=== PATIENT | female | born 1935 | race Caucasian/White ===

== ENCOUNTER → 2017-08-18 | Outpatient (REF) | payer MEDICARE ==
[2017-08-18 15:46] LABS: BASO # 0.1 10^3/uL (0.0-0.2); BASO % 0.6 % (0.0-1.0); EOS # 0.4 10^3/uL (0.0-0.50); EOS % 2.8 % (0.0-3.0); IMMATURE GRANULOCYTE % 0.8 % (0-0); LYMPH # 1.6 10^3/uL (1.5-4.5); LYMPH % 11.7 % (24.0-44.0); MEAN CORPUSCULAR HEMOGLOBIN 27.9 pg (27.0-33.0); MONO # 0.8 10^3/uL (0.0-0.8); MONO % 5.9 % (0.0-5.0); NEUTROPHILS # 10.7 10^3/uL (1.8-7.7); NEUTROPHILS % 78.2 % (36.0-66.0); PLATELET COUNT, AUTOMATED 756 10^3/uL (150-450); RED CELL DISTRIBUTION WIDTH 17.8 % (11.5-14.5); WHITE BLOOD COUNT 13.6 10^3/uL (4.0-10.0)
[2017-08-18 15:58] LABS: ALBUMIN/GLOBULIN RATIO 0.32 (1.00-1.93); BILIRUBIN,TOTAL 0.2 MG/DL (0.2-1.0); CALCIUM LEVEL 8.8 MG/DL (8.8-10.2); CREATININE FOR GFR 2.84 MG/DL (0.55-1.02); GLOMERULAR FILTRATION RATE 16.9 (>32); POTASSIUM SERUM 4.8 MEQ/L (3.5-5.1); TOTAL PROTEIN 8.2 GM/DL (6.4-8.2)
== END ==
LOC: M LAB REF 15:18
PROVIDERS: ATTEND Internal Medicine Infectious Disease
DX: T81.4XXD Infection following a procedure, subsequent encounter (principal)

== ENCOUNTER → 2017-08-25 | Outpatient (REF) | payer MEDICARE ==
[2017-08-25 18:28] LABS: BASO # 0.1 10^3/uL (0.0-0.2); BASO % 0.4 % (0.0-1.0); EOS # 0.3 10^3/uL (0.0-0.50); IMMATURE GRANULOCYTE # 0.1 10^3/uL (0-0); IMMATURE GRANULOCYTE % 0.5 % (0-0); LYMPH # 0.8 10^3/uL (1.5-4.5); LYMPH % 4.5 % (24.0-44.0); MEAN CORPUSCULAR HEMOGLOBIN 28.5 pg (27.0-33.0); MEAN CORPUSCULAR HGB CONC 30.3 g/dl (32.0-36.5); MEAN CORPUSCULAR VOLUME 93.9 fl (80.0-96.0); MONO # 1.3 10^3/uL (0.0-0.8); MONO % 7.9 % (0.0-5.0); NEUTROPHILS # 14.5 10^3/uL (1.8-7.7); NEUTROPHILS % 84.7 % (36.0-66.0); PLATELET COUNT, AUTOMATED 600 10^3/uL (150-450); RED CELL DISTRIBUTION WIDTH 17.3 % (11.5-14.5); WHITE BLOOD COUNT 17.1 10^3/uL (4.0-10.0)
[2017-08-25 18:45] LABS: ALBUMIN 2.2 GM/DL (3.2-5.2); ALBUMIN/GLOBULIN RATIO 0.34 (1.00-1.93); ALKALINE PHOSPHATASE 118 U/L (45-117); ALT/SGPT 29 U/L (12-78); ANION GAP 11 MEQ/L (8-16); AST/SGOT 27 U/L (7-37); BILIRUBIN,TOTAL 0.2 MG/DL (0.2-1.0); BLOOD UREA NITROGEN 74 MG/DL (7-18); CALCIUM LEVEL 9.1 MG/DL (8.8-10.2); CARBON DIOXIDE LEVEL 16 MEQ/L (21-32); CHLORIDE LEVEL 109 MEQ/L (98-107); CREATININE FOR GFR 2.78 MG/DL (0.55-1.02); GLOMERULAR FILTRATION RATE 17.4 (>32); GLUCOSE, FASTING 218 MG/DL (83-110); POTASSIUM SERUM 4.6 MEQ/L (3.5-5.1); SODIUM LEVEL 136 MEQ/L (136-145); TOTAL PROTEIN 8.6 GM/DL (6.4-8.2)
== END ==
LOC: M LAB REF 17:29
DX: T81.4XXD Infection following a procedure, subsequent encounter (principal)
CPT/HCPCS: 80053

== ENCOUNTER → 2017-08-27 | Outpatient (REF) | payer MEDICARE ==
[2017-08-28 15:25] LABS: CALCIUM OXALATE CRYSTALS SMALL
== END ==
LOC: M LAB REF 18:00
DX: D72.829 Elevated white blood cell count, unspecified (principal); N31.9 Neuromuscular dysfunction of bladder, unspecified
CPT/HCPCS: 81001

== ENCOUNTER → 2017-09-01 | Outpatient (REF) | payer MEDICARE ==
[2017-09-01 15:11] LABS: BASO # 0.1 10^3/uL (0.0-0.2); BASO % 0.4 % (0.0-1.0); EOS # 0.2 10^3/uL (0.0-0.50); EOS % 1.2 % (0.0-3.0); IMMATURE GRANULOCYTE # 0.2 10^3/uL (0-0); IMMATURE GRANULOCYTE % 1.4 % (0-0); LYMPH # 1.1 10^3/uL (1.5-4.5); LYMPH % 6.6 % (24.0-44.0); MEAN CORPUSCULAR HEMOGLOBIN 28.4 pg (27.0-33.0); MEAN CORPUSCULAR VOLUME 91.5 fl (80.0-96.0); MONO % 5.8 % (0.0-5.0); NEUTROPHILS # 14.3 10^3/uL (1.8-7.7); NEUTROPHILS % 84.6 % (36.0-66.0); PLATELET COUNT, AUTOMATED 544 10^3/uL (150-450); RED BLOOD COUNT 3.17 10^6/uL (4.00-5.40); RED CELL DISTRIBUTION WIDTH 17.2 % (11.5-14.5); WHITE BLOOD COUNT 16.9 10^3/uL (4.0-10.0)
[2017-09-01 15:33] LABS: ALBUMIN 1.9 GM/DL (3.2-5.2); ALBUMIN/GLOBULIN RATIO 0.31 (1.00-1.93); ALKALINE PHOSPHATASE 113 U/L (45-117); ALT/SGPT 27 U/L (12-78); ANION GAP 12 MEQ/L (8-16); AST/SGOT 16 U/L (7-37); BILIRUBIN,TOTAL 0.3 MG/DL (0.2-1.0); BLOOD UREA NITROGEN 78 MG/DL (7-18); CALCIUM LEVEL 9.1 MG/DL (8.8-10.2); CARBON DIOXIDE LEVEL 15 MEQ/L (21-32); CHLORIDE LEVEL 108 MEQ/L (98-107); GLOMERULAR FILTRATION RATE 15.3 (>32); GLUCOSE, FASTING 313 MG/DL (83-110); POTASSIUM SERUM 4.4 MEQ/L (3.5-5.1); SODIUM LEVEL 135 MEQ/L (136-145); TOTAL PROTEIN 8.1 GM/DL (6.4-8.2)
== END ==
LOC: M LAB REF 14:58
DX: Z51.81 Encounter for therapeutic drug level monitoring (principal); Z79.899 Other long term (current) drug therapy; T81.4XXD Infection following a procedure, subsequent encounter; Y83.8 Other surgical procedures as the cause of abnormal reaction of the patient, or of later complication, without mention of misadventure at the time of the procedure
CPT/HCPCS: 80053

== ENCOUNTER 2017-09-03 17:36 | Emergency (ER) | payer MEDICARE ==
[2017-09-03] MEDS ORDERED: SODIUM CHLORIDE 0.9% INJ 10 ML SYR IV (18:15)
[2017-09-03 18:46] LABS: APPEARANCE, URINE MANUAL TURBID (CLEAR); COLOR, URINE MANUAL YELLOW (YELLOW)
[2017-09-03 18:47] LABS: BILIRUBIN, URINE MANUAL NEGATIVE (NEGATIVE); BLOOD URINE MANUAL POSITIVE (NEGATIVE); GLUCOSE, URINE (UA) MANUAL NEGATIVE (NEGATIVE); KETONE, URINE MANUAL NEGATIVE (NEGATIVE); LEUKOCYTE ESTERASE, URINE MAN POSITIVE (NEGATIVE); MICROSCOPIC INDICATED? MAN YES (NO); NITRITE, URINE MANUAL POSITIVE (NEGATIVE); PROTEIN, URINE MANUAL 3+ mg/dL (NEGATIVE); UROBILINOGEN, URINE MANUAL NORMAL (NORMAL)
[2017-09-03 18:49] LABS: BASO # 0.1 10^3/uL (0.0-0.2); BASO % 0.3 % (0.0-1.0); EOS # 0.1 10^3/uL (0.0-0.50); EOS % 0.3 % (0.0-3.0); HEMATOCRIT 30.3 % (36.0-47.0); HEMOGLOBIN 9.3 g/dl (12.0-16.0); IMMATURE GRANULOCYTE # 0.2 10^3/uL (0-0); IMMATURE GRANULOCYTE % 1.3 % (0-0); LYMPH % 5.6 % (24.0-44.0); MEAN CORPUSCULAR HEMOGLOBIN 27.9 pg (27.0-33.0); MEAN CORPUSCULAR HGB CONC 30.7 g/dl (32.0-36.5); MONO # 1.3 10^3/uL (0.0-0.8); MONO % 6.9 % (0.0-5.0); NEUTROPHILS # 15.6 10^3/uL (1.8-7.7); NEUTROPHILS % 85.6 % (36.0-66.0); PLATELET COUNT, AUTOMATED 598 10^3/uL (150-450); RED BLOOD COUNT 3.33 10^6/uL (4.00-5.40); RED CELL DISTRIBUTION WIDTH 17.1 % (11.5-14.5); WHITE BLOOD COUNT 18.3 10^3/uL (4.0-10.0)
[2017-09-03 19:02] LABS: INR 1.17; PROTHROMBIN TIME 15.1 SECONDS (12.4-14.5)
[2017-09-03 19:03] LABS: PARTIAL THROMBOPLASTIN TIME 39.3 SECONDS (26.8-37.9)
[2017-09-03 19:04] LABS: BACTERIA, URINE LARGE AMOUNT; HYALINE CAST, URINE NONE SEEN /lpf (0-1); MICROSCOPIC EXAM PERFORMED; MUCUS, URINE SMALL AMOUNT (NEGATIVE); RBC, URINE TNTC /hpf (0-3); SQUAMOUS EPITHELIAL CELL URINE NONE SEEN /hpf (SMALL AMT)
[2017-09-03 19:14] LABS: ALKALINE PHOSPHATASE 103 U/L (45-117); ALT/SGPT 26 U/L (12-78); AMYLASE 88 U/L (25-115); AST/SGOT 18 U/L (7-37); BILIRUBIN,DIRECT < 0.1 MG/DL (0.0-0.2); BILIRUBIN,TOTAL 0.2 MG/DL (0.2-1.0); BLOOD UREA NITROGEN 85 MG/DL (7-18); CALCIUM LEVEL 9.1 MG/DL (8.8-10.2); CARBON DIOXIDE LEVEL 13 MEQ/L (21-32); CHLORIDE LEVEL 113 MEQ/L (98-107); CPK CREATINE PHOSPHOKINASE 15 U/L (26-192); CREATININE FOR GFR 3.13 MG/DL (0.55-1.02); GLUCOSE, FASTING 137 MG/DL (83-110); POTASSIUM SERUM 3.8 MEQ/L (3.5-5.1); SODIUM LEVEL 138 MEQ/L (136-145); TOTAL PROTEIN 9.1 GM/DL (6.4-8.2); TROPONIN I < 0.02 NG/ML (< 0.10)
[2017-09-03 19:17] LABS: MB/CK RELATIVE INDEX 6.66 (< OR =4)
[2017-09-03 19:21] LABS: VENOUS BASE EXCESS -15.4 (-2.0-2.0); VENOUS HCO3 10.8 MEQ/L (23.0-27.0); VENOUS O2 SATURATION 80.3 % (60.0-80.0); VENOUS PARTIAL PRESSURE CO2 27.1 mmHg (38.0-50.0); VENOUS PARTIAL PRESSURE O2 52.1 mmHg (30.0-50.0); VENOUS STANDARD HCO3 12.3 MEQ/L; VENOUS TOTAL CO2 11.7 MEQ/L (24.0-28.0)
[2017-09-03 19:39] LABS: ALBUMIN/GLOBULIN RATIO 0.28 (1.00-1.93); ANION GAP 12 MEQ/L (8-16)
[2017-09-03] MEDS: DILUENT IV (20:32)
[2017-09-03] MEDS: NS IV (20:32)
[2017-09-03] MEDS: diphenhydrAMINE INJ 50MG/ML VIAL (J1200) IV (21:21)
[2017-09-03] MEDS: IMIPENEM/CILASTATIN 500 MG in D5W MINI-BAG PLUS 100 ML IV (21:40)
[2017-09-03] MEDS: fentaNYL 100 MCG/2 ML INJECTION (J3010) IV (22:30)
== END 2017-09-04 00:05 | disposition short-term general hospital (02) ==
LOC: M ED 09-04 00:05
DX: A41.9 Sepsis, unspecified organism (principal); N39.0 Urinary tract infection, site not specified; R53.1 Weakness; E11.9 Type 2 diabetes mellitus without complications; I10 Essential (primary) hypertension; E07.9 Disorder of thyroid, unspecified; Z79.899 Other long term (current) drug therapy; Z79.4 Long term (current) use of insulin
CPT/HCPCS: J1200

== ENCOUNTER 2017-12-21 18:16 | Inpatient (IN) | payer MEDICARE ==
[2017-12-21] MEDS: ACETAMINOPHEN TAB 650MG DOSE (2X325MG) PO (20:06)
[2017-12-21] MEDS ORDERED: ONDANSETRON 4 MG TAB (S0181) PO (22:00)
[2017-12-21] MEDS ORDERED: GLUCAGON FOR INJ 1 MG VIAL (J1610) SC (22:00)
[2017-12-21] MEDS ORDERED: GLUCOSE 4 GM CHEW TABLET PO (22:00)
[2017-12-21] MEDS ORDERED: DEXTROSE 50% 50 ML SYRINGE IV (22:00)
[2017-12-21 22:50] LABS: BASO # 0.1 10^3/uL (0.0-0.2); BASO % 0.4 % (0.0-1.0); EOS # 0.3 10^3/uL (0.0-0.50); EOS % 1.6 % (0.0-3.0); HEMATOCRIT 33.1 % (36.0-47.0); HEMOGLOBIN 10.8 g/dl (12.0-15.5); IMMATURE GRANULOCYTE % 0.6 % (0-3.0); LYMPH # 1.3 10^3/uL (1.5-4.5); LYMPH % 6.9 % (24.0-44.0); MEAN CORPUSCULAR HEMOGLOBIN 30.3 pg (27.0-33.0); MEAN CORPUSCULAR HGB CONC 32.6 g/dl (32.0-36.5); MEAN CORPUSCULAR VOLUME 92.7 fl (80.0-96.0); MONO # 0.9 10^3/uL (0.0-0.8); NEUTROPHILS # 16.2 10^3/uL (1.8-7.7); NEUTROPHILS % 85.5 % (36.0-66.0); PLATELET COUNT, AUTOMATED 507 10^3/uL (150-450); RED BLOOD COUNT 3.57 10^6/uL (4.00-5.40); RED CELL DISTRIBUTION WIDTH 15.4 % (11.5-14.5)
[2017-12-21 23:12] LABS: APPEARANCE, URINE CLOUDY (CLEAR); BACTERIA, URINE AUTO NEGATIVE (NEGATIVE); BILIRUBIN, URINE AUTO NEGATIVE (NEGATIVE); BLOOD, URINE BLOOD 2+ (NEGATIVE); COLOR, URINE YELLOW (YELLOW); GLUCOSE, URINE (UA) AUTO NEGATIVE (NEGATIVE); KETONE, URINE AUTO NEGATIVE (NEGATIVE); LEUKOCYTE ESTERASE, URINE AUTO 3+ (NEGATIVE); NITRITE, URINE AUTO NEGATIVE (NEGATIVE); PROTEIN, URINE AUTO 1+ mg/dL (NEGATIVE); RBC, URINE AUTO 50 /HPF (0-3); SQUAMOUS EPITHELIAL CELL UR AU 0 /HPF (0-6); UROBILINOGEN, URINE AUTO 0.2 mg/dL (0.0-2.0); WBC, URINE AUTO TNTC /HPF (0-3)
[2017-12-21 23:14] LABS: ANION GAP 11 MEQ/L (8-16); BLOOD UREA NITROGEN 55 MG/DL (7-18); CALCIUM LEVEL 9.1 MG/DL (8.8-10.2); CARBON DIOXIDE LEVEL 16 MEQ/L (21-32); CHLORIDE LEVEL 116 MEQ/L (98-107); CREATININE FOR GFR 2.14 MG/DL (0.55-1.30); GLOMERULAR FILTRATION RATE 23.5 (>32); GLUCOSE, FASTING 164 MG/DL (70-100); POTASSIUM SERUM 4.8 MEQ/L (3.5-5.1); SODIUM LEVEL 143 MEQ/L (136-145)
[2017-12-21 23:21] LABS: INR 1.08; PROTHROMBIN TIME 14.2 SECONDS (12.4-14.5)
[2017-12-21 23:22] LABS: PARTIAL THROMBOPLASTIN TIME 29.6 SECONDS (26.8-37.9)
[2017-12-21] MEDS: PERCOCET 5MG/325MG TAB PO (23:30)
[2017-12-21] MEDS: BACTRIM 80MG/400MG TAB PO (23:30)
[2017-12-21] MEDS: HumaLOG INSULIN (NovoLOG) PER UNIT SC (23:50)
[2017-12-22] MEDS: LACTOBACILLUS ACIDOPHILUS CAP (BACID) PO ×3 (00:28→21:00)
[2017-12-22] MEDS: NS 1,000 ML IV ×2 (00:28→13:20)
[2017-12-22] MEDS: ACETAMINOPHEN TAB 650MG DOSE (2X325MG) PO (00:28)
[2017-12-22] MEDS: ATENOLOL 25 MG TAB PO ×2 (00:29→21:01)
[2017-12-22] MEDS: LEVEMIR (INSULIN DETEMIR) 1 UNITS/0.01ML SC ×2 (00:34→20:59)
[2017-12-22] MEDS: NYSTATIN 100,000 UNITS/GM TOPICAL PWD 15 GM TOP ×3 (01:01→21:00)
[2017-12-22] MEDS: LEVOTHYROXINE 50MCG TABLET (0.05MG) PO (05:09)
[2017-12-22 07:57] LABS: HEMATOCRIT 31.9 % (36.0-47.0); HEMOGLOBIN 10.2 g/dl (12.0-15.5); MEAN CORPUSCULAR HEMOGLOBIN 29.4 pg (27.0-33.0); MEAN CORPUSCULAR VOLUME 91.9 fl (80.0-96.0); PLATELET COUNT, AUTOMATED 476 10^3/uL (150-450); RED BLOOD COUNT 3.47 10^6/uL (4.00-5.40); RED CELL DISTRIBUTION WIDTH 15.4 % (11.5-14.5); WHITE BLOOD COUNT 12.9 10^3/uL (4.0-10.0)
[2017-12-22 08:07] LABS: INR 1.13; PROTHROMBIN TIME 14.7 SECONDS (12.4-14.5)
[2017-12-22] MEDS: FERROUS SULFATE 325MG TAB PO (08:15)
[2017-12-22] MEDS: MULTIVITAMINS/MINERALS THERAP 1 TAB PO (08:15)
[2017-12-22] MEDS: ATORVASTATIN 20 MG TAB PO (08:16)
[2017-12-22] MEDS: BACTRIM 80MG/400MG TAB PO (08:16)
[2017-12-22] MEDS: FUROSEMIDE 20 MG TAB PO (08:16)
[2017-12-22] MEDS: POTASSIUM CHLORIDE 10 MEQ SR TABLET PO (08:16)
[2017-12-22] MEDS: PANTOPRAZOLE 20 MG TAB PO (08:16)
[2017-12-22] MEDS: PERCOCET 5MG/325MG TAB PO ×3 (08:22→21:00)
[2017-12-22 08:28] LABS: ALBUMIN 2.7 GM/DL (3.2-5.2); ALBUMIN/GLOBULIN RATIO 0.52 (1.00-1.93); ALKALINE PHOSPHATASE 102 U/L (45-117); ALT/SGPT 25 U/L (12-78); ANION GAP 7 MEQ/L (8-16); AST/SGOT 15 U/L (7-37); BILIRUBIN,TOTAL 0.2 MG/DL (0.2-1.0); BLOOD UREA NITROGEN 53 MG/DL (7-18); CALCIUM LEVEL 8.6 MG/DL (8.8-10.2); CARBON DIOXIDE LEVEL 19 MEQ/L (21-32); CHLORIDE LEVEL 117 MEQ/L (98-107); GLOMERULAR FILTRATION RATE 22.7 (>32); GLUCOSE, FASTING 104 MG/DL (70-100); MAGNESIUM LEVEL 2.2 MG/DL (1.8-2.4); POTASSIUM SERUM 4.2 MEQ/L (3.5-5.1); SODIUM LEVEL 143 MEQ/L (136-145); TOTAL PROTEIN 7.9 GM/DL (6.4-8.2)
[2017-12-22] MEDS: HumaLOG INSULIN (NovoLOG) PER UNIT SC ×4 (08:37→20:59)
[2017-12-22 12:05] LABS: BEDSIDE GLUCOSE 116 MG/DL (83-110)
[2017-12-22] MEDS: ASPIRIN 81 MG ENTERIC TAB PO (14:39)
[2017-12-22 17:21] LABS: BEDSIDE GLUCOSE 142 MG/DL (83-110)
[2017-12-22 20:51] LABS: BEDSIDE GLUCOSE 169 MG/DL (83-110)
[2017-12-22] MEDS: HEPARIN SOD (PORCINE) 5000 UNITS/ML VIAL SQ (21:01)
[2017-12-23] MEDS: PERCOCET 5MG/325MG TAB PO ×3 (04:07→21:05)
[2017-12-23] MEDS: LEVOTHYROXINE 50MCG TABLET (0.05MG) PO (05:59)
[2017-12-23 06:38] LABS: HEMATOCRIT 29.6 % (36.0-47.0); HEMOGLOBIN 9.5 g/dl (12.0-15.5); MEAN CORPUSCULAR HEMOGLOBIN 29.5 pg (27.0-33.0); MEAN CORPUSCULAR HGB CONC 32.1 g/dl (32.0-36.5); MEAN CORPUSCULAR VOLUME 91.9 fl (80.0-96.0); PLATELET COUNT, AUTOMATED 466 10^3/uL (150-450); RED BLOOD COUNT 3.22 10^6/uL (4.00-5.40); RED CELL DISTRIBUTION WIDTH 15.8 % (11.5-14.5); WHITE BLOOD COUNT 12.8 10^3/uL (4.0-10.0)
[2017-12-23 06:48] LABS: INR 1.08; PROTHROMBIN TIME 14.2 SECONDS (12.4-14.5)
[2017-12-23 07:00] LABS: ALBUMIN 2.4 GM/DL (3.2-5.2); ALBUMIN/GLOBULIN RATIO 0.49 (1.00-1.93); ALKALINE PHOSPHATASE 83 U/L (45-117); ALT/SGPT 23 U/L (12-78); ANION GAP 10 MEQ/L (8-16); AST/SGOT 13 U/L (7-37); BILIRUBIN,TOTAL 0.1 MG/DL (0.2-1.0); BLOOD UREA NITROGEN 53 MG/DL (7-18); CALCIUM LEVEL 8.3 MG/DL (8.8-10.2); CARBON DIOXIDE LEVEL 15 MEQ/L (21-32); CHLORIDE LEVEL 119 MEQ/L (98-107); CREATININE FOR GFR 2.26 MG/DL (0.55-1.30); GLOMERULAR FILTRATION RATE 22.1 (>32); GLUCOSE, FASTING 110 MG/DL (70-100); MAGNESIUM LEVEL 2.3 MG/DL (1.8-2.4); POTASSIUM SERUM 4.1 MEQ/L (3.5-5.1); SODIUM LEVEL 144 MEQ/L (136-145); TOTAL PROTEIN 7.3 GM/DL (6.4-8.2)
[2017-12-23] MEDS: HumaLOG INSULIN (NovoLOG) PER UNIT SC ×4 (09:56→21:00)
[2017-12-23] MEDS: ASPIRIN 81 MG ENTERIC TAB PO (09:56)
[2017-12-23] MEDS: LACTOBACILLUS ACIDOPHILUS CAP (BACID) PO ×2 (09:56→21:05)
[2017-12-23] MEDS: MULTIVITAMINS/MINERALS THERAP 1 TAB PO (09:57)
[2017-12-23] MEDS: PANTOPRAZOLE 20 MG TAB PO (09:57)
[2017-12-23] MEDS: FERROUS SULFATE 325MG TAB PO (09:57)
[2017-12-23] MEDS: ATORVASTATIN 20 MG TAB PO (09:57)
[2017-12-23] MEDS: POTASSIUM CHLORIDE 10 MEQ SR TABLET PO (09:57)
[2017-12-23] MEDS: HEPARIN SOD (PORCINE) 5000 UNITS/ML VIAL SQ ×2 (09:58→21:05)
[2017-12-23] MEDS: NYSTATIN 100,000 UNITS/GM TOPICAL PWD 15 GM TOP ×2 (09:59→21:00)
[2017-12-23 11:41] LABS: BEDSIDE GLUCOSE 180 MG/DL (83-110)
[2017-12-23] MEDS: VANCOMYCIN HCL 1,000 MG, VIAL MATE ADAPTER 1 EACH in D5W 250 ML IV (14:36)
[2017-12-23] MEDS: MEROPENEM INJ 500 MG in APPROPRIATE DILUENT 1 EA IV (16:08)
[2017-12-23 17:20] LABS: BEDSIDE GLUCOSE 84 MG/DL (83-110)
[2017-12-23 20:53] LABS: BEDSIDE GLUCOSE 207 MG/DL (83-110)
[2017-12-23] MEDS: LEVEMIR (INSULIN DETEMIR) 1 UNITS/0.01ML SC (21:05)
[2017-12-23] MEDS: ATENOLOL 25 MG TAB PO (21:06)
[2017-12-24] MEDS: MEROPENEM INJ 500 MG in APPROPRIATE DILUENT 1 EA IV ×2 (04:49→16:25)
[2017-12-24] MEDS: LEVOTHYROXINE 50MCG TABLET (0.05MG) PO (05:22)
[2017-12-24 06:04] LABS: HEMATOCRIT 29.6 % (36.0-47.0); HEMOGLOBIN 9.3 g/dl (12.0-15.5); MEAN CORPUSCULAR HEMOGLOBIN 29.8 pg (27.0-33.0); MEAN CORPUSCULAR HGB CONC 31.4 g/dl (32.0-36.5); MEAN CORPUSCULAR VOLUME 94.9 fl (80.0-96.0); PLATELET COUNT, AUTOMATED 443 10^3/uL (150-450); RED BLOOD COUNT 3.12 10^6/uL (4.00-5.40); RED CELL DISTRIBUTION WIDTH 15.9 % (11.5-14.5); WHITE BLOOD COUNT 12.1 10^3/uL (4.0-10.0)
[2017-12-24 06:19] LABS: INR 2.25; PROTHROMBIN TIME 25.7 SECONDS (12.4-14.5)
[2017-12-24 06:42] LABS: ALBUMIN 2.3 GM/DL (3.2-5.2); ALBUMIN/GLOBULIN RATIO 0.48 (1.00-1.93); ALKALINE PHOSPHATASE 89 U/L (45-117); ALT/SGPT 21 U/L (12-78); ANION GAP 10 MEQ/L (8-16); AST/SGOT 17 U/L (7-37); BILIRUBIN,TOTAL 0.2 MG/DL (0.2-1.0); BLOOD UREA NITROGEN 54 MG/DL (7-18); CALCIUM LEVEL 8.7 MG/DL (8.8-10.2); CARBON DIOXIDE LEVEL 13 MEQ/L (21-32); CHLORIDE LEVEL 117 MEQ/L (98-107); CREATININE FOR GFR 2.21 MG/DL (0.55-1.30); GLOMERULAR FILTRATION RATE 22.6 (>32); GLUCOSE, FASTING 94 MG/DL (70-100); MAGNESIUM LEVEL 2.3 MG/DL (1.8-2.4); POTASSIUM SERUM 4.2 MEQ/L (3.5-5.1); SODIUM LEVEL 140 MEQ/L (136-145); TOTAL PROTEIN 7.1 GM/DL (6.4-8.2)
[2017-12-24] MEDS: HEPARIN SOD (PORCINE) 5000 UNITS/ML VIAL SQ ×2 (08:18→21:45)
[2017-12-24] MEDS: VANCOMYCIN HCL 500 MG in D5W MINI-BAG PLUS 100 ML IV (08:18)
[2017-12-24] MEDS: PANTOPRAZOLE 20 MG TAB PO (08:18)
[2017-12-24] MEDS: MULTIVITAMINS/MINERALS THERAP 1 TAB PO (08:18)
[2017-12-24] MEDS: LACTOBACILLUS ACIDOPHILUS CAP (BACID) PO ×2 (08:19→21:44)
[2017-12-24] MEDS: POTASSIUM CHLORIDE 10 MEQ SR TABLET PO (08:19)
[2017-12-24] MEDS: ASPIRIN 81 MG ENTERIC TAB PO (08:19)
[2017-12-24] MEDS: ATORVASTATIN 20 MG TAB PO (08:19)
[2017-12-24] MEDS: FERROUS SULFATE 325MG TAB PO (08:19)
[2017-12-24] MEDS: NYSTATIN 100,000 UNITS/GM TOPICAL PWD 15 GM TOP ×2 (08:20→21:46)
[2017-12-24] MEDS: HumaLOG INSULIN (NovoLOG) PER UNIT SC ×4 (08:20→21:00)
[2017-12-24] MEDS: ACETAMINOPHEN TAB 650MG DOSE (2X325MG) PO (08:24)
[2017-12-24 12:30] LABS: BEDSIDE GLUCOSE 201 MG/DL (83-110)
[2017-12-24 12:55] LABS: INR 1.11; PROTHROMBIN TIME 14.5 SECONDS (12.4-14.5)
[2017-12-24] MEDS: PERCOCET 5MG/325MG TAB PO ×2 (13:58→21:45)
[2017-12-24 17:39] LABS: BEDSIDE GLUCOSE 182 MG/DL (83-110)
[2017-12-24] MEDS: LEVEMIR (INSULIN DETEMIR) 1 UNITS/0.01ML SC (21:00)
[2017-12-24 21:12] LABS: BEDSIDE GLUCOSE 228 MG/DL (83-110)
[2017-12-24] MEDS: ATENOLOL 25 MG TAB PO (21:44)
[2017-12-25] MEDS: VANCOMYCIN HCL 500 MG in D5W MINI-BAG PLUS 100 ML IV ×2 (01:45→21:24)
[2017-12-25] MEDS: PERCOCET 5MG/325MG TAB PO ×2 (01:46→08:56)
[2017-12-25] MEDS: MEROPENEM INJ 500 MG in APPROPRIATE DILUENT 1 EA IV ×2 (03:46→16:19)
[2017-12-25] MEDS: LEVOTHYROXINE 50MCG TABLET (0.05MG) PO (06:04)
[2017-12-25 06:25] LABS: HEMOGLOBIN 9.2 g/dl (12.0-15.5); MEAN CORPUSCULAR HEMOGLOBIN 29.7 pg (27.0-33.0); MEAN CORPUSCULAR HGB CONC 31.7 g/dl (32.0-36.5); MEAN CORPUSCULAR VOLUME 93.5 fl (80.0-96.0); PLATELET COUNT, AUTOMATED 422 10^3/uL (150-450); RED CELL DISTRIBUTION WIDTH 15.8 % (11.5-14.5); WHITE BLOOD COUNT 15.2 10^3/uL (4.0-10.0)
[2017-12-25 06:34] LABS: INR 1.14; PROTHROMBIN TIME 14.8 SECONDS (12.4-14.5)
[2017-12-25 06:52] LABS: ALBUMIN 2.3 GM/DL (3.2-5.2); ALBUMIN/GLOBULIN RATIO 0.47 (1.00-1.93); ALKALINE PHOSPHATASE 85 U/L (45-117); ALT/SGPT 19 U/L (12-78); ANION GAP 9 MEQ/L (8-16); AST/SGOT 13 U/L (7-37); BILIRUBIN,TOTAL 0.3 MG/DL (0.2-1.0); BLOOD UREA NITROGEN 55 MG/DL (7-18); CALCIUM LEVEL 8.7 MG/DL (8.8-10.2); CARBON DIOXIDE LEVEL 16 MEQ/L (21-32); CHLORIDE LEVEL 119 MEQ/L (98-107); CREATININE FOR GFR 1.94 MG/DL (0.55-1.30); GLOMERULAR FILTRATION RATE 26.3 (>32); GLUCOSE, FASTING 126 MG/DL (70-100); MAGNESIUM LEVEL 2.2 MG/DL (1.8-2.4); POTASSIUM SERUM 3.9 MEQ/L (3.5-5.1); SODIUM LEVEL 144 MEQ/L (136-145); TOTAL PROTEIN 7.2 GM/DL (6.4-8.2)
[2017-12-25] MEDS: HumaLOG INSULIN (NovoLOG) PER UNIT SC ×4 (07:30→21:00)
[2017-12-25] MEDS: ATORVASTATIN 20 MG TAB PO (08:50)
[2017-12-25] MEDS: POTASSIUM CHLORIDE 10 MEQ SR TABLET PO (08:50)
[2017-12-25] MEDS: LACTOBACILLUS ACIDOPHILUS CAP (BACID) PO ×2 (08:50→21:24)
[2017-12-25] MEDS: FERROUS SULFATE 325MG TAB PO (08:50)
[2017-12-25] MEDS: MULTIVITAMINS/MINERALS THERAP 1 TAB PO (08:50)
[2017-12-25] MEDS: PANTOPRAZOLE 20 MG TAB PO (08:50)
[2017-12-25] MEDS: ASPIRIN 81 MG ENTERIC TAB PO (08:50)
[2017-12-25] MEDS: HEPARIN SOD (PORCINE) 5000 UNITS/ML VIAL SQ ×2 (08:51→21:26)
[2017-12-25] MEDS: NYSTATIN 100,000 UNITS/GM TOPICAL PWD 15 GM TOP ×2 (08:51→21:26)
[2017-12-25 12:13] LABS: BEDSIDE GLUCOSE 132 MG/DL (83-110)
[2017-12-25] MEDS ORDERED: fentaNYL 100 MCG/2 ML INJECTION (J3010) As Ordered ×2 (14:52→16:32)
[2017-12-25] MEDS ORDERED: ETOMIDATE INJ 20MG/10ML VIAL As Ordered (14:52)
[2017-12-25] MEDS ORDERED: PROPOFOL 200 MG/20 ML VIAL As Ordered (14:52)
[2017-12-25] MEDS ORDERED: LIDOCAINE 2% INJ 100 MG/5 ML SDV (FOR ANES.) As Ordered (14:52)
[2017-12-25] MEDS ORDERED: ROCURONIUM BROMIDE 50 MG/5 ML VIAL As Ordered (14:56)
[2017-12-25] MEDS: CLINDAMYCIN INJ 900MG/6ML VIAL As Ordered (16:00)
[2017-12-25] MEDS: TRANEXAMIC ACID 100 MG/ML 10ML VIAL As Ordered (16:00)
[2017-12-25] MEDS: EPINEPHrine INJ 1 MG/ML 1ML AMP As Ordered (16:00)
[2017-12-25] MEDS ORDERED: HYDROmorphone HCL 2 MG/ML 1ML VIAL (J1170) As Ordered (16:02)
[2017-12-25] MEDS ORDERED: GLYCOPYRROLATE INJ 0.2 MG/ML 2 ML VIAL As Ordered (16:21)
[2017-12-25] MEDS ORDERED: ePHEDrine SULFATE 25 MG/5 ML(5MG/ML) SYRINGE As Ordered (16:21)
[2017-12-25] MEDS ORDERED: ONDANSETRON 4MG/2ML VIAL (J2405) As Ordered (16:21)
[2017-12-25] MEDS ORDERED: NEOSTIGMINE 10 MG/10 ML VIAL (J2710) As Ordered (16:21)
[2017-12-25] MEDS ORDERED: dexameTHASONE 4 MG/ML 1ML VIAL (J1100) As Ordered (16:21)
[2017-12-25] MEDS ORDERED: PHENYLephrine HCL 500 MCG/5 ML (100MCG/ML) SYRINGE (J2370) As Ordered ×2 (16:21→16:53)
[2017-12-25] MEDS ORDERED: ONDANSETRON 4MG/2ML VIAL (J2405) IV (18:15)
[2017-12-25] MEDS ORDERED: HYDROmorphone HCL 1 MG/ML SYRINGE (J1170) IV (18:15)
[2017-12-25] MEDS ORDERED: fentaNYL 100 MCG/2 ML INJECTION (J3010) IV (18:15)
[2017-12-25 20:03] LABS: VANCOMYCIN LEVEL TROUGH 15.1 UG/ML (10.0-20.0)
[2017-12-25 21:10] LABS: BEDSIDE GLUCOSE 171 MG/DL (83-110)
[2017-12-25] MEDS: LR 1,000 ML IV (21:23)
[2017-12-25] MEDS: ATENOLOL 25 MG TAB PO (21:25)
[2017-12-25] MEDS: LEVEMIR (INSULIN DETEMIR) 1 UNITS/0.01ML SC (21:25)
[2017-12-25] MEDS: ACETAMINOPHEN TAB 650MG DOSE (2X325MG) PO (22:28)
[2017-12-26] MEDS: PERCOCET 5MG/325MG TAB PO ×5 (00:47→20:39)
[2017-12-26] MEDS: MEROPENEM INJ 500 MG in APPROPRIATE DILUENT 1 EA IV ×2 (04:00→16:48)
[2017-12-26 05:07] LABS: HEMATOCRIT 31.9 % (36.0-47.0); HEMOGLOBIN 9.9 g/dl (12.0-15.5); MEAN CORPUSCULAR HEMOGLOBIN 29.6 pg (27.0-33.0); MEAN CORPUSCULAR VOLUME 95.2 fl (80.0-96.0); PLATELET COUNT, AUTOMATED 449 10^3/uL (150-450); RED BLOOD COUNT 3.35 10^6/uL (4.00-5.40); RED CELL DISTRIBUTION WIDTH 15.8 % (11.5-14.5); WHITE BLOOD COUNT 16.7 10^3/uL (4.0-10.0)
[2017-12-26 05:17] LABS: INR 1.25
[2017-12-26 05:24] LABS: ALBUMIN 2.3 GM/DL (3.2-5.2); ALBUMIN/GLOBULIN RATIO 0.43 (1.00-1.93); ALKALINE PHOSPHATASE 72 U/L (45-117); ALT/SGPT 17 U/L (12-78); ANION GAP 9 MEQ/L (8-16); AST/SGOT 18 U/L (7-37); BILIRUBIN,TOTAL 0.2 MG/DL (0.2-1.0); BLOOD UREA NITROGEN 54 MG/DL (7-18); CALCIUM LEVEL 8.8 MG/DL (8.8-10.2); CARBON DIOXIDE LEVEL 15 MEQ/L (21-32); CHLORIDE LEVEL 119 MEQ/L (98-107); CREATININE FOR GFR 2.01 MG/DL (0.55-1.30); GLOMERULAR FILTRATION RATE 25.2 (>32); GLUCOSE, FASTING 153 MG/DL (70-100); MAGNESIUM LEVEL 2.4 MG/DL (1.8-2.4); SODIUM LEVEL 143 MEQ/L (136-145); TOTAL PROTEIN 7.7 GM/DL (6.4-8.2)
[2017-12-26] MEDS: LEVOTHYROXINE 50MCG TABLET (0.05MG) PO (05:55)
[2017-12-26] MEDS: HumaLOG INSULIN (NovoLOG) PER UNIT SC ×4 (07:37→20:12)
[2017-12-26] MEDS: FERROUS SULFATE 325MG TAB PO (09:30)
[2017-12-26] MEDS: HEPARIN SOD (PORCINE) 5000 UNITS/ML VIAL SQ ×2 (09:30→20:40)
[2017-12-26] MEDS: LACTOBACILLUS ACIDOPHILUS CAP (BACID) PO ×2 (09:30→20:39)
[2017-12-26] MEDS: ATORVASTATIN 20 MG TAB PO (09:30)
[2017-12-26] MEDS: SENOKOT S TAB PO ×2 (09:30→20:39)
[2017-12-26] MEDS: MULTIVITAMINS/MINERALS THERAP 1 TAB PO (09:30)
[2017-12-26] MEDS: ASPIRIN 81 MG ENTERIC TAB PO (09:31)
[2017-12-26] MEDS: MIRALAX *UNIT DOSE* 17GM PACKET PO (09:31)
[2017-12-26] MEDS: PANTOPRAZOLE 20 MG TAB PO (09:31)
[2017-12-26] MEDS: NYSTATIN 100,000 UNITS/GM TOPICAL PWD 15 GM TOP ×2 (09:31→20:41)
[2017-12-26 11:26] LABS: BEDSIDE GLUCOSE 190 MG/DL (83-110)
[2017-12-26 13:09] LABS: ANION GAP 9 MEQ/L (8-16); BLOOD UREA NITROGEN 60 MG/DL (7-18); CALCIUM LEVEL 9.1 MG/DL (8.8-10.2); CARBON DIOXIDE LEVEL 18 MEQ/L (21-32); CHLORIDE LEVEL 116 MEQ/L (98-107); GLUCOSE, FASTING 182 MG/DL (70-100); SODIUM LEVEL 143 MEQ/L (136-145)
[2017-12-26 13:11] LABS: POTASSIUM SERUM 5.5 MEQ/L (3.5-5.1)
[2017-12-26] MEDS: VANCOMYCIN HCL 500 MG in D5W MINI-BAG PLUS 100 ML IV (13:55)
[2017-12-26] MEDS: SODIUM BICARBONATE 75 MEQ in NS 0.45% 1,000 ML IV (16:22)
[2017-12-26] MEDS: WARFARIN SOD 5 MG TAB PO (16:48)
[2017-12-26 20:07] LABS: BEDSIDE GLUCOSE 175 MG/DL (83-110)
[2017-12-26] MEDS: ATENOLOL 25 MG TAB PO (20:40)
[2017-12-26] MEDS: LEVEMIR (INSULIN DETEMIR) 1 UNITS/0.01ML SC (20:40)
[2017-12-27] MEDS: PERCOCET 5MG/325MG TAB PO (03:26)
[2017-12-27] MEDS: MEROPENEM INJ 500 MG in APPROPRIATE DILUENT 1 EA IV (03:27)
[2017-12-27 05:24] LABS: HEMATOCRIT 24.3 % (36.0-47.0); MEAN CORPUSCULAR HEMOGLOBIN 30.1 pg (27.0-33.0); MEAN CORPUSCULAR HGB CONC 32.9 g/dl (32.0-36.5); MEAN CORPUSCULAR VOLUME 91.4 fl (80.0-96.0); PLATELET COUNT, AUTOMATED 369 10^3/uL (150-450); RED BLOOD COUNT 2.66 10^6/uL (4.00-5.40); RED CELL DISTRIBUTION WIDTH 15.8 % (11.5-14.5); WHITE BLOOD COUNT 15.8 10^3/uL (4.0-10.0)
[2017-12-27 05:34] LABS: PROTHROMBIN TIME 17.5 SECONDS (12.4-14.5)
[2017-12-27 05:49] LABS: ALBUMIN 1.7 GM/DL (3.2-5.2); ALKALINE PHOSPHATASE 58 U/L (45-117); ALT/SGPT 10 U/L (12-78); ANION GAP 8 MEQ/L (8-16); AST/SGOT 10 U/L (7-37); BILIRUBIN,TOTAL 0.2 MG/DL (0.2-1.0); BLOOD UREA NITROGEN 48 MG/DL (7-18); CALCIUM LEVEL 7.3 MG/DL (8.8-10.2); CARBON DIOXIDE LEVEL 23 MEQ/L (21-32); CHLORIDE LEVEL 112 MEQ/L (98-107); CREATININE FOR GFR 1.47 MG/DL (0.55-1.30); GLOMERULAR FILTRATION RATE 36.2 (>32); GLUCOSE, FASTING 116 MG/DL (70-100); MAGNESIUM LEVEL 2.1 MG/DL (1.8-2.4); POTASSIUM SERUM 3.8 MEQ/L (3.5-5.1); SODIUM LEVEL 143 MEQ/L (136-145)
[2017-12-27] MEDS: LEVOTHYROXINE 50MCG TABLET (0.05MG) PO (06:11)
[2017-12-27] MEDS: SODIUM BICARBONATE 75 MEQ in NS 0.45% 1,000 ML IV (06:44)
[2017-12-27] MEDS: HumaLOG INSULIN (NovoLOG) PER UNIT SC ×4 (08:54→21:00)
[2017-12-27] MEDS: LACTOBACILLUS ACIDOPHILUS CAP (BACID) PO ×2 (08:54→21:08)
[2017-12-27] MEDS: VANCOMYCIN HCL 500 MG in D5W MINI-BAG PLUS 100 ML IV (08:54)
[2017-12-27] MEDS: ASPIRIN 81 MG ENTERIC TAB PO (08:54)
[2017-12-27] MEDS: SENOKOT S TAB PO ×2 (08:55→21:08)
[2017-12-27] MEDS: PANTOPRAZOLE 20 MG TAB PO (08:55)
[2017-12-27] MEDS: MIRALAX *UNIT DOSE* 17GM PACKET PO (08:55)
[2017-12-27] MEDS: HEPARIN SOD (PORCINE) 5000 UNITS/ML VIAL SQ ×2 (08:55→21:09)
[2017-12-27] MEDS: FERROUS SULFATE 325MG TAB PO (08:55)
[2017-12-27] MEDS: MULTIVITAMINS/MINERALS THERAP 1 TAB PO (08:55)
[2017-12-27] MEDS: ATORVASTATIN 20 MG TAB PO (08:55)
[2017-12-27] MEDS: ACETAMINOPHEN TAB 650MG DOSE (2X325MG) PO ×2 (08:56→20:11)
[2017-12-27] MEDS: NYSTATIN 100,000 UNITS/GM TOPICAL PWD 15 GM TOP ×2 (08:57→21:09)
[2017-12-27 11:29] LABS: BEDSIDE GLUCOSE 155 MG/DL (83-110)
[2017-12-27] MEDS ORDERED: MOM 30ML SUSPENSION UDC PO (16:45)
[2017-12-27] MEDS: WARFARIN SOD 5 MG TAB PO (17:32)
[2017-12-27 20:29] LABS: BEDSIDE GLUCOSE 237 MG/DL (83-110)
[2017-12-27] MEDS: ATENOLOL 25 MG TAB PO (21:07)
[2017-12-27] MEDS: LEVEMIR (INSULIN DETEMIR) 1 UNITS/0.01ML SC (21:09)
[2017-12-28] MEDS: LINEZOLID 600MG TABLET (ZYVOX) PO ×3 (00:18→19:35)
[2017-12-28 00:56] LABS: KETONE, URINE AUTO RFX NEGATIVE (NEGATIVE); MUCUS, URINE RFX SMALL (NEGATIVE); NITRITE, URINE AUTO RFX NEGATIVE (NEGATIVE); RBC, URINE AUTO RFX 8 /HPF (0-3); SPECIFIC GRAVITY UR AUTO RFX 1.012 (1.002-1.035); SQUAM EPITHELIAL CELL UR AURFX 0 /HPF (0-6); YEAST LIKE CELL URINE AUTO RFX SMALL
[2017-12-28 00:57] LABS: LEUKOCYTE ESTERASE UR AUTO RFX 3+ (NEGATIVE); WBC, URINE AUTO RFX 53 /HPF (0-3)
[2017-12-28 05:22] LABS: HEMATOCRIT 27.9 % (36.0-47.0); HEMOGLOBIN 8.9 g/dl (12.0-15.5); MEAN CORPUSCULAR HEMOGLOBIN 29.1 pg (27.0-33.0); MEAN CORPUSCULAR HGB CONC 31.9 g/dl (32.0-36.5); MEAN CORPUSCULAR VOLUME 91.2 fl (80.0-96.0); PLATELET COUNT, AUTOMATED 409 10^3/uL (150-450); RED BLOOD COUNT 3.06 10^6/uL (4.00-5.40); RED CELL DISTRIBUTION WIDTH 15.7 % (11.5-14.5); WHITE BLOOD COUNT 14.9 10^3/uL (4.0-10.0)
[2017-12-28 05:30] LABS: INR 1.31; PROTHROMBIN TIME 16.6 SECONDS (12.4-14.5)
[2017-12-28 05:39] LABS: ALBUMIN/GLOBULIN RATIO 0.37 (1.00-1.93); ALKALINE PHOSPHATASE 83 U/L (45-117); ALT/SGPT 16 U/L (12-78); ANION GAP 11 MEQ/L (8-16); AST/SGOT 17 U/L (7-37); BILIRUBIN,TOTAL 0.3 MG/DL (0.2-1.0); BLOOD UREA NITROGEN 50 MG/DL (7-18); CALCIUM LEVEL 8.6 MG/DL (8.8-10.2); CARBON DIOXIDE LEVEL 19 MEQ/L (21-32); CHLORIDE LEVEL 116 MEQ/L (98-107); CREATININE FOR GFR 1.76 MG/DL (0.55-1.30); GLOMERULAR FILTRATION RATE 29.4 (>32); GLUCOSE, FASTING 98 MG/DL (70-100); MAGNESIUM LEVEL 2.5 MG/DL (1.8-2.4); POTASSIUM SERUM 3.8 MEQ/L (3.5-5.1); SODIUM LEVEL 146 MEQ/L (136-145); TOTAL PROTEIN 7.4 GM/DL (6.4-8.2)
[2017-12-28] MEDS: LEVOTHYROXINE 50MCG TABLET (0.05MG) PO (06:04)
[2017-12-28] MEDS: HumaLOG INSULIN (NovoLOG) PER UNIT SC ×4 (07:30→21:00)
[2017-12-28] MEDS: ACETAMINOPHEN TAB 650MG DOSE (2X325MG) PO (10:00)
[2017-12-28] MEDS: SODIUM BICARBONATE 50 MEQ in KCL 20MEQ IN D5W 1000ML 1,000 ML IV (10:00)
[2017-12-28] MEDS: ATORVASTATIN 20 MG TAB PO (10:01)
[2017-12-28] MEDS: MULTIVITAMINS/MINERALS THERAP 1 TAB PO (10:01)
[2017-12-28] MEDS: LACTOBACILLUS ACIDOPHILUS CAP (BACID) PO ×2 (10:01→19:34)
[2017-12-28] MEDS: SENOKOT S TAB PO ×2 (10:01→19:34)
[2017-12-28] MEDS: FERROUS SULFATE 325MG TAB PO (10:01)
[2017-12-28] MEDS: PANTOPRAZOLE 20 MG TAB PO (10:01)
[2017-12-28] MEDS: MIRALAX *UNIT DOSE* 17GM PACKET PO (10:02)
[2017-12-28] MEDS: ASPIRIN 81 MG ENTERIC TAB PO (10:02)
[2017-12-28] MEDS: NYSTATIN 100,000 UNITS/GM TOPICAL PWD 15 GM TOP ×2 (10:02→21:00)
[2017-12-28] MEDS: HEPARIN SOD (PORCINE) 5000 UNITS/ML VIAL SQ ×2 (10:02→19:33)
[2017-12-28 10:50] LABS: BEDSIDE GLUCOSE 108 MG/DL (83-110)
[2017-12-28 12:03] LABS: BEDSIDE GLUCOSE 174 MG/DL (83-110)
[2017-12-28] MEDS: PERCOCET 5MG/325MG TAB PO ×3 (13:17→23:38)
[2017-12-28 16:46] LABS: BEDSIDE GLUCOSE 76 MG/DL (83-110)
[2017-12-28] MEDS: WARFARIN SOD 7.5 MG TAB PO (16:49)
[2017-12-28] MEDS: LEVEMIR (INSULIN DETEMIR) 1 UNITS/0.01ML SC (19:33)
[2017-12-28] MEDS: ATENOLOL 25 MG TAB PO (19:34)
[2017-12-28 19:39] LABS: ANION GAP 9 MEQ/L (8-16); BLOOD UREA NITROGEN 55 MG/DL (7-18); CALCIUM LEVEL 8.6 MG/DL (8.8-10.2); CARBON DIOXIDE LEVEL 18 MEQ/L (21-32); CHLORIDE LEVEL 112 MEQ/L (98-107); CREATININE FOR GFR 1.79 MG/DL (0.55-1.30); GLOMERULAR FILTRATION RATE 28.9 (>32); GLUCOSE, FASTING 129 MG/DL (70-100); POTASSIUM SERUM 3.6 MEQ/L (3.5-5.1); SODIUM LEVEL 139 MEQ/L (136-145)
[2017-12-28 21:16] LABS: BEDSIDE GLUCOSE 145 MG/DL (83-110)
[2017-12-29] MEDS: LEVOTHYROXINE 50MCG TABLET (0.05MG) PO (04:06)
[2017-12-29] MEDS: PERCOCET 5MG/325MG TAB PO (04:07)
[2017-12-29 06:44] LABS: ANION GAP 9 MEQ/L (8-16); BLOOD UREA NITROGEN 51 MG/DL (7-18); CALCIUM LEVEL 8.5 MG/DL (8.8-10.2); CARBON DIOXIDE LEVEL 18 MEQ/L (21-32); CHLORIDE LEVEL 113 MEQ/L (98-107); CREATININE FOR GFR 1.73 MG/DL (0.55-1.30); GLUCOSE, FASTING 76 MG/DL (70-100); POTASSIUM SERUM 3.6 MEQ/L (3.5-5.1); SODIUM LEVEL 140 MEQ/L (136-145)
[2017-12-29 07:08] LABS: INR 1.55
[2017-12-29] MEDS: HumaLOG INSULIN (NovoLOG) PER UNIT SC ×2 (07:16→12:00)
[2017-12-29] MEDS: SENOKOT S TAB PO (09:00)
[2017-12-29] MEDS: MIRALAX *UNIT DOSE* 17GM PACKET PO (09:00)
[2017-12-29] MEDS: MULTIVITAMINS/MINERALS THERAP 1 TAB PO (10:00)
[2017-12-29] MEDS: FERROUS SULFATE 325MG TAB PO (10:00)
[2017-12-29] MEDS: ASPIRIN 81 MG ENTERIC TAB PO (10:00)
[2017-12-29] MEDS: LACTOBACILLUS ACIDOPHILUS CAP (BACID) PO (10:00)
[2017-12-29] MEDS: NYSTATIN 100,000 UNITS/GM TOPICAL PWD 15 GM TOP (10:01)
[2017-12-29] MEDS: HEPARIN SOD (PORCINE) 5000 UNITS/ML VIAL SQ (10:01)
[2017-12-29] MEDS: LINEZOLID 600MG TABLET (ZYVOX) PO (10:01)
[2017-12-29] MEDS: ATORVASTATIN 20 MG TAB PO (10:01)
[2017-12-29] MEDS: PANTOPRAZOLE 20 MG TAB PO (10:01)
[2017-12-29] MEDS: SODIUM BICARBONATE 325 MG TAB PO (10:01)
[2017-12-29 12:38] LABS: BEDSIDE GLUCOSE 116 MG/DL (83-110)
[2017-12-29 16:44] LABS: BEDSIDE GLUCOSE 125 MG/DL (83-110)
[2017-12-31 08:27] LABS: BEDSIDE GLUCOSE 123 MG/DL (83-110)
== END 2017-12-29 16:05 | DRG 470 ==
LOC: M MS5PR 12-22 00:10 → M PCU 12-25 18:06 → M ED 18:16 → M MS5PR 12-28 17:55 → M ED INP 21:48
PROC: 0SRS019 Replacement of Left Hip Joint, Femoral Surface with Metal Synthetic Substitute, Cemented, Open Approach (ICD-10-PCS; principal; 2017-12-25 15:16)
DX: S72.002A Fracture of unspecified part of neck of left femur, initial encounter for closed fracture (principal); N17.9 Acute kidney failure, unspecified; E87.2 Acidosis; N39.0 Urinary tract infection, site not specified; N18.4 Chronic kidney disease, stage 4 (severe); D62 Acute posthemorrhagic anemia; E87.0 Hyperosmolality and hypernatremia; L89.151 Pressure ulcer of sacral region, stage 1; L89.152 Pressure ulcer of sacral region, stage 2; L89.621 Pressure ulcer of left heel, stage 1; W18.09XA Striking against other object with subsequent fall, initial encounter; Y92.009 Unspecified place in unspecified non-institutional (private) residence as the place of occurrence of the external cause; M16.0 Bilateral primary osteoarthritis of hip; I12.9 Hypertensive chronic kidney disease with stage 1 through stage 4 chronic kidney disease, or unspecified chronic kidney disease; K59.00 Constipation, unspecified; E03.9 Hypothyroidism, unspecified; M43.16 Spondylolisthesis, lumbar region; N32.81 Overactive bladder; E87.5 Hyperkalemia; R33.9 Retention of urine, unspecified; D63.1 Anemia in chronic kidney disease; R13.10 Dysphagia, unspecified; E11.22 Type 2 diabetes mellitus with diabetic chronic kidney disease; Z96.651 Presence of right artificial knee joint; Z90.12 Acquired absence of left breast and nipple; Z85.3 Personal history of malignant neoplasm of breast; Z98.49 Cataract extraction status, unspecified eye; Z86.73 Personal history of transient ischemic attack (TIA), and cerebral infarction without residual deficits; Z79.82 Long term (current) use of aspirin; Z79.4 Long term (current) use of insulin; Z79.899 Other long term (current) drug therapy; Z79.02 Long term (current) use of antithrombotics/antiplatelets; Z93.6 Other artificial openings of urinary tract status; Z88.0 Allergy status to penicillin; Z88.1 Allergy status to other antibiotic agents; Z88.5 Allergy status to narcotic agent; Z88.8 Allergy status to other drugs, medicaments and biological substances

== ENCOUNTER 2017-12-29 16:05 | Inpatient (IN) | payer MEDICARE ==
[~2017-12-29 16:05] MED LIST: BISACODYL 10 MG SUPP PR; BISACODYL 5 MG TAB PO; DEXTROSE 50% 50 ML SYRINGE IV; FLEET ENEMA PR; GLUCAGON FOR INJ 1 MG VIAL (J1610) SC; GLUCOSE 4 GM CHEW TABLET PO; MOM 30ML SUSPENSION UDC PO
[2017-12-29] MEDS: HumaLOG INSULIN (NovoLOG) PER UNIT SC ×2 (17:30→21:00)
[2017-12-29] MEDS: PERCOCET 5MG/325MG TAB PO (18:02)
[2017-12-29] MEDS: NYSTATIN 100,000 UNITS/GM TOPICAL PWD 15 GM TOP (21:00)
[2017-12-29] MEDS: SENOKOT S TAB PO (21:00)
[2017-12-29] MEDS: LINEZOLID 600MG TABLET (ZYVOX) PO (21:03)
[2017-12-29] MEDS: HEPARIN SOD (PORCINE) 5000 UNITS/ML VIAL SC (21:03)
[2017-12-29] MEDS: LEVEMIR (INSULIN DETEMIR) 1 UNITS/0.01ML SC (21:03)
[2017-12-29] MEDS: LACTOBACILLUS ACIDOPHILUS CAP (BACID) PO (21:03)
[2017-12-29 21:07] LABS: BEDSIDE GLUCOSE 172 MG/DL (83-110)
[2017-12-29] MEDS: ATENOLOL 25 MG TAB PO (22:37)
[2017-12-30] MEDS: ACETAMINOPHEN TAB 650MG DOSE (2X325MG) PO ×3 (02:09→21:29)
[2017-12-30] MEDS: PERCOCET 5MG/325MG TAB PO (06:10)
[2017-12-30] MEDS: LEVOTHYROXINE 50MCG TABLET (0.05MG) PO (06:10)
[2017-12-30 06:21] LABS: BASO # 0.1 10^3/uL (0.0-0.2); BASO % 0.4 % (0.0-1.0); EOS # 0.6 10^3/uL (0.0-0.50); EOS % 4.8 % (0.0-3.0); HEMATOCRIT 26.6 % (36.0-47.0); HEMOGLOBIN 8.4 g/dl (12.0-15.5); IMMATURE GRANULOCYTE % 0.7 % (0-3.0); LYMPH # 1.1 10^3/uL (1.5-4.5); LYMPH % 9.6 % (24.0-44.0); MEAN CORPUSCULAR HEMOGLOBIN 29.4 pg (27.0-33.0); MEAN CORPUSCULAR HGB CONC 31.6 g/dl (32.0-36.5); MONO # 0.9 10^3/uL (0.0-0.8); MONO % 7.5 % (0.0-5.0); NEUTROPHILS # 9.1 10^3/uL (1.8-7.7); PLATELET COUNT, AUTOMATED 450 10^3/uL (150-450); RED BLOOD COUNT 2.86 10^6/uL (4.00-5.40); RED CELL DISTRIBUTION WIDTH 15.4 % (11.5-14.5); WHITE BLOOD COUNT 11.8 10^3/uL (4.0-10.0)
[2017-12-30 06:47] LABS: ALBUMIN 1.8 GM/DL (3.2-5.2); ALBUMIN/GLOBULIN RATIO 0.42 (1.00-1.93); ALKALINE PHOSPHATASE 94 U/L (45-117); ALT/SGPT 19 U/L (12-78); ANION GAP 9 MEQ/L (8-16); AST/SGOT 21 U/L (7-37); BILIRUBIN,TOTAL 0.3 MG/DL (0.2-1.0); BLOOD UREA NITROGEN 47 MG/DL (7-18); CARBON DIOXIDE LEVEL 18 MEQ/L (21-32); CHLORIDE LEVEL 114 MEQ/L (98-107); GLOMERULAR FILTRATION RATE 28.7 (>32); GLUCOSE, FASTING 74 MG/DL (70-100); POTASSIUM SERUM 3.8 MEQ/L (3.5-5.1); SODIUM LEVEL 141 MEQ/L (136-145); TOTAL PROTEIN 6.1 GM/DL (6.4-8.2)
[2017-12-30] MEDS: HumaLOG INSULIN (NovoLOG) PER UNIT SC ×2 (07:30→12:00)
[2017-12-30 08:00] LABS: INR 2.49; PROTHROMBIN TIME 27.9 SECONDS (12.4-14.5)
[2017-12-30] MEDS: NYSTATIN 100,000 UNITS/GM TOPICAL PWD 15 GM TOP ×2 (09:00→21:28)
[2017-12-30] MEDS ORDERED: FERROUS SULFATE 325MG TAB PO (09:00)
[2017-12-30] MEDS: SENOKOT S TAB PO ×2 (09:00→21:00)
[2017-12-30] MEDS: MIRALAX *UNIT DOSE* 17GM PACKET PO (09:00)
[2017-12-30] MEDS: FERROUS GLUCONATE 324 MG TAB PO (09:41)
[2017-12-30] MEDS: SODIUM BICARBONATE 325 MG TAB PO (09:41)
[2017-12-30] MEDS: LACTOBACILLUS ACIDOPHILUS CAP (BACID) PO ×2 (09:41→21:26)
[2017-12-30] MEDS: MULTIVITAMINS/MINERALS THERAP 1 TAB PO (09:41)
[2017-12-30] MEDS: LINEZOLID 600MG TABLET (ZYVOX) PO ×2 (09:41→21:27)
[2017-12-30] MEDS: PANTOPRAZOLE 20 MG TAB PO (09:41)
[2017-12-30] MEDS: ASPIRIN 81 MG ENTERIC TAB PO (09:41)
[2017-12-30] MEDS: HEPARIN SOD (PORCINE) 5000 UNITS/ML VIAL SC (09:42)
[2017-12-30 12:17] LABS: BEDSIDE GLUCOSE 166 MG/DL (83-110)
[2017-12-30 16:48] LABS: BEDSIDE GLUCOSE 176 MG/DL (83-110)
[2017-12-30] MEDS: ATORVASTATIN 20 MG TAB PO (21:26)
[2017-12-30] MEDS: LEVEMIR (INSULIN DETEMIR) 1 UNITS/0.01ML SC (21:27)
[2017-12-30] MEDS: ATENOLOL 25 MG TAB PO (21:27)
[2017-12-30 21:41] LABS: BEDSIDE GLUCOSE 206 MG/DL (83-110)
[2017-12-31] MEDS: ACETAMINOPHEN TAB 650MG DOSE (2X325MG) PO ×3 (06:03→21:54)
[2017-12-31] MEDS: LEVOTHYROXINE 50MCG TABLET (0.05MG) PO (06:03)
[2017-12-31 06:25] LABS: HEMATOCRIT 25.7 % (36.0-47.0); HEMOGLOBIN 8.2 g/dl (12.0-15.5); MEAN CORPUSCULAR HEMOGLOBIN 29.4 pg (27.0-33.0); MEAN CORPUSCULAR HGB CONC 31.9 g/dl (32.0-36.5); MEAN CORPUSCULAR VOLUME 92.1 fl (80.0-96.0); PLATELET COUNT, AUTOMATED 478 10^3/uL (150-450); RED BLOOD COUNT 2.79 10^6/uL (4.00-5.40); RED CELL DISTRIBUTION WIDTH 15.4 % (11.5-14.5); WHITE BLOOD COUNT 12.5 10^3/uL (4.0-10.0)
[2017-12-31 06:38] LABS: INR 2.48; PROTHROMBIN TIME 27.9 SECONDS (12.4-14.5)
[2017-12-31 06:48] LABS: ALBUMIN 1.9 GM/DL (3.2-5.2); ALBUMIN/GLOBULIN RATIO 0.39 (1.00-1.93); ALKALINE PHOSPHATASE 98 U/L (45-117); ALT/SGPT 16 U/L (12-78); ANION GAP 10 MEQ/L (8-16); AST/SGOT 13 U/L (7-37); BILIRUBIN,TOTAL 0.3 MG/DL (0.2-1.0); BLOOD UREA NITROGEN 49 MG/DL (7-18); CALCIUM LEVEL 8.4 MG/DL (8.8-10.2); CARBON DIOXIDE LEVEL 17 MEQ/L (21-32); CHLORIDE LEVEL 116 MEQ/L (98-107); CREATININE FOR GFR 1.75 MG/DL (0.55-1.30); GLOMERULAR FILTRATION RATE 29.6 (>32); GLUCOSE, FASTING 70 MG/DL (70-100); POTASSIUM SERUM 3.8 MEQ/L (3.5-5.1); SODIUM LEVEL 143 MEQ/L (136-145); TOTAL PROTEIN 6.8 GM/DL (6.4-8.2)
[2017-12-31] MEDS: FERROUS GLUCONATE 324 MG TAB PO (08:42)
[2017-12-31] MEDS: LINEZOLID 600MG TABLET (ZYVOX) PO ×2 (08:42→21:05)
[2017-12-31] MEDS: SODIUM BICARBONATE 325 MG TAB PO (08:42)
[2017-12-31] MEDS: ASPIRIN 81 MG ENTERIC TAB PO (08:42)
[2017-12-31] MEDS: NYSTATIN 100,000 UNITS/GM TOPICAL PWD 15 GM TOP ×2 (08:42→21:06)
[2017-12-31] MEDS: PANTOPRAZOLE 20 MG TAB PO (08:42)
[2017-12-31] MEDS: MULTIVITAMINS/MINERALS THERAP 1 TAB PO (08:42)
[2017-12-31] MEDS: LACTOBACILLUS ACIDOPHILUS CAP (BACID) PO ×2 (08:42→21:04)
[2017-12-31] MEDS: SENOKOT S TAB PO ×2 (08:42→21:00)
[2017-12-31 12:10] LABS: BEDSIDE GLUCOSE 120 MG/DL (83-110)
[2017-12-31 17:00] LABS: BEDSIDE GLUCOSE 184 MG/DL (83-110)
[2017-12-31] MEDS: ATORVASTATIN 20 MG TAB PO (21:05)
[2017-12-31] MEDS: ATENOLOL 25 MG TAB PO (21:05)
[2017-12-31] MEDS: LEVEMIR (INSULIN DETEMIR) 1 UNITS/0.01ML SC (21:06)
[2017-12-31 21:23] LABS: BEDSIDE GLUCOSE 155 MG/DL (83-110)
[2018-01-01] MEDS: PERCOCET 5MG/325MG TAB PO ×2 (00:21→16:01)
[2018-01-01] MEDS: LEVOTHYROXINE 50MCG TABLET (0.05MG) PO (06:07)
[2018-01-01] MEDS: ACETAMINOPHEN TAB 650MG DOSE (2X325MG) PO ×2 (06:07→20:34)
[2018-01-01 06:31] LABS: INR 2.64; PROTHROMBIN TIME 29.2 SECONDS (12.4-14.5)
[2018-01-01] MEDS: MULTIVITAMINS/MINERALS THERAP 1 TAB PO (08:26)
[2018-01-01] MEDS: SENOKOT S TAB PO ×3 (08:26→20:33)
[2018-01-01] MEDS: LACTOBACILLUS ACIDOPHILUS CAP (BACID) PO ×2 (08:27→20:33)
[2018-01-01] MEDS: LINEZOLID 600MG TABLET (ZYVOX) PO ×2 (08:27→20:33)
[2018-01-01] MEDS: FERROUS GLUCONATE 324 MG TAB PO (08:27)
[2018-01-01] MEDS: SODIUM BICARBONATE 325 MG TAB PO (08:27)
[2018-01-01] MEDS: ASPIRIN 81 MG ENTERIC TAB PO (08:27)
[2018-01-01] MEDS: NYSTATIN 100,000 UNITS/GM TOPICAL PWD 15 GM TOP ×2 (08:27→20:36)
[2018-01-01] MEDS: PANTOPRAZOLE 20 MG TAB PO (08:27)
[2018-01-01 11:41] LABS: BEDSIDE GLUCOSE 138 MG/DL (83-110)
[2018-01-01 16:45] LABS: BEDSIDE GLUCOSE 130 MG/DL (83-110)
[2018-01-01 19:50] LABS: BEDSIDE GLUCOSE 135 MG/DL (83-110)
[2018-01-01] MEDS: ATENOLOL 25 MG TAB PO (20:33)
[2018-01-01] MEDS: ATORVASTATIN 20 MG TAB PO (20:33)
[2018-01-01] MEDS: LEVEMIR (INSULIN DETEMIR) 1 UNITS/0.01ML SC (20:36)
[2018-01-02] MEDS: LEVOTHYROXINE 50MCG TABLET (0.05MG) PO (05:20)
[2018-01-02] MEDS: ACETAMINOPHEN TAB 650MG DOSE (2X325MG) PO ×2 (05:21→20:49)
[2018-01-02 06:33] LABS: BEDSIDE GLUCOSE 82 MG/DL (83-110)
[2018-01-02 07:04] LABS: INR 2.76; PROTHROMBIN TIME 30.3 SECONDS (12.4-14.5)
[2018-01-02] MEDS: ASPIRIN 81 MG ENTERIC TAB PO (08:50)
[2018-01-02] MEDS: PANTOPRAZOLE 20 MG TAB PO (08:50)
[2018-01-02] MEDS: LACTOBACILLUS ACIDOPHILUS CAP (BACID) PO ×2 (08:50→20:47)
[2018-01-02] MEDS: LINEZOLID 600MG TABLET (ZYVOX) PO ×2 (08:50→20:47)
[2018-01-02] MEDS: FERROUS GLUCONATE 324 MG TAB PO (08:50)
[2018-01-02] MEDS: MULTIVITAMINS/MINERALS THERAP 1 TAB PO (08:50)
[2018-01-02] MEDS: SODIUM BICARBONATE 325 MG TAB PO (08:50)
[2018-01-02] MEDS: SENOKOT S TAB PO ×2 (08:51→20:47)
[2018-01-02] MEDS: NYSTATIN 100,000 UNITS/GM TOPICAL PWD 15 GM TOP ×2 (09:18→20:48)
[2018-01-02 10:35] LABS: BEDSIDE GLUCOSE 77 MG/DL (83-110)
[2018-01-02 11:44] LABS: BEDSIDE GLUCOSE 120 MG/DL (83-110)
[2018-01-02 16:56] LABS: BEDSIDE GLUCOSE 115 MG/DL (83-110)
[2018-01-02 20:34] LABS: BEDSIDE GLUCOSE 225 MG/DL (83-110)
[2018-01-02] MEDS: ATORVASTATIN 20 MG TAB PO (20:47)
[2018-01-02] MEDS: LEVEMIR (INSULIN DETEMIR) 1 UNITS/0.01ML SC (20:48)
[2018-01-02] MEDS: ATENOLOL 25 MG TAB PO (20:48)
[2018-01-03] MEDS: LEVOTHYROXINE 50MCG TABLET (0.05MG) PO (05:57)
[2018-01-03] MEDS: ACETAMINOPHEN TAB 650MG DOSE (2X325MG) PO ×2 (05:57→15:37)
[2018-01-03 06:16] LABS: BASO # 0.1 10^3/uL (0.0-0.2); BASO % 0.3 % (0.0-1.0); EOS # 0.7 10^3/uL (0.0-0.50); EOS % 4.3 % (0.0-3.0); HEMATOCRIT 26.5 % (36.0-47.0); HEMOGLOBIN 8.3 g/dl (12.0-15.5); IMMATURE GRANULOCYTE % 0.6 % (0-3.0); LYMPH # 1.2 10^3/uL (1.5-4.5); LYMPH % 7.7 % (24.0-44.0); MEAN CORPUSCULAR HEMOGLOBIN 29.1 pg (27.0-33.0); MEAN CORPUSCULAR HGB CONC 31.3 g/dl (32.0-36.5); MONO # 0.6 10^3/uL (0.0-0.8); MONO % 4.1 % (0.0-5.0); NEUTROPHILS # 12.8 10^3/uL (1.8-7.7); PLATELET COUNT, AUTOMATED 526 10^3/uL (150-450); RED BLOOD COUNT 2.85 10^6/uL (4.00-5.40); RED CELL DISTRIBUTION WIDTH 15.4 % (11.5-14.5); WHITE BLOOD COUNT 15.5 10^3/uL (4.0-10.0)
[2018-01-03 06:34] LABS: INR 2.29; PROTHROMBIN TIME 26.1 SECONDS (12.4-14.5)
[2018-01-03 06:39] LABS: ANION GAP 10 MEQ/L (8-16); BLOOD UREA NITROGEN 45 MG/DL (7-18); CALCIUM LEVEL 8.6 MG/DL (8.8-10.2); CARBON DIOXIDE LEVEL 15 MEQ/L (21-32); CHLORIDE LEVEL 112 MEQ/L (98-107); CREATININE FOR GFR 1.72 MG/DL (0.55-1.30); GLOMERULAR FILTRATION RATE 30.2 (>32); GLUCOSE, FASTING 101 MG/DL (70-100); POTASSIUM SERUM 4.3 MEQ/L (3.5-5.1); SODIUM LEVEL 137 MEQ/L (136-145)
[2018-01-03] MEDS: LINEZOLID 600MG TABLET (ZYVOX) PO ×2 (08:58→20:16)
[2018-01-03] MEDS: SODIUM BICARBONATE 325 MG TAB PO (08:58)
[2018-01-03] MEDS: MULTIVITAMINS/MINERALS THERAP 1 TAB PO (08:58)
[2018-01-03] MEDS: PANTOPRAZOLE 20 MG TAB PO (08:58)
[2018-01-03] MEDS: SENOKOT S TAB PO ×2 (08:59→20:15)
[2018-01-03] MEDS: NYSTATIN 100,000 UNITS/GM TOPICAL PWD 15 GM TOP ×2 (08:59→20:21)
[2018-01-03] MEDS: LACTOBACILLUS ACIDOPHILUS CAP (BACID) PO ×2 (08:59→20:15)
[2018-01-03] MEDS: FERROUS GLUCONATE 324 MG TAB PO (08:59)
[2018-01-03] MEDS: ASPIRIN 81 MG ENTERIC TAB PO (08:59)
[2018-01-03 11:48] LABS: BEDSIDE GLUCOSE 134 MG/DL (83-110)
[2018-01-03 16:09] LABS: C REACTIVE PROTEIN QUANTITATIV 7.86 MG/DL (0.00-0.30)
[2018-01-03 16:47] LABS: BEDSIDE GLUCOSE 119 MG/DL (83-110)
[2018-01-03] MEDS: ATORVASTATIN 20 MG TAB PO (20:15)
[2018-01-03] MEDS: PERCOCET 5MG/325MG TAB PO (20:15)
[2018-01-03] MEDS: LEVEMIR (INSULIN DETEMIR) 1 UNITS/0.01ML SC (20:17)
[2018-01-03] MEDS: ATENOLOL 25 MG TAB PO (20:21)
[2018-01-03 20:30] LABS: BEDSIDE GLUCOSE 165 MG/DL (83-110)
[2018-01-04] MEDS: PERCOCET 5MG/325MG TAB PO ×4 (04:57→21:02)
[2018-01-04] MEDS: LEVOTHYROXINE 50MCG TABLET (0.05MG) PO (04:57)
[2018-01-04 07:04] LABS: BEDSIDE GLUCOSE 86 MG/DL (83-110)
[2018-01-04 07:24] LABS: INR 2.01; PROTHROMBIN TIME 23.5 SECONDS (12.4-14.5)
[2018-01-04] MEDS: NYSTATIN 100,000 UNITS/GM TOPICAL PWD 15 GM TOP ×2 (08:19→21:06)
[2018-01-04] MEDS: MULTIVITAMINS/MINERALS THERAP 1 TAB PO (08:19)
[2018-01-04] MEDS: PANTOPRAZOLE 20 MG TAB PO (08:19)
[2018-01-04] MEDS: ASPIRIN 81 MG ENTERIC TAB PO (08:19)
[2018-01-04] MEDS: SENOKOT S TAB PO ×2 (08:19→21:01)
[2018-01-04] MEDS: LINEZOLID 600MG TABLET (ZYVOX) PO ×2 (08:19→21:01)
[2018-01-04] MEDS: FERROUS GLUCONATE 324 MG TAB PO (08:20)
[2018-01-04] MEDS: LACTOBACILLUS ACIDOPHILUS CAP (BACID) PO ×2 (08:20→21:00)
[2018-01-04] MEDS: ONDANSETRON 4 MG TAB (S0181) PO (12:49)
[2018-01-04] MEDS: WARFARIN SOD 3 MG TAB PO (17:06)
[2018-01-04] MEDS ORDERED: PILL CRUSHER/CUTTER 1 EACH XX (17:15)
[2018-01-04 17:31] LABS: BEDSIDE GLUCOSE 125 MG/DL (83-110)
[2018-01-04] MEDS: ATORVASTATIN 20 MG TAB PO (21:01)
[2018-01-04] MEDS: ATENOLOL 25 MG TAB PO (21:04)
[2018-01-04] MEDS: LEVEMIR (INSULIN DETEMIR) 1 UNITS/0.01ML SC (21:05)
[2018-01-05] MEDS: LEVOTHYROXINE 50MCG TABLET (0.05MG) PO (06:04)
[2018-01-05] MEDS: PERCOCET 5MG/325MG TAB PO (06:04)
[2018-01-05 07:03] LABS: HEMATOCRIT 27.9 % (36.0-47.0); HEMOGLOBIN 8.7 g/dl (12.0-15.5); MEAN CORPUSCULAR HEMOGLOBIN 29.2 pg (27.0-33.0); MEAN CORPUSCULAR HGB CONC 31.2 g/dl (32.0-36.5); MEAN CORPUSCULAR VOLUME 93.6 fl (80.0-96.0); PLATELET COUNT, AUTOMATED 471 10^3/uL (150-450); RED BLOOD COUNT 2.98 10^6/uL (4.00-5.40); RED CELL DISTRIBUTION WIDTH 15.3 % (11.5-14.5); WHITE BLOOD COUNT 10.9 10^3/uL (4.0-10.0)
[2018-01-05 07:14] LABS: INR 1.99; PROTHROMBIN TIME 23.3 SECONDS (12.4-14.5)
[2018-01-05 07:42] LABS: ALBUMIN 2.3 GM/DL (3.2-5.2); ALBUMIN/GLOBULIN RATIO 0.51 (1.00-1.93); ALKALINE PHOSPHATASE 85 U/L (45-117); ALT/SGPT 22 U/L (12-78); ANION GAP 9 MEQ/L (8-16); AST/SGOT 21 U/L (7-37); BILIRUBIN,TOTAL 0.2 MG/DL (0.2-1.0); BLOOD UREA NITROGEN 48 MG/DL (7-18); CALCIUM LEVEL 8.3 MG/DL (8.8-10.2); CARBON DIOXIDE LEVEL 16 MEQ/L (21-32); CHLORIDE LEVEL 114 MEQ/L (98-107); GLOMERULAR FILTRATION RATE 26.9 (>32); GLUCOSE, FASTING 82 MG/DL (70-100); POTASSIUM SERUM 4.9 MEQ/L (3.5-5.1); SODIUM LEVEL 139 MEQ/L (136-145); TOTAL PROTEIN 6.8 GM/DL (6.4-8.2)
[2018-01-05] MEDS: FERROUS GLUCONATE 324 MG TAB PO (08:17)
[2018-01-05] MEDS: PANTOPRAZOLE 20 MG TAB PO (08:17)
[2018-01-05] MEDS: ASPIRIN 81 MG ENTERIC TAB PO (08:17)
[2018-01-05] MEDS: ACETAMINOPHEN TAB 650MG DOSE (2X325MG) PO ×2 (08:17→21:25)
[2018-01-05] MEDS: LINEZOLID 600MG TABLET (ZYVOX) PO ×2 (08:17→21:24)
[2018-01-05] MEDS: LACTOBACILLUS ACIDOPHILUS CAP (BACID) PO ×2 (08:17→21:25)
[2018-01-05] MEDS: MULTIVITAMINS/MINERALS THERAP 1 TAB PO (08:17)
[2018-01-05] MEDS: SENOKOT S TAB PO ×2 (08:17→21:26)
[2018-01-05] MEDS: ONDANSETRON 4 MG TAB (S0181) PO ×2 (08:17→16:07)
[2018-01-05] MEDS: NYSTATIN 100,000 UNITS/GM TOPICAL PWD 15 GM TOP ×2 (08:18→21:26)
[2018-01-05] MEDS: WARFARIN SOD 2.5 MG TAB PO (16:07)
[2018-01-05 17:04] LABS: BEDSIDE GLUCOSE 113 MG/DL (83-110)
[2018-01-05 21:24] LABS: BEDSIDE GLUCOSE 125 MG/DL (83-110)
[2018-01-05] MEDS: ATENOLOL 25 MG TAB PO (21:25)
[2018-01-05] MEDS: ATORVASTATIN 20 MG TAB PO (21:25)
[2018-01-05] MEDS: LEVEMIR (INSULIN DETEMIR) 1 UNITS/0.01ML SC ×2 (21:30→21:33)
[2018-01-06] MEDS: ACETAMINOPHEN TAB 650MG DOSE (2X325MG) PO ×2 (03:08→20:53)
[2018-01-06] MEDS: LEVOTHYROXINE 50MCG TABLET (0.05MG) PO (05:22)
[2018-01-06 06:59] LABS: INR 2.23; PROTHROMBIN TIME 25.6 SECONDS (12.4-14.5)
[2018-01-06 07:10] LABS: BEDSIDE GLUCOSE 80 MG/DL (83-110)
[2018-01-06] MEDS: FERROUS GLUCONATE 324 MG TAB PO (08:40)
[2018-01-06] MEDS: MULTIVITAMINS/MINERALS THERAP 1 TAB PO (08:40)
[2018-01-06] MEDS: LACTOBACILLUS ACIDOPHILUS CAP (BACID) PO (08:40)
[2018-01-06] MEDS: PANTOPRAZOLE 20 MG TAB PO (08:40)
[2018-01-06] MEDS: NYSTATIN 100,000 UNITS/GM TOPICAL PWD 15 GM TOP ×2 (08:40→20:54)
[2018-01-06] MEDS: ASPIRIN 81 MG ENTERIC TAB PO (08:40)
[2018-01-06] MEDS: SENOKOT S TAB PO (08:41)
[2018-01-06] MEDS: SANTYL OINT 30GM TOP (09:00)
[2018-01-06 17:03] LABS: BEDSIDE GLUCOSE 153 MG/DL (83-110)
[2018-01-06] MEDS: ATORVASTATIN 20 MG TAB PO (20:53)
[2018-01-06] MEDS: ATENOLOL 25 MG TAB PO (20:54)
[2018-01-06] MEDS: LEVEMIR (INSULIN DETEMIR) 1 UNITS/0.01ML SC (20:54)
[2018-01-07] MEDS: ACETAMINOPHEN TAB 650MG DOSE (2X325MG) PO ×2 (05:07→21:18)
[2018-01-07] MEDS: LEVOTHYROXINE 50MCG TABLET (0.05MG) PO (05:07)
[2018-01-07 07:02] LABS: BEDSIDE GLUCOSE 63 MG/DL (83-110)
[2018-01-07 08:16] LABS: INR 2.76; PROTHROMBIN TIME 30.4 SECONDS (12.4-14.5)
[2018-01-07] MEDS: NYSTATIN 100,000 UNITS/GM TOPICAL PWD 15 GM TOP ×2 (08:52→21:17)
[2018-01-07] MEDS: FERROUS GLUCONATE 324 MG TAB PO (08:52)
[2018-01-07] MEDS: SANTYL OINT 30GM TOP (08:52)
[2018-01-07] MEDS: ASPIRIN 81 MG ENTERIC TAB PO (08:52)
[2018-01-07] MEDS: PANTOPRAZOLE 20 MG TAB PO (08:52)
[2018-01-07] MEDS: MULTIVITAMINS/MINERALS THERAP 1 TAB PO (08:52)
[2018-01-07] MEDS: LACTOBACILLUS ACIDOPHILUS CAP (BACID) PO ×2 (09:00→21:18)
[2018-01-07 09:50] LABS: HEMATOCRIT 26.6 % (36.0-47.0); HEMOGLOBIN 8.3 g/dl (12.0-15.5); MEAN CORPUSCULAR HEMOGLOBIN 29.3 pg (27.0-33.0); MEAN CORPUSCULAR HGB CONC 31.2 g/dl (32.0-36.5); PLATELET COUNT, AUTOMATED 395 10^3/uL (150-450); RED BLOOD COUNT 2.83 10^6/uL (4.00-5.40); RED CELL DISTRIBUTION WIDTH 15.7 % (11.5-14.5); WHITE BLOOD COUNT 13.7 10^3/uL (4.0-10.0)
[2018-01-07 09:58] LABS: ALBUMIN 2.4 GM/DL (3.2-5.2); ALBUMIN/GLOBULIN RATIO 0.49 (1.00-1.93); ALKALINE PHOSPHATASE 100 U/L (45-117); ALT/SGPT 25 U/L (12-78); ANION GAP 8 MEQ/L (8-16); AST/SGOT 25 U/L (7-37); BILIRUBIN,TOTAL 0.2 MG/DL (0.2-1.0); BLOOD UREA NITROGEN 57 MG/DL (7-18); C REACTIVE PROTEIN QUANTITATIV 7.23 MG/DL (0.00-0.30); CARBON DIOXIDE LEVEL 15 MEQ/L (21-32); CHLORIDE LEVEL 115 MEQ/L (98-107); CREATININE FOR GFR 2.04 MG/DL (0.55-1.30); GLOMERULAR FILTRATION RATE 24.8 (>32); GLUCOSE, FASTING 77 MG/DL (70-100); POTASSIUM SERUM 3.9 MEQ/L (3.5-5.1); SODIUM LEVEL 138 MEQ/L (136-145); TOTAL PROTEIN 7.3 GM/DL (6.4-8.2)
[2018-01-07 11:05] LABS: AMYLASE 44 U/L (25-115); BILIRUBIN,DIRECT < 0.1 MG/DL (0.0-0.2); LIPASE 128 U/L (73-393)
[2018-01-07] MEDS: LEVEMIR (INSULIN DETEMIR) 1 UNITS/0.01ML SC (21:17)
[2018-01-07] MEDS: ATORVASTATIN 20 MG TAB PO (21:18)
[2018-01-07] MEDS: ATENOLOL 25 MG TAB PO (21:18)
[2018-01-08] MEDS: LEVOTHYROXINE 50MCG TABLET (0.05MG) PO (06:26)
[2018-01-08 07:15] LABS: BASO % 0.2 % (0.0-1.0); EOS # 0.3 10^3/uL (0.0-0.50); EOS % 2.8 % (0.0-3.0); HEMATOCRIT 24.9 % (36.0-47.0); IMMATURE GRANULOCYTE % 0.5 % (0-3.0); LYMPH % 8.1 % (24.0-44.0); MEAN CORPUSCULAR HEMOGLOBIN 29.4 pg (27.0-33.0); MEAN CORPUSCULAR HGB CONC 32.1 g/dl (32.0-36.5); MEAN CORPUSCULAR VOLUME 91.5 fl (80.0-96.0); MONO # 0.5 10^3/uL (0.0-0.8); MONO % 4.4 % (0.0-5.0); NEUTROPHILS # 10.2 10^3/uL (1.8-7.7); PLATELET COUNT, AUTOMATED 297 10^3/uL (150-450); RED BLOOD COUNT 2.72 10^6/uL (4.00-5.40); RED CELL DISTRIBUTION WIDTH 15.5 % (11.5-14.5); WHITE BLOOD COUNT 12.2 10^3/uL (4.0-10.0)
[2018-01-08 07:18] LABS: INR 2.69; PROTHROMBIN TIME 29.7 SECONDS (12.4-14.5)
[2018-01-08 07:20] LABS: ANION GAP 12 MEQ/L (8-16); BLOOD UREA NITROGEN 49 MG/DL (7-18); CALCIUM LEVEL 8.1 MG/DL (8.8-10.2); CARBON DIOXIDE LEVEL 14 MEQ/L (21-32); CHLORIDE LEVEL 115 MEQ/L (98-107); CREATININE FOR GFR 1.73 MG/DL (0.55-1.30); GLUCOSE, FASTING 50 MG/DL (70-100); POTASSIUM SERUM 3.8 MEQ/L (3.5-5.1); SODIUM LEVEL 141 MEQ/L (136-145)
[2018-01-08] MEDS: NYSTATIN 100,000 UNITS/GM TOPICAL PWD 15 GM TOP ×2 (07:48→20:32)
[2018-01-08] MEDS: LACTOBACILLUS ACIDOPHILUS CAP (BACID) PO ×2 (07:48→20:32)
[2018-01-08] MEDS: FERROUS GLUCONATE 324 MG TAB PO (07:48)
[2018-01-08] MEDS: ACETAMINOPHEN TAB 650MG DOSE (2X325MG) PO ×2 (07:48→20:32)
[2018-01-08] MEDS: PANTOPRAZOLE 20 MG TAB PO (07:48)
[2018-01-08] MEDS: ASPIRIN 81 MG ENTERIC TAB PO (07:48)
[2018-01-08] MEDS: MULTIVITAMINS/MINERALS THERAP 1 TAB PO (07:48)
[2018-01-08] MEDS: SANTYL OINT 30GM TOP (07:49)
[2018-01-08 16:53] LABS: BEDSIDE GLUCOSE 134 MG/DL (83-110)
[2018-01-08] MEDS: LEVEMIR (INSULIN DETEMIR) 1 UNITS/0.01ML SC (20:31)
[2018-01-08] MEDS: ATORVASTATIN 20 MG TAB PO (20:32)
[2018-01-08] MEDS: ATENOLOL 25 MG TAB PO (20:32)
[2018-01-09] MEDS: LEVOTHYROXINE 50MCG TABLET (0.05MG) PO (06:13)
[2018-01-09 06:28] LABS: BEDSIDE GLUCOSE 87 MG/DL (83-110)
[2018-01-09 07:13] LABS: INR 2.18; PROTHROMBIN TIME 25.1 SECONDS (12.4-14.5)
[2018-01-09] MEDS: NYSTATIN 100,000 UNITS/GM TOPICAL PWD 15 GM TOP ×2 (08:49→19:58)
[2018-01-09] MEDS: FERROUS GLUCONATE 324 MG TAB PO (08:49)
[2018-01-09] MEDS: MULTIVITAMINS/MINERALS THERAP 1 TAB PO (08:49)
[2018-01-09] MEDS: LACTOBACILLUS ACIDOPHILUS CAP (BACID) PO ×2 (08:49→19:58)
[2018-01-09] MEDS: ASPIRIN 81 MG ENTERIC TAB PO (08:49)
[2018-01-09] MEDS: ACETAMINOPHEN TAB 650MG DOSE (2X325MG) PO ×2 (08:49→19:55)
[2018-01-09] MEDS: PANTOPRAZOLE 20 MG TAB PO (08:49)
[2018-01-09] MEDS: SANTYL OINT 30GM TOP (08:50)
[2018-01-09] MEDS: WARFARIN SOD 1 MG TAB PO (16:28)
[2018-01-09 16:39] LABS: BEDSIDE GLUCOSE 134 MG/DL (83-110)
[2018-01-09] MEDS: ATORVASTATIN 20 MG TAB PO (19:56)
[2018-01-09] MEDS: LEVEMIR (INSULIN DETEMIR) 1 UNITS/0.01ML SC (19:57)
[2018-01-09] MEDS: ATENOLOL 25 MG TAB PO (19:57)
[2018-01-10] MEDS: LEVOTHYROXINE 50MCG TABLET (0.05MG) PO (05:51)
[2018-01-10 06:47] LABS: BASO % 0.4 % (0.0-1.0); EOS # 0.5 10^3/uL (0.0-0.50); EOS % 4.1 % (0.0-3.0); HEMATOCRIT 26.2 % (36.0-47.0); HEMOGLOBIN 8.4 g/dl (12.0-15.5); IMMATURE GRANULOCYTE % 0.5 % (0-3.0); LYMPH # 1.6 10^3/uL (1.5-4.5); LYMPH % 14.4 % (24.0-44.0); MEAN CORPUSCULAR HEMOGLOBIN 29.3 pg (27.0-33.0); MEAN CORPUSCULAR HGB CONC 32.1 g/dl (32.0-36.5); MEAN CORPUSCULAR VOLUME 91.3 fl (80.0-96.0); MONO # 1.1 10^3/uL (0.0-0.8); MONO % 10.2 % (0.0-5.0); NEUTROPHILS # 7.7 10^3/uL (1.8-7.7); NEUTROPHILS % 70.4 % (36.0-66.0); PLATELET COUNT, AUTOMATED 244 10^3/uL (150-450); RED BLOOD COUNT 2.87 10^6/uL (4.00-5.40); RED CELL DISTRIBUTION WIDTH 15.5 % (11.5-14.5); WHITE BLOOD COUNT 10.9 10^3/uL (4.0-10.0)
[2018-01-10 07:06] LABS: INR 1.55
[2018-01-10 07:15] LABS: ANION GAP 8 MEQ/L (8-16); BLOOD UREA NITROGEN 43 MG/DL (7-18); CALCIUM LEVEL 8.3 MG/DL (8.8-10.2); CARBON DIOXIDE LEVEL 17 MEQ/L (21-32); CHLORIDE LEVEL 118 MEQ/L (98-107); CREATININE FOR GFR 1.58 MG/DL (0.55-1.30); GLOMERULAR FILTRATION RATE 33.3 (>32); GLUCOSE, FASTING 92 MG/DL (70-100); SODIUM LEVEL 143 MEQ/L (136-145)
[2018-01-10] MEDS: FERROUS GLUCONATE 324 MG TAB PO (09:08)
[2018-01-10] MEDS: MULTIVITAMINS/MINERALS THERAP 1 TAB PO (09:08)
[2018-01-10] MEDS: LACTOBACILLUS ACIDOPHILUS CAP (BACID) PO ×2 (09:08→20:15)
[2018-01-10] MEDS: ASPIRIN 81 MG ENTERIC TAB PO (09:08)
[2018-01-10] MEDS: PANTOPRAZOLE 20 MG TAB PO (09:08)
[2018-01-10] MEDS: NYSTATIN 100,000 UNITS/GM TOPICAL PWD 15 GM TOP ×2 (09:08→20:17)
[2018-01-10] MEDS: SANTYL OINT 30GM TOP (09:09)
[2018-01-10] MEDS: ATENOLOL 25 MG TAB PO (20:15)
[2018-01-10] MEDS: ATORVASTATIN 20 MG TAB PO (20:16)
[2018-01-10] MEDS: LEVEMIR (INSULIN DETEMIR) 1 UNITS/0.01ML SC (20:16)
[2018-01-10] MEDS: ACETAMINOPHEN TAB 650MG DOSE (2X325MG) PO (20:32)
[2018-01-11 04:21] LABS: BEDSIDE GLUCOSE 131 MG/DL (83-110)
[2018-01-11 04:21] LABS: BEDSIDE GLUCOSE 78 MG/DL (83-110)
[2018-01-11] MEDS: LEVOTHYROXINE 50MCG TABLET (0.05MG) PO (06:01)
[2018-01-11 06:52] LABS: BEDSIDE GLUCOSE 101 MG/DL (83-110)
[2018-01-11 08:22] LABS: BASO # 0.1 10^3/uL (0.0-0.2); BASO % 0.6 % (0.0-1.0); EOS # 0.5 10^3/uL (0.0-0.50); EOS % 4.1 % (0.0-3.0); HEMATOCRIT 26.4 % (36.0-47.0); HEMOGLOBIN 8.4 g/dl (12.0-15.5); IMMATURE GRANULOCYTE % 0.5 % (0-3.0); LYMPH # 1.5 10^3/uL (1.5-4.5); LYMPH % 12.1 % (24.0-44.0); MEAN CORPUSCULAR HEMOGLOBIN 28.8 pg (27.0-33.0); MEAN CORPUSCULAR HGB CONC 31.8 g/dl (32.0-36.5); MEAN CORPUSCULAR VOLUME 90.4 fl (80.0-96.0); MONO # 1.6 10^3/uL (0.0-0.8); MONO % 12.5 % (0.0-5.0); NEUTROPHILS # 8.7 10^3/uL (1.8-7.7); NEUTROPHILS % 70.2 % (36.0-66.0); PLATELET COUNT, AUTOMATED 214 10^3/uL (150-450); RED BLOOD COUNT 2.92 10^6/uL (4.00-5.40); RED CELL DISTRIBUTION WIDTH 15.7 % (11.5-14.5); WHITE BLOOD COUNT 12.5 10^3/uL (4.0-10.0)
[2018-01-11 08:38] LABS: INR 1.29; PROTHROMBIN TIME 16.4 SECONDS (12.4-14.5)
[2018-01-11 08:45] LABS: C REACTIVE PROTEIN QUANTITATIV 2.74 MG/DL (0.00-0.30)
[2018-01-11] MEDS: NYSTATIN 100,000 UNITS/GM TOPICAL PWD 15 GM TOP ×2 (09:58→20:58)
[2018-01-11] MEDS: PANTOPRAZOLE 20 MG TAB PO (09:58)
[2018-01-11] MEDS: MULTIVITAMINS/MINERALS THERAP 1 TAB PO (09:58)
[2018-01-11] MEDS: FERROUS GLUCONATE 324 MG TAB PO (09:58)
[2018-01-11] MEDS: ASPIRIN 81 MG ENTERIC TAB PO (09:58)
[2018-01-11] MEDS: LACTOBACILLUS ACIDOPHILUS CAP (BACID) PO ×2 (09:58→21:00)
[2018-01-11] MEDS: SANTYL OINT 30GM TOP (09:59)
[2018-01-11] MEDS ORDERED: WARFARIN SOD 3 MG TAB PO (17:00)
[2018-01-11] MEDS: WARFARIN SOD 2 MG TAB PO (17:23)
[2018-01-11] MEDS: WARFARIN SOD 2.5 MG TAB PO (17:23)
[2018-01-11] MEDS: ATENOLOL 25 MG TAB PO (20:58)
[2018-01-11] MEDS: LEVEMIR (INSULIN DETEMIR) 1 UNITS/0.01ML SC (20:59)
[2018-01-11] MEDS: ACETAMINOPHEN TAB 650MG DOSE (2X325MG) PO (20:59)
[2018-01-11] MEDS: ATORVASTATIN 20 MG TAB PO (21:00)
[2018-01-12] MEDS: LEVOTHYROXINE 50MCG TABLET (0.05MG) PO (05:22)
[2018-01-12 06:18] LABS: BEDSIDE GLUCOSE 174 MG/DL (83-110)
[2018-01-12 07:10] LABS: BEDSIDE GLUCOSE 117 MG/DL (83-110)
[2018-01-12] MEDS: PANTOPRAZOLE 20 MG TAB PO (08:34)
[2018-01-12] MEDS: ASPIRIN 81 MG ENTERIC TAB PO (08:34)
[2018-01-12] MEDS: FERROUS GLUCONATE 324 MG TAB PO (08:34)
[2018-01-12] MEDS: MULTIVITAMINS/MINERALS THERAP 1 TAB PO (08:34)
[2018-01-12] MEDS: LACTOBACILLUS ACIDOPHILUS CAP (BACID) PO (08:35)
[2018-01-12] MEDS: SANTYL OINT 30GM TOP (08:35)
[2018-01-12] MEDS: NYSTATIN 100,000 UNITS/GM TOPICAL PWD 15 GM TOP (08:35)
[2018-01-12 16:41] LABS: BEDSIDE GLUCOSE 178 MG/DL (83-110)
[2018-01-12] MEDS ORDERED: WARFARIN SOD 5 MG TAB PO (17:00)
== END 2018-01-12 13:55 | disposition home health service (06) | DRG 560 ==
LOC: M PM&R 16:05
PROVIDERS: Physical Medicine & Rehabilitation
DX: S72.002D Fracture of unspecified part of neck of left femur, subsequent encounter for closed fracture with routine healing (principal); N39.0 Urinary tract infection, site not specified; E87.2 Acidosis; E87.0 Hyperosmolality and hypernatremia; I12.9 Hypertensive chronic kidney disease with stage 1 through stage 4 chronic kidney disease, or unspecified chronic kidney disease; E11.22 Type 2 diabetes mellitus with diabetic chronic kidney disease; E78.5 Hyperlipidemia, unspecified; K21.9 Gastro-esophageal reflux disease without esophagitis; B95.2 Enterococcus as the cause of diseases classified elsewhere; E03.9 Hypothyroidism, unspecified; L89.150 Pressure ulcer of sacral region, unstageable; R33.9 Retention of urine, unspecified; B37.2 Candidiasis of skin and nail; N32.81 Overactive bladder; N18.3 Chronic kidney disease, stage 3 (moderate); Z96.651 Presence of right artificial knee joint; Z90.12 Acquired absence of left breast and nipple; Z85.3 Personal history of malignant neoplasm of breast; W18.09XA Striking against other object with subsequent fall, initial encounter; Y92.009 Unspecified place in unspecified non-institutional (private) residence as the place of occurrence of the external cause; Z86.73 Personal history of transient ischemic attack (TIA), and cerebral infarction without residual deficits; Z87.440 Personal history of urinary (tract) infections; Z98.41 Cataract extraction status, right eye; Z98.42 Cataract extraction status, left eye; Z16.21 Resistance to vancomycin; Z79.82 Long term (current) use of aspirin; Z79.4 Long term (current) use of insulin; Z79.899 Other long term (current) drug therapy; Z88.0 Allergy status to penicillin; Z88.5 Allergy status to narcotic agent; Z88.1 Allergy status to other antibiotic agents; Z88.8 Allergy status to other drugs, medicaments and biological substances

== ENCOUNTER → 2018-01-17 | Outpatient (REF) | payer MEDICARE ==
[2018-01-17 13:44] LABS: PROTHROMBIN TIME 65.7 SECONDS (12.4-14.5)
[2018-01-17 14:12] LABS: INR 7.13
== END ==
LOC: M SHH 12:08
DX: Z51.81 Encounter for therapeutic drug level monitoring (principal); Z79.01 Long term (current) use of anticoagulants
CPT/HCPCS: 85610

== ENCOUNTER 2018-01-18 12:50 | Emergency (ER) | payer MEDICARE ==
[2018-01-18 15:10] LABS: PROTHROMBIN TIME 53.6 SECONDS (12.4-14.5)
[2018-01-18 15:17] LABS: INR 5.55
[2018-01-18 16:06] LABS: BASO % 0.4 % (0.0-1.0); EOS # 0.3 10^3/uL (0.0-0.50); EOS % 3.2 % (0.0-3.0); HEMOGLOBIN 8.5 g/dl (12.0-15.5); IMMATURE GRANULOCYTE % 0.7 % (0-3.0); LYMPH # 1.3 10^3/uL (1.5-4.5); LYMPH % 16.4 % (24.0-44.0); MEAN CORPUSCULAR HEMOGLOBIN 28.7 pg (27.0-33.0); MEAN CORPUSCULAR HGB CONC 31.5 g/dl (32.0-36.5); MEAN CORPUSCULAR VOLUME 91.2 fl (80.0-96.0); MONO # 0.8 10^3/uL (0.0-0.8); MONO % 10.3 % (0.0-5.0); NEUTROPHILS # 5.6 10^3/uL (1.8-7.7); PLATELET COUNT, AUTOMATED 635 10^3/uL (150-450); RED BLOOD COUNT 2.96 10^6/uL (4.00-5.40); RED CELL DISTRIBUTION WIDTH 16.5 % (11.5-14.5); WHITE BLOOD COUNT 8.1 10^3/uL (4.0-10.0)
== END 2018-01-18 16:45 | disposition home or self-care (01) ==
LOC: M ED 12:50
DX: R79.1 Abnormal coagulation profile (principal); Z79.01 Long term (current) use of anticoagulants; E11.9 Type 2 diabetes mellitus without complications; I12.9 Hypertensive chronic kidney disease with stage 1 through stage 4 chronic kidney disease, or unspecified chronic kidney disease; N18.9 Chronic kidney disease, unspecified; E03.9 Hypothyroidism, unspecified; Z87.19 Personal history of other diseases of the digestive system; Z87.442 Personal history of urinary calculi; Z86.73 Personal history of transient ischemic attack (TIA), and cerebral infarction without residual deficits; Z79.899 Other long term (current) drug therapy; Z79.82 Long term (current) use of aspirin; Z98.890 Other specified postprocedural states; Z88.8 Allergy status to other drugs, medicaments and biological substances; Z88.1 Allergy status to other antibiotic agents; Z88.5 Allergy status to narcotic agent; Z88.0 Allergy status to penicillin; Z88.2 Allergy status to sulfonamides
CPT/HCPCS: 85610

== ENCOUNTER 2018-02-21 04:08 | Inpatient (IN) | payer MEDICARE ==
[2018-02-21 05:58] LABS: BASO # 0.1 10^3/uL (0.0-0.2); BASO % 0.3 % (0.0-1.0); EOS # 0.2 10^3/uL (0.0-0.50); EOS % 0.6 % (0.0-3.0); HEMATOCRIT 26.4 % (36.0-47.0); HEMOGLOBIN 8.4 g/dl (12.0-15.5); IMMATURE GRANULOCYTE % 1.6 % (0-3.0); LYMPH # 1.1 10^3/uL (1.5-4.5); LYMPH % 3.7 % (24.0-44.0); MEAN CORPUSCULAR HEMOGLOBIN 27.5 pg (27.0-33.0); MEAN CORPUSCULAR HGB CONC 31.8 g/dl (32.0-36.5); MEAN CORPUSCULAR VOLUME 86.3 fl (80.0-96.0); NEUTROPHILS % 86.8 % (36.0-66.0); PLATELET COUNT, AUTOMATED 705 10^3/uL (150-450); RED BLOOD COUNT 3.06 10^6/uL (4.00-5.40); RED CELL DISTRIBUTION WIDTH 17.4 % (11.5-14.5); WHITE BLOOD COUNT 29.9 10^3/uL (4.0-10.0)
[2018-02-21 06:06] LABS: LACTIC ACID SEPSIS PROTOCOL 1.8 MMOL/L (0.4-2.0)
[2018-02-21 06:08] LABS: ALBUMIN 2.2 GM/DL (3.2-5.2); ALBUMIN/GLOBULIN RATIO 0.33 (1.00-1.93); ALKALINE PHOSPHATASE 115 U/L (45-117); ALT/SGPT 19 U/L (12-78); ANION GAP 9 MEQ/L (8-16); AST/SGOT 16 U/L (7-37); BILIRUBIN,DIRECT < 0.1 MG/DL (0.0-0.2); BILIRUBIN,TOTAL 0.3 MG/DL (0.2-1.0); BLOOD UREA NITROGEN 56 MG/DL (7-18); CALCIUM LEVEL 9.6 MG/DL (8.8-10.2); CARBON DIOXIDE LEVEL 20 MEQ/L (21-32); CHLORIDE LEVEL 106 MEQ/L (98-107); CPK CREATINE PHOSPHOKINASE 55 U/L (26-192); CREATININE FOR GFR 2.67 MG/DL (0.55-1.30); GLOMERULAR FILTRATION RATE 18.2 (>32); GLUCOSE, FASTING 162 MG/DL (70-100); LIPASE 56 U/L (73-393); SODIUM LEVEL 135 MEQ/L (136-145); TOTAL PROTEIN 8.8 GM/DL (6.4-8.2); TROPONIN I < 0.02 NG/ML (< 0.10)
[2018-02-21 06:09] LABS: CK-MB VALUE MASS < 1.0 NG/ML (<3.6); MB/CK RELATIVE INDEX 1.81 (< OR =4)
[2018-02-21 06:11] LABS: MONO # 2.1 10^3/uL (0.0-0.8); NEUTROPHILS # 25.9 10^3/uL (1.8-7.7); POSITIVE DIFF POS FLAG
[2018-02-21] MEDS: ONDANSETRON 4MG/2ML VIAL (J2405) IV (06:30)
[2018-02-21 06:39] LABS: KETONE, URINE AUTO RFX NEGATIVE (NEGATIVE); LEUKOCYTE ESTERASE UR AUTO RFX 3+ (NEGATIVE); NITRITE, URINE AUTO RFX NEGATIVE (NEGATIVE); RBC, URINE AUTO RFX 101 /HPF (0-3); SPECIFIC GRAVITY UR AUTO RFX 1.011 (1.002-1.035); SQUAM EPITHELIAL CELL UR AURFX 0 /HPF (0-6); WBC, URINE AUTO RFX TNTC /HPF (0-3); YEAST LIKE CELL URINE AUTO RFX SMALL
[2018-02-21 06:44] LABS: INR 1.23; PARTIAL THROMBOPLASTIN TIME 34.1 SECONDS (26.8-37.9); PROTHROMBIN TIME 15.7 SECONDS (12.4-14.5)
[2018-02-21 07:01] LABS: CPK CREATINE PHOSPHOKINASE 108 U/L (26-192); TROPONIN I < 0.02 NG/ML (< 0.10)
[2018-02-21 07:02] LABS: CK-MB VALUE MASS < 1.0 NG/ML (<3.6); MB/CK RELATIVE INDEX 0.92 (< OR =4)
[2018-02-21] MEDS: NS 500 ML IV (07:35)
[2018-02-21] MEDS: MEROPENEM INJ 1 GM in APPROPRIATE DILUENT 1 EA IV (10:20)
[2018-02-21] MEDS ORDERED: MEROPENEM INJ 1 GM in APPROPRIATE DILUENT 1 EA IV (10:30)
[2018-02-21] MEDS: LINEZOLID 600 MG in APPROPRIATE DILUENT 1 EA IV ×2 (10:53→22:50)
[2018-02-21] MEDS: NS 1,000 ML IV (10:55)
[2018-02-21] MEDS ORDERED: MEROPENEM INJ 500 MG in APPROPRIATE DILUENT 1 EA IV (11:00)
[2018-02-21] MEDS ORDERED: DEXTROSE 50% 50 ML SYRINGE IV (12:00)
[2018-02-21] MEDS ORDERED: GLUCOSE 4 GM CHEW TABLET PO (12:00)
[2018-02-21] MEDS ORDERED: GLUCAGON FOR INJ 1 MG VIAL (J1610) SC (12:00)
[2018-02-21] MEDS ORDERED: NYSTATIN 100,000 UNITS/GM TOPICAL PWD 15 GM TOP (12:00)
[2018-02-21 12:44] LABS: BEDSIDE GLUCOSE 181 MG/DL (83-110)
[2018-02-21] MEDS: ACETAMINOPHEN TAB 650MG DOSE (2X325MG) PO (12:49)
[2018-02-21] MEDS: HumaLOG INSULIN (NovoLOG) PER UNIT SC ×3 (12:49→21:53)
[2018-02-21 14:48] LABS: HEMATOCRIT 23.8 % (36.0-47.0); HEMOGLOBIN 7.6 g/dl (12.0-15.5)
[2018-02-21] MEDS: FERROUS SULFATE 325MG TAB PO (15:47)
[2018-02-21] MEDS: ATORVASTATIN 20 MG TAB PO (15:47)
[2018-02-21] MEDS: MULTIVITAMINS/MINERALS THERAP 1 TAB PO (15:47)
[2018-02-21] MEDS: ASPIRIN 81 MG ENTERIC TAB PO (15:48)
[2018-02-21] MEDS: HEPARIN SOD (PORCINE) 5000 UNITS/ML VIAL SC ×2 (15:48→22:01)
[2018-02-21] MEDS: CLOPIDOGREL 75 MG TAB PO (15:48)
[2018-02-21] MEDS: PANTOPRAZOLE 20 MG TAB PO (15:49)
[2018-02-21] MEDS: SANTYL OINT 30GM TOP (15:49)
[2018-02-21 17:41] LABS: BEDSIDE GLUCOSE 115 MG/DL (83-110)
[2018-02-21] MEDS: SODIUM BICARBONATE 325 MG TAB PO ×2 (18:00→22:01)
[2018-02-21 19:25] LABS: IMMEDIATE SPIN CROSSMATCH 1 1
[2018-02-21 21:52] LABS: BEDSIDE GLUCOSE 128 MG/DL (83-110)
[2018-02-21] MEDS: MEROPENEM INJ 500 MG in APPROPRIATE DILUENT 1 EA IV (22:01)
[2018-02-21] MEDS: LEVEMIR (INSULIN DETEMIR) 1 UNITS/0.01ML SC (22:01)
[2018-02-22] MEDS: NS 1,000 ML IV (01:53)
[2018-02-22 03:41] LABS: BEDSIDE GLUCOSE 151 MG/DL (83-110)
[2018-02-22 05:45] LABS: BASO # 0.1 10^3/uL (0.0-0.2); BASO % 0.3 % (0.0-1.0); EOS # 0.2 10^3/uL (0.0-0.50); EOS % 0.9 % (0.0-3.0); HEMATOCRIT 28.2 % (36.0-47.0); HEMOGLOBIN 9.2 g/dl (12.0-15.5); IMMATURE GRANULOCYTE % 1.2 % (0-3.0); LYMPH # 1.6 10^3/uL (1.5-4.5); MEAN CORPUSCULAR HEMOGLOBIN 28.2 pg (27.0-33.0); MEAN CORPUSCULAR HGB CONC 32.6 g/dl (32.0-36.5); MEAN CORPUSCULAR VOLUME 86.5 fl (80.0-96.0); MONO # 1.8 10^3/uL (0.0-0.8); MONO % 6.7 % (0.0-5.0); NEUTROPHILS % 84.9 % (36.0-66.0); PLATELET COUNT, AUTOMATED 660 10^3/uL (150-450); RED BLOOD COUNT 3.26 10^6/uL (4.00-5.40); RED CELL DISTRIBUTION WIDTH 16.8 % (11.5-14.5); WHITE BLOOD COUNT 27.1 10^3/uL (4.0-10.0)
[2018-02-22] MEDS: LEVOTHYROXINE 50MCG TABLET (0.05MG) PO (05:48)
[2018-02-22] MEDS: HEPARIN SOD (PORCINE) 5000 UNITS/ML VIAL SC ×3 (05:48→22:42)
[2018-02-22 06:05] LABS: ALBUMIN 1.8 GM/DL (3.2-5.2); ALBUMIN/GLOBULIN RATIO 0.29 (1.00-1.93); ALKALINE PHOSPHATASE 105 U/L (45-117); ALT/SGPT 21 U/L (12-78); ANION GAP 11 MEQ/L (8-16); AST/SGOT 34 U/L (7-37); BILIRUBIN,TOTAL 0.6 MG/DL (0.2-1.0); BLOOD UREA NITROGEN 50 MG/DL (7-18); CALCIUM LEVEL 8.5 MG/DL (8.8-10.2); CARBON DIOXIDE LEVEL 18 MEQ/L (21-32); CHLORIDE LEVEL 110 MEQ/L (98-107); CREATININE FOR GFR 2.07 MG/DL (0.55-1.30); GLOMERULAR FILTRATION RATE 24.4 (>32); GLUCOSE, FASTING 83 MG/DL (70-100); MAGNESIUM LEVEL 1.6 MG/DL (1.8-2.4); POTASSIUM SERUM 5.1 MEQ/L (3.5-5.1); SODIUM LEVEL 139 MEQ/L (136-145)
[2018-02-22] MEDS: HumaLOG INSULIN (NovoLOG) PER UNIT SC ×4 (07:30→20:33)
[2018-02-22] MEDS: LACTULOSE 20 GM/30 ML SYRUP UD PO (09:06)
[2018-02-22] MEDS: CLOPIDOGREL 75 MG TAB PO (09:07)
[2018-02-22] MEDS: SANTYL OINT 30GM TOP (09:07)
[2018-02-22] MEDS: ASPIRIN 81 MG ENTERIC TAB PO (09:07)
[2018-02-22] MEDS: PANTOPRAZOLE 20 MG TAB PO (09:08)
[2018-02-22] MEDS: FERROUS SULFATE 325MG TAB PO (09:08)
[2018-02-22] MEDS: ATORVASTATIN 20 MG TAB PO (09:08)
[2018-02-22] MEDS: SODIUM BICARBONATE 325 MG TAB PO ×3 (09:08→20:32)
[2018-02-22] MEDS: MULTIVITAMINS/MINERALS THERAP 1 TAB PO (09:08)
[2018-02-22] MEDS: ACETAMINOPHEN TAB 650MG DOSE (2X325MG) PO ×2 (09:09→20:32)
[2018-02-22] MEDS ORDERED: SENOKOT S TAB PO (09:30)
[2018-02-22] MEDS: MEROPENEM INJ 500 MG in APPROPRIATE DILUENT 1 EA IV ×2 (10:24→20:33)
[2018-02-22] MEDS: LINEZOLID 600 MG in APPROPRIATE DILUENT 1 EA IV ×2 (11:47→22:42)
[2018-02-22] MEDS: MAG SULF 1GM/100ML (MAG RUN) 1 GM in APPROPRIATE DILUENT 1 EA IV ×2 (17:12→18:16)
[2018-02-22 20:09] LABS: BEDSIDE GLUCOSE 228 MG/DL (83-110)
[2018-02-22] MEDS: LEVEMIR (INSULIN DETEMIR) 1 UNITS/0.01ML SC (20:34)
[2018-02-22 21:00] LABS: BEDSIDE GLUCOSE 176 MG/DL (83-110)
[2018-02-22 21:00] LABS: BEDSIDE GLUCOSE 232 MG/DL (83-110)
[2018-02-23] MEDS: LEVOTHYROXINE 50MCG TABLET (0.05MG) PO (05:36)
[2018-02-23] MEDS: HEPARIN SOD (PORCINE) 5000 UNITS/ML VIAL SC ×3 (05:36→21:00)
[2018-02-23] MEDS: ACETAMINOPHEN TAB 650MG DOSE (2X325MG) PO ×3 (05:37→20:59)
[2018-02-23 06:42] LABS: BASO # 0.1 10^3/uL (0.0-0.2); BASO % 0.3 % (0.0-1.0); EOS # 0.5 10^3/uL (0.0-0.50); EOS % 2.5 % (0.0-3.0); HEMATOCRIT 24.2 % (36.0-47.0); IMMATURE GRANULOCYTE % 2.1 % (0-3.0); LYMPH # 1.6 10^3/uL (1.5-4.5); LYMPH % 7.9 % (24.0-44.0); MEAN CORPUSCULAR HEMOGLOBIN 28.3 pg (27.0-33.0); MEAN CORPUSCULAR HGB CONC 33.1 g/dl (32.0-36.5); MEAN CORPUSCULAR VOLUME 85.5 fl (80.0-96.0); MONO # 1.5 10^3/uL (0.0-0.8); MONO % 7.4 % (0.0-5.0); NEUTROPHILS # 16.4 10^3/uL (1.8-7.7); NEUTROPHILS % 79.8 % (36.0-66.0); PLATELET COUNT, AUTOMATED 581 10^3/uL (150-450); RED BLOOD COUNT 2.83 10^6/uL (4.00-5.40); WHITE BLOOD COUNT 20.6 10^3/uL (4.0-10.0)
[2018-02-23 07:04] LABS: ALBUMIN 1.5 GM/DL (3.2-5.2); ALBUMIN/GLOBULIN RATIO 0.29 (1.00-1.93); ALKALINE PHOSPHATASE 109 U/L (45-117); ALT/SGPT 24 U/L (12-78); ANION GAP 10 MEQ/L (8-16); AST/SGOT 19 U/L (7-37); BILIRUBIN,TOTAL 0.2 MG/DL (0.2-1.0); BLOOD UREA NITROGEN 44 MG/DL (7-18); CALCIUM LEVEL 8.2 MG/DL (8.8-10.2); CARBON DIOXIDE LEVEL 21 MEQ/L (21-32); CHLORIDE LEVEL 109 MEQ/L (98-107); CREATININE FOR GFR 1.92 MG/DL (0.55-1.30); GLOMERULAR FILTRATION RATE 26.6 (>32); GLUCOSE, FASTING 114 MG/DL (70-100); MAGNESIUM LEVEL 2.3 MG/DL (1.8-2.4); POTASSIUM SERUM 4.6 MEQ/L (3.5-5.1); SODIUM LEVEL 140 MEQ/L (136-145); TOTAL PROTEIN 6.7 GM/DL (6.4-8.2)
[2018-02-23] MEDS: MEROPENEM INJ 500 MG in APPROPRIATE DILUENT 1 EA IV ×2 (08:09→20:59)
[2018-02-23] MEDS: SODIUM BICARBONATE 325 MG TAB PO ×3 (08:10→20:59)
[2018-02-23] MEDS: CLOPIDOGREL 75 MG TAB PO (08:10)
[2018-02-23] MEDS: PANTOPRAZOLE 20 MG TAB PO (08:10)
[2018-02-23] MEDS: ASPIRIN 81 MG ENTERIC TAB PO (08:10)
[2018-02-23] MEDS: MULTIVITAMINS/MINERALS THERAP 1 TAB PO (08:10)
[2018-02-23] MEDS: HumaLOG INSULIN (NovoLOG) PER UNIT SC ×4 (08:10→21:00)
[2018-02-23] MEDS: ATORVASTATIN 20 MG TAB PO (08:10)
[2018-02-23] MEDS: FERROUS SULFATE 325MG TAB PO (08:10)
[2018-02-23] MEDS: SANTYL OINT 30GM TOP (08:11)
[2018-02-23] MEDS: LINEZOLID 600 MG in APPROPRIATE DILUENT 1 EA IV ×2 (11:01→23:38)
[2018-02-23 11:30] LABS: BEDSIDE GLUCOSE 241 MG/DL (83-110)
[2018-02-23 16:47] LABS: BEDSIDE GLUCOSE 202 MG/DL (83-110)
[2018-02-23 20:44] LABS: BEDSIDE GLUCOSE 192 MG/DL (83-110)
[2018-02-23] MEDS: LEVEMIR (INSULIN DETEMIR) 1 UNITS/0.01ML SC (21:00)
[2018-02-24] MEDS: ACETAMINOPHEN TAB 650MG DOSE (2X325MG) PO ×4 (02:39→18:01)
[2018-02-24] MEDS: HEPARIN SOD (PORCINE) 5000 UNITS/ML VIAL SC ×3 (05:49→20:36)
[2018-02-24] MEDS: LEVOTHYROXINE 50MCG TABLET (0.05MG) PO (05:49)
[2018-02-24 06:50] LABS: BASO # 0.1 10^3/uL (0.0-0.2); BASO % 0.5 % (0.0-1.0); EOS # 0.6 10^3/uL (0.0-0.50); HEMOGLOBIN 8.4 g/dl (12.0-15.5); IMMATURE GRANULOCYTE % 2.7 % (0-3.0); LYMPH # 1.4 10^3/uL (1.5-4.5); LYMPH % 7.3 % (24.0-44.0); MEAN CORPUSCULAR HGB CONC 32.3 g/dl (32.0-36.5); MEAN CORPUSCULAR VOLUME 86.7 fl (80.0-96.0); MONO # 1.4 10^3/uL (0.0-0.8); MONO % 7.1 % (0.0-5.0); NEUTROPHILS # 15.6 10^3/uL (1.8-7.7); NEUTROPHILS % 79.4 % (36.0-66.0); PLATELET COUNT, AUTOMATED 613 10^3/uL (150-450); RED CELL DISTRIBUTION WIDTH 17.2 % (11.5-14.5); WHITE BLOOD COUNT 19.6 10^3/uL (4.0-10.0)
[2018-02-24 07:05] LABS: ALBUMIN 1.6 GM/DL (3.2-5.2); ALKALINE PHOSPHATASE 111 U/L (45-117); ALT/SGPT 23 U/L (12-78); ANION GAP 8 MEQ/L (8-16); AST/SGOT 17 U/L (7-37); BILIRUBIN,TOTAL 0.2 MG/DL (0.2-1.0); BLOOD UREA NITROGEN 43 MG/DL (7-18); CALCIUM LEVEL 8.3 MG/DL (8.8-10.2); CARBON DIOXIDE LEVEL 21 MEQ/L (21-32); CHLORIDE LEVEL 109 MEQ/L (98-107); CREATININE FOR GFR 2.06 MG/DL (0.55-1.30); GLOMERULAR FILTRATION RATE 24.5 (>32); GLUCOSE, FASTING 188 MG/DL (70-100); MAGNESIUM LEVEL 1.9 MG/DL (1.8-2.4); POTASSIUM SERUM 4.6 MEQ/L (3.5-5.1); SODIUM LEVEL 138 MEQ/L (136-145); TOTAL PROTEIN 6.9 GM/DL (6.4-8.2)
[2018-02-24] MEDS: HumaLOG INSULIN (NovoLOG) PER UNIT SC ×4 (07:58→20:35)
[2018-02-24] MEDS: ATORVASTATIN 20 MG TAB PO (07:58)
[2018-02-24] MEDS: SODIUM BICARBONATE 325 MG TAB PO ×3 (07:59→20:35)
[2018-02-24] MEDS: FERROUS SULFATE 325MG TAB PO (07:59)
[2018-02-24] MEDS: MULTIVITAMINS/MINERALS THERAP 1 TAB PO (07:59)
[2018-02-24] MEDS: PANTOPRAZOLE 20 MG TAB PO (07:59)
[2018-02-24] MEDS: CLOPIDOGREL 75 MG TAB PO (07:59)
[2018-02-24] MEDS: ASPIRIN 81 MG ENTERIC TAB PO (07:59)
[2018-02-24] MEDS: SANTYL OINT 30GM TOP ×2 (08:07→15:08)
[2018-02-24] MEDS ORDERED: CEFDINIR 300 MG CAP (OMNICEF) PO (09:00)
[2018-02-24] MEDS: CEFDINIR 300 MG CAP (OMNICEF) PO (10:07)
[2018-02-24 11:44] LABS: BEDSIDE GLUCOSE 140 MG/DL (83-110)
[2018-02-24] MEDS: MEROPENEM INJ 500 MG in APPROPRIATE DILUENT 1 EA IV (13:07)
[2018-02-24 17:26] LABS: BEDSIDE GLUCOSE 230 MG/DL (83-110)
[2018-02-24 20:10] LABS: BEDSIDE GLUCOSE 194 MG/DL (83-110)
[2018-02-24] MEDS: LEVEMIR (INSULIN DETEMIR) 1 UNITS/0.01ML SC (20:36)
[2018-02-25] MEDS: ACETAMINOPHEN TAB 650MG DOSE (2X325MG) PO ×4 (00:38→21:14)
[2018-02-25] MEDS: LEVOTHYROXINE 50MCG TABLET (0.05MG) PO (05:57)
[2018-02-25] MEDS: HEPARIN SOD (PORCINE) 5000 UNITS/ML VIAL SC ×3 (05:57→20:56)
[2018-02-25] MEDS: HumaLOG INSULIN (NovoLOG) PER UNIT SC ×4 (08:14→20:56)
[2018-02-25 08:16] LABS: BEDSIDE GLUCOSE 96 MG/DL (83-110)
[2018-02-25] MEDS: PANTOPRAZOLE 20 MG TAB PO (08:30)
[2018-02-25] MEDS: MULTIVITAMINS/MINERALS THERAP 1 TAB PO (08:30)
[2018-02-25] MEDS: ASPIRIN 81 MG ENTERIC TAB PO (08:30)
[2018-02-25] MEDS: ATORVASTATIN 20 MG TAB PO (08:31)
[2018-02-25] MEDS: CLOPIDOGREL 75 MG TAB PO (08:31)
[2018-02-25] MEDS: CEFDINIR 300 MG CAP (OMNICEF) PO (08:31)
[2018-02-25] MEDS: SODIUM BICARBONATE 325 MG TAB PO ×3 (08:31→20:56)
[2018-02-25] MEDS: FERROUS SULFATE 325MG TAB PO (08:31)
[2018-02-25 09:46] LABS: BASO # 0.1 10^3/uL (0.0-0.2); BASO % 0.5 % (0.0-1.0); EOS # 0.9 10^3/uL (0.0-0.50); EOS % 4.5 % (0.0-3.0); HEMATOCRIT 28.1 % (36.0-47.0); IMMATURE GRANULOCYTE % 2.1 % (0-3.0); LYMPH # 1.5 10^3/uL (1.5-4.5); LYMPH % 7.4 % (24.0-44.0); MEAN CORPUSCULAR HEMOGLOBIN 28.3 pg (27.0-33.0); MEAN CORPUSCULAR VOLUME 88.4 fl (80.0-96.0); MONO # 1.3 10^3/uL (0.0-0.8); MONO % 6.3 % (0.0-5.0); NEUTROPHILS # 16.4 10^3/uL (1.8-7.7); NEUTROPHILS % 79.2 % (36.0-66.0); PLATELET COUNT, AUTOMATED 664 10^3/uL (150-450); RED BLOOD COUNT 3.18 10^6/uL (4.00-5.40); RED CELL DISTRIBUTION WIDTH 17.4 % (11.5-14.5); WHITE BLOOD COUNT 20.7 10^3/uL (4.0-10.0)
[2018-02-25 10:03] LABS: ALBUMIN 1.9 GM/DL (3.2-5.2); ALBUMIN/GLOBULIN RATIO 0.35 (1.00-1.93); ALKALINE PHOSPHATASE 131 U/L (45-117); ALT/SGPT 27 U/L (12-78); ANION GAP 10 MEQ/L (8-16); AST/SGOT 20 U/L (7-37); BILIRUBIN,TOTAL 0.3 MG/DL (0.2-1.0); BLOOD UREA NITROGEN 44 MG/DL (7-18); CALCIUM LEVEL 8.4 MG/DL (8.8-10.2); CARBON DIOXIDE LEVEL 20 MEQ/L (21-32); CHLORIDE LEVEL 110 MEQ/L (98-107); CREATININE FOR GFR 1.98 MG/DL (0.55-1.30); GLOMERULAR FILTRATION RATE 25.7 (>32); GLUCOSE, FASTING 192 MG/DL (70-100); POTASSIUM SERUM 4.8 MEQ/L (3.5-5.1); SODIUM LEVEL 140 MEQ/L (136-145); TOTAL PROTEIN 7.3 GM/DL (6.4-8.2)
[2018-02-25] MEDS: SANTYL OINT 30GM TOP (10:34)
[2018-02-25 11:56] LABS: BEDSIDE GLUCOSE 211 MG/DL (83-110)
[2018-02-25 16:33] LABS: BEDSIDE GLUCOSE 151 MG/DL (83-110)
[2018-02-25 20:02] LABS: BEDSIDE GLUCOSE 262 MG/DL (83-110)
[2018-02-25] MEDS: LEVEMIR (INSULIN DETEMIR) 1 UNITS/0.01ML SC (20:56)
[2018-02-26 05:31] LABS: BASO # 0.1 10^3/uL (0.0-0.2); BASO % 0.5 % (0.0-1.0); EOS # 1.1 10^3/uL (0.0-0.50); EOS % 6.4 % (0.0-3.0); HEMATOCRIT 26.9 % (36.0-47.0); HEMOGLOBIN 8.6 g/dl (12.0-15.5); IMMATURE GRANULOCYTE % 2.1 % (0-3.0); LYMPH % 11.8 % (24.0-44.0); MEAN CORPUSCULAR HEMOGLOBIN 28.3 pg (27.0-33.0); MEAN CORPUSCULAR VOLUME 88.5 fl (80.0-96.0); MONO # 1.1 10^3/uL (0.0-0.8); MONO % 6.5 % (0.0-5.0); NEUTROPHILS # 12.4 10^3/uL (1.8-7.7); NEUTROPHILS % 72.7 % (36.0-66.0); PLATELET COUNT, AUTOMATED 580 10^3/uL (150-450); RED BLOOD COUNT 3.04 10^6/uL (4.00-5.40); RED CELL DISTRIBUTION WIDTH 17.3 % (11.5-14.5)
[2018-02-26 05:48] LABS: ALBUMIN 1.8 GM/DL (3.2-5.2); ALBUMIN/GLOBULIN RATIO 0.32 (1.00-1.93); ALKALINE PHOSPHATASE 119 U/L (45-117); ALT/SGPT 24 U/L (12-78); ANION GAP 10 MEQ/L (8-16); AST/SGOT 16 U/L (7-37); BILIRUBIN,TOTAL 0.2 MG/DL (0.2-1.0); BLOOD UREA NITROGEN 42 MG/DL (7-18); CALCIUM LEVEL 8.5 MG/DL (8.8-10.2); CARBON DIOXIDE LEVEL 21 MEQ/L (21-32); CHLORIDE LEVEL 112 MEQ/L (98-107); CREATININE FOR GFR 1.63 MG/DL (0.55-1.30); GLOMERULAR FILTRATION RATE 32.2 (>32); GLUCOSE, FASTING 143 MG/DL (70-100); MAGNESIUM LEVEL 1.9 MG/DL (1.8-2.4); POTASSIUM SERUM 4.7 MEQ/L (3.5-5.1); SODIUM LEVEL 143 MEQ/L (136-145); TOTAL PROTEIN 7.5 GM/DL (6.4-8.2)
[2018-02-26] MEDS: HEPARIN SOD (PORCINE) 5000 UNITS/ML VIAL SC ×3 (06:01→20:28)
[2018-02-26] MEDS: LEVOTHYROXINE 50MCG TABLET (0.05MG) PO (06:01)
[2018-02-26] MEDS: HumaLOG INSULIN (NovoLOG) PER UNIT SC ×4 (08:04→20:23)
[2018-02-26] MEDS: ASPIRIN 81 MG ENTERIC TAB PO (09:33)
[2018-02-26] MEDS: MULTIVITAMINS/MINERALS THERAP 1 TAB PO (09:34)
[2018-02-26] MEDS: PANTOPRAZOLE 20 MG TAB PO (09:34)
[2018-02-26] MEDS: SODIUM BICARBONATE 325 MG TAB PO ×3 (09:35→20:27)
[2018-02-26] MEDS: FERROUS SULFATE 325MG TAB PO (09:35)
[2018-02-26] MEDS: CLOPIDOGREL 75 MG TAB PO (09:35)
[2018-02-26] MEDS: ATORVASTATIN 20 MG TAB PO (09:36)
[2018-02-26] MEDS: CEFDINIR 300 MG CAP (OMNICEF) PO (09:36)
[2018-02-26] MEDS: ACETAMINOPHEN TAB 650MG DOSE (2X325MG) PO (09:37)
[2018-02-26] MEDS: SANTYL OINT 30GM TOP (09:44)
[2018-02-26 11:47] LABS: BEDSIDE GLUCOSE 176 MG/DL (83-110)
[2018-02-26] MEDS: LACTOBACILLUS ACIDOPHILUS CAP (BACID) PO ×2 (12:22→16:53)
[2018-02-26 16:28] LABS: BEDSIDE GLUCOSE 189 MG/DL (83-110)
[2018-02-26 20:11] LABS: BEDSIDE GLUCOSE 213 MG/DL (83-110)
[2018-02-26] MEDS: LEVEMIR (INSULIN DETEMIR) 1 UNITS/0.01ML SC (20:28)
[2018-02-27] MEDS: HEPARIN SOD (PORCINE) 5000 UNITS/ML VIAL SC ×3 (05:37→21:36)
[2018-02-27] MEDS: LEVOTHYROXINE 50MCG TABLET (0.05MG) PO (05:37)
[2018-02-27 06:01] LABS: BASO # 0.1 10^3/uL (0.0-0.2); BASO % 0.5 % (0.0-1.0); EOS # 0.9 10^3/uL (0.0-0.50); EOS % 4.7 % (0.0-3.0); HEMOGLOBIN 8.7 g/dl (12.0-15.5); IMMATURE GRANULOCYTE % 2.6 % (0-3.0); LYMPH # 1.9 10^3/uL (1.5-4.5); LYMPH % 9.7 % (24.0-44.0); MEAN CORPUSCULAR HEMOGLOBIN 28.4 pg (27.0-33.0); MEAN CORPUSCULAR HGB CONC 32.2 g/dl (32.0-36.5); MEAN CORPUSCULAR VOLUME 88.2 fl (80.0-96.0); MONO # 1.2 10^3/uL (0.0-0.8); MONO % 6.2 % (0.0-5.0); NEUTROPHILS # 14.9 10^3/uL (1.8-7.7); NEUTROPHILS % 76.3 % (36.0-66.0); PLATELET COUNT, AUTOMATED 582 10^3/uL (150-450); RED BLOOD COUNT 3.06 10^6/uL (4.00-5.40); RED CELL DISTRIBUTION WIDTH 17.4 % (11.5-14.5); WHITE BLOOD COUNT 19.4 10^3/uL (4.0-10.0)
[2018-02-27 06:10] LABS: ALBUMIN 1.9 GM/DL (3.2-5.2); ALBUMIN/GLOBULIN RATIO 0.32 (1.00-1.93); ALKALINE PHOSPHATASE 138 U/L (45-117); ALT/SGPT 24 U/L (12-78); ANION GAP 11 MEQ/L (8-16); AST/SGOT 17 U/L (7-37); BILIRUBIN,TOTAL 0.2 MG/DL (0.2-1.0); BLOOD UREA NITROGEN 44 MG/DL (7-18); CALCIUM LEVEL 8.5 MG/DL (8.8-10.2); CARBON DIOXIDE LEVEL 22 MEQ/L (21-32); CHLORIDE LEVEL 107 MEQ/L (98-107); CREATININE FOR GFR 1.63 MG/DL (0.55-1.30); GLOMERULAR FILTRATION RATE 32.2 (>32); GLUCOSE, FASTING 145 MG/DL (70-100); MAGNESIUM LEVEL 1.7 MG/DL (1.8-2.4); SODIUM LEVEL 140 MEQ/L (136-145); TOTAL PROTEIN 7.8 GM/DL (6.4-8.2)
[2018-02-27] MEDS: ASPIRIN 81 MG ENTERIC TAB PO (08:37)
[2018-02-27] MEDS: SODIUM BICARBONATE 325 MG TAB PO ×3 (08:37→21:36)
[2018-02-27] MEDS: LACTOBACILLUS ACIDOPHILUS CAP (BACID) PO ×2 (08:38→17:23)
[2018-02-27] MEDS: MULTIVITAMINS/MINERALS THERAP 1 TAB PO (08:38)
[2018-02-27] MEDS: ATORVASTATIN 20 MG TAB PO (08:38)
[2018-02-27] MEDS: PANTOPRAZOLE 20 MG TAB PO (08:38)
[2018-02-27] MEDS: CLOPIDOGREL 75 MG TAB PO (08:38)
[2018-02-27] MEDS: FERROUS SULFATE 325MG TAB PO (08:38)
[2018-02-27] MEDS: CEFDINIR 300 MG CAP (OMNICEF) PO (08:38)
[2018-02-27] MEDS: ACETAMINOPHEN TAB 650MG DOSE (2X325MG) PO ×3 (08:39→21:36)
[2018-02-27] MEDS: HumaLOG INSULIN (NovoLOG) PER UNIT SC ×4 (08:40→21:00)
[2018-02-27] MEDS: SANTYL OINT 30GM TOP (08:41)
[2018-02-27 11:54] LABS: BEDSIDE GLUCOSE 188 MG/DL (83-110)
[2018-02-27] MEDS: MAG SULF 1GM/100ML (MAG RUN) 1 GM in APPROPRIATE DILUENT 1 EA IV (16:07)
[2018-02-27 16:43] LABS: BEDSIDE GLUCOSE 163 MG/DL (83-110)
[2018-02-27 20:17] LABS: BEDSIDE GLUCOSE 226 MG/DL (83-110)
[2018-02-27] MEDS: LEVEMIR (INSULIN DETEMIR) 1 UNITS/0.01ML SC (21:38)
[2018-02-28] MEDS: ACETAMINOPHEN TAB 650MG DOSE (2X325MG) PO (05:37)
[2018-02-28] MEDS: HEPARIN SOD (PORCINE) 5000 UNITS/ML VIAL SC ×2 (05:37→12:43)
[2018-02-28] MEDS: LEVOTHYROXINE 50MCG TABLET (0.05MG) PO (05:37)
[2018-02-28 06:56] LABS: BASO # 0.1 10^3/uL (0.0-0.2); BASO % 0.4 % (0.0-1.0); EOS # 0.9 10^3/uL (0.0-0.50); EOS % 4.5 % (0.0-3.0); HEMATOCRIT 27.1 % (36.0-47.0); HEMOGLOBIN 8.6 g/dl (12.0-15.5); IMMATURE GRANULOCYTE % 3.3 % (0-3.0); LYMPH # 1.6 10^3/uL (1.5-4.5); MEAN CORPUSCULAR HEMOGLOBIN 28.4 pg (27.0-33.0); MEAN CORPUSCULAR HGB CONC 31.7 g/dl (32.0-36.5); MEAN CORPUSCULAR VOLUME 89.4 fl (80.0-96.0); MONO # 1.2 10^3/uL (0.0-0.8); NEUTROPHILS # 15.2 10^3/uL (1.8-7.7); NEUTROPHILS % 77.8 % (36.0-66.0); PLATELET COUNT, AUTOMATED 573 10^3/uL (150-450); RED BLOOD COUNT 3.03 10^6/uL (4.00-5.40); RED CELL DISTRIBUTION WIDTH 17.4 % (11.5-14.5); WHITE BLOOD COUNT 19.5 10^3/uL (4.0-10.0)
[2018-02-28 07:12] LABS: ALBUMIN/GLOBULIN RATIO 0.35 (1.00-1.93); ALKALINE PHOSPHATASE 125 U/L (45-117); ALT/SGPT 25 U/L (12-78); ANION GAP 9 MEQ/L (8-16); AST/SGOT 15 U/L (7-37); BILIRUBIN,TOTAL 0.2 MG/DL (0.2-1.0); BLOOD UREA NITROGEN 53 MG/DL (7-18); CALCIUM LEVEL 8.7 MG/DL (8.8-10.2); CARBON DIOXIDE LEVEL 22 MEQ/L (21-32); CHLORIDE LEVEL 106 MEQ/L (98-107); CREATININE FOR GFR 1.77 MG/DL (0.55-1.30); GLOMERULAR FILTRATION RATE 29.2 (>32); GLUCOSE, FASTING 166 MG/DL (70-100); MAGNESIUM LEVEL 1.9 MG/DL (1.8-2.4); POTASSIUM SERUM 5.1 MEQ/L (3.5-5.1); SODIUM LEVEL 137 MEQ/L (136-145); TOTAL PROTEIN 7.7 GM/DL (6.4-8.2)
[2018-02-28] MEDS: ATORVASTATIN 20 MG TAB PO (08:03)
[2018-02-28] MEDS: CEFDINIR 300 MG CAP (OMNICEF) PO (08:03)
[2018-02-28] MEDS: LACTOBACILLUS ACIDOPHILUS CAP (BACID) PO (08:03)
[2018-02-28] MEDS: ASPIRIN 81 MG ENTERIC TAB PO (08:04)
[2018-02-28] MEDS: CLOPIDOGREL 75 MG TAB PO (08:04)
[2018-02-28] MEDS: MULTIVITAMINS/MINERALS THERAP 1 TAB PO (08:04)
[2018-02-28] MEDS: SODIUM BICARBONATE 325 MG TAB PO (08:04)
[2018-02-28] MEDS: PANTOPRAZOLE 20 MG TAB PO (08:04)
[2018-02-28] MEDS: FERROUS SULFATE 325MG TAB PO (08:04)
[2018-02-28] MEDS: HumaLOG INSULIN (NovoLOG) PER UNIT SC ×2 (08:05→12:00)
[2018-02-28] MEDS: SANTYL OINT 30GM TOP (08:06)
[2018-02-28 12:00] LABS: BEDSIDE GLUCOSE 236 MG/DL (83-110)
== END 2018-02-28 14:55 | disposition home or self-care (01) | DRG 689 ==
LOC: M PCU 02-22 05:18 → M ED 04:08 → M MS5PR 02-22 18:24 → M ED INP 10:16
PROVIDERS: Internal Medicine
PROC: 30233N1 Transfusion of Nonautologous Red Blood Cells into Peripheral Vein, Percutaneous Approach (ICD-10-PCS; principal; 2018-02-21)
DX: N39.0 Urinary tract infection, site not specified (principal); G93.41 Metabolic encephalopathy; L89.153 Pressure ulcer of sacral region, stage 3; N17.9 Acute kidney failure, unspecified; I12.9 Hypertensive chronic kidney disease with stage 1 through stage 4 chronic kidney disease, or unspecified chronic kidney disease; E78.5 Hyperlipidemia, unspecified; D64.9 Anemia, unspecified; K59.00 Constipation, unspecified; E03.9 Hypothyroidism, unspecified; N13.9 Obstructive and reflux uropathy, unspecified; B96.1 Klebsiella pneumoniae [K. pneumoniae] as the cause of diseases classified elsewhere; B95.1 Streptococcus, group B, as the cause of diseases classified elsewhere; B96.20 Unspecified Escherichia coli [E. coli] as the cause of diseases classified elsewhere; B95.2 Enterococcus as the cause of diseases classified elsewhere; E11.22 Type 2 diabetes mellitus with diabetic chronic kidney disease; D47.3 Essential (hemorrhagic) thrombocythemia; N18.3 Chronic kidney disease, stage 3 (moderate); Z87.440 Personal history of urinary (tract) infections; Z85.3 Personal history of malignant neoplasm of breast; Z90.12 Acquired absence of left breast and nipple; Z93.6 Other artificial openings of urinary tract status; Z79.82 Long term (current) use of aspirin; Z79.4 Long term (current) use of insulin; Z79.899 Other long term (current) drug therapy; Z88.1 Allergy status to other antibiotic agents; Z88.5 Allergy status to narcotic agent; Z88.8 Allergy status to other drugs, medicaments and biological substances; Z91.048 Other nonmedicinal substance allergy status; Z98.1 Arthrodesis status; Z90.710 Acquired absence of both cervix and uterus; Z98.41 Cataract extraction status, right eye; Z98.42 Cataract extraction status, left eye; Z86.73 Personal history of transient ischemic attack (TIA), and cerebral infarction without residual deficits

== ENCOUNTER → 2018-03-08 | Outpatient (REF) | payer MEDICARE ==
[2018-03-08 13:24] LABS: HEMATOCRIT 30.7 % (36.0-47.0); HEMOGLOBIN 9.4 g/dl (12.0-15.5); MEAN CORPUSCULAR HEMOGLOBIN 28.6 pg (27.0-33.0); MEAN CORPUSCULAR HGB CONC 30.6 g/dl (32.0-36.5); MEAN CORPUSCULAR VOLUME 93.3 fl (80.0-96.0); PLATELET COUNT, AUTOMATED 721 10^3/uL (150-450); RED BLOOD COUNT 3.29 10^6/uL (4.00-5.40); RED CELL DISTRIBUTION WIDTH 19.5 % (11.5-14.5); WHITE BLOOD COUNT 12.2 10^3/uL (4.0-10.0)
== END ==
LOC: M LAB REF 13:14
DX: D72.829 Elevated white blood cell count, unspecified (principal)
CPT/HCPCS: 85027

== ENCOUNTER → 2018-03-29 | Outpatient (REF) | payer MEDICARE ==
[2018-03-29 14:20] LABS: FERRITIN 71 NG/ML (8-252); IRON (FE) 46 UG/DL (50-170); PERCENT SATURATION 19.9 % (13.2-45.0); TOTAL IRON BINDING CAPACITY 231 UG/DL (250-450)
== END ==
LOC: M LAB REF 13:30
DX: D50.9 Iron deficiency anemia, unspecified (principal)
CPT/HCPCS: 83550

== ENCOUNTER 2018-11-02 20:37 | Emergency (ER) | payer MEDICARE ==
[~2018-11-02] VITALS: Ht 154.9 cm; Wt 57.7 kg
[~2018-11-02 20:37] MED LIST changes: +ACET500T15 PO; +ASPI81TA52 PO; +ATEN25TA PO; +ATEN50TA2 PO; +ATOR1TAB21 PO; +Acetaminophen Tab PO; +BACT400T PO; -BISACODYL 10 MG SUPP PR; -BISACODYL 5 MG TAB PO; +CEFD300CAP PO; +CETI10CH PO; +CLOP75TA2 PO; +COUM2.5T17 PO; -DEXTROSE 50% 50 ML SYRINGE IV; +ESTR62CR PV; +FERR325T3 PO; +FISH500C PO; -FLEET ENEMA PR; +FURO20TA2 PO; +FURO40TA2 PO; +GLIM4TAB PO; -GLUCAGON FOR INJ 1 MG VIAL (J1610) SC; -GLUCOSE 4 GM CHEW TABLET PO; +INSULANT SC; +K-TA10TA PO; +LAMI1CRE TOP; +LEVE1INJ5 SC; +LEVE1INJ5 SQ; +LEVO30TA PO; +LEVO50TA5 PO; +LINE60TAB PO; -MOM 30ML SUSPENSION UDC PO; +MULT1TAB10 PO; +MYCA100I IV; +NYAM10003 TOP; +NYST1POW9 TOP; +ONDA4TAB5 PO; +OXYC1TAB23 PO; +PANT20TA2 PO; +PRIL20CA9 PO; +RANI150C PO; +REFR0.5D8 OU; +RISATAB3 PO; +SANT250O8 TOP; +SODI325T9 PO; +SPIR-10 PO; +VITMTA PO
[2018-11-02] MEDS ORDERED: INSUDET SC (20:55)
[2018-11-02] MEDS ORDERED: NS 500 ML IV ONE (22:00)
[2018-11-02 22:35] LABS: BASO # 0.1 10^3/uL (0.0-0.2); BASO % 0.9 % (0.0-1.0); EOS # 0.5 10^3/uL (0.0-0.50); EOS % 5.5 % (0.0-3.0); HEMATOCRIT 32.4 % (36.0-47.0); LYMPH # 1.7 10^3/uL (1.5-4.5); LYMPH % 17.3 % (24.0-44.0); MEAN CORPUSCULAR HEMOGLOBIN 31.3 pg (27.0-33.0); MEAN CORPUSCULAR HGB CONC 30.9 g/dl (32.0-36.5); MEAN CORPUSCULAR VOLUME 101.3 fl (80.0-96.0); MONO # 0.8 10^3/uL (0.0-0.8); MONO % 8.7 % (0.0-5.0); NEUTROPHILS # 6.4 10^3/uL (1.8-7.7); NEUTROPHILS % 67.2 % (36.0-66.0); PLATELET COUNT, AUTOMATED 356 10^3/uL (150-450); WHITE BLOOD COUNT 9.5 10^3/uL (4.0-10.0)
[2018-11-02 22:52] LABS: CALCIUM LEVEL 8.8 MG/DL (8.8-10.2); CREATININE FOR GFR 2.43 MG/DL (0.55-1.30); GLOMERULAR FILTRATION RATE 20.2 (>32); POTASSIUM SERUM 4.9 MEQ/L (3.5-5.1)
[2018-11-02] MEDS ORDERED: BACITAB PO (23:21)
[2018-11-02] MEDS ORDERED: FERR1TAB8 PO (23:21)
[2018-11-02] MEDS ORDERED: ATEN25TA PO (23:21)
[2018-11-02] MEDS ORDERED: ZYRT10CA5 PO (23:21)
[2018-11-02] MEDS ORDERED: PANT20TA2 PO (23:21)
[2018-11-02] MEDS ORDERED: ATOR40TA75 PO (23:21)
[2018-11-02] MEDS ORDERED: DOCU100C16 PO (23:21)
--- NOTE | 2018-11-02 23:42 | REPVR ---
EXAM: CT Abdomen and Pelvis Without Contrast EXAM DATE/TIME: 11/02/2018 10:55 PM CLINICAL HISTORY: 83 years old, female; Pain; Abdominal pain; Prior surgery; Additional info: Eval of hydronephrosis TECHNIQUE: Axial computed tomography images of the abdomen and pelvis without contrast. All CT scans at this facility use at least one of these dose optimization techniques: automated exposure control; mA and/or kV adjustment per patient size (includes targeted exams where dose is matched to clinical indication); or iterative reconstruction. Coronal and sagittal reformatted images were created and reviewed. COMPARISON: CT ABD PELVIS W/O CONTRAST 02/21/2018 6:30 AM FINDINGS: Mild atelectatic changes at the posterior lung bases. Lung bases are otherwise clear. No pleural or pericardial effusion. Within the limits of unenhanced examination, the liver, spleen and adrenals are grossly normal. Gallbladder is normally distended with no evidence of calcified gallstones. Pancreas is atrophic. Calcifications projected over the pancreas may be vascular or represent changes of chronic pancreatitis. No focal parenchymal abnormalities. There is cortical thinning of the kidneys bilaterally. There is a nonobstructing calculus within a left lower pole renal calyx measuring less than 5 mm. There is mild distention of the renal pelves and ureters, slightly greater than on previous examination. Ureters appear to extend to a neobladder in the right lower quadrant. There appears to be a right lower quadrant ureterostomy. No definite evidence of calcified ureteroliths. Atherosclerotic changes identified within the abdominal aorta and aortic branch vessels with no evidence of aneurysmal dilatation. Small bowel loops are grossly normal. There is moderate fecal stasis within the colon extending from cecum to rectum. Stool ball in the rectum measures up to 8 cm in diameter. No evidence of enteric obstruction. Pelvic views are limited by metallic artifact related to left hip prosthesis. Surgical clips in the pelvis suggests prior hysterectomy or cystectomy. Soft tissue density anterior to the rectum may represent residual uterus. No significant free fluid in the abdomen or pelvis. Advanced degenerative changes in the spine with probable laminectomy defects at L3 and L4. IMPRESSION: Moderate fecal stasis in the colon extending to the level of the rectum. No definite evidence of enteric obstruction. Moderate distention of the collecting systems bilaterally, right greater than left. There appears to have been previous cystectomy with neobladder in the right abdomen with right lower quadrant ureterostomy. Distention of the collecting system may be normal in this situation. Correlation with surgical history recommended. No other acute intra-abdominal or pelvic process. Additional nonemergent findings as described above. Electronically signed by: Armando Foster On 11/02/2018 23:41:54 PM
[2018-11-03] MEDS ORDERED: NS 500 ML IV ONE
[2018-11-03 01:51] VITALS: BP 116/56
--- NOTE | 2018-11-04 15:36 | ED PDOC ---
Post-Departure Follow-Up dr andree calle faxed formal report of ct abd p for fu Litzy Pearson MD Nov 04, 2018 15:36
== END 2018-11-03 01:52 | disposition home or self-care (01) ==
LOC: M ED 20:37
DX: N28.9 Disorder of kidney and ureter, unspecified (principal); E86.9 Volume depletion, unspecified; E11.9 Type 2 diabetes mellitus without complications; I10 Essential (primary) hypertension; E03.9 Hypothyroidism, unspecified; D64.9 Anemia, unspecified; Z85.3 Personal history of malignant neoplasm of breast; Z79.899 Other long term (current) drug therapy; Z79.890 Hormone replacement therapy; Z88.0 Allergy status to penicillin; Z88.1 Allergy status to other antibiotic agents; Z88.5 Allergy status to narcotic agent; Z88.8 Allergy status to other drugs, medicaments and biological substances

== ENCOUNTER 2019-04-16 11:03 | Inpatient (IN) | payer MEDICARE ==
[~2019-04-16] VITALS: Ht 154.9 cm; Wt 55.9 kg
[~2019-04-16 11:03] MED LIST changes: +ATOR40TA75 PO; +BACITAB PO; +DOCU100C16 PO; +FERR1TAB8 PO; +INSUDET SC; +LINE1TAB PO; -LINE60TAB PO; +ZYRT10CA5 PO
[2019-04-16] MEDS ORDERED: D-50CAP PO (11:59)
[2019-04-16 12:19] LABS: BASO # 0.1 10^3/uL (0.0-0.2); BASO % 0.4 % (0.0-1.0); EOS # 0.1 10^3/uL (0.0-0.50); EOS % 0.3 % (0.0-3.0); HEMATOCRIT 30.9 % (36.0-47.0); LYMPH # 1.2 10^3/uL (1.5-4.5); LYMPH % 6.1 % (24.0-44.0); MEAN CORPUSCULAR HEMOGLOBIN 32.1 pg (27.0-33.0); MEAN CORPUSCULAR HGB CONC 32.4 g/dl (32.0-36.5); MONO # 1.8 10^3/uL (0.0-0.8); NEUTROPHILS # 16.3 10^3/uL (1.8-7.7); NEUTROPHILS % 83.6 % (36.0-66.0); PLATELET COUNT, AUTOMATED 301 10^3/uL (150-450); RED BLOOD COUNT 3.12 10^6/uL (4.00-5.40); WHITE BLOOD COUNT 19.5 10^3/uL (4.0-10.0)
[2019-04-16 13:02] LABS: ALBUMIN 2.9 GM/DL (3.2-5.2); ALT/SGPT 15 U/L (12-78); BILIRUBIN,DIRECT < 0.1 MG/DL (0.0-0.2); BILIRUBIN,TOTAL 0.2 MG/DL (0.2-1.0); BLOOD UREA NITROGEN 65 MG/DL (7-18); CALCIUM LEVEL 9.3 MG/DL (8.8-10.2); CARBON DIOXIDE LEVEL 21 MEQ/L (21-32); CHLORIDE LEVEL 111 MEQ/L (98-107); CK-MB VALUE MASS < 1.0 NG/ML (<3.6); CPK CREATINE PHOSPHOKINASE 14 U/L (26-192); CREATININE FOR GFR 2.74 MG/DL (0.55-1.30); GLOMERULAR FILTRATION RATE 17.6 (>32); GLUCOSE, FASTING 215 MG/DL (70-100); LIPASE 93 U/L (73-393); MB/CK RELATIVE INDEX 7.14 (< OR =4); SODIUM LEVEL 141 MEQ/L (136-145); THYROID STIMULATING HORMONE 0.557 uIU/ML (0.358-3.740); TOTAL PROTEIN 7.6 GM/DL (6.4-8.2); TROPONIN I < 0.02 NG/ML (< 0.10)
[2019-04-16] MEDS ORDERED: NS 1,000 ML IV ONE (13:30)
[2019-04-16] MEDS ORDERED: cefTRIAXone SOD 1 GM in D5W MINI-BAG PLUS 50 ML IV ONE (13:45)
[2019-04-16] MEDS ORDERED: ACETAMINOPHEN TAB 650MG DOSE (2X325MG) PO PRN (14:15)
[2019-04-16] MEDS ORDERED: MOM 30ML SUSPENSION UDC PO PRN (14:15)
[2019-04-16] MEDS ORDERED: MAALOX 30 ML SUSP *UDC PO PRN (14:15)
[2019-04-16] MEDS ORDERED: GLUCAGON FOR INJ 1 MG VIAL (J1610) SC PRN (14:15)
[2019-04-16] MEDS ORDERED: GLUCOSE 4 GM CHEW TABLET PO PRN (14:15)
[2019-04-16] MEDS ORDERED: DEXTROSE 50% 50 ML SYRINGE IV PRN (14:15)
[2019-04-16] MEDS ORDERED: ALL10TAB28 PO (14:24)
[2019-04-16] MEDS ORDERED: DRIS50003 PO (14:26)
[2019-04-16] MEDS ORDERED: CINN500C15 PO (14:27)
[2019-04-16] MEDS ORDERED: MEROPENEM INJ 2 GM in NS 100 ML IV SCH (17:00)
[2019-04-16] MEDS ORDERED: BISACODYL 5 MG TAB PO PRN (17:00)
[2019-04-16] MEDS ORDERED: BISACODYL 10 MG SUPP PR PRN (17:00)
[2019-04-16] MEDS ORDERED: POLYVINYL ALCOHOL OPHTH SOLN 15 ML(LIQUITEARS) OU PRN (17:15)
[2019-04-16] MEDS ORDERED: NYSTATIN 100,000 UNITS/GM TOPICAL PWD 15 GM TOP PRN (17:15)
[2019-04-16] MEDS: HumaLOG INSULIN (NovoLOG) PER UNIT SC SCH ×2 (17:30→21:00)
[2019-04-16] MEDS: NS 1,000 ML IV SCH (18:02)
--- NOTE | 2019-04-16 18:22 | HPEPDOC ---
General Date of Admission Apr 16, 2019 at 14:03 Date of Service: Apr 16, 2019 Other Providers PCP: alva; Nephrology: Dr Shay Chief Complaint The patient is a 84-year-old female admitted with a reason for visit of Acute Metabolic Encephalopathy Uti. Source: Patient, Family Exam Limitations: Clinical conditions, Mild cognitive slowing Timing/Duration: 24 hours Severity: Severe History of Present Illness 82-year-old diabetic female with a PMHx of HTN, diabetes, CKD, recurrent UTI and chronic indwelling urostomy, presents with fever starting on 04/12/18 (100.7) while on tylenol . fever would wax and wane with no discomfort. This morning patient was unable to sit up in bed, had global weakness, unable to stand or use her walker. Son states patient normal is able to sit in her wheelchair and uses platform walker at times. Over last 2 nights has had decreased appetite and yesterday her blood sugars increased to 220. Son states her blood sugars over the past 1-2 weeks have been 150-180; Patient was recently admitted in January with Strep Agalactaie ,E Coli and Enterococcus UTI, similar symtpoms today. She had Klebsiella UTI in February and was treated with cefnidir...She follows with Dr Shay and family is requesting consult. Patient states no CP, no SOB, no N, no V, no abdomen pain, no diarrhea. Does have constipation and decreased appetite. last stool 3 days ago. Has global weakness/debility Home Medications Scheduled Atenolol (Atenolol) 25 Mg Tab, 25 MG PO QHS, (Reported) HOLD IF SBP<100 Atorvastatin Calcium (Atorvastatin Calcium) 40 Mg Tab, 40 MG PO QHS, (Reported) Carboxymethylcellulose Sodium (Refresh Tears) 0.5 % Pietro, 1 DROP OU QHS, (Reported) Cetirizine HCl (Cetirizine HCl) 10 Mg Tablet, 10 MG PO DAILY, (Reported) Cinnamon Bark (Cinnamon) 500 Mg Capsule, 1,000 MG PO DAILY, (Reported) Clopidogrel Bisulfate (Clopidogrel) 75 Mg Tab, 75 MG PO DAILY, (Reported) Ergocalciferol (Vitamin D2) (Drisdol) 50,000 Unit Capsule, 50,000 UNIT PO 1XWK, (Reported) TUESDAYS Ferrous Sulfate (Ferrous Sulfate) 325 Mg Tab, 325 MG PO DAILY, (Reported) Insulin Detemir (Levemir) 1 Units/0.01 Ml Susp, 28 UNITS SC QHS, (Reported) Levothyroxine Sodium (Levothyroxine Sodium) 50 Mcg Tab, 50 MCG PO DAILY, (Reported) Multivitamins (Thera M Plus Tablet) 1 Tab Tab, 1 TAB PO DAILY, (Reported) [place]-3/Dha/Epa/Fish Oil (Fish Oil 500 mg Softgel) 500 Mg Cap, 500 MG PO DAILY, (Reported) Pantoprazole Sodium (Pantoprazole Sodium) 20 Mg Tab, 20 MG PO DAILY, (Reported) Sodium Bicarbonate (Sodium Bicarbonate) 325 Mg Tab, 650 MG PO TID, (Reported) Scheduled PRN Acetaminophen (Acetaminophen) 500 Mg Tab, 1,000 MG PO Q8H PRN for PAIN, (Reported) Docusate Sodium (Docusate Sodium) 100 Mg Cap, 100 MG PO BID PRN for CONSTIPATION, (Reported) Nystatin (Nystatin Powder) 100,000 Unit/Gm Pow, 1 DOSE TOP BID PRN for RASH, (Reported) GROIN AREA AND SKIN FOLDS Allergies Coded Allergies: Penicillins (Verified Allergy, Intermediate, HIVES, 04/16/19) has received PCN PO as outpt in 2019 ceftriaxone (Verified Allergy, Intermediate, HIVES, 04/16/19) received dose 12/03/17 ciprofloxacin (Verified Allergy, Intermediate, HIVES, 04/16/19) fluconazole (Verified Allergy, Intermediate, HIVES, 04/16/19) iodine (Verified Allergy, Intermediate, HIVES, 04/16/19) erythromycin base (Verified Allergy, Unknown, 04/16/19) nitrofurantoin (Verified Allergy, Unknown, 04/16/19) rofecoxib (Verified Allergy, Unknown, 04/16/19) morphine (Verified Adverse Reaction, Mild, HYPOTENSION, 04/16/19) sulfamethoxazole (Verified Adverse Reaction, Mild, 04/16/19) listed as allergy due to renal function trimethoprim (Verified Adverse Reaction, Mild, 04/16/19) listed as allergy due to renal function Past Medical History Medical History HTN, IDDM2, CKD3, Hx of UTIs with chronic indwelling urostomy (placed because of CKD and bilateral hydroureteronephrosis), Breast CA s/p L mastectomy, TIA/CVA , GERD, Hyperlipidemia, enviromental allergies, anemia, hypothryoid Surgical History insertion urostomy 3 back surgeries; Lumbar fusion of L2-3, 4 and 5 Cataracts bilateral Hysterectomy Right knee arthroplasty Left hip arthroplasty Family History Father COPD complications; Mother kidney problems Social History - Denies the use of alcohol, tobacco or illicit drugs; - Lives with son (Jovan); Health care proxy is Abi (nurse/daughter) A-FIB/CHADSVASC A-FIB History Current/History of A-Fib/PAF?: No Review of Systems Other systems 10 systems reviewed and negative except as per HPI Physical Examination General Exam: Positive: Alert, Cooperative, No Acute Distress Eye Exam: Positive: PERRLA, EOMI ENT Exam: Positive: Atraumatic, Other ENT (oral mucosa dry, poor dentition) Neck Exam: Positive: Supple, +2 carotid pulse wo bruit Chest Exam: Positive: Clear to auscultation, Normal air movement; Negative: Rales, Rhonchi, Wheezing Heart Exam: Positive: Rate Normal, Regular Rhythm, Normal S1, Normal S2, Other (no murmur; left mastectomy) Abdomen Exam: Positive: Normal bowel sounds, Soft (NT ND; skin along the urostomy bag with erythema from leakage) Extremity Exam: Positive: Edema (trace to ankles bilaterally), Normal pulses; Negative: Clubbing, Cyanosis, Tenderness Skin Exam: Positive: Other skin issue (no sacral/coccyx decub; irritation along abdomen skin from urostomy leakage) Neuro Exam: Positive: Normal Speech, Sensation Intact, Other (patient with proximal muscle weakness and core muscle weakness, needed assistance to sit in bed; lower extremity strenth with resistance against gravity but unable to hold leg up independently greater than 10 seconds; lower extremity strength - 3/5, unable to push back against isometric forces; branding machine tender strength bilateral 2/5; ); Negative: Normal Gait, Strength at 5/5 X4 ext, Normal Tone (decreased core, upper and lower extremity muscle tone), Cranial Nerves 3-12 NL, Reflexes 2+ Psych Exam: Positive: Mood NL, Memory Intact (intermittently confused and falling asleep during exam. able to identify son in room), Oriented x 3 Vital Signs Vital Signs Date Time Temp Pulse Resp B/P (MAP) Pulse Ox O2 Delivery O2 Flow Rate FiO2 04/16/19 16:15 79 125/60 (81) 96 Room Air 8/18/19 14:54 100.4 04/16/19 11:19 17 Laboratory Data Labs 24H Laboratory Tests 2 04/16/19 12:02: Immature Granulocyte % (Auto) 0.6, White Blood Count 19.5H, Red Blood Count 3.12L, Hemoglobin 10.0L, Hematocrit 30.9L, Mean Corpuscular Volume 99.0H, Mean Corpuscular Hemoglobin 32.1, Mean Corpuscular Hemoglobin Concent 32.4, Red Cell Distribution Width 13.5, Platelet Count 301, Neutrophils (%) (Auto) 83.6H, Lymphocytes (%) (Auto) 6.1L, Monocytes (%) (Auto) 9.0H, Eosinophils (%) (Auto) 0.3, Basophils (%) (Auto) 0.4, Neutrophils # (Auto) 16.3H, Lymphocytes # (Auto) 1.2L, Monocytes # (Auto) 1.8H, Eosinophils # (Auto) 0.1, Basophils # (Auto) 0.1, Nucleated Red Blood Cells % (auto) 0.0, Urine Color YELLOW, Urine Appearance TURBIDH, Urine pH 6.0, Urine Specific [place] 1.010, Urine Protein 2+H, Urine Glucose (UA) NEGATIVE, Urine Ketones NEGATIVE, Urine Blood 2+H, Urine Nitrite NEGATIVE, Urine Bilirubin NEGATIVE, Urine Urobilinogen 0.2, Urine Leukocyte Esterase 3+H, Urine WBC (Auto) TNTCH, Urine RBC (Auto) 112H, Urine Hyaline Casts (Auto) 0, Urine Bacteria (Auto) 1+H, Urine Squamous Epithelial Cells 0, Urine Mucus (Auto) SMALL, Urine Sperm (Auto) , Anion Gap 9, Glomerular Filtration Rate 17.6L, Calcium Level 9.3, Aspartate Amino Transf (AST/SGOT) 8, Alanine Aminotransferase (ALT/SGPT) 15, Alkaline Phosphatase 82, Total Bilirubin 0.2, Direct Bilirubin < 0.1, Total Creatine Kinase 14L, Creatine Kinase MB < 1.0, Creatine Kinase MB Relative Index 7.14H, Troponin I < 0.02, Total Protein 7.6, Albumin 2.9L, Albumin/Globulin Ratio 0.62L, Lipase 93, Thyroid Stimulating Hormone (TSH) 0.557 CBC/BMP Laboratory Tests 04/16/19 12:02 Red Blood Count 3.12 L, Mean Corpuscular Volume 99.0 H, Mean Corpuscular Hemoglobin 32.1, Mean Corpuscular Hemoglobin Concent 32.4, Red Cell Distribution Width 13.5, Neutrophils (%) (Auto) 83.6 H, Lymphocytes (%) (Auto) 6.1 L, Monocyt es (%) (Auto) 9.0 H, Eosinophils (%) (Auto) 0.3, Basophils (%) (Auto) 0.4, Neutrophils # (Auto) 16.3 H, Lymphocytes # (Auto) 1.2 L, Monocytes # (Auto) 1.8 H, Eosinophils # (Auto) 0.1, Basophils # (Auto) 0.1 Microbiology Microbiology 04/16/19 Blood Culture, Received Pending 04/16/19 Blood Culture, Received Pending 04/16/19 Urine Culture, Received Pending Assessment/Plan 1) metabolic encephalopathy - probable infectious etiology from UTI 2) UTI with chronic indwelling urostomy 3) Constipation 4) HTN 5) Diabetes on penitentiary insulin with hyperglycemia 6) CKD stage III with MATILDE due to mild dehydration 7) Anemia of chronic disease 8) Debility Plan: Admit, IVF, Given IV rocephin in ED without rash/hive. WIll use meropenem until UA culture returns and then narrow spectrum of antibiotics. Nephrology consulted, PT/OT consulted. no signs of sepsis. continue home regimen, Clear liquids and advance to consistent carb diet. Levemir decreased from 28 to 24 units until oral intake improves. Avoid hypoglycemia. Code status: FULL DVT Prophylaxis: renal dose enoxaprin Plan / VTE VTE Prophylaxis Ordered?: Yes ITZEL LINCOLN DO Apr 16, 2019 17:09
[2019-04-16 18:50] VITALS: BP 158/70
--- NOTE | 2019-04-16 19:28 | ECGEPIP ---
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
[2019-04-16] MEDS: ATENOLOL 25 MG TAB PO SCH (21:00)
[2019-04-16] MEDS: DOCUSATE SODIUM 100 MG CAP PO SCH (21:00)
[2019-04-16] MEDS: ATORVASTATIN 20 MG TAB PO SCH (21:00)
[2019-04-16] MEDS: LEVEMIR (INSULIN DETEMIR) 1 UNITS/0.01ML SC SCH (21:00)
[2019-04-16] MEDS: SODIUM BICARBONATE 325 MG TAB PO SCH (21:20)
[2019-04-16] MEDS: ACETAMINOPHEN 500 MG TAB PO PRN (21:21)
[2019-04-16] MEDS: ENOXAPARIN 30 MG/0.3 ML SYR (J1650) SC SCH (21:22)
[2019-04-16] MEDS: CLOPIDOGREL 75 MG TAB PO SCH (21:23)
[2019-04-16] MEDS: MEROPENEM INJ 500 MG in APPROPRIATE DILUENT 1 EA IV SCH (21:23)
[2019-04-16 22:00] VITALS: BP 119/60
[2019-04-17] MEDS: NS 1,000 ML IV SCH ×2 (02:13→05:05)
[2019-04-17] MEDS: LEVOTHYROXINE 50MCG TABLET (0.05MG) PO SCH (05:05)
[2019-04-17 06:10] LABS: HEMATOCRIT 32.2 % (36.0-47.0); HEMOGLOBIN 10.4 g/dl (12.0-15.5); MEAN CORPUSCULAR HEMOGLOBIN 32.2 pg (27.0-33.0); MEAN CORPUSCULAR HGB CONC 32.3 g/dl (32.0-36.5); MEAN CORPUSCULAR VOLUME 99.7 fl (80.0-96.0); PLATELET COUNT, AUTOMATED 294 10^3/uL (150-450); RED BLOOD COUNT 3.23 10^6/uL (4.00-5.40); WHITE BLOOD COUNT 14.7 10^3/uL (4.0-10.0)
[2019-04-17 06:23] LABS: CALCIUM LEVEL 8.9 MG/DL (8.8-10.2); CREATININE FOR GFR 2.57 MG/DL (0.55-1.30); GLOMERULAR FILTRATION RATE 18.9 (>32); POTASSIUM SERUM 4.2 MEQ/L (3.5-5.1)
[2019-04-17 06:24] VITALS: BP 137/63
--- NOTE | 2019-04-17 08:14 | REP ---
AP PORTABLE CHEST: 04/16/2019. Clinical history: Chest pain. Comparison: 12/28/2017. Findings: Lungs are hyperinflated with some underlying fibrosis and COPD, unchanged. There is no acute infiltrate or effusion. I suspect the smooth curvilinear projection over the right upper lung zone is a skin fold as there are some markings beyond it which would usually not be visible in a pneumothorax. Heart size unchanged. No vascular redistribution or edema. Calcified aortic arch, mildly tortuous but without aneurysm. Degenerative changes in the spine and shoulders. No free air. Impression: 1. COPD and fibrotic changes without effusion or acute infiltrate. Apparent skin fold projecting over the right apex. No gross pneumothorax. No gross fracture. 2. Borderline heart size but no vascular redistribution or edema. Electronically Signed by Deng Khan MD 04/17/2019 08:25 A
[2019-04-17] MEDS: ENOXAPARIN 30 MG/0.3 ML SYR (J1650) SC SCH (09:03)
[2019-04-17] MEDS: MEROPENEM INJ 500 MG in APPROPRIATE DILUENT 1 EA IV SCH ×2 (09:08→21:43)
[2019-04-17] MEDS: MULTIVITAMINS/MINERALS THERAP 1 TAB PO SCH (09:09)
[2019-04-17] MEDS: PANTOPRAZOLE 20 MG TAB PO SCH (09:09)
[2019-04-17] MEDS: CETIRIZINE (ZyrTEC) 10 MG TAB PO SCH (09:09)
[2019-04-17] MEDS: DOCUSATE SODIUM 100 MG CAP PO SCH ×2 (09:09→20:48)
[2019-04-17] MEDS: SODIUM BICARBONATE 325 MG TAB PO SCH ×3 (09:09→20:48)
[2019-04-17] MEDS: FERROUS SULFATE 325MG TAB PO SCH (09:09)
[2019-04-17] MEDS: CLOPIDOGREL 75 MG TAB PO SCH (09:09)
[2019-04-17] MEDS: HumaLOG INSULIN (NovoLOG) PER UNIT SC SCH ×4 (09:10→20:47)
[2019-04-17 14:00] VITALS: BP 156/60
--- NOTE | 2019-04-17 19:52 | IPNPDOC ---
Text Note Date of Service The patient was seen on 04/17/19. NOTE S: patient more alert today. states no pain. hoping to go home soon but states feels weak. no CP, no SOB, no N, noV O: Vitals as below General: pleasant NAD AAOx3 HRRR LCTA Abdomen soft NT ND; urostomy with good drainage/light yellow A/P: 1) metabolic encephalopathy (RESOLVED) - probable infectious etiology from UTI Await UC/BC. continue meropenem . 2) UTI with chronic indwelling urostomy - continue meropenem and await culture then adjust antibiotics. Last discharge was sent home on omnicef without allergic reaction Nephrology consulted - Dr Shay 3) Constipation - resolved per patient 4) HTN - continue home regimen. 5) Diabetes on usp insulin with hyperglycemia - continue levemir (lower dose than usual home dose) and SSI; BLood sugars ranging 180-280; consider increasing levemir 04/18 6) CKD stage III with MATILDE due to mild dehydration 7) Anemia of chronic disease 8) Debility - PT/OT consulted. will need rehab Code status: FULL DVT Prophylaxis: renal dose enoxaprin VS,Fishbone, I+O VS, Fishbone, I+O Laboratory Tests 04/17/19 05:49 Red Blood Count 3.23 L, Mean Corpuscular Volume 99.7 H, Mean Corpuscular Hemoglobin 32.2, Mean Corpuscular Hemoglobin Concent 32.3, Red Cell Distribution Width 13.6, Calcium Level 8.9 Vital Signs Date Time Temp Pulse Resp B/P (MAP) Pulse Ox O2 Delivery O2 Flow Rate FiO2 04/17/19 14:00 98.1 88 18 156/60 (92) 98 04/16/19 18:21 Room Air I&O- Last 24 Hours up to 6 AM 04/17/19 06:00 Intake Total 1620 ml Output Total 1225 ml Balance 395 ml ITZEL LINCOLN DO Apr 17, 2019 19:52
[2019-04-17 20:22] VITALS: BP 154/61
[2019-04-17] MEDS: ATORVASTATIN 20 MG TAB PO SCH (20:48)
[2019-04-17] MEDS: LEVEMIR (INSULIN DETEMIR) 1 UNITS/0.01ML SC SCH (20:48)
[2019-04-17] MEDS: ACETAMINOPHEN 500 MG TAB PO PRN (20:49)
[2019-04-17] MEDS: ATENOLOL 25 MG TAB PO SCH (20:49)
[2019-04-18] MEDS: ONDANSETRON 4MG/2ML VIAL (J2405) IV PRN ×2 (04:03→07:44)
[2019-04-18] MEDS: NS 1,000 ML IV SCH ×2 (04:04→15:59)
[2019-04-18 05:49] VITALS: BP 144/60
[2019-04-18 06:10] LABS: BASO # 0.1 10^3/uL (0.0-0.2); BASO % 0.7 % (0.0-1.0); EOS # 0.3 10^3/uL (0.0-0.50); HEMATOCRIT 29.3 % (36.0-47.0); HEMOGLOBIN 9.3 g/dl (12.0-15.5); LYMPH # 1.1 10^3/uL (1.5-4.5); LYMPH % 10.4 % (24.0-44.0); MEAN CORPUSCULAR HGB CONC 31.7 g/dl (32.0-36.5); MEAN CORPUSCULAR VOLUME 100.7 fl (80.0-96.0); MONO # 1.3 10^3/uL (0.0-0.8); MONO % 12.4 % (0.0-5.0); NEUTROPHILS # 7.8 10^3/uL (1.8-7.7); NEUTROPHILS % 72.9 % (36.0-66.0); PLATELET COUNT, AUTOMATED 273 10^3/uL (150-450); RED BLOOD COUNT 2.91 10^6/uL (4.00-5.40); WHITE BLOOD COUNT 10.8 10^3/uL (4.0-10.0)
[2019-04-18] MEDS: LEVOTHYROXINE 50MCG TABLET (0.05MG) PO SCH (06:14)
[2019-04-18] MEDS: ACETAMINOPHEN 500 MG TAB PO PRN ×2 (06:14→21:04)
[2019-04-18 06:28] LABS: CALCIUM LEVEL 8.9 MG/DL (8.8-10.2); CREATININE FOR GFR 2.17 MG/DL (0.55-1.30); POTASSIUM SERUM 3.8 MEQ/L (3.5-5.1)
--- NOTE | 2019-04-18 06:50 | CR ---
DATE OF CONSULTATION: 04/17/2019 REASON FOR CONSULTATION: Acute and chronic renal failure. HISTORY OF PRESENT ILLNESS: Mrs. Maldonado is [id number] female with known history of hypertension, type 2 diabetes, stage IV of chronic kidney disease, recurrent urinary tract infection, history of cystectomy and urostomy. She was brought to emergency room yesterday with altered mentation and not feeling well. She was found to have a inary tract infection and worsening of kidney function. She is being treated with IV antibiotics and IV fluids. The patient is seen this morning. She was not eating very well for couple of days; however, the patient reports that she did eat her breakfast this morning. PAST MEDICAL HISTORY. Significant for: 1. History of longstanding type 2 diabetes. 2. Hypertension. 3. Stage III-IV of chronic kidney disease (CKD). 4. Recurrent urinary tract infection. 5. History of urostomy. 6. History of prior stroke and transient ischemic attack (TIA). 7. History of gastroesophageal reflux disease. 8. History of hyperlipidemia. 9. Hypothyroidism. PAST SURGICAL HISTORY: Significant for: 1. Multiple back surgeries for lumbar fusion. 2. Cataract surgery. 3. Hysterectomy. 4. Right knee arthroplasty. 5. Left hip arthroplasty. 6. Urostomy due to severe interstitial cystitis. HOME MEDICATIONS: - atenolol 25 mg daily - atorvastatin 40 mg daily - cetirizine 10 mg daily - Plavix 75 mg daily - vitamin D 50,000 units once a week - ferrous sulfate 325 mg daily - Levemir insulin 28 units daily - levothyroxine 50 mcg daily - multivitamin one tablet daily - pantoprazole 20 mg daily - sodium bicarbonate 325 mg two tablets three times a day - omega 3 fish oil 500 mg daily - she also takes Tylenol as needed - docusate as needed ALLERGIES: She has allergy to PENICILLIN, CEFTRIAXONE, CIPRO, FLUCONAZOLE, IODINE, ERYTHROMYCIN, NITROFURANTOIN, MORPHINE and SULFAMETHOXAZOLE. PERSONAL AND SOCIAL HISTORY: The patient does not smoke or drink. She lives with her family. Family history is negative for end-stage renal disease. REVIEW OF SYSTEMS: The patient denies any fever or chills. Yesterday she was confused and altered. Today she seems to be back to her about baseline. Ears, nose and throat are unremarkable. Cardiovascular system negative for dyspnea, chest pain or leg edema. Respiratory system negative for cough or hemoptysis. Gastrointestinal (GI) system significant for decreased appetite. She denies any vomiting today but did vomit couple of days ago. Genitourinary () system is significant for a urostomy due to severe interstitial cystitis in the past. She is currently being treated for a urinary tract infection. Endocrine system is significant for type 2 diabetes, hypothyroidism and secondary hyperparathyroidism. Psychosocial system negative for depression or anxiety. Neurological system is significant for prior stroke and TIA. Hematological system is significant for anemia of chronic kidney disease. PHYSICAL EXAMINATION: VITAL SIGNS: Temperature 98.6 degrees Fahrenheit, heart rate 72 per minute and respiratory rate 18 per minute. Blood pressure 137/63 mmHg and oxygen saturation 98% on room air. HEENT: Head is atraumatic. NECK: Neck is supple and without jugular venous distention (JVD) or thyroid enlargement at present. HEART: Heart sounds are regular. LUNGS: Clear to auscultation. ABDOMEN: Soft and nontender. Urostomy is draining urine. EXTREMITIES: No cyanosis or clubbing. SKIN: Skin has no rash or ulcers. NEUROLOGICALLY: She is awake, alert and at her baseline mentation. LABORATORY DATA: Yesterday her sodium was 141, potassium 4.0, CO2 21, BUN 65 and creatinine 2.74. Troponin less than 0.02 and lipase 93. Today her BUN is 63 and creatinine 2.57. Sodium is 143 and potassium 4.2. WBC count was 19.5 yesterday and is down to 14.7 today. Hemoglobin is about the same as yesterday. Chest x-ray Did not show any acute consolidation or effusion. PROBLEMS: 1. Acute renal failure superimposed on chronic kidney disease. Probably related to decreased oral intake and urinary tract infection. She is receiving IV fluid at 100 mL per hour at present and seems well-hydrated. She is tolerating oral intake well. I would recommend to consider stopping the IV fluids once her oral intake is adequate. Kidney function has slightly improved compared to yesterday. 2. Urinary tract infection (UTI). She had a urostomy and probably developed infection while she has chronic colonization. She did have leukocytosis and altered mentation. She is currently being treated with meropenem pending cultures. She is afebrile now. 3. Metabolic acidosis. She does have history of chronic metabolic acidosis and has been on sodium bicarbonate supplement at home. I would recommend to continue with the same. 4. Anemia related to chronic kidney disease and stable at baseline. No urgent indication for a transfusion. Oral iron supplement and multivitamin. Thank you for involving me in the care of Mrs. Maldonado. I will follow her along with you.
[2019-04-18] MEDS: MULTIVITAMINS/MINERALS THERAP 1 TAB PO SCH (08:15)
[2019-04-18] MEDS: CLOPIDOGREL 75 MG TAB PO SCH (08:15)
[2019-04-18] MEDS: FERROUS SULFATE 325MG TAB PO SCH (08:15)
[2019-04-18] MEDS: SODIUM BICARBONATE 325 MG TAB PO SCH ×3 (08:15→21:02)
[2019-04-18] MEDS: PANTOPRAZOLE 20 MG TAB PO SCH (08:15)
[2019-04-18] MEDS: CETIRIZINE (ZyrTEC) 10 MG TAB PO SCH (08:15)
[2019-04-18] MEDS: DOCUSATE SODIUM 100 MG CAP PO SCH ×2 (08:15→21:01)
[2019-04-18] MEDS: MEROPENEM INJ 500 MG in APPROPRIATE DILUENT 1 EA IV SCH (08:16)
[2019-04-18] MEDS: HumaLOG INSULIN (NovoLOG) PER UNIT SC SCH ×4 (08:16→21:00)
[2019-04-18] MEDS: ENOXAPARIN 30 MG/0.3 ML SYR (J1650) SC SCH (08:17)
--- NOTE | 2019-04-18 13:06 | IPNPDOC ---
Text Note Date of Service The patient was seen on 04/18/19. NOTE Subjective: Patient is in O 3 today. Has no complaints. Review of systems ne gative Objective : Vitals as below General - NAD, sitting up in bed, well groomed Eyes - PERRLA, EOM intact Neck - No noticeable or palpable swelling, redness or rash around throat or on face Lymph Nodes - No lymphadenopathy Cardiovascular - RRR no m/r/g, no JVD, no carotid bruits Lungs - Clear to auscltation, no use of acessory muscles, no crackles or wheezes. Skin - No rashes, skin warm and dry, no erythematous areas Abdomen - Normal bowel sounds, abdomen soft and nontender Extremeties - No edema, cyanosis or clubbing Musculo Skeletal - 5/5 strength, normal range of motion, no swollen or erythematous joints. 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 # Diabetes on terminal supervisor insulin with hyperglycemia - continue levemir increased to 28U, which is her home dose and SSI; -monitor FS Code status: FULL DVT Prophylaxis: renal dose enoxaprin Dispo: pending PT eval VS,Jey, I+O VS, Jey, I+O Laboratory Tests 04/18/19 05:35 Red Blood Count 2.91 L, Mean Corpuscular Volume 100.7 H, Mean Corpuscular Hemoglobin 32.0, Mean Corpuscular Hemoglobin Concent 31.7 L, Red Cell Distribution Width 13.6, Neutrophils (%) (Auto) 72.9 H, Lymphocytes (%) (Auto) 10.4 L, Monocytes (%) (Auto) 12.4 H, Eosinophils (%) (Auto) 3.0, Basophils (%) (Auto) 0.7, Neutrophils # (Auto) 7.8 H, Lymphocytes # (Auto) 1.1 L, Monocytes # (Auto) 1.3 H, Eosinophils # (Auto) 0.3, Basophils # (Auto) 0.1, Calcium Level 8.9 Vital Signs Date Time Temp Pulse Resp B/P (MAP) Pulse Ox O2 Delivery O2 Flow Rate FiO2 04/18/19 05:49 98.2 68 16 144/60 (88) 95 04/16/19 18:21 Room Air I&O- Last 24 Hours up to 6 AM 04/18/19 06:00 Intake Total 1160 ml Output Total 2550 ml Balance -1390 ml JOHNNY REAGAN MD Apr 18, 2019 13:06
[2019-04-18] MEDS: LevoFLOXacin 250 MG TABLET PO SCH (15:00)
--- NOTE | 2019-04-18 20:01 | IPN ---
DATE: 04/18/2019 Mrs. Maldonado is seen this morning on her bedside. She is feeling better today but did have some nausea last night. She reports that she did eat breakfast. She denies any dyspnea or chest pain. PHYSICAL EXAMINATION: Temperature 98.2 degrees Fahrenheit, heart rate 68 per minute and respiratory rate 16 per minute. Blood pressure 144/60 mmHg and oxygen saturation 95% on room air. Head is atraumatic. Neck is supple and JVD is mildly elevated. Heart sounds are regular and lungs clear to auscultation. Abdomen soft and nontender. Urostomy is functioning. Extremities have no cyanosis or clubbing. Neurologically she is awake, alert and oriented times three. Today's labs show WBC count 10.8, hemoglobin 9.3, hematocrit 29.3. Platelets 273. Sodium 142, potassium 3.8, CO2 of 18, BUN 54 and creatinine 2.17. Glucose 167 and calcium 8.9. PROBLEMS: 1. Acute renal failure superimposed on chronic kidney disease. Kidney function has improved since admission and this is now close to her baseline. I feel that her IV fluid can be stopped depending upon her oral intake. If she is tolerating her oral intake and has adequate intake then IV fluids should be stopped now. 2. Metabolic acidosis. Her acidosis persists despite sodium bicarbonate supplement. I am increasing the dose of her sodium bicarbonate to 975 mg three times a day. 3. Urosepsis. The patient remains afebrile now and continues with meropenem.
[2019-04-18 20:52] VITALS: BP 160/69
[2019-04-18] MEDS ORDERED: LEVEMIR (INSULIN DETEMIR) 1 UNITS/0.01ML SC SCH (21:00)
[2019-04-18] MEDS: ATORVASTATIN 20 MG TAB PO SCH (21:01)
[2019-04-18 21:02] VITALS: BP 160/69
[2019-04-18] MEDS: ATENOLOL 25 MG TAB PO SCH (21:02)
[2019-04-19] MEDS: LevoFLOXacin 250 MG TABLET PO SCH (05:33)
[2019-04-19] MEDS: LEVOTHYROXINE 50MCG TABLET (0.05MG) PO SCH (05:33)
[2019-04-19 05:38] LABS: HEMATOCRIT 26.1 % (36.0-47.0); HEMOGLOBIN 8.4 g/dl (12.0-15.5); MEAN CORPUSCULAR HEMOGLOBIN 32.1 pg (27.0-33.0); MEAN CORPUSCULAR HGB CONC 32.2 g/dl (32.0-36.5); MEAN CORPUSCULAR VOLUME 99.6 fl (80.0-96.0); PLATELET COUNT, AUTOMATED 275 10^3/uL (150-450); RED BLOOD COUNT 2.62 10^6/uL (4.00-5.40); WHITE BLOOD COUNT 7.9 10^3/uL (4.0-10.0)
[2019-04-19 05:59] LABS: CALCIUM LEVEL 8.3 MG/DL (8.8-10.2); CREATININE FOR GFR 2.13 MG/DL (0.55-1.30); GLOMERULAR FILTRATION RATE 23.5 (>32); POTASSIUM SERUM 3.7 MEQ/L (3.5-5.1)
[2019-04-19 06:00] VITALS: BP 136/67
[2019-04-19] MEDS: FERROUS SULFATE 325MG TAB PO SCH (08:05)
[2019-04-19] MEDS: HumaLOG INSULIN (NovoLOG) PER UNIT SC SCH ×2 (08:05→13:03)
[2019-04-19] MEDS: CLOPIDOGREL 75 MG TAB PO SCH (08:05)
[2019-04-19] MEDS: DOCUSATE SODIUM 100 MG CAP PO SCH (08:05)
[2019-04-19] MEDS: PANTOPRAZOLE 20 MG TAB PO SCH (08:05)
[2019-04-19] MEDS: MULTIVITAMINS/MINERALS THERAP 1 TAB PO SCH (08:06)
[2019-04-19] MEDS: SODIUM BICARBONATE 325 MG TAB PO SCH (08:06)
[2019-04-19] MEDS: CETIRIZINE (ZyrTEC) 10 MG TAB PO SCH (08:06)
[2019-04-19] MEDS: ENOXAPARIN 30 MG/0.3 ML SYR (J1650) SC SCH (08:06)
[2019-04-19] MEDS: ACETAMINOPHEN 500 MG TAB PO PRN (08:07)
[2019-04-19] MEDS ORDERED: BICITRA 30ML SOLN UDC PO SCH (09:00)
[2019-04-19] MEDS ORDERED: LEVO250T12 PO (12:54)
--- NOTE | 2019-04-19 14:23 | DS.PDOC ---
Discharge Summary General Date of Admission Apr 16, 2019 at 14:03 Date of Discharge 04/19/19 Discharge Summary PROCEDURES PERFORMED DURING STAY: None. ADMITTING DIAGNOSES: 1. UTI DISCHARGE DIAGNOSES: 1. UTI COMPLICATIONS/CHIEF COMPLAINT: Acute Metabolic Encephalopathy Uti. HISTORY OF PRESENT ILLNESS: 82-year-old diabetic female with a PMHx of HTN, diabetes, CKD, recurrent UTI and chronic indwelling urostomy, presents with fever starting on 04/12/18 (100.7) while on tylenol . fever would wax and wane with no discomfort. This morning patient was unable to sit up in bed, had global weakness, unable to stand or use her walker. Son states patient normal is able to sit in her wheelchair and uses platform walker at times. Over last 2 nights has had decreased appetite and yesterday her blood sugars increased to 220. Son states her blood sugars over the past 1-2 weeks have been 150-180; Patient was recently admitted in January with Strep Agalactaie ,E Coli and Enterococcus UTI, similar symtpoms today. She had Klebsiella UTI in February and was treated with cefnidir...She follows with Dr Shay and family is requesting consult. HOSPITAL COURSE: Patient was admitted for sepsis secondary to UTI due to chronic indwelling urostomy. Patient was started on meropenem and urine cultures grew Klebsiella pneumonia which was pansensitive. Antibiotics were switched to Levaquin and patient was observed. Patient clinically improved. She was also found to have metabolic encephalopathy secondary to sepsis which also resolved as sepsis resolved. Patient was also seen by her sap fico architect for contreras on CKD due to sepsis. Her creatinine trended down and patient is medically stable to be discharged and follow-up with PCP as an outpatient. DISCHARGE MEDICATIONS: Please see below. ALLERGIES: Please see below. PHYSICAL EXAMINATION ON DISCHARGE: General - NAD, sitting up in bed, well groomed Eyes - PERRLA, EOM intact Neck - No noticeable or palpable swelling, redness or rash around throat or on face Lymph Nodes - No lymphadenopathy Cardiovascular - RRR no m/r/g, no JVD, no carotid bruits Lungs - Clear to auscltation, no use of acessory muscles, no crackles or wheeze s. Skin - No rashes, skin warm and dry, no erythematous areas Abdomen - Normal bowel sounds, abdomen soft and nontender Extremeties - No edema, cyanosis or clubbing Musculo Skeletal - 5/5 strength, normal range of motion, no swollen or erythematous joints. Neurological Alert and oriented x 3, CN 2-12 grossly intact PSYCHIATRIC EXAMINATION: LABORATORY DATA: Please see below. IMAGING: PROGNOSIS: ACTIVITY: As tolerated. DIET: DISCHARGE PLAN: DISPOSITION: . DISCHARGE INSTRUCTIONS: 1. . ITEMS TO FOLLOWUP ON ON OUTPATIENT: 1. Follow-up with PCP within one week DISCHARGE CONDITION: Stable. TIME SPENT ON DISCHARGE: Greater than 32 minutes. Vital Signs/I&Os Vital Signs Date Time Temp Pulse Resp B/P (MAP) Pulse Ox O2 Delivery O2 Flow Rate FiO2 04/19/19 06:00 98.2 70 16 136/67 (90) 98 04/16/19 18:21 Room Air I&O- Last 24 Hours up to 6 AM 04/19/19 06:00 Intake Total 1810 ml Output Total 2400 ml Balance -590 ml Laboratory Data Labs 24H Laboratory Tests 2 04/18/19 16:54: Bedside Glucose (Misc Panel) 187H 04/18/19 20:38: Bedside Glucose (Misc Panel) 182H 04/19/19 05:01: Nucleated Red Blood Cells % (auto) 0.0, Anion Gap 10, Glomerular Filtration Rate 23.5L, Blood Urea Nitrogen 43H, Creatinine 2.13H, Sodium Level 147H, Potassium Level 3.7, Chloride Level 118H, Carbon Dioxide Level 19L, Calcium Level 8.3L 04/19/19 12:20: Bedside Glucose (Misc Panel) 194H CBC/BMP Laboratory Tests 04/19/19 05:01 Red Blood Count 2.62 L, Mean Corpuscular Volume 99.6 H, Mean Corpuscular Hemoglobin 32.1, Mean Corpuscular Hemoglobin Concent 32.2, Red Cell Distribution Width 13.7, Calcium Level 8.3 L FSBS Laboratory Tests Test 04/18/19 16:54 04/18/19 20:38 04/19/19 12:20 Range/Units Bedside Glucose (Misc Panel) 187 182 194 83-110 MG/DL Microbiology Microbiology 04/16/19 Blood Culture - Preliminary, Resulted No Growth after 72 hours. All specime... 04/16/19 Blood Culture - Preliminary, Resulted No Growth after 72 hours. All specime... 04/16/19 Urine Culture - Final, Complete Klebsiella Pneumoniae Discharge Medications Scheduled Atenolol (Atenolol) 25 Mg Tab, 25 MG PO QHS, (Reported) HOLD IF SBP<100 Atorvastatin Calcium (Atorvastatin Calcium) 40 Mg Tab, 40 MG PO QHS, (Reported) Carboxymethylcellulose Sodium (Refresh Tears) 0.5 % Pietro, 1 DROP OU QHS, (Reported) Cetirizine HCl (Cetirizine HCl) 10 Mg Tablet, 10 MG PO DAILY, (Reported) Cinnamon Bark (Cinnamon) 500 Mg Capsule, 1,000 MG PO DAILY, (Reported) Clopidogrel Bisulfate (Clopidogrel) 75 Mg Tab, 75 MG PO DAILY, (Reported) Ergocalciferol (Vitamin D2) (Drisdol) 50,000 Unit Capsule, 50,000 UNIT PO 1XWK, (Reported) TU Ferrous Sulfate (Ferrous Sulfate) 325 Mg Tab, 325 MG PO DAILY, (Reported) Insulin Detemir (Levemir) 1 Units/0.01 Ml Susp, 28 UNITS SC QHS, (Reported) Levofloxacin (Levofloxacin) 250 Mg Tablet, 250 MG PO DAILY@06 Levothyroxine Sodium (Levothyroxine Sodium) 50 Mcg Tab, 50 MCG PO DAILY, (Reported) Multivitamins (Thera M Plus Tablet) 1 Tab Tab, 1 TAB PO DAILY, (Reported) [place]-3/Dha/Epa/Fish Oil (Fish Oil 500 mg Softgel) 500 Mg Cap, 500 MG PO DAILY, (Reported) Pantoprazole Sodium (Pantoprazole Sodium) 20 Mg Tab, 20 MG PO DAILY, (Reported) Sodium Bicarbonate (Sodium Bicarbonate) 325 Mg Tab, 650 MG PO TID, (Reported) Scheduled PRN Acetaminophen (Acetaminophen) 500 Mg Tab, 1,000 MG PO Q8H PRN for PAIN, (Re ported) Docusate Sodium (Docusate Sodium) 100 Mg Cap, 100 MG PO BID PRN for CON STIPATION, (Reported) Nystatin (Nystatin Powder) 100,000 Unit/Gm Pow, 1 DOSE TOP BID PRN for RASH, (Reported) GROIN AREA AND SKIN FOLDS Allergies Coded Allergies: Penicillins (Verified Allergy, Intermediate, HIVES, 04/16/19) has received PCN PO as outpt in 2019 ceftriaxone (Verified Allergy, Intermediate, HIVES, 04/16/19) received dose 12/03/17 ciprofloxacin (Verified Allergy, Intermediate, HIVES, 04/16/19) fluconazole (Verified Allergy, Intermediate, HIVES, 04/16/19) iodine (Verified Allergy, Intermediate, HIVES, 04/16/19) erythromycin base (Verified Allergy, Unknown, 04/16/19) nitrofurantoin (Verified Allergy, Unknown, 04/16/19) rofecoxib (Verified Allergy, Unknown, 04/16/19) morphine (Verified Adverse Reaction, Mild, HYPOTENSION, 04/16/19) sulfamethoxazole (Verified Adverse Reaction, Mild, 04/16/19) listed as allergy due to renal function trimethoprim (Verified Adverse Reaction, Mild, 04/16/19) listed as allergy due to renal function JOHNNY REAGAN MD Apr 19, 2019 14:23
--- NOTE | 2019-04-20 12:54 | IPN ---
DATE: 04/19/2019 SUBJECTIVE: The patient was seen and examined at the bedside today morning. The patient is awake and alert. She denies any active complaints. She has stable renal function, creatinine is stable at 2.1. Her sodium bicarbonate dose was increased yesterday because of persistent acidosis that has resulted in hypernatremia today. The patient otherwise denies any active complaints. OBJECTIVE: VITAL SIGNS: Temperature is 98.2 degrees Fahrenheit, blood pressure 136/67, pulse is 70, respiratory of 16, saturating 98% on room air. INTAKE AND OUTPUT: Urine output recorded is 2.4 liters yesterday, 400 mL so far today since overnight. Weight in the bed scale is 55.9 kg. PHYSICAL EXAMINATION: GENERAL: The patient is awake, alert, oriented times three, laying in bed in no apparent distress. HEAD AND NECK EXAM: Extraocular muscles intact. Pupils equally round and reactive to light. Mucous membranes are moist. Neck is supple. There is no JVD. CARDIOVASCULAR: S1, S2, regular rate. Trace edema of the bilateral lower extremities. RESPIRATORY: Chest is clear to auscultation bilaterally. Bilateral equal air entry. No rales or rhonchi. ABDOMEN: Soft. Positive bowel sounds. Old midline surgical scar is noted. Right lower quadrant urostomy is also noted. MUSCULOSKELETAL: No clubbing or cyanosis. Pulses are 2+. SOA ENGINEER: No focal deficit, power is 5/5 in bilateral upper extremities. LABORATORY REVIEW: CBC showed WBC 7.9, hemoglobin 8.4, platelets of 275. BMP showed sodium 147, potassium 3.7, chloride 118, bicarbonate is 19, BUN 43, creatinine is 2.1, it was 2.1 yesterday as well. CURRENT INPATIENT MEDICATIONS: The patient's medications were all reviewed by me. There is no significant change in the medications today. ASSESSMENT/PLAN: 1. Acute renal failure superimposed on chronic kidney disease. Patient's renal function is stable. Creatinine has been fluctuating at around 2.1. Patient is tolerating the oral fluid intake. No further need of IV fluid hydration. 2. Metabolic acidosis. The patient's sodium bicarbonate dose was increased yesterday. That has resulted in hypernatremia. She has a normal liver function. I have stopped the sodium bicarbonate and started the patient on Bicitra 30 mL by mouth twice a day starting tonight. 3. Hypernatremia. It is most likely secondary to decreased oral intake and use of high dose sodium bicarbonate. As mentioned above sodium bicarbonate has been stooped. Continue to encourage oral hydration. No need of IV D5W. 4. Urinary tract infection. The patient was on IV antibiotics but antibiotics are being switched to oral. Management is as per primary team.
== END 2019-04-19 14:20 | disposition home or self-care (01) | DRG 698 ==
LOC: M ED 11:03 → M ED INP 14:03 → M MS5PR 18:59
PROVIDERS: ADMIT Family Medicine; ATTEND Hospitalist
DX: T83.518A Infection and inflammatory reaction due to other urinary catheter, initial encounter (principal); G93.41 Metabolic encephalopathy; A41.9 Sepsis, unspecified organism; R65.20 Severe sepsis without septic shock; N17.9 Acute kidney failure, unspecified; E87.2 Acidosis; N39.0 Urinary tract infection, site not specified; I12.9 Hypertensive chronic kidney disease with stage 1 through stage 4 chronic kidney disease, or unspecified chronic kidney disease; E11.22 Type 2 diabetes mellitus with diabetic chronic kidney disease; N18.3 Chronic kidney disease, stage 3 (moderate); K21.9 Gastro-esophageal reflux disease without esophagitis; K59.00 Constipation, unspecified; J30.9 Allergic rhinitis, unspecified; B96.1 Klebsiella pneumoniae [K. pneumoniae] as the cause of diseases classified elsewhere; E03.9 Hypothyroidism, unspecified; R63.0 Anorexia; D63.1 Anemia in chronic kidney disease; E11.65 Type 2 diabetes mellitus with hyperglycemia; Y84.6 Urinary catheterization as the cause of abnormal reaction of the patient, or of later complication, without mention of misadventure at the time of the procedure; E78.5 Hyperlipidemia, unspecified; E86.0 Dehydration; Z79.4 Long term (current) use of insulin; Z86.73 Personal history of transient ischemic attack (TIA), and cerebral infarction without residual deficits; Z79.899 Other long term (current) drug therapy; Z88.0 Allergy status to penicillin; Z88.1 Allergy status to other antibiotic agents; Z88.5 Allergy status to narcotic agent; Z88.2 Allergy status to sulfonamides; Z88.8 Allergy status to other drugs, medicaments and biological substances; Z85.3 Personal history of malignant neoplasm of breast; Z90.12 Acquired absence of left breast and nipple; Z93.6 Other artificial openings of urinary tract status; Z98.1 Arthrodesis status; Z98.41 Cataract extraction status, right eye; Z98.42 Cataract extraction status, left eye; Z96.651 Presence of right artificial knee joint; Z96.642 Presence of left artificial hip joint; Z79.02 Long term (current) use of antithrombotics/antiplatelets

== ENCOUNTER 2019-07-14 14:37 | Outpatient (CLI) | payer MEDICARE ==
[~2019-07-14] VITALS: Ht 154.9 cm; Wt 52.3 kg
[~2019-07-14 14:37] MED LIST changes: +ALL10TAB29 PO; +CINN500C15 PO; +D-50CAP PO; +DRIS50003 PO; -GLIM4TAB PO; +GLIM4TAB3 PO; +LEVO250T12 PO
[2019-07-14 15:04] VITALS: BP 112/55
[2019-07-14 15:07] VITALS: BP 112/55
[2019-07-14] MEDS ORDERED: ERTAPENEM SODIUM 0.5 GM in NS 50 ML IV ONE (15:30)
[2019-07-14 16:15] VITALS: BP 125/60
== END 2019-07-14 16:15 | disposition home or self-care (01) ==
LOC: M INFU 14:37
PROVIDERS: ATTEND Internal Medicine Nephrology
DX: N39.0 Urinary tract infection, site not specified (principal); B96.1 Klebsiella pneumoniae [K. pneumoniae] as the cause of diseases classified elsewhere; Z88.0 Allergy status to penicillin; Z88.1 Allergy status to other antibiotic agents; Z88.5 Allergy status to narcotic agent; Z88.8 Allergy status to other drugs, medicaments and biological substances; Z91.041 Radiographic dye allergy status
CPT/HCPCS: 96365; J1335

== ENCOUNTER 2019-07-15 10:49 | Outpatient (CLI) | payer MEDICARE ==
[2019-07-15 11:08] VITALS: BP 121/80
[2019-07-15] MEDS ORDERED: ERTAPENEM SODIUM 0.5 GM in NS 50 ML IV ONE (11:30)
[2019-07-15 12:45] VITALS: BP 147/65
== END 2019-07-15 12:45 | disposition home or self-care (01) ==
LOC: M OPCLIPED 10:49 → M PED 10:52 → M OPCLIPED 12:45
PROVIDERS: ATTEND Internal Medicine Nephrology
DX: N39.0 Urinary tract infection, site not specified (principal); B96.1 Klebsiella pneumoniae [K. pneumoniae] as the cause of diseases classified elsewhere; Z88.0 Allergy status to penicillin; Z88.1 Allergy status to other antibiotic agents; Z88.5 Allergy status to narcotic agent; Z88.8 Allergy status to other drugs, medicaments and biological substances; Z91.041 Radiographic dye allergy status
CPT/HCPCS: 96365; J1335

== ENCOUNTER 2019-07-16 12:57 | Outpatient (CLI) | payer MEDICARE ==
[2019-07-16 13:30] VITALS: BP 135/58
[2019-07-16] MEDS ORDERED: ERTAPENEM SODIUM 0.5 GM in NS 50 ML IV ONE (13:30)
[2019-07-16 14:45] VITALS: BP 133/60
== END 2019-07-16 15:00 | disposition home or self-care (01) ==
LOC: M OPCLIPED 12:57 → M PED 13:03 → M OPCLIPED 15:00
PROVIDERS: ATTEND Internal Medicine Nephrology
DX: N39.0 Urinary tract infection, site not specified (principal); B96.1 Klebsiella pneumoniae [K. pneumoniae] as the cause of diseases classified elsewhere; Z88.0 Allergy status to penicillin; Z88.1 Allergy status to other antibiotic agents; Z88.5 Allergy status to narcotic agent; Z88.8 Allergy status to other drugs, medicaments and biological substances; Z91.041 Radiographic dye allergy status
CPT/HCPCS: 96374; J1335

== ENCOUNTER 2019-07-17 15:28 | Outpatient (CLI) | payer MEDICARE ==
[~2019-07-17] VITALS: Ht 154.9 cm; Wt 52.3 kg
[2019-07-17 15:30] VITALS: BP 123/60
[2019-07-17] MEDS ORDERED: ERTAPENEM SODIUM 0.5 GM in NS 50 ML IV ONE (16:00)
[2019-07-17 16:45] VITALS: BP 138/64
== END 2019-07-17 16:45 | disposition home or self-care (01) ==
LOC: M INFU 15:28
PROVIDERS: ATTEND Internal Medicine Nephrology
DX: N39.0 Urinary tract infection, site not specified (principal); B96.1 Klebsiella pneumoniae [K. pneumoniae] as the cause of diseases classified elsewhere; Z88.0 Allergy status to penicillin; Z88.1 Allergy status to other antibiotic agents; Z88.5 Allergy status to narcotic agent; Z88.8 Allergy status to other drugs, medicaments and biological substances; Z91.041 Radiographic dye allergy status
CPT/HCPCS: 96365; J1335

== ENCOUNTER 2019-07-18 14:19 | Outpatient (CLI) | payer MEDICARE ==
[~2019-07-18] VITALS: Ht 154.9 cm; Wt 52.3 kg
[2019-07-18 14:33] VITALS: BP 141/61
[2019-07-18] MEDS ORDERED: ERTAPENEM SODIUM 0.5 GM in NS 50 ML IV ONE (15:00)
[2019-07-18 15:45] VITALS: BP 135/63
== END 2019-07-18 15:45 | disposition home or self-care (01) ==
LOC: M INFU 14:19
PROVIDERS: ATTEND Internal Medicine Nephrology
DX: N39.0 Urinary tract infection, site not specified (principal); B96.1 Klebsiella pneumoniae [K. pneumoniae] as the cause of diseases classified elsewhere; Z88.1 Allergy status to other antibiotic agents; Z88.0 Allergy status to penicillin; Z88.8 Allergy status to other drugs, medicaments and biological substances; Z88.5 Allergy status to narcotic agent
CPT/HCPCS: 96365; J1335

== ENCOUNTER 2019-07-19 14:32 | Outpatient (CLI) | payer MEDICARE ==
[~2019-07-19] VITALS: Ht 154.9 cm; Wt 52.3 kg
[2019-07-19 14:54] VITALS: BP 107/53
[2019-07-19] MEDS ORDERED: ERTAPENEM SODIUM 0.5 GM in NS 50 ML IV ONE (15:00)
[2019-07-19 15:45] VITALS: BP 134/60
== END 2019-07-19 15:45 | disposition home or self-care (01) ==
LOC: M INFU 14:32
PROVIDERS: ATTEND Internal Medicine Nephrology
DX: N39.0 Urinary tract infection, site not specified (principal); B96.1 Klebsiella pneumoniae [K. pneumoniae] as the cause of diseases classified elsewhere; Z88.1 Allergy status to other antibiotic agents; Z88.0 Allergy status to penicillin; Z88.5 Allergy status to narcotic agent; Z88.8 Allergy status to other drugs, medicaments and biological substances
CPT/HCPCS: 96365; J1335

== ENCOUNTER 2019-07-20 14:50 | Outpatient (CLI) | payer MEDICARE ==
[~2019-07-20] VITALS: Ht 154.9 cm; Wt 52.3 kg
[2019-07-20 15:00] VITALS: BP_SYST 119; BP_SYST 140; BP_DIAS 56; BP_DIAS 59
[2019-07-20] MEDS ORDERED: ERTAPENEM SODIUM 0.5 GM in NS 50 ML IV ONE (15:00)
[2019-07-20 16:00] VITALS: BP 140/59
== END 2019-07-20 16:00 | disposition home or self-care (01) ==
LOC: M INFU 14:50
PROVIDERS: ATTEND Internal Medicine Nephrology
DX: N39.0 Urinary tract infection, site not specified (principal); B96.1 Klebsiella pneumoniae [K. pneumoniae] as the cause of diseases classified elsewhere
CPT/HCPCS: 96365; J1335

== ENCOUNTER 2019-10-05 22:00 | Inpatient (IN) | payer MEDICARE ==
[~2019-10-05] VITALS: Ht 154.9 cm; Wt 52.7 kg
[~2019-10-05 22:00] MED LIST changes: -GLIM4TAB3 PO; +GLIM4TAB5 PO; +ONDA-83 PO; -ONDA4TAB5 PO
--- NOTE | 2019-10-05 23:47 | REPVR ---
PROCEDURE INFORMATION: Exam: CT Head Without Contrast Exam date and time: 10/05/2019 11:02 PM Age: 84 years old Clinical indication: Dizziness and fever; Additional info: [place] TECHNIQUE: Imaging protocol: Computed tomography of the head without contrast. Radiation optimization: All CT scans at this facility use at least one of these dose optimization techniques: automated exposure control; mA and/or kV adjustment per patient size (includes targeted exams where dose is matched to clinical indication); or iterative reconstruction. COMPARISON: CT Head without contrast 02/21/2018 6:28 AM FINDINGS: Brain: Decreased attenuation of the supratentorial white matter is likely secondary to chronic microvascular ischemia. No acute intracranial hemorrhage. Stable right frontoparietal encephalomalacia. Ventricles: Ventricular and subarachnoid spaces are age appropriate. Bones/joints: Unremarkable. No acute fracture. Sinuses: Visualized sinuses are unremarkable. No fluid levels. Mastoid air cells: Visualized mastoid air cells are well aerated. Soft tissues: Unremarkable. Vasculature: Intracranial vascular calcification. IMPRESSION: No acute intracranial abnormality. Electronically signed by: Doe Lock On 10/05/2019 23:46:55 PM
[2019-10-06 00:38] LABS: BASO # 0.1 10^3/uL (0.0-0.2); BASO % 0.4 % (0.0-1.0); EOS % 0.1 % (0.0-3.0); HEMATOCRIT 31.9 % (36.0-47.0); HEMOGLOBIN 9.8 g/dl (12.0-15.5); LYMPH # 1.4 10^3/uL (1.5-5.0); LYMPH % 9.8 % (24.0-44.0); MEAN CORPUSCULAR HEMOGLOBIN 31.5 pg (27.0-33.0); MEAN CORPUSCULAR HGB CONC 30.7 g/dl (32.0-36.5); MEAN CORPUSCULAR VOLUME 102.6 fl (80.0-96.0); MONO # 1.3 10^3/uL (0.0-0.8); MONO % 9.1 % (0.0-5.0); NEUTROPHILS # 11.8 10^3/uL (1.5-8.5); NEUTROPHILS % 80.1 % (36.0-66.0); PLATELET COUNT, AUTOMATED 401 10^3/uL (150-450); RED BLOOD COUNT 3.11 10^6/uL (4.00-5.40); WHITE BLOOD COUNT 14.7 10^3/uL (4.0-10.0)
[2019-10-06 00:54] LABS: ALBUMIN 2.7 GM/DL (3.2-5.2); BILIRUBIN,DIRECT 0.1 MG/DL (0.0-0.2); BILIRUBIN,TOTAL 0.2 MG/DL (0.2-1.0); CALCIUM LEVEL 9.4 MG/DL (8.8-10.2); CREATININE FOR GFR 2.78 MG/DL (0.55-1.30); GLOMERULAR FILTRATION RATE 17.3 (>32); POTASSIUM SERUM 4.7 MEQ/L (3.5-5.1)
[2019-10-06 01:43] LABS: INFLUENZA A AMPLIFICATION NEGATIVE (NEGATIVE); INFLUENZA B AMPLIFICATION NEGATIVE (NEGATIVE)
[2019-10-06] MEDS ORDERED: IMIPENEM/CILASTATIN 250 MG in D5W MINI-BAG PLUS 100 ML IV ONE (01:45)
--- NOTE | 2019-10-06 01:56 | IPNPDOC ---
Text Note Date of Service The patient was seen on 10/06/19. NOTE Time of service 2 AM Ms. Ray is an 84 year-old F w DM, HTN, CKD, recurrent UTI and chronic indwelling urostomy who is admitted for CAUTI.- c/w imepenum/cilastatin and f/u UCx and blood cx/ consult for assistance with ostomy care in the morning For the rest please see Dr. Pearl H&P VS,Jey, I+O VS, Jey, I+O Laboratory Tests 10/05/19 23:47 Vital Signs Date Time Temp Pulse Resp B/P (MAP) Pulse Ox O2 Delivery O2 Flow Rate FiO2 10/05/19 23:09 10/05/19 23:00 77 99 10/05/19 22:02 99.9 16 Room Air MELLY OROZCO MD Oct 06, 2019 01:56
--- NOTE | 2019-10-06 01:59 | HPEPDOC ---
[facility] Medical History & Physical Date of Admission Oct 06, 2019 Date of Service: Oct 06, 2019 Attending Physician: MELLY OROZCO MD History and Physical CHIEF COMPLAINT: Fever and weakness HISTORY OF PRESENT ILLNESS: is an 84-year-old female with history of recurrent UTI, chronic kidney disease, severe interstitial cystitis s/p urostomy, DM 2 on insulin, CVA/TIA hypertension, GERD, and chronic anemia who presented to the ED with chief complaint of weakness and fatigue for the last couple days with a fever at home earlier today of 103. The patient's son, Jovan, is accompanying her and reports she has been a little bit less alert of late, resembling how she has appeared on previous presentations for UTI. She has had intermittent hematuria recently through the ostomy as well. At her baseline, patient has diminished strength over the past 2 years and is effectively wheelchair bound. Sometimes she will use a platform walker, and is only able to stand up with assistance. Patient has had no recent change in her medications. She also denies any hemoptysis, hematemesis, hematochezia, hematuria, or melena. Patient's primary care provider is Dr. Stubbs in [place], [place]. She also follows with Dr. Shay locally for nephrology care and follows on a yearly basis with oncology in [place], [place] after being treated for left breast cancer 30 years ago. In the ED, patient was found to be anemic with leukocytosis and UTI. Due to patient's extensive anabiotic allergies, she was given a Duragesic 50 mg IV dose of imipenem-cilastin. REVIEW OF SYSTEMS: 10 systems reviewed and negative other than HPI PAST MEDICAL/SURGICAL HISTORY: Recurrent UTIs. Chronic kidney disease. Diabetes mellitus type 2 on insulin. Hypertension. Hyperlipidemia Hypothyroidism. Severe interstitial cystitis, status post urostomy. Anemia of chronic disease. History of left breast cancer 30 years ago, S/P surgery and chemotherapy Partial left hip replacement. Three total back surgeries with lumbar fusion of L2-3, 4, and 5 Insertion urostomy Right knee arthroplasty, hysterectomy Bilateral cataract surgery SOCIAL HISTORY: Lives with her son (Jovan) Her healthcare proxy is her daughter, Abi Denies use of tobacco products, alcohol or illegal drugs. FAMILY HISTORY: COPD (father; from COPD complications) Unspecified kidney ailments (mother) ALLERGIES: Please see below. HOME MEDICATIONS: Please see below. PHYSICAL EXAMINATION: VITAL SIGNS: Temperature 99.9, pulse, 77, respiratory rate 16, blood pressure 108/52, pulse oximetry 99% on room air. GENERAL APPEARANCE: Elderly, frail-appearing female lying in bed. She appears to be in some discomfort. Alert and oriented to person and place. HEENT: Normocephalic, atraumatic. PERRLA. Anicteric sclera. Trachea is midline. No supraclavicular or cervical lymphadenopathy appreciated. Mild conjunctival pallor. Poor dentition with dry mucous membranes. CARDIOVASCULAR: Regular rate and regular rhythm. S1, S2 auscultated. Adequate capillary refill. LUNGS: Due to patient's weakness, she was unable to sit up, so exam was perfo rmed solely anteriorly. Diminished tidal volume with no audible crackles, wheezes or rhonchi, but difficult to get full grasp due lessened respiratory effort. Breathing on room air. ABDOMEN: Soft, tender in the right upper and lower quadrants. Urostomy in place on right side of abdomen with extensive erythematous raw, tender skin surrounding the site. There is some abdominal fullness on the right lateral aspect of the ostomy site. There is a well-healed vertical abdominal scar present. MUSCULOSKELETAL: Significantly diminished as patient was unable to sit up in bed, even with assistance. Patient was able to move her toes and feet on command but unable to lift her lower extremities against gravity. EXTREMITIES: 2+ radial and posterior tibial pulses bilaterally. No lower extremity edema. There is no clubbing, cyanosis, or tenderness. There were OA- appearing nodes on distal interphalangeal joints of bilateral hands. NEUROLOGICAL: Awake, alert and oriented to person and place. Non-dysarthric speech. PSYCHIATRIC: Mood and affect appear appropriate LABORATORY DATA: Please see below. IMAGING: Portable CXR, 10/05/19: Essentially negative portable chest. There is no interval change. Head CT without contrast, 10/05/19: No acute intracranial abnormality. MICROBIOLOGY: Please see below. ASSESSMENT & PLAN: This is an 84-year-old female with history of CKD and chronic renal insufficiency s/p urostomy placement for severe interstitial cystitis, recurrent UTIs, type 2 diabetes, CVA & TIA, HTN, HLD, chronic anemia, and hypothyroidism who presented with weakness and fatigue for the last couple days and was admitted with chief diagnosis of CAUTI. #Cather Associated UTI -UA showed positive nitrites, positive leukocyte esterase, and bacteriuria -Patient reported home oral temperature of 103 degrees, but was 99.9 on ED presentation with WBC 14.7 -Urine culture is pending;*grown Klebsiella on past hospitalizations (03/2019 and 01/2018) -2 blood cultures are pending -Patient has a history of recurrent UTIs and is s/p urostomy due to severe interstitial cystitis -Due to extensive antibiotic allergies, patient has received 250mg IV Primaxin (Imipenem/Cilastin) in the ED and subsequent second dose of 500mg IV Primaxin -On exam, A&O to person, place; she is interactive, responding appropriately to questions or commands. #Skin necrosis around ostomy site -Extensive tender and raw skin around urostomy -Patient's son reports previous difficulty getting proper supplies to fit ostomy site -Wound care consult placed with Dr. Jacob -Pt has followed w/ Dr. Jacob in the past for pressure ulcer #MATILDE on CKD stage IV with chronic renal insufficiency s/p urostomy -sCr 2. 7-08/31 presentation; was 2.13 at March 2019 admission -Patient follows with Dr. Shay who has seen her while inpatient, most recently March 2019 -IVF; Urine electrolytes ordered to evaluate FeNa; Renal U/S #Chronic anemia -Hbg 9.8, MCV 102.6, MCHC 30.7 -Since October 2018, patient has had chronic macrocytic anemia; prior to that, patient had normocytic anemia and documented history of anemia of chronic d isease -Likely related to her chronic kidney disease -F/u CBC #DM II -Initial serum glucose 318; last known A1c value was 6 in 2017, repeat A1c ordered -Patient's home nighttime long-acting insulin continued -Consistent carb diet -FSBS AC HS w/ SSI AC HS #History of CVA and TIA -Home clopidogrel continued -Home atorvastatin continued #Deconditioning -Patient has been wheelchair dependent for the last couple years and sometimes uses platform walker -She is now entirely dependent on either her son or daughter whom she lives with to even get her to stand -PT/OT evaluation placed to optimize physical status while inpatient and for possible placement #DVT Prophylaxis: Due to patient's poor creatinine clearance, sequentials were ordered. Vital Signs Vital Signs Date Time Temp Pulse Resp B/P (MAP) Pulse Ox O2 Delivery O2 Flow Rate FiO2 10/05/19 23:09 10/05/19 23:00 77 99 10/05/19 22:02 99.9 16 Room Air Laboratory Data Labs 24H Laboratory Tests 2 10/05/19 23:47: Immature Granulocyte % (Auto) 0.5, Neutrophils (%) (Auto) 80.1H, Lymphocytes (%) (Auto) 9.8L, Monocytes (%) (Auto) 9.1H, Eosinophils (%) (Auto) 0.1, Basophils (%) (Auto) 0.4, Neutrophils # (Auto) 11.8H, Lymphocytes # (Auto) 1.4L, Monocytes # (Auto) 1.3H, Eosinophils # (Auto) 0.0, Basophils # (Auto) 0.1, Nucleated Red Blood Cells % (auto) 0.0, Anion Gap 9, Glomerular Filtration Rate 17.3L, Calcium Level 9.4, Total Bilirubin 0.2, Direct Bilirubin 0.1, Aspartate Amino Transf (AST/SGOT) 12, Alanine Aminotransferase (ALT/SGPT) 14, Alkaline Phosphatase 101, Total Protein 8.0, Albumin 2.7L, Albumin/Globulin Ratio 0.51L, Lipase 90 10/05/19 23:48: Lactic Acid Level 2.2*H 10/06/19 01:03: Urine Color YELLOW, Urine Appearance CLOUDYH, Urine pH 6.0, Urine Specific [place] 1.012, Urine Protein 2+H, Urine Glucose (UA) 1+H, Urine Ketones NEGATIVE, Urine Blood 3+H, Urine Nitrite POSITIVEH, Urine Bilirubin NEGATIVE, Urine Urobilinogen 0.2, Urine Leukocyte Esterase 3+H, Urine WBC (Auto) TNTCH, Urine RBC (Auto) TNTCH, Urine Hyaline Casts (Auto) 0, Urine Bacteria (Auto) 3+H, Urine Squamous Epithelial Cells 0, Urine Sperm (Auto) , Influenza Type A (RT-PCR) NEGATIVE, Influenza Type B (RT-PCR) NEGATIVE CBC/BMP Laboratory Tests 10/05/19 23:47 Microbiology Microbiology 10/06/19 Urine Culture, Received Pending 10/05/19 Blood Culture, Received Pending 10/05/19 Blood Culture, Received Pending Home Medications Scheduled Atenolol (Atenolol) 25 Mg Tab, 25 MG PO QHS HOLD IF SBP<100 Atorvastatin Calcium (Atorvastatin Calcium) 40 Mg Tab, 40 MG PO QHS Carboxymethylcellulose Sodium (Refresh Tears) 0.5 % Pietro, 1 DROP OU QHS Cetirizine HCl (Cetirizine HCl) 10 Mg Tablet, 10 MG PO DAILY Cinnamon Bark (Cinnamon) 500 Mg Capsule, 500 MG PO BID Clopidogrel Bisulfate (Clopidogrel) 75 Mg Tab, 75 MG PO DAILY Ergocalciferol (Vitamin D2) (Vitamin D2) 50,000 Units Cap, 50,000 UNITS PO 1XWK WEDNESDAY MORNINGS Ferrous Sulfate (Ferrous Sulfate) 325 Mg Tab, 325 MG PO DAILY Insulin Detemir (Levemir) 1 Units/0.01 Ml Susp, 30 UNITS SC QHS Levothyroxine Sodium (Levothyroxine Sodium) 50 Mcg Tab, 50 MCG PO DAILY Multivitamins (Thera M Plus Tablet) 1 Tab Tab, 1 TAB PO DAILY [place]-3/Dha/Epa/Fish Oil (Fish Oil 500 mg Softgel) 500 Mg Cap, 500 MG PO DAILY Pantoprazole Sodium (Pantoprazole Sodium) 20 Mg Tab, 20 MG PO DAILY Sodium Bicarbonate (Sodium Bicarbonate) 325 Mg Tab, 650 MG PO TID Scheduled PRN Acetaminophen (Acetaminophen ER) 650 Mg Tablet.er, 650 MG PO Q4H PRN for PAIN / FEVER Docusate Sodium (Docusate Sodium) 100 Mg Cap, 100 MG PO BID PRN for CONSTIPATION Nystatin (Nystatin Powder) 100,000 Unit/Gm Pow, 1 DOSE TOP BID PRN for RASH GROIN AREA AND SKIN FOLDS Allergies Coded Allergies: Penicillins (Verified Allergy, Intermediate, HIVES, 10/05/19) has received PCN PO as outpt in 2019 ceftriaxone (Verified Allergy, Intermediate, HIVES, 10/05/19) received dose 12/03/17 ciprofloxacin (Verified Allergy, Intermediate, HIVES, 10/05/19) fluconazole (Verified Allergy, Intermediate, HIVES, 10/05/19) iodine (Verified Allergy, Intermediate, HIVES, 10/05/19) erythromycin base (Verified Allergy, Unknown, 10/05/19) nitrofurantoin (Verified Allergy, Unknown, 10/05/19) rofecoxib (Verified Allergy, Unknown, 10/05/19) morphine (Verified Adverse Reaction, Mild, HYPOTENSION, 10/05/19) sulfamethoxazole (Verified Adverse Reaction, Mild, 10/05/19) listed as allergy due to renal function trimethoprim (Verified Adverse Reaction, Mild, 10/05/19) listed as allergy due to renal function A-FIB/CHADSVASC A-FIB History Current/History of A-Fib/PAF?: No Current PO Anticoag Therapy: No GME ATTESTATION GME ATTESTATION My faculty preceptor for this patient encounter was physically present during the encounter and was fully available. All aspects of the patient interview, examination, medical decision making process, and medical care plan development were reviewed and approved by the faculty preceptor. The faculty preceptor is aware and concurs with the plan as stated in the body of this note and will attest to such by his/her cosignature. ATTENDING NOTE I examined the patient, reviewed and edited the note and agree with the findings as documented. RYAN PERRIN D.O. Oct 06, 2019 01:59 MELLY OROZCO MD Oct 06, 2019 02:25
[2019-10-06] MEDS ORDERED: VITA50005 PO (02:08)
[2019-10-06] MEDS ORDERED: ACET650T15 PO (02:08)
[2019-10-06] MEDS ORDERED: DEXTROSE 50% 50 ML SYRINGE IV PRN (03:30)
[2019-10-06] MEDS ORDERED: GLUCOSE 4 GM CHEW TABLET PO PRN (03:30)
[2019-10-06] MEDS ORDERED: GLUCAGON FOR INJ 1 MG VIAL (J1610) SC PRN (03:30)
[2019-10-06 04:02] VITALS: BP 152/71
[2019-10-06] MEDS: NS 1,000 ML IV SCH ×2 (05:45→19:07)
[2019-10-06] MEDS: LEVOTHYROXINE 50MCG TABLET (0.05MG) PO SCH (05:45)
[2019-10-06 05:56] LABS: HEMATOCRIT 32.4 % (36.0-47.0); HEMOGLOBIN 9.3 g/dl (12.0-15.5); MEAN CORPUSCULAR HEMOGLOBIN 31.2 pg (27.0-33.0); MEAN CORPUSCULAR HGB CONC 28.7 g/dl (32.0-36.5); MEAN CORPUSCULAR VOLUME 108.7 fl (80.0-96.0); PLATELET COUNT, AUTOMATED 401 10^3/uL (150-450); RED BLOOD COUNT 2.98 10^6/uL (4.00-5.40); WHITE BLOOD COUNT 13.7 10^3/uL (4.0-10.0)
--- NOTE | 2019-10-06 05:57 | ECGEPIP ---
[facility] - ED Test Date: 2019-10-05 Pat Name: RASHMI ALVARADO Department: Room: - Gender: Female Associate Software Developer: EMILIA : [id number] Requested By: ANAMIKA Fernandes Order Number: [id number] Reading MD: Evens Butterfield Measurements Intervals [place] Rate: 80 P: 51 MT: 155 QRS: 43 QRSD: 146 T: 31 QT: 376 QTc: 434 Interpretive Statements SINUS RHYTHM WITH OCCASIONAL VENTRICULAR PREMATURE COMPLEXES RIGHT BUNDLE BRANCH BLOCK SIMILAR TO 04/16/19 Electronically Signed on 10-06-2019 5:57:35 EST by Evens Butterfield
[2019-10-06 06:00] VITALS: BP 148/64
[2019-10-06 06:24] LABS: CALCIUM LEVEL 9.4 MG/DL (8.8-10.2); CREATININE FOR GFR 2.55 MG/DL (0.55-1.30); GLOMERULAR FILTRATION RATE 19.1 (>32); POTASSIUM SERUM 4.4 MEQ/L (3.5-5.1)
[2019-10-06 06:33] LABS: HEMOGLOBIN A1c 9.9 %
--- NOTE | 2019-10-06 07:27 | REP ---
Portable chest, 12:35 a.m., single AP view with the patient sitting: Comparison is 04/16/2019. There is a skin fold artifact on the right. Lung doty are clear. Cardiac size is normal. The chinedu, mediastinum, skeletal structures are unremarkable. There are surgical clips in the left axilla, unchanged. Impression: Essentially negative portable chest. There is no interval change. Electronically Signed by Leon Dominguez MD 10/06/2019 07:19 A
[2019-10-06] MEDS ORDERED: IMIPENEM/CILASTATIN 500 MG in D5W MINI-BAG PLUS 100 ML IV ONE (09:00)
[2019-10-06] MEDS ORDERED: ENOXAPARIN 40 MG/0.4 ML SYRINGE (J1650) SC SCH (09:00)
[2019-10-06] MEDS: MULTIVITAMINS/MINERALS THERAP 1 TAB PO SCH (09:27)
[2019-10-06] MEDS: PANTOPRAZOLE 20 MG TAB PO SCH (09:27)
[2019-10-06] MEDS: CETIRIZINE (ZyrTEC) 10 MG TAB PO SCH (09:27)
[2019-10-06] MEDS: SODIUM BICARBONATE 325 MG TAB PO SCH ×3 (09:27→21:16)
[2019-10-06] MEDS: CLOPIDOGREL 75 MG TAB PO SCH (09:27)
[2019-10-06] MEDS: HumaLOG INSULIN (NovoLOG) PER UNIT SC SCH ×4 (09:27→21:00)
[2019-10-06] MEDS: IMIPENEM/CILASTATIN 250 MG in D5W MINI-BAG PLUS 100 ML IV SCH ×2 (09:28→21:16)
--- NOTE | 2019-10-06 11:50 | REP ---
Ultrasound: Review of the film file reveals several abdomen/pelvis CT studies that demonstrate an ileal conduit and urostomy. There is a mild hydronephrosis on the some of these CT scans. The right kidney measures 10.1 x 4.4 x 3 point centimeters. Left kidney measures 10.3 x 2.9 x 5.0 cm. The kidneys are normal size. Renal cortical echogenicity appears normal. However, there is renal cortical thinning bilaterally. There is dilatation of the right renal pelvis at the lower pole. No left renal pelvis dilatation is identified. No solid or cystic renal masses are identified. No renal calculi are identified. Impression: The the kidneys are normal size, however, there is bilateral renal cortical thinning. There is dilatation of the right renal pelvis at the lower pole. No renal calculi. No solid or cystic renal masses. The patient reportedly has an ileal conduit and urostomy. The study is technically difficult because of the patient's inability to turn and roll as is required for the examination. Electronically Signed by Leon Domingeuz MD 10/06/2019 11:41 A
[2019-10-06 14:00] VITALS: BP 131/61
--- NOTE | 2019-10-06 16:32 | SMCUROLCON ---
Urology Consultation General Date of Consultation 10/06/19 Reason For Consultation This patient is seen for Catheter Associated Uti. History of Present Illness This is an 84 y/o F w/ a PMH significant for interstitial cystitis managed w/ ileal condiut urinary diversion, CKD, recurrent UTIs, DM2, CVD, and GERD, admitted for fevers, weakness and fatigue. Urology is consulted due to significant skin irritation around the ileal conduit stoma. The patient was not able to tell me when or where her ileal conduit surgery was done. She also was not able to determine if her bladder was removed at that time. She lives at home w/ her son and he changes her ostomy appliance. He was not available at the time of my visit. Past Medical History Medical History Recurrent UTIs HTN DM2 HL CKD Hypothyroidism Left breast cancer 30 years ago, S/P surgery and chemotherapy Surgical Hstory Partial left hip replacement Three total back surgeries with lumbar fusion of L2-3, 4, and 5 Cystectomy with ileal conduit Right knee arthroplasty, hysterectomy Bilateral cataract surgery Medications Current Medications Current Medications Medications (Trade) Dose Ordered Sig/Gauri Route PRN Reason Start Time Stop Time Status Last Admin Dose Admin Acetaminophen (Tylenol Arthritis Er) 650 mg Q4H PRN PO PAIN / FEVER 10/06/19 03:30 Atenolol (Tenormin) 25 mg QHS PO 10/06/19 21:00 Atorvastatin Calcium (Lipitor) 40 mg QHS PO 10/06/19 21:00 Cetirizine HCl (ZyrTEC) 10 mg DAILY PO 10/06/19 09:00 10/06/19 09:27 Clopidogrel Bisulfate (PLAVix) 75 mg DAILY PO 10/06/19 09:00 10/06/19 09:27 Dextrose (Dextrose 50%) 25 ml ASDIRECTED PRN IV SEE LABEL COMMENTS 10/06/19 03:30 Docusate Sodium (Colace) 100 mg BID PRN PO CONSTIPATION 10/06/19 03:30 Enoxaparin Sodium (Lovenox) 40 mg DAILY SC 10/06/19 09:00 10/06/19 05:46 DC Glucagon (Glucagon) 1 mg ASDIRECTED PRN SC SEE LABEL COMMENTS 10/06/19 03:30 Glucose (Glucose) 16 GM ASDIRECTED PRN PO SEE LABEL COMMENTS 10/06/19 03:30 Home Med (Med Rec Complete!) ASDIRECTED XX 10/06/19 02:15 10/06/19 02:10 DC Imipenem/ Cilastatin Sodium 250 mg/Dextrose 100 ml @ 100 mls/hr Q12H IV 10/06/19 09:00 10/06/19 09:28 Insulin Detemir (Levemir Insulin) 30 units QHS SC 10/06/19 21:00 Insulin Human Lispro (HumaLOG INSULIN) SEE PROTOCOL TABLE AC SC 10/06/19 07:30 10/06/19 12:17 Insulin Human Lispro (HumaLOG INSULIN) SEE PROTOCOL TABLE QHS SC 10/06/19 21:00 Levothyroxine Sodium (Synthroid) 50 mcg DAILY@0600 PO 10/06/19 06:00 10/06/19 05:45 Multivitamins (Theragram-M) 1 tab DAILY PO 10/06/19 09:00 10/06/19 09:27 Nystatin (Mycostatin Powder, Nystop) APPLY TO GROIN/SKIN FOLDS BID PRN TOP RASH 10/06/19 03:30 Pantoprazole Sodium (Protonix) 20 mg DAILY PO 10/06/19 09:00 10/06/19 09:27 Sodium Bicarbonate (Sodium Bicarbonate) 650 mg TID PO 10/06/19 09:00 10/06/19 09:27 Sodium Chloride 1,000 ml @ 70 mls/hr [id number] IV 10/06/19 04:45 10/06/19 05:45 Vitamin D (Drisdol) 50,000 units Tu@0900 PO 10/10/19 09:00 Allergies Allergies: Coded Allergies: Penicillins (Verified Allergy, Intermediate, HIVES, 10/05/19) has received PCN PO as outpt in 2019 ceftriaxone (Verified Allergy, Intermediate, HIVES, 10/05/19) received dose 12/03/17 ciprofloxacin (Verified Allergy, Intermediate, HIVES, 10/05/19) fluconazole (Verified Allergy, Intermediate, HIVES, 10/05/19) iodine (Verified Allergy, Intermediate, HIVES, 10/05/19) erythromycin base (Verified Allergy, Unknown, 10/05/19) nitrofurantoin (Verified Allergy, Unknown, 10/05/19) rofecoxib (Verified Allergy, Unknown, 10/05/19) morphine (Verified Adverse Reaction, Mild, HYPOTENSION, 10/05/19) sulfamethoxazole (Verified Adverse Reaction, Mild, 10/05/19) listed as allergy due to renal function trimethoprim (Verified Adverse Reaction, Mild, 10/05/19) listed as allergy due to renal function Review of Systems General: Reports: ROS Unobtainable Physical Examination General Exam: No Acute Distress Chest Exam: Normal air movement Heart Exam: Rate Normal Abdomen Exam: Soft, Tenderness (mild on the skin around ostomy), Other (erythema and irritation on skin around the ostomy site; stoma is pink and healthy - clear urine draining into bag; no leakage coming from current ostomy appliance) Psych Exam: Mental status NL, Mood NL Vital Signs/I&O Vital Signs Date Time Temp Pulse Resp B/P (MAP) Pulse Ox O2 Delivery O2 Flow Rate FiO2 10/06/19 06:00 97.9 84 19 148/64 (92) 98 10/05/19 22:02 Room Air I&O- Last 24 Hours up to 6 AM 10/06/19 06:00 Intake Total 100 ml Output Total 150 ml Balance -50 ml Laboratory Data 24H Labs Laboratory Tests 2 10/05/19 23:47: Immature Granulocyte % (Auto) 0.5, Neutrophils (%) (Auto) 80.1H, Lymphocytes (%) (Auto) 9.8L, Monocytes (%) (Auto) 9.1H, Eosinophils (%) (Auto) 0.1, Basophils (%) (Auto) 0.4, Neutrophils # (Auto) 11.8H, Lymphocytes # (Auto) 1.4L, Monocytes # (Auto) 1.3H, Eosinophils # (Auto) 0.0, Basophils # (Auto) 0.1, Nucleated Red Blood Cells % (auto) 0.0, Anion Gap 9, Glomerular Filtration Rate 17.3L, Calcium Level 9.4, Total Bilirubin 0.2, Direct Bilirubin 0.1, Aspartate Amino Transf (AST/SGOT) 12, Alanine Aminotransferase (ALT/SGPT) 14, Alkaline Phosphatase 101, Total Protein 8.0, Albumin 2.7L, Albumin/Globulin Ratio 0.51L, Lipase 90 10/05/19 23:48: Lactic Acid Level 2.2*H 10/06/19 01:03: Urine Color YELLOW, Urine Appearance CLOUDYH, Urine pH 6.0, Urine Specific [place] 1.012, Urine Protein 2+H, Urine Glucose (UA) 1+H, Urine Ketones NEGATIVE, Urine Blood 3+H, Urine Nitrite POSITIVEH, Urine Bilirubin NEGATIVE, Ur ine Urobilinogen 0.2, Urine Leukocyte Esterase 3+H, Urine WBC (Auto) TNTCH, Urine RBC (Auto) TNTCH, Urine Hyaline Casts (Auto) 0, Urine Bacteria (Auto) 3+H, Urine Squamous Epithelial Cells 0, Urine Sperm (Auto) , Influenza Type A (RT- PCR) NEGATIVE, Influenza Type B (RT-PCR) NEGATIVE 10/06/19 05:46: Nucleated Red Blood Cells % (auto) 0.0, Anion Gap 9, Glomerular Filtration Rate 19.1L, Calcium Level 9.4, Estimated Mean Plasma Glucose 237H, Hemoglobin A1c 9.9, Lactic Acid Followup at 4 Hours 2.3*H 10/06/19 11:38: Bedside Glucose (Misc Panel) 160H CBC/BMP Laboratory Tests 10/05/19 23:47 10/06/19 05:46 Microbiology Microbiology 10/06/19 Urine Culture, Received Pending 10/05/19 Blood Culture, Received Pending 10/05/19 Blood Culture, Received Pending Assessment This is an 84 y/o F w/ an ileal conduit urinary diversion and recurrent UTIs, admitted for weakness and fevers, potentially due to a UTI. The skin irritation around the ostomy site is likely due to urine leakage from an improperly fitted appliance. The current appliance appears to be fitted well. With skin care, the irritation should improve as long as the skin is kept dry. Plan - monitor ostomy appliance and adjust as needed to keep skin dry - treat UTI per primary team - recommend having nursing work w/ the patient's son to ensure the ostomy appliance is being fitted properly to prevent leakage - patient may continue f/u w/ her urologist upon discharge VALENTINE NEVILLE MD Oct 06, 2019 13:55
[2019-10-06] MEDS: ACETAMINOPHEN 650MG ER TAB (TYLENOL ARTHRITIS) PO PRN (16:58)
--- NOTE | 2019-10-06 18:49 | IPNPDOC ---
Text Note Date of Service The patient was seen on 10/06/19. NOTE Subjective: Patient complains of weakness, not any acute events overnight. Pat ient denied fever, chills, nausea, vomiting, chest pain, palpitations Objective:VITAL SIGNS: Please see below. GENERAL APPEARANCE: not in apparent distress HEENT: Normocephalic, atraumatic. Mucous members moist and pink CARDIOVASCULAR: Regular rate and rhythm. No murmurs, rubs or gallops. Radial pulses are intact. There is no lower extremity edema LUNGS: Diminished lung sounds ABDOMEN: Abdomen is soft and nontender. Around cystostomy significant area of maceration MUSCULOSKELETAL: Range of motion is intact in all 4 extremities NEUROLOGICAL: Cranial nerves II-12 are grossly intact. 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 UTI Patient has pyuria, leukocytosis Patient has multiple allergies Coverage with Imipenem/Cilastin started Maceration of the skin around ostomy site Secondary to not well fitted urostomy bag Follow-up with wound care in the outpatient settings Dr Camar[place] recommend having nursing work w/ the patient's son to ensure the ostomy appliance is being fitted properly to prevent leakage Acute on chronic kidney diseases stage IV Slightly improved today Continue to monitor Chronic anemia Macrocytic, most likely combined with anemia of chronic diseases secondary to CKD Will check folate, B12 Type 2 diabetes Glucose levels under control Continue insulin sliding scale Detemir daily at bedtime Diabetes diet Deconditioning PT/OT evaluation VS,Jey, I+O VS, Jey, I+O Laboratory Tests 10/05/19 23:47 10/06/19 05:46 Vital Signs Date Time Temp Pulse Resp B/P (MAP) Pulse Ox O2 Delivery O2 Flow Rate FiO2 10/06/19 14:00 100.6 84 17 131/61 (84) 96 Room Air I&O- Last 24 Hours up to 6 AM 10/06/19 06:00 Intake Total 100 ml Output Total 150 ml Balance -50 ml GEETA PURDY DO Oct 06, 2019 18:49
[2019-10-06] MEDS: ATORVASTATIN 20 MG TAB PO SCH (21:16)
[2019-10-06] MEDS: LEVEMIR (INSULIN DETEMIR) 1 UNITS/0.01ML SC SCH (21:18)
[2019-10-06] MEDS: atenoloL 25 MG TAB PO SCH (21:18)
[2019-10-06] MEDS: HEPARIN SOD (PORCINE) 5000 UNITS/ML VIAL (J1644 PER 1000UNITS) SQ SCH (21:18)
[2019-10-06 22:00] VITALS: BP 123/57
[2019-10-07] MEDS: NYSTATIN 100,000 UNITS/GM TOPICAL PWD 15 GM TOP PRN (00:17)
[2019-10-07] MEDS: LEVOTHYROXINE 50MCG TABLET (0.05MG) PO SCH (05:36)
[2019-10-07 06:00] VITALS: BP 125/57
[2019-10-07 06:50] LABS: HEMATOCRIT 28.6 % (36.0-47.0); HEMOGLOBIN 8.9 g/dl (12.0-15.5); MEAN CORPUSCULAR HEMOGLOBIN 31.3 pg (27.0-33.0); MEAN CORPUSCULAR HGB CONC 31.1 g/dl (32.0-36.5); MEAN CORPUSCULAR VOLUME 100.7 fl (80.0-96.0); PLATELET COUNT, AUTOMATED 391 10^3/uL (150-450); RED BLOOD COUNT 2.84 10^6/uL (4.00-5.40); WHITE BLOOD COUNT 11.2 10^3/uL (4.0-10.0)
[2019-10-07 07:02] LABS: BLOOD UREA NITROGEN 58 MG/DL (7-18); CALCIUM LEVEL 8.3 MG/DL (8.8-10.2); CARBON DIOXIDE LEVEL 22 MEQ/L (21-32); CHLORIDE LEVEL 112 MEQ/L (98-107); CREATININE FOR GFR 2.36 MG/DL (0.55-1.30); GLOMERULAR FILTRATION RATE 20.9 (>32); GLUCOSE, FASTING 80 MG/DL (70-100); MAGNESIUM LEVEL 1.6 MG/DL (1.8-2.4); POTASSIUM SERUM 4.4 MEQ/L (3.5-5.1); SODIUM LEVEL 143 MEQ/L (136-145)
[2019-10-07] MEDS: HumaLOG INSULIN (NovoLOG) PER UNIT SC SCH ×4 (07:28→21:00)
[2019-10-07] MEDS: CLOPIDOGREL 75 MG TAB PO SCH (08:56)
[2019-10-07] MEDS: SODIUM BICARBONATE 325 MG TAB PO SCH ×3 (08:56→21:30)
[2019-10-07] MEDS: MULTIVITAMINS/MINERALS THERAP 1 TAB PO SCH (08:56)
[2019-10-07] MEDS: PANTOPRAZOLE 20 MG TAB PO SCH (08:57)
[2019-10-07] MEDS: HEPARIN SOD (PORCINE) 5000 UNITS/ML VIAL (J1644 PER 1000UNITS) SQ SCH ×2 (08:57→21:29)
[2019-10-07] MEDS: IMIPENEM/CILASTATIN 250 MG in D5W MINI-BAG PLUS 100 ML IV SCH ×2 (08:57→21:29)
[2019-10-07] MEDS: CETIRIZINE (ZyrTEC) 10 MG TAB PO SCH (08:57)
[2019-10-07] MEDS ORDERED: MAG SULF 1GM/100ML (MAG RUN) 1 GM in IV 1 EA IV ONE (10:00)
[2019-10-07] MEDS: NS 1,000 ML IV SCH ×2 (10:23→23:39)
--- NOTE | 2019-10-07 13:14 | IPNPDOC ---
Text Note Date of Service The patient was seen on 10/07/19. NOTE Subjective: Patient states that she feels much better today. No any acute events overnight. Patient denied fever, chills, nausea, vomiting, chest pain, palpitations Objective:VITAL SIGNS: Please see below. GENERAL APPEARANCE: not in apparent distress HEENT: Normocephalic, atraumatic. Mucous members moist and pink CARDIOVASCULAR: Regular rate and rhythm. No murmurs, rubs or gallops. Radial pulses are intact. There is no lower extremity edema LUNGS: Diminished lung sounds ABDOMEN: Abdomen is soft and nontender. Around cystostomy significant area of maceration MUSCULOSKELETAL: Range of motion is intact in all 4 extremities NEUROLOGICAL: Cranial nerves II-12 are grossly intact. 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 UTI Patient has pyuria, leukocytosis Patient has multiple allergies Coverage with Imipenem/Cilastin started Maceration of the skin around ostomy site Secondary to not well fitted urostomy bag Follow-up with wound care in the outpatient settings Dr Camarillo recommend having nursing work w/ the patient's son to ensure the ostomy appliance is being fitted properly to prevent leakage Barrier cream Acute on chronic kidney diseases stage IV improved today Continue to monitor Chronic anemia Macrocytic, most likely combined with anemia of chronic diseases secondary to CKD Will check folate, B12 Type 2 diabetes Glucose levels under control Continue insulin sliding scale Detemir daily at bedtime Diabetes diet Deconditioning PT/OT evaluation VS,Canelobone, I+O VS, Fishbone, I+O Laboratory Tests 10/07/19 06:16 Vital Signs Date Time Temp Pulse Resp B/P (MAP) Pulse Ox O2 Delivery O2 Flow Rate FiO2 10/07/19 06:00 99.7 76 16 125/57 (79) 96 Room Air I&O- Last 24 Hours up to 6 AM 10/07/19 06:00 Intake Total 1410 ml Output Total 475 ml Balance 935 ml GEETA PURDY DO Oct 07, 2019 13:14
[2019-10-07 14:00] VITALS: BP 127/83
[2019-10-07] MEDS: LEVEMIR (INSULIN DETEMIR) 1 UNITS/0.01ML SC SCH (21:30)
[2019-10-07] MEDS: ATORVASTATIN 20 MG TAB PO SCH (21:30)
[2019-10-07] MEDS: atenoloL 25 MG TAB PO SCH (21:31)
[2019-10-07 22:00] VITALS: BP 114/66
[2019-10-07] MEDS: ACETAMINOPHEN 650MG ER TAB (TYLENOL ARTHRITIS) PO PRN (23:16)
[2019-10-08] MEDS: NS 1,000 ML IV SCH ×3 (02:04→17:12)
[2019-10-08] MEDS: ACETAMINOPHEN 650MG ER TAB (TYLENOL ARTHRITIS) PO PRN (04:42)
[2019-10-08] MEDS ORDERED: MOM 30ML SUSPENSION UDC PO PRN (05:30)
[2019-10-08] MEDS ORDERED: ONDANSETRON 4MG/2ML VIAL (J2405) IV ONE (05:30)
[2019-10-08] MEDS: LEVOTHYROXINE 50MCG TABLET (0.05MG) PO SCH (05:40)
[2019-10-08] MEDS: DOCUSATE SODIUM 100 MG CAP PO PRN (05:40)
[2019-10-08 06:00] VITALS: BP 127/94
[2019-10-08 07:13] LABS: HEMATOCRIT 25.4 % (36.0-47.0); HEMOGLOBIN 8.1 g/dl (12.0-15.5); MEAN CORPUSCULAR HEMOGLOBIN 31.6 pg (27.0-33.0); MEAN CORPUSCULAR HGB CONC 31.9 g/dl (32.0-36.5); MEAN CORPUSCULAR VOLUME 99.2 fl (80.0-96.0); PLATELET COUNT, AUTOMATED 331 10^3/uL (150-450); RED BLOOD COUNT 2.56 10^6/uL (4.00-5.40)
[2019-10-08 07:39] LABS: CALCIUM LEVEL 8.8 MG/DL (8.8-10.2); CREATININE FOR GFR 2.64 MG/DL (0.55-1.30); GLOMERULAR FILTRATION RATE 18.3 (>32); MAGNESIUM LEVEL 1.9 MG/DL (1.8-2.4); POTASSIUM SERUM 4.1 MEQ/L (3.5-5.1)
[2019-10-08] MEDS: SODIUM BICARBONATE 325 MG TAB PO SCH ×3 (08:25→21:49)
[2019-10-08] MEDS: PANTOPRAZOLE 20 MG TAB PO SCH (08:25)
[2019-10-08] MEDS: MULTIVITAMINS/MINERALS THERAP 1 TAB PO SCH (08:25)
[2019-10-08] MEDS: HumaLOG INSULIN (NovoLOG) PER UNIT SC SCH ×4 (08:25→21:00)
[2019-10-08] MEDS: CLOPIDOGREL 75 MG TAB PO SCH (08:25)
[2019-10-08] MEDS: CETIRIZINE (ZyrTEC) 10 MG TAB PO SCH (08:26)
[2019-10-08] MEDS: HEPARIN SOD (PORCINE) 5000 UNITS/ML VIAL (J1644 PER 1000UNITS) SQ SCH ×2 (08:26→21:50)
[2019-10-08] MEDS: IMIPENEM/CILASTATIN 250 MG in D5W MINI-BAG PLUS 100 ML IV SCH ×2 (08:26→21:50)
[2019-10-08] MEDS: DOXYCYCLINE HYCLATE 100 MG TAB PO SCH ×2 (12:41→21:50)
[2019-10-08 14:00] VITALS: BP 143/61
--- NOTE | 2019-10-08 15:27 | IPNPDOC ---
Text Note Date of Service The patient was seen on 10/08/19. NOTE Subjective: Patient did have fever 100.3 in the morning subsided after Tylenol. Objective:VITAL SIGNS: Please see below. GENERAL APPEARANCE: not in apparent distress HEENT: Normocephalic, atraumatic. Mucous members moist and pink CARDIOVASCULAR: Regular rate and rhythm. No murmurs, rubs or gallops. Radial pulses are intact. There is no lower extremity edema LUNGS: Diminished lung sounds ABDOMEN: Abdomen is soft and nontender. Around cystostomy significant area of maceration MUSCULOSKELETAL: Range of motion is intact in all 4 extremities NEUROLOGICAL: Cranial nerves II-12 are grossly intact. 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 Patient received treatment with I mipenem. On 10/08/19 patient developed low-grade fever, I added doxycycline to her drug regimen. Await PT/OT clearance. Needs a close follow-up with urologist. Patient might need a suppressive dose of antibiotics for long period of time. UTI Patient has pyuria, leukocytosis Patient has multiple allergies on antibiotics Coverage with Imipenem/Cilastin started Doxycycline added to extend coverage Patient might need a suppressive dose of antibiotics for long period of time. Maceration of the skin around ostomy site Secondary to not well fitted urostomy bag Follow-up with wound care in the outpatient settings Dr Camarillo recommend having nursing work w/ the patient's son to ensure the ostomy appliance is being fitted properly to prevent leakage Barrier cream Acute on chronic kidney diseases stage IV Worsening today, secondary to imipenem or poor oral intake Continue to monitor Continue IV fluid Chronic anemia Macrocytic, most likely combined with anemia of chronic diseases secondary to CKD Will check folate, B12 Type 2 diabetes Glucose levels under control Continue insulin sliding scale Detemir daily at bedtime Diabetes diet Deconditioning PT/OT evaluation VS,Fishbone, I+O VS, Fishbone, I+O Laboratory Tests 10/08/19 06:59 Vital Signs Date Time Temp Pulse Resp B/P (MAP) Pulse Ox O2 Delivery O2 Flow Rate FiO2 10/08/19 06:00 100.0 78 16 127/94 (105) 94 Room Air I&O- Last 24 Hours up to 6 AM 10/08/19 06:00 Intake Total 570 ml Output Total 1250 ml Balance -680 ml GEETA PURDY DO Oct 08, 2019 15:27
[2019-10-08] MEDS: atenoloL 25 MG TAB PO SCH (21:49)
[2019-10-08] MEDS: ATORVASTATIN 20 MG TAB PO SCH (21:49)
[2019-10-08] MEDS: LEVEMIR (INSULIN DETEMIR) 1 UNITS/0.01ML SC SCH (21:50)
[2019-10-08 22:00] VITALS: BP 157/65
[2019-10-09] MEDS: ONDANSETRON 4MG/2ML VIAL (J2405) IV PRN ×2 (01:03→09:01)
[2019-10-09] MEDS: ACETAMINOPHEN 650MG ER TAB (TYLENOL ARTHRITIS) PO PRN ×2 (02:51→22:59)
[2019-10-09] MEDS: NS 1,000 ML IV SCH (03:13)
[2019-10-09] MEDS: LEVOTHYROXINE 50MCG TABLET (0.05MG) PO SCH (05:38)
[2019-10-09 05:59] LABS: HEMATOCRIT 24.4 % (36.0-47.0); HEMOGLOBIN 7.6 g/dl (12.0-15.5); MEAN CORPUSCULAR HEMOGLOBIN 31.1 pg (27.0-33.0); MEAN CORPUSCULAR HGB CONC 31.1 g/dl (32.0-36.5); PLATELET COUNT, AUTOMATED 332 10^3/uL (150-450); RED BLOOD COUNT 2.44 10^6/uL (4.00-5.40); WHITE BLOOD COUNT 11.6 10^3/uL (4.0-10.0)
[2019-10-09 06:00] VITALS: BP 131/77
[2019-10-09 06:21] LABS: CALCIUM LEVEL 8.9 MG/DL (8.8-10.2); CREATININE FOR GFR 2.03 MG/DL (0.55-1.30); GLOMERULAR FILTRATION RATE 24.8 (>32); MAGNESIUM LEVEL 1.7 MG/DL (1.8-2.4)
[2019-10-09] MEDS: HumaLOG INSULIN (NovoLOG) PER UNIT SC SCH ×4 (07:30→22:49)
[2019-10-09] MEDS ORDERED: MAG SULF 1GM/100ML (MAG RUN) 1 GM in IV 1 EA IV ONE (08:00)
[2019-10-09 08:44] LABS: PERCENT SATURATION 23.1 % (13.2-45.0)
[2019-10-09] MEDS: HEPARIN SOD (PORCINE) 5000 UNITS/ML VIAL (J1644 PER 1000UNITS) SQ SCH ×2 (09:01→22:59)
[2019-10-09] MEDS: CLOPIDOGREL 75 MG TAB PO SCH (09:03)
[2019-10-09] MEDS: IMIPENEM/CILASTATIN 250 MG in D5W MINI-BAG PLUS 100 ML IV SCH ×2 (09:03→22:59)
[2019-10-09] MEDS: SODIUM BICARBONATE 325 MG TAB PO SCH ×3 (09:03→22:58)
[2019-10-09] MEDS: DOXYCYCLINE HYCLATE 100 MG TAB PO SCH ×2 (09:03→22:58)
[2019-10-09] MEDS: CETIRIZINE (ZyrTEC) 10 MG TAB PO SCH (09:04)
[2019-10-09] MEDS: PANTOPRAZOLE 20 MG TAB PO SCH (09:04)
[2019-10-09 12:16] LABS: FOLATE > 24.0 NG/ML (>5.4); VITAMIN B12 LEVEL 636 PG/ML (247-911)
[2019-10-09 14:00] VITALS: BP 132/68
--- NOTE | 2019-10-09 16:18 | IPNPDOC ---
Text Note Date of Service The patient was seen on 10/09/19. NOTE Subjective: No further fever in the last 24 hours. before that had low grade fever. Complains of pain in the abdominal wall around the stoma. Objective: VITAL SIGNS: Please see below. GENERAL APPEARANCE: not in apparent distress HEENT: Normocephalic, atraumatic. Mucous members moist and pink CARDIOVASCULAR: Regular rate and rhythm. No murmurs, rubs or gallops. Radial pulses are intact. LUNGS: Diminished lung sounds, no added sounds. ABDOMEN: Abdomen is soft and nontender. Around urostomy opening significant area of maceration and well as exzematous changes. MUSCULOSKELETAL: Range of motion is intact in all 4 extremities NEUROLOGICAL: Cranial nerves II-12 are grossly intact. Speech is not dysarthric Extremities: no edema, cyanosis or clubbing. Labs and radiology: reviewed. Assessment and plan: This is an 84 y/o F w/ a PMH significant for interstitial cystitis managed w/ ileal condiut urinary diversion, CKD, recurrent UTIs, DM2, CVA and GERD, HTN, HLD, Hypothyroid, h/o breast cancer admitted for fevers, weakness and fatigue. Patient received treatment with Imipenem. On 10/08/19 patient developed low-grade fever, was added doxycycline to her drug regimen. Await PT/OT clearance. Needs a close follow-up with urologist. Patient león UTI vs asymptomatic bacteruria due to urostomy bag Urine culture with multiple organisms. On Imipenem and doxycycline consulted ID. 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 Had ileal conduit and urostomy bag done on jul 2017 at [facility]. complicated by non attachment of a second left ureter to the ileal conduit leading to urinary abscess in the abdomen and again surgery in august 2017. Where there was abdominal washout and attachment of the missed third ureter to the conduit has urostomy bag since 2017 Contact dermatitis around the stoma for about 2 months. will consult dermatology Chronic anemia will transfuse if HH < 7.0 does have iron deficiency and anemia of chronic disease. also has vit b 12 def. Chronic kidney disease stage 4 baseline about 2.2 creatinine at baseline continue bicarb po. HTN continue with atenolol Hyperlipidemia continue lipitor DM2 continue with levemir , lispro insulin sliding scale; hypoglycemia protocol GERD continue with protonix H/o Ischemic stroke in November 2017 in the occipital area no clinical symptoms continue plavix and statin. History of breast Cancer s/p left mastectomy in the past. Left femoral neck fracture s/p mechanical fall s/p left hemiarthroplasty on 12/25/17 VS,Fishbone, I+O VS, Fishbone, I+O Laboratory Tests 10/09/19 05:42 Vital Signs Date Time Temp Pulse Resp B/P (MAP) Pulse Ox O2 Delivery O2 Flow Rate FiO2 10/09/19 14:00 97.1 70 16 132/68 (89) 95 Room Air I&O- Last 24 Hours up to 6 AM 10/09/19 06:00 Intake Total 1010 ml Output Total 1250 ml Balance -240 ml JEANNETTE RENDON MD Oct 09, 2019 16:18
[2019-10-09] MEDS: MULTIVITAMINS/MINERALS THERAP 1 TAB PO SCH (17:58)
[2019-10-09 22:00] VITALS: BP 148/66
[2019-10-09] MEDS: ATORVASTATIN 20 MG TAB PO SCH (22:57)
[2019-10-09] MEDS: atenoloL 25 MG TAB PO SCH (22:58)
[2019-10-09] MEDS: DOCUSATE SODIUM 100 MG CAP PO PRN (22:59)
[2019-10-09] MEDS: LEVEMIR (INSULIN DETEMIR) 1 UNITS/0.01ML SC SCH (23:47)
[2019-10-10] MEDS ORDERED: LEVEMIR (INSULIN DETEMIR) 1 UNITS/0.01ML SC ONE
[2019-10-10] MEDS: ACETAMINOPHEN 650MG ER TAB (TYLENOL ARTHRITIS) PO PRN ×2 (05:30→22:05)
[2019-10-10] MEDS: LEVOTHYROXINE 50MCG TABLET (0.05MG) PO SCH (05:30)
[2019-10-10 06:00] VITALS: BP 125/56
[2019-10-10 06:52] LABS: HEMATOCRIT 26.2 % (36.0-47.0); HEMOGLOBIN 7.9 g/dl (12.0-15.5); MEAN CORPUSCULAR HEMOGLOBIN 30.4 pg (27.0-33.0); MEAN CORPUSCULAR HGB CONC 30.2 g/dl (32.0-36.5); MEAN CORPUSCULAR VOLUME 100.8 fl (80.0-96.0); PLATELET COUNT, AUTOMATED 360 10^3/uL (150-450); WHITE BLOOD COUNT 14.2 10^3/uL (4.0-10.0)
[2019-10-10 07:16] LABS: CALCIUM LEVEL 8.5 MG/DL (8.8-10.2); CREATININE FOR GFR 2.01 MG/DL (0.55-1.30); GLOMERULAR FILTRATION RATE 25.1 (>32); MAGNESIUM LEVEL 1.8 MG/DL (1.8-2.4); POTASSIUM SERUM 4.2 MEQ/L (3.5-5.1)
--- NOTE | 2019-10-10 07:38 | CR.PDOC ---
General Date of Consultation: Oct 09, 2019 Referring Provider: JEANNETTE RENDON MD Attending Physician: JEANNETTE RENDON MD Consultation REASON FOR CONSULTATION/CHIEF COMPLAINT: inflammation around urostomy site HISTORY OF PRESENT ILLNESS: HISTORY OF PRESENT ILLNESS: Mrs. Maldonado is an 84-year-old female with history of recurrent UTI, chronic kidney disease, severe interstitial cystitis s/p urostomy, DM 2 on insulin, CVA/TIA hypertension, GERD, and chronic anemia who presented to the ED with chief complaint of weakness, fatigue, and fever to 103 F. The patient's son, Jovan, is accompanying her and reports she has been a little bit less alert of late, resembling how she has appeared on previous presentations for UTI. She has had intermittent hematuria recently through the ostomy as well. At her baseline, patient has diminished strength over the past 2 years and is effectively wheelchair bound. Patient and son report urine leaking from urostomy and causing irritation to the skin around the area. In the ED, patient was found to be anemic with leukocytosis and UTI. Due to patient's extensive antibiotic allergies, she was given a Duragesic 50 mg IV dose of imipenem-cilastin. PAST MEDICAL/SURGICAL HISTORY: Recurrent UTIs. Chronic kidney disease. Diabetes mellitus type 2 on insulin. Hypertension. Hyperlipidemia Hypothyroidism. Severe interstitial cystitis, status post urostomy. Anemia of chronic disease. History of left breast cancer 30 years ago, S/P surgery and chemotherapy Partial left hip replacement. Three total back surgeries with lumbar fusion of L2-3, 4, and 5 Insertion urostomy Right knee arthroplasty, hysterectomy Bilateral cataract surgery SOCIAL HISTORY: Lives with her son (Jovan) Her healthcare proxy is her daughter, Abi Denies use of tobacco products, alcohol or illegal drugs. FAMILY HISTORY: COPD (father; from COPD complications) Unspecified kidney ailments (mother) ALLERGIES: Please see below. HOME MEDICATIONS: Please see below. REVIEW OF SYSTEMS: Decreased alertness, discomfort of skin around urostomy site, increased fatigue PHYSICAL EXAMINATION: VITAL SIGNS: Please see below. GENERAL APPEARANCE: Frail WDWN white female in NAD supine in bed HEENT: EOMI, NC/AT RESPIRATORY: RRR CARDIOVASCULAR: No increased JVP ABDOMEN: Supple, soft SKIN (LIMITED): Right lower abdomen with inflamed pink to red patch with denuding of the skin with sloughing white debris present NEUROLOGICAL: A+Ox3 PSYCHIATRIC: Normal, appropriate interaction LABORATORY DATA: Please see below. ASSESSMENT/PLAN: 84 yo WF with urostomy in place with history of recurrent UTI with concern for current UTI vs. colonization, chronic kidney disease with inflamed rash around urostomy site with urine leakage in the preceding days prior to consultation. 1. Irritant contact dermatitis: The alkaline nature of her urine likely has irritated the skin and contributed to breakdown of the skin. Recommend the following: - Ensure proper urostomy function - Maintain a dry environment in the region of the urostomy - Stop nystatin powder, stop PhytoProtectant - Start sucralfate powder dusted onto erosions BID - Gentle cleansing BID before powder placement as above - Use thick zinc paste such as Triple Paste or Desitin Max (40% zinc oxide) to area BID 2. Intertrigo: Environment in area contributing to overgrowth of yeast. Recommend the following: - Swab for culture for fungus and bacteria, will follow up - Start triamcinolone cream 0.1% mixed with ketoconazole cream 2% BID 15 minutes before powder and paste application as above - Keep area dry Thank you for this interesting consult. Dermatology will continue to follow along with this patient and we will see her as an outpatient 2-4 weeks after discharge. Gilberto Christian MD FAAD [phone] Vital Signs/I&O Vital Signs Date Time Temp Pulse Resp B/P (MAP) Pulse Ox O2 Delivery O2 Flow Rate FiO2 10/09/19 22:58 78 148/66 10/09/19 22:00 98.6 18 96 Room Air I&O- Last 24 Hours up to 6 AM 10/10/19 06:00 Intake Total 1060 ml Output Total 1450 ml Balance -390 ml Laboratory Data Labs 24H Laboratory Tests 2 10/09/19 12:02: Bedside Glucose (Misc Panel) 167H 10/09/19 16:39: Bedside Glucose (Misc Panel) 148H 10/09/19 21:05: Bedside Glucose (Misc Panel) 137H 10/10/19 06:10: Nucleated Red Blood Cells % (auto) 0.0, Anion Gap 9, Glomerular Filtration Rate 25.1L, Calcium Level 8.5L, Magnesium Level 1.8 CBC/BMP Laboratory Tests 10/10/19 06:10 Microbiology Microbiology 10/09/19 Fungal Smear, Received Pending 10/09/19 Fungal Culture, Received Pending 10/09/19 Wound Culture, Received Pending 10/08/19 Urine Culture, Received Pending 10/08/19 Blood Culture - Preliminary, Resulted No growth after 24 hours . All specim... 10/06/19 Urine Culture - Final, Complete Klebsiella Pneumoniae Streptococcus Anginosus Grp Staph.aureus Methicillin Resis Strep Agalactiae Group B 10/05/19 Blood Culture - Preliminary, Resulted No Growth after 72 hours. All specime... 10/05/19 Blood Culture - Preliminary, Resulted No Growth after 72 hours. All specime... Allergies Coded Allergies: Penicillins (Verified Allergy, Intermediate, HIVES, 10/05/19) has received PCN PO as outpt in 2018 ceftriaxone (Verified Allergy, Intermediate, HIVES, 10/05/19) received dose 12/03/17 ciprofloxacin (Verified Allergy, Intermediate, HIVES, 10/05/19) fluconazole (Verified Allergy, Intermediate, HIVES, 10/05/19) iodine (Verified Allergy, Intermediate, HIVES, 10/05/19) erythromycin base (Verified Allergy, Unknown, 10/05/19) nitrofurantoin (Verified Allergy, Unknown, 10/05/19) rofecoxib (Verified Allergy, Unknown, 10/05/19) morphine (Verified Adverse Reaction, Mild, HYPOTENSION, 10/05/19) sulfamethoxazole (Verified Adverse Reaction, Mild, 10/05/19) listed as allergy due to renal function trimethoprim (Verified Adverse Reaction, Mild, 10/05/19) listed as allergy due to renal function Home Medications Scheduled Atenolol (Atenolol) 25 Mg Tab, 25 MG PO QHS, (Reported) HOLD IF SBP<100 Atorvastatin Calcium (Atorvastatin Calcium) 40 Mg Tab, 40 MG PO QHS, (Reported) Carboxymethylcellulose Sodium (Refresh Tears) 0.5 % Pietro, 1 DROP OU QHS, (Reported) Cetirizine HCl (Cetirizine HCl) 10 Mg Tablet, 10 MG PO DAILY, (Reported) Cinnamon Bark (Cinnamon) 500 Mg Capsule, 500 MG PO BID, (Reported) Clopidogrel Bisulfate (Clopidogrel) 75 Mg Tab, 75 MG PO DAILY, (Reported) Ergocalciferol (Vitamin D2) (Vitamin D2) 50,000 Units Cap, 50,000 UNITS PO 1XWK, (Reported) WEDNESDAY MORNINGS Ferrous Sulfate (Ferrous Sulfate) 325 Mg Tab, 325 MG PO DAILY, (Reported) Insulin Detemir (Levemir) 1 Units/0.01 Ml Susp, 30 UNITS SC QHS, (Reported) Levothyroxine Sodium (Levothyroxine Sodium) 50 Mcg Tab, 50 MCG PO DAILY, (Reported) Multivitamins (Thera M Plus Tablet) 1 Tab Tab, 1 TAB PO DAILY, (Reported) [place]-3/Dha/Epa/Fish Oil (Fish Oil 500 mg Softgel) 500 Mg Cap, 500 MG PO DAILY, (Reported) Pantoprazole Sodium (Pantoprazole Sodium) 20 Mg Tab, 20 MG PO DAILY, (Reported) Sodium Bicarbonate (Sodium Bicarbonate) 325 Mg Tab, 650 MG PO TID, (Reported) Scheduled PRN Acetaminophen (Acetaminophen ER) 650 Mg Tablet.er, 650 MG PO Q4H PRN for PAIN / FEVER, (Reported) Docusate Sodium (Docusate Sodium) 100 Mg Cap, 100 MG PO BID PRN for CONSTIPATION, (Reported) Nystatin (Nystatin Powder) 100,000 Unit/Gm Pow, 1 DOSE TOP BID PRN for RASH, (Reported) GROIN AREA AND SKIN FOLDS GILBERTO CHRISTIAN MD Oct 10, 2019 07:38
[2019-10-10] MEDS: KETOCONAZOLE 2% CREAM TOP SCH (09:00)
[2019-10-10] MEDS: DIAPER RELIEF PASTE (DESITIN) 60GM TOP SCH (09:00)
[2019-10-10] MEDS: MINERAL OIL 473 ML BTL TOP SCH (09:00)
[2019-10-10] MEDS: SUCRALFATE 1 GM TAB XX SCH (09:00)
[2019-10-10] MEDS ORDERED: VITAMIN D 50,000 UNITS CAPSULE (ERGOCALCIFEROL 1.25MG) PO SCH (09:00)
[2019-10-10] MEDS: TRIAMCINOLONE ACET 0.1% CREAM 80 GM TOP SCH (09:00)
[2019-10-10] MEDS: IMIPENEM/CILASTATIN 250 MG in D5W MINI-BAG PLUS 100 ML IV SCH (09:54)
[2019-10-10] MEDS: SODIUM BICARBONATE 325 MG TAB PO SCH ×3 (09:55→22:04)
[2019-10-10] MEDS: CLOPIDOGREL 75 MG TAB PO SCH (09:55)
[2019-10-10] MEDS: PANTOPRAZOLE 20 MG TAB PO SCH (09:55)
[2019-10-10] MEDS: HEPARIN SOD (PORCINE) 5000 UNITS/ML VIAL (J1644 PER 1000UNITS) SQ SCH ×2 (09:55→22:05)
[2019-10-10] MEDS: CETIRIZINE (ZyrTEC) 10 MG TAB PO SCH (09:55)
[2019-10-10] MEDS: HumaLOG INSULIN (NovoLOG) PER UNIT SC SCH ×4 (09:56→21:00)
[2019-10-10] MEDS: DOXYCYCLINE HYCLATE 100 MG TAB PO SCH ×2 (09:56→22:04)
[2019-10-10] MEDS: NYSTATIN 100,000 UNITS/GM TOPICAL PWD 15 GM TOP PRN (10:03)
--- NOTE | 2019-10-10 11:37 | IPNPDOC ---
Text Note Date of Service The patient was seen on 10/10/19. NOTE Subjective: Says less burning and irritation around the abdominal wall stoma. no abdominal pain , no diarrhea, good urine output. No fever or chills, no chest pain or sob. Objective: VITAL SIGNS: Please see below. GENERAL APPEARANCE: not in apparent distress HEENT: Normocephalic, atraumatic. Mucous members moist and pink CARDIOVASCULAR: Regular rate and rhythm. No murmurs, rubs or gallops. Radial pulses are intact. LUNGS: Diminished lung sounds, no added sounds. ABDOMEN: Abdomen is soft and nontender. Around urostomy opening significant area of maceration and well as exzematous changes and excoriations. MUSCULOSKELETAL: Range of motion is intact in all 4 extremities NEUROLOGICAL: Cranial nerves II-12 are grossly intact. Speech is not dysarthric Extremities: no edema, cyanosis or clubbing. Labs and radiology: reviewed. Assessment and plan: This is an 84 y/o F w/ a PMH significant for interstitial cystitis managed w/ ileal condiut urinary diversion, CKD, recurrent UTIs, DM2, CVA and GERD, HTN, HLD, Hypothyroid, h/o breast cancer admitted for fevers, weak ness and fatigue. Patient received treatment with Imipenem. On 10/08/19 patient developed low-grade fever, was added doxycycline to her drug regimen. Await PT/OT clearance. Needs a close follow-up with urologist. Patient león UTI vs asymptomatic bacteruria due to urostomy bag Urine culture with multiple organisms. On Imipenem and doxycycline consulted ID. 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 Had ileal conduit and urostomy bag done on jul 2017 at [facility]. compl icated by non attachment of a second left ureter to the ileal conduit leading to urinary abscess in the abdomen and again surgery in August 2017. Where there was abdominal washout and attachment of the missed third ureter to the conduit has urostomy bag since 2017 Contact and irritant dermatitis around the stoma for about 2 months. consulted dermatology will use ketoconazole and triamcinolone creams, sucralfate powder and noah cream as recommended by derm. stop nystatin powder. Chronic anemia will transfuse if HH < 7.0 does have iron deficiency and anemia of chronic disease. No vit B12 or folate deficiency. Chronic kidney disease stage 4 baseline about 2.2 creatinine at baseline continue bicarb po. HTN continue with atenolol Hyperlipidemia continue lipitor DM2 continue with levemir , lispro insulin sliding scale; hypoglycemia protocol GERD continue with protonix H/o Ischemic stroke in November 2017 in the occipital area no clinical symptoms continue plavix and statin. History of breast Cancer s/p left mastectomy in the past. Left femoral neck fracture s/p mechanical fall s/p left hemiarthroplasty on 12/25/17 VS,Fishbone, I+O VS, Fishbone, I+O Laboratory Tests 10/10/19 06:10 Vital Signs Date Time Temp Pulse Resp B/P (MAP) Pulse Ox O2 Delivery O2 Flow Rate FiO2 10/10/19 06:00 98.7 73 18 125/56 (79) 94 Room Air I&O- Last 24 Hours up to 6 AM 10/10/19 06:00 Intake Total 1360 ml Output Total 1775 ml Balance -415 ml JEANNETTE RENDON MD Oct 10, 2019 11:37
[2019-10-10 14:00] VITALS: BP 133/57
[2019-10-10] MEDS ORDERED: FLUCONAZOLE 100 MG TAB PO ONE (17:15)
[2019-10-10] MEDS: MULTIVITAMINS/MINERALS THERAP 1 TAB PO SCH (17:37)
--- NOTE | 2019-10-10 18:11 | CR ---
DATE OF CONSULTATION: 10/10/2019 Asked to consult by Dr. North for evaluation of fever, questionable urinary tract infection, and abdominal wall erythema. HISTORY OF PRESENT ILLNESS: Mrs. Maldonado is an 84-year-old female with a history of recurrent urinary tract infections, severe interstitial cystitis, who had undergone an ileal conduit with a diversion urostomy in [place] a couple years ago. Since then, she has had multiple admissions with a urinary tract infection. She has multiple drug allergies and therefore has been treated with mostly carbapenems. She also has a history of vancomycin-resistant Enterococcus (VRE) in the past, treated with linezolid. The patient was brought into the hospital complaining of fever up to 103, weakness, and chills. She had some intermittent hematuria through the ostomy and has had a lot of leakage around the ostomy bag, causing abdominal wall macerations with redness and pain. She denied any nausea, vomiting, diarrhea. No hemoptysis or hematemesis. Her appetite was fair. When she came in she had a few episodes of vomiting, but that had resolved. She sees Dr. Stubbs in [place] for primary care doctor and Dr. Shay. PAST MEDICAL HISTORY: Significant for" 1. Recurrent urinary tract infection, based on the fact that she has weakness and fevers. 2. Chronic kidney disease. 3. Type 2 diabetes, on insulin. 4. Hypertension. 5. Hyperlipidemia. 6. Hypothyroidism. 7. Interstitial cystitis. 8. Anemia of chronic disease. 9. Left breast cancer. PAST SURGICAL HISTORY: 1. Left hip replacement. 2. Three back surgeries, L2-3-4-5 fusion. 3. Diversion urostomy. 4. Right knee arthroplasty. 5. Hysterectomy. 6. Bilateral cataract surgery. SOCIAL HISTORY: She lives with her son, Jovan. Her daughter is Abi Maldonado, who is her healthcare proxy and a registered nurse at [employer]. She denies any alcohol or drug use or tobacco use. FAMILY HISTORY: Chronic obstructive pulmonary disease (COPD) and kidney disease in her mother. REVIEW OF SYSTEMS: Patient complains of some abdominal pain, irritation at the skin where the ostomy is and the fever, but she feels much better today. ALLERGIES: She has multiple listed drug allergies, but I have reviewed her chart and discussed the case with her daughter. Abi states that the PENICILLIN allergy was from many years ago when she used to get injections. CEFTRIAXONE has been given to her in the past, including last year at [facility], and the patient has tolerated ceftriaxone, and intramuscular (IM) at home. FLUCONAZOLE: Abi does not know what her allergy is. ERYTHROMYCIN, CIPROFLOXACIN NITROFURANTOIN, SULFA is an adverse with reaction with kidney injury. The mother states that most of her allergies are nonspecific rashes, not necessarily hives or anaphylaxis. MEDICATIONS: - Levemir 20 and subcutaneous at bedtime - artificial tears - vitamin D 50,000 units on Wednesday - Desitin around abdominal wall - ketoconazole - triamcinolone - Carafate 2 grams twice a day - mineral oil 1 mL daily - multivitamin one tablet daily - Zofran as needed - doxycycline 100 mg by mouth twice a day - Lipitor 40 mg by mouth at bedtime - cetirizine 10 mg daily - Plavix 75 mg by mouth daily - pantoprazole 20 mg by mouth daily - imipenem 250 mg IV every 12 hours - levothyroxine 50 mcg by mouth daily - Tylenol as needed - Colace as needed LABORATORY DATA: White count on admission was 14.7, today was 14.2, hemoglobin 7.9, hematocrit 26.2, platelets 360. Sodium 143, potassium 4.2, chloride 114, bicarbonate 20, BUN 41, creatinine 2.01, glucose 167. Her BUN is down from 69. Serology: Influenza A and B was negative. Blood cultures on admission, two sets, were negative on October 05. Urine culture had methicillin-resistant Staphylococcus aureus (MRSA), Klebsiella pneumoniae, Streptococcus anginosus, and group B streptococcus. Blood culture on October 08 was negative. Again, another urine culture and October 08, 48 hours later, had only yeastlike organism, 1000 colonies. Fungal smear and wound cultures from around the abdominal wall where the ostomy are pending. IMAGING STUDY: Renal ultrasound showed kidneys being normal in size with bilateral renal cortical thinning. No renal calculi. No solid masses or renal masses. Ileal conduit was noted. Chest x-ray showed no acute disease. PHYSICAL EXAMINATION: A pleasant, elderly female in no acute distress. Temperature is 98.4, pulse 76, respirations 18, blood pressure 133/57, oxygen saturation 100% on room air. Maximal temperature was 100.0 at 48 hours ago. HEART: Normal S1, S2. No murmurs, rubs, or gallops. LUNGS: Clear. No wheezes, rales, or rhonchi. ABDOMEN: Soft, tender in the right lower quadrant where there is an ostomy bag. Severe maceration involving the whole right lower quadrant, all into the thigh and the groin area with redness. Few satellite lesions, maceration. EXTREMITIES: No clubbing, cyanosis, or edema. No rashes. No calf tenderness. BACK: No costovertebral angle (CVA) or lumbosacral tenderness. Midline scar, lumbar spine, well healed. IMPRESSION: This is an 84-year-old female admitted with fever, possibility of urinary tract infection that was polymicrobial with multiple pathogens, klebsiella, Streptococcus aginosus, methicillin-resistant Staphylococcus aureus (MRSA), and group B streptococcus. She was treated with 5 days of meropenem, and doxycycline was there for MRSA coverage. My concern of more than a urinary tract infection is this maceration of the skin with inflammation that could be the cause of the fever and the leukocytosis. A second urine culture had yeastlike organism, and I suspect some of this irritation around the skin is Tash in origin. PLAN: Discontinue meropenem. The patient has received 5-day course. Continue by mouth doxycycline to cover for MRSA and possibility of superimposed infection at the cellulitis around the abdomen. The patient will receive one dose of fluconazole 200 mg times one dose. I am aware of her listed allergy, although her daughter, Abi Maldonado, who is an RN, states that she does not know what that allergy is about, and the patient has taken it in the past. If patient is not discharged in the next 48 hours, I would suggest doing a telemedicine for wound care with Eva Razo, who is the ostomy nurse and Dr. Jacob's office. Otherwise, once she is discharged she could have an emergency consult to be seen as an outpatient, and I did discuss the case with Eva.
[2019-10-10 22:00] VITALS: BP 131/56
[2019-10-10] MEDS: atenoloL 25 MG TAB PO SCH (22:04)
[2019-10-10] MEDS: ATORVASTATIN 20 MG TAB PO SCH (22:04)
[2019-10-10] MEDS: DOCUSATE SODIUM 100 MG CAP PO PRN (22:05)
[2019-10-10] MEDS: POLYVINYL ALCOHOL OPHTH SOLN 15 ML(LIQUITEARS) OU SCH (22:05)
[2019-10-10] MEDS: LEVEMIR (INSULIN DETEMIR) 1 UNITS/0.01ML SC SCH (22:05)
[2019-10-11] MEDS: TRIAMCINOLONE ACET 0.1% CREAM 80 GM TOP SCH ×3 (00:46→22:03)
[2019-10-11] MEDS: KETOCONAZOLE 2% CREAM TOP SCH ×3 (00:46→22:03)
[2019-10-11] MEDS: DIAPER RELIEF PASTE (DESITIN) 60GM TOP SCH ×3 (00:46→22:03)
[2019-10-11] MEDS: SUCRALFATE 1 GM TAB XX SCH ×3 (00:53→22:02)
[2019-10-11] MEDS: LEVOTHYROXINE 50MCG TABLET (0.05MG) PO SCH (05:48)
[2019-10-11 06:00] VITALS: BP 125/58
[2019-10-11 06:29] LABS: HEMATOCRIT 25.5 % (36.0-47.0); HEMOGLOBIN 8.1 g/dl (12.0-15.5); MEAN CORPUSCULAR HEMOGLOBIN 31.6 pg (27.0-33.0); MEAN CORPUSCULAR HGB CONC 31.8 g/dl (32.0-36.5); MEAN CORPUSCULAR VOLUME 99.6 fl (80.0-96.0); PLATELET COUNT, AUTOMATED 410 10^3/uL (150-450); RED BLOOD COUNT 2.56 10^6/uL (4.00-5.40); WHITE BLOOD COUNT 17.5 10^3/uL (4.0-10.0)
[2019-10-11 06:51] LABS: CALCIUM LEVEL 8.9 MG/DL (8.8-10.2); CREATININE FOR GFR 1.92 MG/DL (0.55-1.30); GLOMERULAR FILTRATION RATE 26.5 (>32); MAGNESIUM LEVEL 1.8 MG/DL (1.8-2.4); POTASSIUM SERUM 4.2 MEQ/L (3.5-5.1)
[2019-10-11] MEDS: HumaLOG INSULIN (NovoLOG) PER UNIT SC SCH ×4 (07:30→21:00)
[2019-10-11] MEDS: CLOPIDOGREL 75 MG TAB PO SCH (10:28)
[2019-10-11] MEDS: SODIUM BICARBONATE 325 MG TAB PO SCH ×3 (10:28→22:09)
[2019-10-11] MEDS: PANTOPRAZOLE 20 MG TAB PO SCH (10:28)
[2019-10-11] MEDS: DOXYCYCLINE HYCLATE 100 MG TAB PO SCH ×2 (10:29→22:02)
[2019-10-11] MEDS: CETIRIZINE (ZyrTEC) 10 MG TAB PO SCH (10:29)
[2019-10-11] MEDS: HEPARIN SOD (PORCINE) 5000 UNITS/ML VIAL (J1644 PER 1000UNITS) SQ SCH ×2 (10:30→22:02)
[2019-10-11] MEDS: MINERAL OIL 473 ML BTL TOP SCH (13:15)
[2019-10-11 14:00] VITALS: BP 126/56
--- NOTE | 2019-10-11 14:21 | IPNPDOC ---
Text Note Date of Service The patient was seen on 10/11/19. NOTE Subjective: Says less burning and irritation around the abdominal wall stoma. no abdominal pain , no diarrhea, good urine output. No fever or chills, no chest pain or sob. Objective: VITAL SIGNS: Please see below. GENERAL APPEARANCE: not in apparent distress HEENT: Normocephalic, atraumatic. Mucous members moist and pink CARDIOVASCULAR: Regular rate and rhythm. No murmurs, rubs or gallops. Radial pulses are intact. LUNGS: Diminished lung sounds, no added sounds. ABDOMEN: Abdomen is soft and nontender. Around urostomy opening significant area of maceration and well as exzematous changes and excoriations. MUSCULOSKELETAL: Range of motion is intact in all 4 extremities NEUROLOGICAL: Cranial nerves II-12 are grossly intact. Speech is not dysarthric Extremities: no edema, cyanosis or clubbing. Labs and radiology: reviewed. Assessment and plan: This is an 84 y/o F w/ a PMH significant for interstitial cystitis managed w/ ileal condiut urinary diversion, CKD, recurrent UTIs, DM2, CVA and GERD, HTN, HLD, Hypothyroid, h/o breast cancer admitted for fevers, weak ness and fatigue. Patient received treatment with Imipenem. On 10/08/19 patient developed low-grade fever, was added doxycycline to her drug regimen. Await PT/OT clearance. Needs a close follow-up with urologist. Patient león Contact and irritant dermatitis from urine leakage from the stoma. around the stoma for about 2 months. will use ketoconazole and triamcinolone creams, sucralfate powder and noah cream as recommended by derm. stop nystatin powder. Telemedicine consult with ostomy nurse. Cellulitis of the abdominal wall superadded MRSA infection on the dermatitis. the dermatitis may be fungal also continue doxycycline received 1 dose of fluconazole. UTI vs asymptomatic bacteruria due to urostomy bag Urine culture with multiple organisms. finished 5 day course of imipenem continue doxycycline. Chronic interstitial cystitis,Overactive bladder, urinary retention with obs uropathy. Had ileal conduit and urostomy bag done on jul 2017 at [facility]. complicated by non attachment of a second left ureter to the ileal conduit leading to urinary abscess in the abdomen and again surgery in August 2017. Where there was abdominal washout and attachment of the missed third ureter to the conduit has urostomy bag since 2017 Chronic anemia will transfuse if HH < 7.0 does have iron deficiency and anemia of chronic disease. No vit B12 or folate deficiency. Chronic kidney disease stage 4 baseline about 2.2 creatinine at baseline continue bicarb po. HTN continue with atenolol Hyperlipidemia continue lipitor DM2 continue with levemir , lispro insulin sliding scale; hypoglycemia protocol GERD continue with protonix H/o Ischemic stroke in November 2017 in the occipital area no clinical symptoms continue plavix and statin. History of breast Cancer s/p left mastectomy in the past. Left femoral neck fracture s/p mechanical fall s/p left hemiarthroplasty on 12/25/17 VS,Fishbone, I+O VS, Fishbone, I+O Laboratory Tests 10/11/19 05:42 Vital Signs Date Time Temp Pulse Resp B/P (MAP) Pulse Ox O2 Delivery O2 Flow Rate FiO2 10/11/19 06:00 98.3 67 18 125/58 (80) 95 Room Air I&O- Last 24 Hours up to 6 AM 10/11/19 05:59 Intake Total 1070 ml Output Total 1925 ml Balance -855 ml JEANNETTE RENDON MD Oct 11, 2019 14:20
[2019-10-11] MEDS: MULTIVITAMINS/MINERALS THERAP 1 TAB PO SCH (17:58)
[2019-10-11 22:00] VITALS: BP 151/61
[2019-10-11] MEDS: ATORVASTATIN 20 MG TAB PO SCH (22:00)
[2019-10-11] MEDS: POLYVINYL ALCOHOL OPHTH SOLN 15 ML(LIQUITEARS) OU SCH (22:01)
[2019-10-11] MEDS: LEVEMIR (INSULIN DETEMIR) 1 UNITS/0.01ML SC SCH (22:01)
[2019-10-11] MEDS: DOCUSATE SODIUM 100 MG CAP PO PRN (22:02)
[2019-10-11] MEDS: ACETAMINOPHEN 650MG ER TAB (TYLENOL ARTHRITIS) PO PRN (22:02)
[2019-10-11 22:09] VITALS: BP 151/61
[2019-10-11] MEDS: atenoloL 25 MG TAB PO SCH (22:09)
[2019-10-12 06:00] VITALS: BP 139/63
[2019-10-12 06:21] LABS: HEMATOCRIT 27.9 % (36.0-47.0); HEMOGLOBIN 8.4 g/dl (12.0-15.5); MEAN CORPUSCULAR HEMOGLOBIN 30.5 pg (27.0-33.0); MEAN CORPUSCULAR HGB CONC 30.1 g/dl (32.0-36.5); MEAN CORPUSCULAR VOLUME 101.5 fl (80.0-96.0); PLATELET COUNT, AUTOMATED 403 10^3/uL (150-450); RED BLOOD COUNT 2.75 10^6/uL (4.00-5.40)
[2019-10-12 06:43] LABS: CALCIUM LEVEL 9.2 MG/DL (8.8-10.2); CREATININE FOR GFR 2.01 MG/DL (0.55-1.30); GLOMERULAR FILTRATION RATE 25.1 (>32); MAGNESIUM LEVEL 1.7 MG/DL (1.8-2.4); POTASSIUM SERUM 4.2 MEQ/L (3.5-5.1)
[2019-10-12] MEDS: LEVOTHYROXINE 50MCG TABLET (0.05MG) PO SCH (06:46)
[2019-10-12] MEDS: ACETAMINOPHEN 650MG ER TAB (TYLENOL ARTHRITIS) PO PRN (06:46)
[2019-10-12 08:00] VITALS: BP 140/70
[2019-10-12] MEDS: HumaLOG INSULIN (NovoLOG) PER UNIT SC SCH ×3 (09:19→16:47)
[2019-10-12] MEDS: SODIUM BICARBONATE 325 MG TAB PO SCH ×2 (09:20→16:34)
[2019-10-12] MEDS: HEPARIN SOD (PORCINE) 5000 UNITS/ML VIAL (J1644 PER 1000UNITS) SQ SCH (09:20)
[2019-10-12] MEDS: PANTOPRAZOLE 20 MG TAB PO SCH (09:21)
[2019-10-12] MEDS: CLOPIDOGREL 75 MG TAB PO SCH (09:21)
[2019-10-12] MEDS: DOXYCYCLINE HYCLATE 100 MG TAB PO SCH (09:21)
[2019-10-12] MEDS: CETIRIZINE (ZyrTEC) 10 MG TAB PO SCH (09:21)
[2019-10-12] MEDS: SUCRALFATE 1 GM TAB XX SCH (09:21)
[2019-10-12] MEDS: KETOCONAZOLE 2% CREAM TOP SCH (09:22)
[2019-10-12] MEDS: DIAPER RELIEF PASTE (DESITIN) 60GM TOP SCH (09:22)
[2019-10-12] MEDS: TRIAMCINOLONE ACET 0.1% CREAM 80 GM TOP SCH (09:23)
[2019-10-12] MEDS: MINERAL OIL 473 ML BTL TOP SCH (09:23)
[2019-10-12] MEDS ORDERED: [UNRECOGNIZED DRUG - OTHER] TOP (13:20)
[2019-10-12] MEDS ORDERED: KETO2CR TOP (13:20)
[2019-10-12] MEDS ORDERED: Petrolatum,White TOP ×2 (13:20→13:24)
[2019-10-12] MEDS ORDERED: SUCR1TA TOP (13:20)
[2019-10-12] MEDS ORDERED: TRIA1CR80 TOP (13:20)
[2019-10-12] MEDS ORDERED: MAGN400T2 PO (13:20)
[2019-10-12] MEDS ORDERED: DOXY100T PO (13:20)
--- NOTE | 2019-10-12 13:24 | IPNPDOC ---
Date Seen The patient was seen on 10/12/19. Progress Note SUBJECTIVE: Patient is a 84-year-old white female with irritant contact dermatitis and intertrigo around urostomy, improved since prior visit. Cleansing area, applying TMC and keto cream then sucralfate powder to any erosions in area with zinc oxide 40% as barrier to the rest of the skin. E. faecalis few on swab. REVIEW OF SYSTEMS: Improved fatigue, improved discomfort of skin around urostomy site, improved fatigue PHYSICAL EXAMINATION: VITAL SIGNS: Please see below. GENERAL APPEARANCE: Frail WDWN white female in NAD sitting in chair at bedside HEENT: EOMI, NC/AT RESPIRATORY: RRR CARDIOVASCULAR: No increased JVP ABDOMEN: Supple, soft SKIN (LIMITED): Right lower abdomen with inflamed pink to red patch with denuding of the skin with sloughing white debris present - 33% improved NEUROLOGICAL: A+Ox3 PSYCHIATRIC: Normal, appropriate interaction LABORATORY DATA: Please see below. ASSESSMENT/PLAN: 84 yo WF with urostomy in place with history of recurrent UTI with concern for current UTI vs. colonization, chronic kidney disease with inflamed rash around urostomy site with urine leakage in the preceding days prior to consultation with improvement in the area around urostomy in the last 48-72 hours. 1. Irritant contact dermatitis: The alkaline nature of her urine likely has irritated the skin and contributed to breakdown of the skin. Improved. Recommend the following: - Ensure proper urostomy function - Maintain a dry environment in the region of the urostomy - Use sucralfate powder dusted onto erosions BID - Gentle cleansing BID before powder placement as above - Use thick zinc paste such as Triple Paste or Desitin Max (40% zinc oxide) to area BID 2. Intertrigo: Environment in area contributing to overgrowth of yeast. Improved. Recommend the following: - Swabbed at original visit for culture for fungus and bacteria - E. faecalis on lexii swab, fungal swab pending - Use triamcinolone cream 0.1% mixed with ketoconazole cream 2% BID 15 minutes before powder and paste application as above DISPOSITION: Follow up with dermatology as outpatient in 2-4 W, number to call for appointment is [phone]. VS, I&O, 24H, Fishbone Vital Signs/I&O Vital Signs Date Time Temp Pulse Resp B/P (MAP) Pulse Ox O2 Delivery O2 Flow Rate FiO2 10/12/19 08:00 97.1 72 18 140/70 (93) 97 Room Air I&O- Last 24 Hours up to 6 AM 10/12/19 06:00 Intake Total 630 ml Output Total 2125 ml Balance -1495 ml Laboratory Data 24H LABS Laboratory Tests 2 10/11/19 16:26: Bedside Glucose (Misc Panel) 172H 10/11/19 21:36: Bedside Glucose (Misc Panel) 198H 10/12/19 05:55: Nucleated Red Blood Cells % (auto) 0.0, Anion Gap 7L, Glomerular Filtration Rate 25.1L, Calcium Level 9.2, Magnesium Level 1.7L 10/12/19 11:49: Bedside Glucose (Misc Panel) 187H CBC/BMP Laboratory Tests 10/12/19 05:55 Microbiology Microbiology 10/09/19 Fungal Smear, Received Pending 10/09/19 Fungal Culture, Received Pending 10/09/19 Wound Culture - Final, Complete Enterococcus Faecalis 10/08/19 Urine Culture - Final, Complete Yeast Like Organism 10/08/19 Blood Culture - Preliminary, Resulted No Growth after 72 hours. All specime... 10/06/19 Urine Culture - Final, Complete Klebsiella Pneumoniae Streptococcus Anginosus Grp Staph.aureus Methicillin Resis Strep Agalactiae Group B 10/05/19 Blood Culture - Final, Complete NO GROWTH AFTER 5 DAYS 10/05/19 Blood Culture - Final, Complete NO GROWTH AFTER 5 DAYS GILBERTO CHRISTIAN MD Oct 12, 2019 13:24
--- NOTE | 2019-10-12 13:38 | DS.PDOC ---
Discharge Summary General Date of Admission Oct 06, 2019 at 01:51 Date of Discharge 10/12/19 Discharge Summary PROCEDURES PERFORMED DURING STAY: [None]. DISCHARGE DIAGNOSES: Abdominal wall cellulitis around the urostomy stoma Contact and irritant dermatitis from urine leakage. 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 COMPLICATIONS/CHIEF COMPLAINT: Catheter Associated Uti. HISTORY OF PRESENT ILLNESS: See History and physical HOSPITAL COURSE: This is an 84 y/o F w/ a PMH significant for interstitial cystitis managed w/ ileal condiut urinary diversion, CKD, recurrent UTIs, DM2, CVA and GERD, HTN, HLD, Hypothyroid, h/o breast cancer admitted for fevers, weakness and fatigue. Pateint was found to have a dirty urine with polymicrobial jones, severe abdominal wall large area of irritant and contact dermatitis with secondary fungal infection and bacterial cellulitis. Patient received treatment with Imipenem for 5 days for possible urinary tract infection with urostomy bag and treated for abdominal wall cellulitis with doxycycline. Pateitn was admitted for abdominal wall cellutitis, possible uti and dermatitis. Patient was seen by Dermatology, ID and urology in the hospital. Contact and irritant dermatitis from urine leakage from the stoma. around the stoma for about 2 months. will use ketoconazole and triamcinolone creams, sucralfate powder and noah cream as recommended by derm. stop nystatin powder. Referral to wound clinic as soon as possible. Cellulitis of the abdominal wall superadded MRSA infection on the dermatitis. the dermatitis may be fungal also continue doxycycline received 1 dose of fluconazole. UTI vs asymptomatic bacteruria due to urostomy bag Urine culture with multiple organisms. finished 5 day course of imipenem continue doxycycline. Chronic interstitial cystitis,Overactive bladder, urinary retention with obs uropathy. Had ileal conduit and urostomy bag done on jul 2017 at [facility]. complicated by non attachment of a second left ureter to the ileal conduit leading to urinary abscess in the abdomen and again surgery in August 2017. Where there was abdominal washout and attachment of the missed third ureter to the conduit has urostomy bag since 2017 Chronic anemia will transfuse if HH < 7.0 does have iron deficiency and anemia of chronic disease. No vit B12 or folate deficiency. Chronic kidney disease stage 4 baseline about 2.2 creatinine at baseline continue bicarb po. HTN continue with atenolol Hyperlipidemia continue lipitor DM2 continue with levemir , lispro insulin sliding scale; hypoglycemia protocol GERD continue with protonix H/o Ischemic stroke in November 2017 in the occipital area no clinical symptoms continue plavix and statin. History of breast Cancer s/p left mastectomy in the past. Left femoral neck fracture s/p mechanical fall s/p left hemiarthroplasty on 12/25/17 DISCHARGE MEDICATIONS: Please see below. ALLERGIES: Please see below. PHYSICAL EXAMINATION ON DISCHARGE: VITAL SIGNS: Please see below. GENERAL APPEARANCE: not in apparent distress HEENT: Normocephalic, atraumatic. Mucous members moist and pink CARDIOVASCULAR: Regular rate and rhythm. No murmurs, rubs or gallops. Radial pulses are intact. LUNGS: Diminished lung sounds, no added sounds. ABDOMEN: Abdomen is soft and nontender. Around urostomy opening significant area of maceration and well as exzematous changes and excoriations. MUSCULOSKELETAL: Range of motion is intact in all 4 extremities NEUROLOGICAL: Cranial nerves II-12 are grossly intact. Speech is not dysarthric Extremities: no edema, cyanosis or clubbing. LABORATORY DATA: Please see below. ACTIVITY: [As tolerated]. DIET: Carb consistent DISCHARGE PLAN: Home DISPOSITION: . DISCHARGE INSTRUCTIONS: Wound clinic with ostomy nurse in 1 to [address] Chanel in 2 weeks PMD in 1 week Wound care and dressing twice a day. DISCHARGE CONDITION: [Stable]. TIME SPENT ON DISCHARGE: 35 minutes. Vital Signs/I&Os Vital Signs Date Time Temp Pulse Resp B/P (MAP) Pulse Ox O2 Delivery O2 Flow Rate FiO2 10/12/19 08:00 97.1 72 18 140/70 (93) 97 Room Air I&O- Last 24 Hours up to 6 AM 10/12/19 06:00 Intake Total 630 ml Output Total 2125 ml Balance -1495 ml Laboratory Data Labs 24H Laboratory Tests 2 10/11/19 16:26: Bedside Glucose (Misc Panel) 172H 10/11/19 21:36: Bedside Glucose (Misc Panel) 198H 10/12/19 05:55: Nucleated Red Blood Cells % (auto) 0.0, Anion Gap 7L, Glomerular Filtration Rate 25.1L, Calcium Level 9.2, Magnesium Level 1.7L 10/12/19 11:49: Bedside Glucose (Misc Panel) 187H CBC/BMP Laboratory Tests 10/12/19 05:55 FSBS Laboratory Tests Test 10/11/19 16:26 10/11/19 21:36 10/12/19 11:49 Range/Units Bedside Glucose (Misc Panel) 172 198 187 83-110 MG/DL Microbiology Microbiology 10/09/19 Fungal Smear, Received Pending 10/09/19 Fungal Culture, Received Pending 10/09/19 Wound Culture - Final, Complete Enterococcus Faecalis 10/08/19 Urine Culture - Final, Complete Yeast Like Organism 10/08/19 Blood Culture - Preliminary, Resulted No Growth after 72 hours. All specime... 10/06/19 Urine Culture - Final, Complete Klebsiella Pneumoniae Streptococcus Anginosus Grp Staph.aureus Methicillin Resis Strep Agalactiae Group B 10/05/19 Blood Culture - Final, Complete NO GROWTH AFTER 5 DAYS 10/05/19 Blood Culture - Final, Complete NO GROWTH AFTER 5 DAYS Discharge Medications Scheduled Atenolol (Atenolol) 25 Mg Tab, 25 MG PO QHS, (Reported) HOLD IF SBP<100 Atorvastatin Calcium (Atorvastatin Calcium) 40 Mg Tab, 40 MG PO QHS, (Reported) Carboxymethylcellulose Sodium (Refresh Tears) 0.5 % Pietro, 1 DROP OU QHS, (Reported) Cetirizine HCl (Cetirizine HCl) 10 Mg Tablet, 10 MG PO DAILY, (Reported) Cinnamon Bark (Cinnamon) 500 Mg Capsule, 500 MG PO BID, (Reported) Clopidogrel Bisulfate (Clopidogrel) 75 Mg Tab, 75 MG PO DAILY, (Reported) Doxycycline Hyclate (Doxycycline Hyclate) 100 Mg Tablet, 100 MG PO BID Ergocalciferol (Vitamin D2) (Vitamin D2) 50,000 Units Cap, 50,000 UNITS PO 1XWK, (Reported) WEDNESDAY MORNINGS Ferrous Sulfate (Ferrous Sulfate) 325 Mg Tab, 325 MG PO DAILY, (Reported) Insulin Detemir (Levemir) 1 Units/0.01 Ml Susp, 30 UNITS SC QHS, (Reported) Ketoconazole (Ketoconazole) 15 Gm Cream..g., 0 DOSE TOP BID Levothyroxine Sodium (Levothyroxine Sodium) 50 Mcg Tab, 50 MCG PO DAILY, (Reported) Magnesium Oxide (Magnesium Oxide) 400 Mg Tablet, 1 TAB PO DAILY for constipation Mineral Oil (Mineral Oil) 473 Ml Oil, 1 ML TOP DAILY Multivitamins (Thera M Plus Tablet) 1 Tab Tab, 1 TAB PO DAILY, (Reported) Buckeye-3/Dha/Epa/Fish Oil (Fish Oil 500 mg Softgel) 500 Mg Cap, 500 MG PO DAILY, (Reported) Pantoprazole Sodium (Pantoprazole Sodium) 20 Mg Tab, 20 MG PO DAILY, (Reported) Sodium Bicarbonate (Sodium Bicarbonate) 325 Mg Tab, 650 MG PO TID, (Reported) Sucralfate (Sucralfate) 1 Gm Tablet, 2 GM TOP BID crush and apply powder to raw areas on the abdominal wall Triamcinolone Acet (Triamcinolone Acetonide 0.1% Crm) 80 Gm Cream..g., 0 DOSE TOP BID [Petrolatum,White] 60 OINT...G., 0 DOSE TOP BID Scheduled PRN Acetaminophen (Acetaminophen ER) 650 Mg Tablet.er, 650 MG PO Q4H PRN for PAIN / FEVER, (Reported) Docusate Sodium (Docusate Sodium) 100 Mg Cap, 100 MG PO BID PRN for CONSTIPATION, (Reported) Nystatin (Nystatin Powder) 100,000 Unit/Gm Pow, 1 DOSE TOP BID PRN for RASH, (Reported) GROIN AREA AND SKIN FOLDS Allergies Coded Allergies: Penicillins (Verified Allergy, Intermediate, HIVES, 10/05/19) has received PCN PO as outpt in 2019 ciprofloxacin (Verified Allergy, Intermediate, HIVES, 10/05/19) fluconazole (Verified Allergy, Intermediate, HIVES, 10/05/19) iodine (Verified Allergy, Intermediate, HIVES, 10/05/19) erythromycin base (Verified Allergy, Unknown, 10/05/19) nitrofurantoin (Verified Allergy, Unknown, 10/05/19) rofecoxib (Verified Allergy, Unknown, 10/05/19) morphine (Verified Adverse Reaction, Mild, HYPOTENSION, 10/05/19) sulfamethoxazole (Verified Adverse Reaction, Mild, 10/05/19) listed as allergy due to renal function trimethoprim (Verified Adverse Reaction, Mild, 10/05/19) listed as allergy due to renal function JEANNETTE RENDON MD Oct 12, 2019 13:38
[2019-10-12 14:00] VITALS: BP 150/65
[2019-10-12] MEDS: MULTIVITAMINS/MINERALS THERAP 1 TAB PO SCH (16:34)
[2019-10-12] MEDS ORDERED: LINE1TAB PO (17:57)
[2019-10-12] MEDS ORDERED: LINEZOLID 600MG TABLET (ZYVOX) PO SCH (21:00)
--- NOTE | 2019-10-12 21:28 | CR ---
DATE OF CONSULTATION: 10/12/2019 Advanced wound care consult via telemedicine. CONSULTATION REQUESTED BY: Josette North MD This is regarding peristomal dermatitis surrounding an ileoconduit stoma. HISTORY OF PRESENT ILLNESS: This is an 84-year-old female who underwent an ileoconduit diversion for recurrent urinary tract infections without resection of the bladder. This was performed in June 2017. According to the patient, over the last 2 weeks she has developed issues with leakage from her appliance with urine irritating the peristomal skin. She is being evaluated for this. The patient is a diabetic, poorly controlled with a hemoglobin A1c of 9.9. She is afebrile and denies chills or fever. Urine culture is positive, however this is nonspecific in an ileoconduit patient and does not require antibiotic treatment unless the patient has systemic signs and symptoms. The patient was seen by dermatology and was placed on ketoconazole cream to treat the peristomal dermatitis. As this is a contact dermatitis secondary to urine leakage and not a fungal infection this treatment will be discontinued and is not indicated. It will also make it impossible to secure an appliance which is the problem to begin with. The treatment for this condition is to protect the skin and insure that her appliance is fitting appropriately. This begins with a crusting technique utilizing stoma powder applied first to the effected skin first followed by applying skin prep over the powder and repeating the entire process multiple times ending with skin prep. Next DuoDerm, which is a hydrocolloid, is placed around the stoma overlying the crusted layer. This is then followed by applying an Lino ring and then adfixing the appliance. Utilizing an appliance belt is also helpful. Previously ordered ketoconazole should be discontinued. The patient does not report any significant weight change and it is unclear why the ostomy is now not fitting properly. The patient is scheduled to be discharged soon and should followup with our wound care clinic ostomy nurse in 2 weeks to ensure that her symptoms are resolving. Thank you for this consultation. CRISTOFER
--- NOTE | 2019-10-12 21:42 | IPN ---
DATE: 10/12/2019 The patient is being discharged today. She is feeling better. She is afebrile. Temperature is 97.4, pulse 70, respirations 14, blood pressure 150/65, oxygen saturation 97% on room air. Heart: Normal S1, S2. No murmurs. Lungs are clear. Abdomen is obese, soft, nontender. Right cystostomy with a diverting urostomy. She has significant erythema around her urostomy extending all the way to her thigh and vulvar area. There is crusting underneath the urostomy as well. She has a rash on her right antecubital fossa measuring about 8 x 5 cm which is maculopapular, pruritic. She has a smaller erythematous papular area on her left wrist as well. Extremities: No clubbing, cyanosis or edema. No rashes. She has a sacral decubitus ulcer covered by an Optifoam. LABORATORY DATA: White count of 16, hemoglobin 8.4, hematocrit 27.9, platelets 403. Sodium 140, potassium 4.2, chloride 109, bicarbonate 24, BUN 47, creatinine 2.01, glucose 106, calcium 9.2, magnesium 1.7. MEDICATIONS: - doxycycline 100 mg by mouth twice a day, day #5 - ketoconazole to abdominal wall - the patient received also one dose of fluconazole 200 mg times one dose on 10/10/2019, there was some concern of allergy, but the patient tolerated well IMPRESSION: 1. Abdominal cellulitis with culture positive for E. faecalis that is resistant to tetracycline, sensitive to ampicillin and vancomycin and linezolid. Urine culture was positive for MRSA Group B Strep and Streptococcus anginosus and Klebsiella that was treated with 5 days of meropenem. 2. Candidiasis. Treated with topical ketoconazole and received one dose of fluconazole. PLAN: Discontinue doxycycline. Treat her with linezolid 600 mg by mouth twice a day for abdominal wall cellulitis with culture positive for E. faecalis and also MRSA in her urine may be concerning and contributing to present picture. She has persistent leukocytosis which makes me worry that her cellulitis of her abdominal wall is the reason for the high white count. If vulvar area continues to be erythematous, I would consider treating her with fluconazole again, I am not sure if she has a real allergy to fluconazole or not but she has tolerated one-time dose. Monitor her rash on her extremities and then may consider retreating her with fluconazole if no improvement. The patient is being discharged home to be followed up by the wound clinic.
== END 2019-10-12 18:18 | disposition home or self-care (01) | DRG 699 ==
LOC: M ED 22:00 → M ED INP 10-06 01:51 → ENRESERVTM 10-06 03:29 → ENRESERVDT 10-06 03:29 → M MSPAV 10-06 04:02
PROVIDERS: ADMIT Internal Medicine; ATTEND Internal Medicine Nephrology
DX: T83.598A Infection and inflammatory reaction due to other prosthetic device, implant and graft in urinary system, initial encounter (principal); N18.4 Chronic kidney disease, stage 4 (severe); N17.9 Acute kidney failure, unspecified; L03.311 Cellulitis of abdominal wall; Y84.6 Urinary catheterization as the cause of abnormal reaction of the patient, or of later complication, without mention of misadventure at the time of the procedure; E11.22 Type 2 diabetes mellitus with diabetic chronic kidney disease; I12.9 Hypertensive chronic kidney disease with stage 1 through stage 4 chronic kidney disease, or unspecified chronic kidney disease; K21.9 Gastro-esophageal reflux disease without esophagitis; D63.1 Anemia in chronic kidney disease; E78.5 Hyperlipidemia, unspecified; N30.11 Interstitial cystitis (chronic) with hematuria; R33.9 Retention of urine, unspecified; L30.4 Erythema intertrigo; E03.9 Hypothyroidism, unspecified; L24.89 Irritant contact dermatitis due to other agents; Z85.3 Personal history of malignant neoplasm of breast; N32.81 Overactive bladder; Z92.21 Personal history of antineoplastic chemotherapy; Z98.1 Arthrodesis status; Z96.651 Presence of right artificial knee joint; Z96.642 Presence of left artificial hip joint; Z98.41 Cataract extraction status, right eye; Z98.42 Cataract extraction status, left eye; Z79.4 Long term (current) use of insulin; Z86.73 Personal history of transient ischemic attack (TIA), and cerebral infarction without residual deficits; Z99.3 Dependence on wheelchair; Z79.899 Other long term (current) drug therapy; Z88.0 Allergy status to penicillin; Z88.1 Allergy status to other antibiotic agents; Z88.2 Allergy status to sulfonamides; Z88.5 Allergy status to narcotic agent; Z88.8 Allergy status to other drugs, medicaments and biological substances; B96.1 Klebsiella pneumoniae [K. pneumoniae] as the cause of diseases classified elsewhere; B95.62 Methicillin resistant Staphylococcus aureus infection as the cause of diseases classified elsewhere; B95.1 Streptococcus, group B, as the cause of diseases classified elsewhere

== ENCOUNTER → 2019-11-02 | Outpatient (REF) | payer MEDICARE ==
[~2019-11-02] MED LIST changes: +ACET650T15 PO; +DOXY100T PO; +KETO2CR TOP; +MAGN400T2 PO; +Petrolatum,White TOP; +SUCR1TA TOP; +TRIA1CR80 TOP; +VITA50005 PO; +[UNRECOGNIZED DRUG - OTHER] TOP
[2019-11-02 17:46] LABS: PERCENT SATURATION 13.4 % (13.2-45.0)
== END ==
LOC: M LAB REF 16:53
PROVIDERS: ATTEND Nurse Practitioner Family
DX: D50.9 Iron deficiency anemia, unspecified (principal)

== ENCOUNTER → 2020-02-02 | Outpatient (REF) | payer MEDICARE ==
[2020-02-02 18:07] LABS: PERCENT SATURATION 21.2 % (13.2-45.0)
== END ==
LOC: M LAB REF 16:55
PROVIDERS: ATTEND Nurse Practitioner Family
DX: D50.9 Iron deficiency anemia, unspecified (principal)

== ENCOUNTER → 2020-05-08 | Outpatient (REF) | payer MEDICARE ==
[~2020-05-08] MED LIST changes: +ACET-683 PO; -ALL10TAB29 PO; +CETI-24 PO; +CETI10CA2 PO; +CRAN1CAP8 PO; +LINE1TAB6 PO; -PANT20TA2 PO; +PANT20TA6 PO; +PATIENT COMMENT; +PROBCAP14 PO
[2020-05-08 19:19] LABS: PERCENT SATURATION 17.6 % (13.2-45.0)
== END ==
LOC: M LAB REF 17:33
PROVIDERS: ATTEND Nurse Practitioner Family
DX: D50.9 Iron deficiency anemia, unspecified (principal)

== ENCOUNTER 2020-06-09 17:58 | Inpatient (IN) | payer MEDICARE ==
[~2020-06-09] VITALS: Ht 154.9 cm; Wt 60.2 kg
[~2020-06-09 17:58] MED LIST changes: -ACET-683 PO; -CETI10CA2 PO; -CRAN1CAP8 PO; -LINE1TAB6 PO; -PATIENT COMMENT; -PROBCAP14 PO
--- NOTE | 2020-06-09 18:31 | REPVR ---
PROCEDURE INFORMATION: Exam: CT Head Without Contrast Exam date and time: 06/09/2020 6:22 PM Age: 85 years old Clinical indication: Weakness, extremity TECHNIQUE: Imaging protocol: Computed tomography of the head without contrast. Radiation optimization: All CT scans at this facility use at least one of these dose optimization techniques: automated exposure control; mA and/or kV adjustment per patient size (includes targeted exams where dose is matched to clinical indication); or iterative reconstruction. Other technique: STROKE PROTOCOL was implemented. COMPARISON: CT Head without contrast 10/05/2019 11:12 PM FINDINGS: Brain: There is volume loss. There is white matter lucency consistent with chronic microvascular disease. There are old right frontal and parietal cortical infarcts. No acute infarct is identified. There is no hemorrhage or extra-axial collection. There is no mass. Cerebral ventricles: Ventricular size is proportionate to the prominence of the sulci and is stable compared with prior scan. Bones/joints: Unremarkable. No acute fracture. Paranasal sinuses: Visualized sinuses are unremarkable. No fluid levels. Mastoid air cells: Visualized mastoid air cells are well aerated. Soft tissues: Unremarkable. IMPRESSION: 1. 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 2. No acute intracranial lesion or injury and no change from prior scan. ASSESSMENT: ASPECTS ([place] Stroke Program Early CT Score) is 10. Electronically signed by: Jason Emerson On 06/09/2020 18:31:24 PM
[2020-06-09 19:33] LABS: BASO # 0.1 10^3/uL (0.0-0.2); BASO % 0.5 % (0.0-1.0); EOS # 0.2 10^3/uL (0.0-0.5); EOS % 1.5 % (0.0-3.0); HEMATOCRIT 32.9 % (36.0-47.0); HEMOGLOBIN 10.2 g/dl (12.0-15.5); LYMPH # 1.1 10^3/uL (1.5-5.0); LYMPH % 10.1 % (24.0-44.0); MEAN CORPUSCULAR HEMOGLOBIN 29.8 pg (27.0-33.0); MEAN CORPUSCULAR VOLUME 96.2 fl (80.0-96.0); MONO % 9.4 % (0.0-5.0); NEUTROPHILS # 8.2 10^3/uL (1.5-8.5); NEUTROPHILS % 77.7 % (36.0-66.0); PLATELET COUNT, AUTOMATED 402 10^3/uL (150-450); RED BLOOD COUNT 3.42 10^6/uL (4.00-5.40); WHITE BLOOD COUNT 10.6 10^3/uL (4.0-10.0)
[2020-06-09 19:52] LABS: ALBUMIN 2.4 GM/DL (3.2-5.2); BILIRUBIN,DIRECT 0.1 MG/DL (0.0-0.2); BILIRUBIN,TOTAL 0.3 MG/DL (0.2-1.0); C REACTIVE PROTEIN QUANTITATIV 8.6 MG/DL (0.00-0.30); CALCIUM LEVEL 8.1 MG/DL (8.8-10.2); CREATININE FOR GFR 2.32 MG/DL (0.55-1.30); GLOMERULAR FILTRATION RATE 21.2 (>32)
[2020-06-09 19:53] LABS: ERYTHROCYTE SEDIMENTATION RATE 66 mm/hr (0-30)
[2020-06-09] MEDS ORDERED: MAG SULF 1GM/100ML (MAG RUN) 1 GM in IV 1 EA IV ONE (20:00)
[2020-06-09] MEDS ORDERED: VANCOMYCIN HCL 1,250 MG in D5W 250 ML IV ONE (20:45)
[2020-06-09] MEDS ORDERED: VANCOMYCIN HCL 500 MG in D5W MINI-BAG PLUS 100 ML IV ONE (20:45)
[2020-06-09] MEDS ORDERED: VANCOMYCIN HCL 750 MG, VIAL MATE ADAPTER 1 EACH in D5W 250 ML IV ONE (20:45)
[2020-06-09] MEDS ORDERED: cefTRIAXone SOD 1 GM in D5W MINI-BAG PLUS 50 ML IV ONE ×2 (20:45→21:15)
[2020-06-09] MEDS: HumaLOG INSULIN (NovoLOG) PER UNIT SC SCH (21:00)
[2020-06-09] MEDS ORDERED: VANCOMYCIN HCL 1,000 MG, VIAL MATE ADAPTER 1 EACH in D5W 250 ML IV SCH (21:15)
[2020-06-09] MEDS: NS 1,000 ML IV SCH (21:23)
--- NOTE | 2020-06-09 21:42 | HPEPDOC ---
General Date of Admission Jun 09, 2020 at 21:13 Date of Service: Jun 09, 2020 Chief Complaint The patient is a 85-year-old female admitted with a reason for visit of Cellulitis. Source: Patient Exam Limitations: No limitations Timing/Duration: Day(s) Severity: Moderate Associated Symptoms: Malaise History of Present Illness Patient is 84-year-old female with a history of recurrent urinary tract infections, diabetes, severe interstitial cystitis, MRSA, who had undergone an ileal conduit with a diversion urostomy in [place] a couple years ago. Since then, she has had multiple admissions with a urinary tract infection. She has multiple drug allergies and therefore has been treated with mostly carbapenems. Patient was brought to the hospital when she was found to have altered mental status, AMS found hypoxia with oxygen saturation around 70s. Upon arrival patient received oxygen therapy and altered mental status resolved. CT head was done and it was negative. Also patient was found to have severe abdominal wall ulceration with redness and pain around ostomy. Patient has mild leukocytosis of 10.6, creatinine 2.3 magnesium 1 Also patient stated that few days ago she did have fever on 100.2 with chills. Patient follows by Dr. Jacob, in his last note he recommended lidocaine 4% cream and skin dressing around ostomy. Home Medications Scheduled Atenolol (Atenolol) 25 Mg Tab, 25 MG PO QHS, (Reported) HOLD IF SBP<100 Atorvastatin Calcium (Atorvastatin Calcium) 40 Mg Tab, 40 MG PO QHS, (Reported) Carboxymethylcellulose Sodium (Refresh Tears) 0.5 % Pietro, 1 DROP OU QHS, (Reported) Cinnamon Bark (Cinnamon) 500 Mg Capsule, 500 MG PO BID, (Reported) Clopidogrel Bisulfate (Clopidogrel) 75 Mg Tab, 75 MG PO DAILY, (Reported) Ergocalciferol (Vitamin D2) (Vitamin D2) 50,000 Units Cap, 50,000 UNITS PO 1XWK, (Reported) WEDNESDAY MORNINGS Ferrous Sulfate (Ferrous Sulfate) 325 Mg Tab, 325 MG PO DAILY, (Reported) Insulin Detemir (Levemir) 1 Units/0.01 Ml Susp, 30 UNITS SC QHS, (Reported) Levothyroxine Sodium (Levothyroxine Sodium) 50 Mcg Tab, 50 MCG PO DAILY, (Reported) Multivitamins (Thera M Plus Tablet) 1 Tab Tab, 1 TAB PO DAILY, (Reported) [place]-3/Dha/Epa/Fish Oil (Fish Oil 500 mg Softgel) 500 Mg Cap, 500 MG PO DAILY, (Reported) Pantoprazole Sodium (Pantoprazole Sodium) 20 Mg Tab, 20 MG PO DAILY, (Reported) Sodium Bicarbonate (Sodium Bicarbonate) 325 Mg Tab, 650 MG PO TID, (Reported) Scheduled PRN Acetaminophen (Acetaminophen ER) 650 Mg Tablet.er, 650 MG PO Q4H PRN for PAIN / FEVER, (Reported) Docusate Sodium (Docusate Sodium) 100 Mg Cap, 100 MG PO BID PRN for CONSTIPATION, (Reported) Nystatin (Nystatin Powder) 100,000 Unit/Gm Pow, 1 DOSE TOP BID PRN for RASH, (Reported) GROIN AREA AND SKIN FOLDS Allergies Coded Allergies: Penicillins (Verified Allergy, Intermediate, HIVES, 10/05/19) has received PCN PO as outpt in 2018 ciprofloxacin (Verified Allergy, Intermediate, HIVES, 10/05/19) fluconazole (Verified Allergy, Intermediate, HIVES, 10/05/19) iodine (Verified Allergy, Intermediate, HIVES, 10/05/19) erythromycin base (Verified Allergy, Unknown, 10/05/19) nitrofurantoin (Verified Allergy, Unknown, 10/05/19) rofecoxib (Verified Allergy, Unknown, 10/05/19) morphine (Verified Adverse Reaction, Mild, HYPOTENSION, 10/05/19) sulfamethoxazole (Verified Adverse Reaction, Mild, 10/05/19) listed as allergy due to renal function trimethoprim (Verified Adverse Reaction, Mild, 10/05/19) listed as allergy due to renal function Past Medical History Medical History Recurrent UTIs HTN DM2 HL CKD Hypothyroidism Left breast cancer 30 years ago, S/P surgery and chemotherapy Surgical History Partial left hip replacement Three total back surgeries with lumbar fusion of L2-3, 4, and 5 Cystectomy with ileal conduit Right knee arthroplasty, hysterectomy Bilateral cataract surgery Family History I personally reviewed family history and found not pertinent Social History * Smoker: Denies Alcohol: Denies Drugs: denies A-FIB/CHADSVASC A-FIB History Current/History of A-Fib/PAF?: No Current PO Anticoag Therapy: No Review of Systems Constitutional: Reports: Chills, Fatigue Eyes: Denies: Pain, Vision change ENT: Denies: Head Aches Skin: Reports: Rash, Dry, Breakdown Pulmonary: Denies: Dyspnea, Cough Cardiovascular: Denies: Chest Pain Gastrointestinal: Denies: Nausea, Vomiting Hematologic: Denies: Bruising Endocrine: Denies: Polyphagia Musculoskeletal: Denies: Neck Pain, Back Pain Neurological: Denies: Weakness, Numbness Psych: Reports: Mood Normal Physical Examination General Exam: Positive: Alert, Cooperative Eye Exam: Positive: PERRLA ENT Exam: Positive: Atraumatic Neck Exam: Positive: Supple; Negative: JVD Chest Exam: Positive: Clear to auscultation Heart Exam: Positive: Rate Normal Telemetry: Positive: No significant arrhythmia Abdomen Exam: Positive: Normal bowel sounds Extremity Exam: Negative: Clubbing, Cyanosis Skin Exam: Positive: Rash (around ileostomy), Breakdown Neuro Exam: Positive: Normal Tone, Sensation Intact, Cranial Nerves 3-12 NL Psych Exam: Positive: Mental status NL Vital Signs Vital Signs Date Time Temp Pulse Resp B/P (MAP) Pulse Ox O2 Delivery O2 Flow Rate FiO2 06/09/20 19:28 82 94 Room Air 06/09/20 18:30 139/58 (85) 06/09/20 18:02 97.4 18 Laboratory Data Labs 24H Laboratory Tests 2 06/09/20 18:19: Immature Granulocyte % (Auto) 0.8, Neutrophils (%) (Auto) 77.7H, Lymphocytes (%) (Auto) 10.1L, Monocytes (%) (Auto) 9.4H, Eosinophils (%) (Auto) 1.5, Basophils (%) (Auto) 0.5, Neutrophils # (Auto) 8.2, Lymphocytes # (Auto) 1.1L, Monocytes # (Auto) 1.0H, Eosinophils # (Auto) 0.2, Basophils # (Auto) 0.1, Nucleated Red Blood Cells % (auto) 0.0, Erythrocyte Sedimentation Rate 66H 06/09/20 18:31: Anion Gap 10, Glomerular Filtration Rate 21.2L, Lactic Acid Level 2.0, Calcium Level 8.1L, Magnesium Level 1.0L, Total Bilirubin 0.3, Direct Bilirubin 0.1, Aspartate Amino Transf (AST/SGOT) 20, Alanine Aminotransferase (ALT/SGPT) 22, Alkaline Phosphatase 90, C-Reactive Protein, Quantitative 8.60H, Total Protein 7.0, Albumin 2.4L, Albumin/Globulin Ratio 0.5L 06/09/20 20:38: Urine Color YELLOW, Urine Appearance CLOUDYH, Urine pH 7.0, Urine Specific [place] 1.011, Urine Protein 2+H, Urine Glucose (UA) NEGATIVE, Urine Ketones NEGATIVE, Urine Blood 3+H, Urine Nitrite NEGATIVE, Urine Bilirubin NEGATIVE, Urine Urobilinogen 0.2, Urine Leukocyte Esterase 3+H, Urine WBC (Auto) TNTCH, Urine RBC (Auto) TNTCH, Urine Hyaline Casts (Auto) 0, Urine Bacteria (Auto) 1+H, Urine Squamous Epithelial Cells 0, Urine Yeast-Like Cells (Auto) SMALLH, Urine Sperm (Auto) CBC/BMP Laboratory Tests 06/09/20 18:19 06/09/20 18:31 Microbiology Microbiology 06/09/20 Urine Culture, Received Pending 06/09/20 Blood Culture, Received Pending Assessment/Plan Patient is 84-year-old female with a history of recurrent urinary tract infections, diabetes, severe interstitial cystitis, MRSA, who had undergone an ileal conduit with a diversion urostomy in [place] a couple years ago. Since then, she has had multiple admissions with a urinary tract infection. She has multiple drug allergies and therefore has been treated with mostly carbapenems. Patient was brought to the hospital when she was found to have altered mental status, AMS found hypoxia with oxygen saturation around 70s. Upon arrival patient received oxygen therapy and altered mental status resolved. CT head was done and it was negative. Also patient was found to have severe abdominal wall ulceration with redness and pain around ostomy. Patient has mild leukocytosis of 10.6, creatinine 2.3 magnesium 1 Also patient stated that few days ago she did have fever on 100.2 with chills. Patient follows by Dr. Jacob, in his last note he recommended lidocaine 4% cream and skin dressing around ostomy. Problems (1) Cellulitis Status: Acute Problem Text: Most likely secondary to skin irritation around the ostomy site is likely due to urine leakage from an improperly fitted appliance Patient has a history of multiple resistant organism including MRSA: klebsiella, Streptococcus anginosus, Enterococcus and group B streptococcus We'll continue vancomycin and cefepime IV fluid Blood culture Consider field sales specialist consult in the morning (2) Hypothyroidism Status: Chronic Problem Text: Continue Synthroid (3) CKD (chronic kidney disease) stage 4, GFR 15-29 ml/min Status: Chronic Problem Text: Continue to monitor (4) Diabetes mellitus Status: Chronic Problem Text: Continue detemir Insulin sliding scale Diabetes diet (5) Hypertension Status: Chronic Problem Text: Continue home cardioprotective medication (6) Physical deconditioning Problem Text: Secondary to multiple comorbidities PT/OT (7) Disorder of urological stoma Status: Acute Problem Text: See above (8) Acute metabolic encephalopathy Status: Resolved Problem Text: Most likely secondary to hypoxia Patient does not have any wheezing, Rales and crackles on the lung exam X-ray chest Upon arrival to emergency room metabolic encephalopathy resolved Neurological exam benign CT head negative Plan / VTE VTE Prophylaxis Ordered?: Yes GEETA PURDY DO Jun 09, 2020 21:42
[2020-06-09] MEDS ORDERED: ACET-683 PO (21:51)
[2020-06-09] MEDS ORDERED: CETI10CA2 PO (21:52)
[2020-06-09] MEDS ORDERED: CRAN1CAP8 PO (21:52)
[2020-06-09] MEDS ORDERED: PROBCAP14 PO (21:52)
[2020-06-09 22:56] VITALS: BP 116/66
[2020-06-09] MEDS ORDERED: VANCOMYCIN INTERMITTENT/PULSE DOSING BY CLINICAL PHARMACIST PER DOSING PROTOCOL XX SCH (23:15)
[2020-06-09] MEDS ORDERED: GLUCOSE 4GM CHEW TABLET PO PRN (23:45)
[2020-06-09] MEDS ORDERED: DEXTROSE 50% 50 ML SYRINGE IV PRN (23:45)
[2020-06-09] MEDS ORDERED: GLUCAGON INJ 1MG VIAL SC PRN (23:45)
[2020-06-10] MEDS ORDERED: GLUCAGON INJ 1MG VIAL SC PRN (00:30)
[2020-06-10] MEDS ORDERED: GLUCOSE 4GM CHEW TABLET PO PRN (00:30)
[2020-06-10] MEDS ORDERED: DEXTROSE 50% 50 ML SYRINGE IV PRN (00:30)
[2020-06-10] MEDS: ATORVASTATIN 20 MG TAB PO SCH ×2 (00:54→22:19)
[2020-06-10] MEDS: atenoloL 25 MG TAB PO SCH ×2 (00:55→22:23)
[2020-06-10] MEDS: DOCUSATE SODIUM 100 MG CAP PO PRN (00:56)
[2020-06-10] MEDS: ACETAMINOPHEN TAB 650MG DOSE (2X325MG) PO PRN (00:57)
[2020-06-10] MEDS: FERROUS SULFATE 325MG TAB PO SCH ×3 (00:57→22:19)
[2020-06-10] MEDS: LEVEMIR (INSULIN DETEMIR) 1 UNITS/0.01ML SC SCH ×2 (00:58→22:25)
[2020-06-10] MEDS: SODIUM BICARBONATE 325 MG TAB PO SCH ×3 (01:21→22:23)
[2020-06-10] MEDS: CEFEPIME HCL 1 GM in D5W MINI-BAG PLUS 50 ML IV SCH (05:19)
[2020-06-10 06:00] VITALS: BP 122/56
[2020-06-10 07:05] LABS: HEMATOCRIT 28.2 % (36.0-47.0); HEMOGLOBIN 8.8 g/dl (12.0-15.5); MEAN CORPUSCULAR HEMOGLOBIN 30.2 pg (27.0-33.0); MEAN CORPUSCULAR HGB CONC 31.2 g/dl (32.0-36.5); MEAN CORPUSCULAR VOLUME 96.9 fl (80.0-96.0); PLATELET COUNT, AUTOMATED 356 10^3/uL (150-450); RED BLOOD COUNT 2.91 10^6/uL (4.00-5.40); WHITE BLOOD COUNT 7.5 10^3/uL (4.0-10.0)
[2020-06-10 07:26] LABS: CALCIUM LEVEL 7.6 MG/DL (8.8-10.2); CREATININE FOR GFR 2.1 MG/DL (0.55-1.30); GLOMERULAR FILTRATION RATE 23.8 (>32); MAGNESIUM LEVEL 1.3 MG/DL (1.8-2.4); POTASSIUM SERUM 4.3 MEQ/L (3.5-5.1)
[2020-06-10] MEDS: HumaLOG INSULIN (NovoLOG) PER UNIT SC SCH ×4 (07:30→21:00)
[2020-06-10] MEDS ORDERED: PREVNAR 13 VACCINE SYRINGE IM ONE (09:00)
[2020-06-10] MEDS ORDERED: VANCOMYCIN HCL 1,000 MG, VIAL MATE ADAPTER 1 EACH in D5W 250 ML IV ONE (09:00)
[2020-06-10] MEDS: LEVOTHYROXINE 50MCG TABLET (0.05MG) PO SCH (09:21)
[2020-06-10] MEDS: CLOPIDOGREL 75 MG TAB PO SCH (09:21)
[2020-06-10] MEDS: MULTIVITAMINS/MINERALS THERAP 1 TAB PO SCH (09:21)
[2020-06-10] MEDS: HEPARIN SOD (PORCINE) 5000UNITS/ML 1ML VIAL/SYRINGE SC SCH ×2 (09:22→22:25)
[2020-06-10] MEDS: PANTOPRAZOLE 20 MG TAB PO SCH (09:38)
[2020-06-10] MEDS: NS 1,000 ML IV SCH (11:50)
[2020-06-10] MEDS: MAG SULF 1GM/100ML (MAG RUN) 1 GM in IV 1 EA IV SCH ×3 (11:50→14:43)
[2020-06-10 14:00] VITALS: BP 120/89
--- NOTE | 2020-06-10 16:51 | IPNPDOC ---
Text Note Date of Service The patient was seen on 06/10/20. NOTE HPI: Ms. Maldonado is an 85 yo F with a PMHx of HTN, CKD, IDDM who presented to the ED at the urging of her daughter due to altered mental status. SUBJECTIVE: No acute events overnight. Pt was seen and examined at the bedside. She says she is feeling ok. She admits to some itchiness around her ostomy site but denies pain. Pt denies any SOB, chest pain, nausea, or fevers. OBJECTIVE: VITAL SIGNS: please see below. GENERAL: Pt was seen lying in bed comfortably in no acute distress. HEENT: NC, AT, no scleral icterus, no pharyngeal erythema. NECK: no JVD or lymphadenopathy appreciated. CV: RRR, no murmurs, rubs, or gallops. RESP: CTAB, no rales, rhonchi, or wheezes. ABDOMEN: ostomy on the right mid-abdomen, it is surrounded by redness and raw appearing skin that is warm, there is no pain to palpation EXTREMITIES: no swelling or edema. LABORATORY: please see below. MICROBIOLOGY: Urine culture and Blood culture pending. IMAGING: -HEAD CT: Impression "1. 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 2. No acute intracranial lesion or injury and no change from prior scan." -CXR: No acute changes. ASSESSMENT/PLAN: Ms. Maldonado is an 85 yo F with a PMHx of HTN, DM2, HLD, CKD, cys tectomy with ileal conduit, and hypothyroidism that presented to the ED after her daughter noticed a change in her mental status, found to have redness warmth and irritation around her ostomy site concerning for cellulitis. #. Cellulitis of ostomy site -Pt is on day 1 of cefepime and day 2 vancomycin. -Discussed with Dr. Camarillo of urology regarding ostomy site, he recommends the pt be sent back to the surgeon that performed the procedure at [facility] to assess if further intervention is warranted. -Dr. Jacob was consulted for wound care, will appreciate his recommendations. #. Altered mental status likely 2/2 to infection, resolved -Neurological exam this morning did not reveal any focal deficits. -CXR showed no acute findings. -CT head showed no acute findings. -Pt's infection being treated with cefepime and vancomycin. #. IDDM -Continue detemir and sliding scale. -Hypoglycemic protocol. -Consistent carbohydrate diet. #. POC stage 1 sacral ulcer -Continue to monitor. -Reposition every 2 hours. #. MATILDE on CKD stage 4 -Creatinine trending down. -Avoid nephrotoxic drugs. -Continue to monitor. #. HTN -Continue home atenolol #. CAD s/p stents -Continue home clopidogrel and aspirin 81 mg #. HLD -Continue atorvastatin. DVT Prophylaxis: Heparin SC Q12h VS,Fishbone, I+O VS, Fishbone, I+O Laboratory Tests 06/09/20 18:19 06/09/20 18:31 06/10/20 06:20 Vital Signs Date Time Temp Pulse Resp B/P (MAP) Pulse Ox O2 Delivery O2 Flow Rate FiO2 06/10/20 06:00 97.8 71 20 122/56 (78) 97 Room Air I&O- Last 24 Hours up to 6 AM 06/10/20 06:00 Intake Total 1615 ml Output Total 775 ml Balance 840 ml GME ATTESTATION GME ATTESTATION My faculty preceptor for this patient encounter was physically present during the encounter and was fully available. All aspects of the patient interview, examination, medical decision making process, and medical care plan development were reviewed and approved by the faculty preceptor. The faculty preceptor is aware and concurs with the plan as stated in the body of this note and will attest to such by his/her cosignature. DALY VELASCO OMS-3 Jun 10, 2020 14:16
[2020-06-10 22:00] VITALS: BP 120/54
[2020-06-10] MEDS: NYSTATIN 100,000 UNITS/GM TOPICAL PWD 15 GM TOP SCH (22:24)
[2020-06-11] MEDS: ACETAMINOPHEN TAB 650MG DOSE (2X325MG) PO PRN (05:24)
[2020-06-11] MEDS: CEFEPIME HCL 1 GM in D5W MINI-BAG PLUS 50 ML IV SCH (05:24)
[2020-06-11 06:00] VITALS: BP 118/58
[2020-06-11] MEDS ORDERED: MAG SULF 1GM/100ML (MAG RUN) 1 GM in IV 1 EA IV SCH (08:00)
[2020-06-11] MEDS: PANTOPRAZOLE 20 MG TAB PO SCH (08:15)
[2020-06-11] MEDS: VITAMIN D 50,000 UNITS CAPSULE (ERGOCALCIFEROL 1.25MG) PO SCH (08:15)
[2020-06-11] MEDS: CLOPIDOGREL 75 MG TAB PO SCH (08:15)
[2020-06-11] MEDS: FERROUS SULFATE 325MG TAB PO SCH ×2 (08:15→21:13)
[2020-06-11] MEDS: LEVOTHYROXINE 50MCG TABLET (0.05MG) PO SCH (08:15)
[2020-06-11] MEDS: SODIUM BICARBONATE 325 MG TAB PO SCH ×2 (08:15→21:12)
[2020-06-11] MEDS: MULTIVITAMINS/MINERALS THERAP 1 TAB PO SCH (08:15)
[2020-06-11] MEDS: HumaLOG INSULIN (NovoLOG) PER UNIT SC SCH ×4 (08:16→21:00)
[2020-06-11] MEDS: HEPARIN SOD (PORCINE) 5000UNITS/ML 1ML VIAL/SYRINGE SC SCH ×2 (08:16→21:13)
[2020-06-11] MEDS: NYSTATIN 100,000 UNITS/GM TOPICAL PWD 15 GM TOP SCH ×2 (08:17→21:00)
[2020-06-11 08:45] LABS: BASO # 0.1 10^3/uL (0.0-0.2); BASO % 0.7 % (0.0-1.0); EOS # 0.6 10^3/uL (0.0-0.5); EOS % 6.8 % (0.0-3.0); HEMATOCRIT 28.8 % (36.0-47.0); HEMOGLOBIN 8.9 g/dl (12.0-15.5); LYMPH # 1.5 10^3/uL (1.5-5.0); LYMPH % 16.2 % (24.0-44.0); MEAN CORPUSCULAR HEMOGLOBIN 29.7 pg (27.0-33.0); MEAN CORPUSCULAR HGB CONC 30.9 g/dl (32.0-36.5); MONO % 10.5 % (0.0-5.0); NEUTROPHILS # 5.9 10^3/uL (1.5-8.5); NEUTROPHILS % 64.7 % (36.0-66.0); PLATELET COUNT, AUTOMATED 364 10^3/uL (150-450); WHITE BLOOD COUNT 9.1 10^3/uL (4.0-10.0)
[2020-06-11 08:47] LABS: CALCIUM LEVEL 8.2 MG/DL (8.8-10.2); CREATININE FOR GFR 2.23 MG/DL (0.55-1.30); GLOMERULAR FILTRATION RATE 22.2 (>32); MAGNESIUM LEVEL 2.3 MG/DL (1.8-2.4); POTASSIUM SERUM 4.1 MEQ/L (3.5-5.1)
[2020-06-11] MEDS ORDERED: VANCOMYCIN HCL 500 MG in D5W MINI-BAG PLUS 100 ML IV SCH (09:00)
--- NOTE | 2020-06-11 09:34 | SMCUROLCON ---
Urology Consultation General Date of Consultation 06/11/20 Reason For Consultation This patient is seen for Cellulitis. History of Present Illness The patient is a [85]-year-old [lady] with a past medical history of [supravesical urinary diversion for what sounds like interstitial cystitis in 2017, done in [place], presents with severe peristomal dermatitis involving much of her abdomen and thighs. 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 She does have diabetes mellitus. She's previously struggled with decubitus ulcers on her back. Her social situation is suboptimal, in that her stoma only seems to remain in place for 2-3 hours, yet she is often on her own for up to 8 hours a day]. She's been advised to use lidocaine cream on her abdominal rash. She's been seen by wound care specialists Past Medical History Medical History Diabetes mellitus. Interstitial cystitis. 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 Return to surgery for urine leak. Lumbar back surgery 3. Left hip surgery. Right knee replacement. Cataract surgery Family History Significant Family History: No pertinent family hx Social History Social History Lives with son and daughter. * Smoker: non-smoker Alcohol: Denies Drugs: denies, IV drug use Medications Current Medications Current Medications Medications (Trade) Dose Ordered Sig/Gauri Route PRN Reason Start Time Stop Time Status Last Admin Dose Admin Acetaminophen (Tylenol Tab) 650 mg Q4H PRN PO PAIN OR FEVER 06/09/20 21:15 06/11/20 05:24 Atenolol (Tenormin) 25 mg QHS PO 06/09/20 21:00 06/10/20 22:23 Atorvastatin Calcium (Lipitor) 40 mg QHS PO 06/09/20 21:00 06/10/20 22:19 Cefepime HCl 1 gm/ Dextrose 50 ml @ 100 mls/hr Q24H IV 06/10/20 06:00 06/11/20 05:24 Clopidogrel Bisulfate (PLAVix) 75 mg DAILY PO 06/10/20 09:00 06/11/20 08:15 Dextrose (Dextrose 50%) 25 ml ASDIRECTED PRN IV SEE LABEL COMMENTS 06/09/20 23:45 06/10/20 00:28 DC Dextrose (Dextrose 50%) 25 ml ASDIRECTED PRN IV SEE LABEL COMMENTS 06/10/20 00:30 Docusate Sodium (Colace) 100 mg BID PRN PO CONSTIPATION 06/09/20 22:00 Ferrous Sulfate (Ferrous Sulfate) 325 mg BID PO 06/09/20 21:00 06/11/20 08:15 Glucagon (Glucagon) 1 mg ASDIRECTED PRN SC SEE LABEL COMMENTS 06/09/20 23:45 06/10/20 00:28 DC Glucagon (Glucagon) 1 mg ASDIRECTED PRN SC SEE LABEL COMMENTS 06/10/20 00:30 Glucose (Glucose) 16 GM ASDIRECTED PRN PO SEE LABEL COMMENTS 06/09/20 23:45 06/10/20 00:28 DC Glucose (Glucose) 16 GM ASDIRECTED PRN PO SEE LABEL COMMENTS 06/10/20 00:30 Heparin Sodium (Porcine) (Heparin) 5,000 units Q12H SC 06/10/20 09:00 06/11/20 08:16 Home Med (Med Rec Complete!) ASDIRECTED XX 06/09/20 22:00 06/09/20 21:54 DC Insulin Detemir (Levemir Insulin) 30 units QHS SC 06/09/20 21:00 06/10/20 22:25 Insulin Human Lispro (HumaLOG INSULIN) See Protocol Table AC SC 06/10/20 07:30 06/11/20 08:16 Insulin Human Lispro (HumaLOG INSULIN) See Protocol Table QHS SC 06/09/20 21:00 Levothyroxine Sodium (Synthroid) 50 mcg QAM PO 06/10/20 09:00 06/11/20 08:15 Magnesium Sulfate/ Dextrose 1 gm/IV Miscellaneous Supplies 100 ml @ 100 mls/hr Q1H IV 06/10/20 11:30 06/10/20 14:29 DC 06/10/20 14:43 Magnesium Sulfate/ Dextrose 1 gm/IV Miscellaneous Supplies 100 ml @ 100 mls/hr Q1H IV 06/11/20 08:00 06/11/20 07:33 DC Multivitamins (Theragram-M) 1 tab DAILY PO 06/10/20 09:00 06/11/20 08:15 Non-Formulary Medication ( See Comment Field Below ) VANCO INTERMIT. DOSING ASDIRECTED XX 06/09/20 23:15 06/11/20 08:16 DC Nystatin (Mycostatin Powder, Nystop) APPLY TO AFFECTED AREA(s)... BID TOP 06/10/20 21:00 06/11/20 08:17 Pantoprazole Sodium (Protonix) 20 mg DAILY PO 06/10/20 09:00 06/11/20 08:15 Sodium Bicarbonate (Sodium Bicarbonate) 650 mg BID PO 06/09/20 21:00 06/11/20 08:15 Sodium Chloride 1,000 ml @ 100 mls/hr Q10H IV 06/09/20 21:13 06/10/20 13:57 DC 06/10/20 11:50 Vancomycin HCl 500 mg/Dextrose 110 ml @ 110 mls/hr Q24H IV 06/11/20 09:00 06/11/20 08:36 Vancomycin HCl 1000 mg/IV Miscellaneous Supplies 1 each/ Dextrose 270 ml @ 270 mls/hr Q12H IV 06/09/20 21:15 06/09/20 23:05 DC Vitamin D (Drisdol) 50,000 units Tu@0900 PO 06/11/20 09:00 06/11/20 08:15 Allergies Allergies: Coded Allergies: Penicillins (Verified Allergy, Intermediate, HIVES, 10/05/19) has received PCN PO as outpt in 2019 ciprofloxacin (Verified Allergy, Intermediate, HIVES, 10/05/19) fluconazole (Verified Allergy, Intermediate, HIVES, 10/05/19) iodine (Verified Allergy, Intermediate, HIVES, 10/05/19) erythromycin base (Verified Allergy, Unknown, 10/05/19) nitrofurantoin (Verified Allergy, Unknown, 10/05/19) rofecoxib (Verified Allergy, Unknown, 10/05/19) morphine (Verified Adverse Reaction, Mild, HYPOTENSION, 10/05/19) sulfamethoxazole (Verified Adverse Reaction, Mild, 10/05/19) listed as allergy due to renal function trimethoprim (Verified Adverse Reaction, Mild, 10/05/19) listed as allergy due to renal function Review of Systems General: Denies: ROS Unobtainable, Chills, Night Sweats, Fatigue, Malaise, Normal Appetite, Other Symptoms Constitutional: Reports: Fever (several days ago); Denies: Chills, Sweats, Weakness, Malaise, Other Eyes: Denies: Pain, Vision change, Conjunctivae inflammation, Eyelid inflammation, Redness, Other ENT: Denies: Head Aches, Ear Pain, Dysphagia, Sinus Congestion, Post Nasal Drip, Sore Throat, Epistaxis, Other Symptoms Skin: Reports: Rash, Lesions, Breakdown Pulmonary: Reports: Dyspnea, Cough Cardiovascular: Denies Chest Pain, Denies Palpitations, Denies Orthopnea, Denies Paroxysmal Noc. Dyspnea, Denies Edema, Denies Lt Headedness, Denies Other Symptoms Gastrointestinal: Denies: Nausea, Vomiting, Abdominal Pain, Diarrhea, Constipat ion, Melena, Hematochezia, Other Symptoms Genitourinary: Reports: Other Symptoms (appliance fit problems) Hematologic: Denies: Bruising, Bleeding Excessively, Petecchia, Purpura, Enlarged Lymph Nodes, Other Hematologic Endocrine: Denies: Polydipsia, Polyphagia, Polyuria, Heat Intolerance, Cold Intolerance, Other Endocrine Sx Musculoskeletal: Reports: Neck Pain, Back Pain; Denies: Shoulder Pain, Arm Pain, Hand Pain, Leg Pain, Foot Pain, Joint Pain, Muscle Pain, Spasms, Other Symptoms Psych: Denies: Mood Normal, Anxiety, Depression, Memory Issues, Thoughts of Self Harm, Anger, Thoughts of harming Other, Other Psych Physical Examination General Exam: Alert, Cooperative, Mild Distress EYE EXAM: PERRLA, Conjunctiva & lids normal, EOMI ENT EXAM: Atraumatic, Mucous membr. moist/pink Neck Exam: Supple, JVD Chest Exam: Clear to auscultation, Normal air movement Heart Exam: Rate Normal, Regular Rhythm Abdomen Exam: Normal Bowel Sounds, Other (. Diffuse skin breakdown. Stoma right abdomen.) Male Exam: Erythema Female Exam: Lesions (erythema and ulcerations.) Extremity Exam: Normal Pulses Skin Exam: Rash, Breakdown (extensive on right abdomen and proximal thighs.) Neuro Exam: Normal Speech, Normal Tone, Cranial Nerves 3-12 NL Psych Exam: Mental status NL, Mood NL, Oriented x 3 Vital Signs/I&O Vital Signs Date Time Temp Pulse Resp B/P (MAP) Pulse Ox O2 Delivery O2 Flow Rate FiO2 06/11/20 06:00 98.9 66 20 118/58 (78) 97 06/10/20 14:00 Room Air I&O- Last 24 Hours up to 6 AM 06/11/20 06:00 Intake Total 1270 ml Output Total 1375 ml Balance -105 ml Laboratory Data 24H Labs Laboratory Tests 2 06/10/20 12:05: Bedside Glucose (Misc Panel) 135H 06/10/20 16:23: Bedside Glucose (Misc Panel) 121H 06/10/20 20:44: Bedside Glucose (Misc Panel) 151H 06/11/20 06:57: Immature Granulocyte % (Auto) 1.1, Neutrophils (%) (Auto) 64.7, Lymphocytes (%) (Auto) 16.2L, Monocytes (%) (Auto) 10.5H, Eosinophils (%) (Auto) 6.8H, Basophils (%) (Auto) 0.7, Neutrophils # (Auto) 5.9, Lymphocytes # (Auto) 1.5, Monocytes # (Auto) 1.0H, Eosinophils # (Auto) 0.6H, Basophils # (Auto) 0.1, Nucleated Red Blood Cells % (auto) 0.0, Anion Gap 10, Glomerular Filtration Rate 22.2L, Calcium Level 8.2L, Magnesium Level 2.3, Random Vancomycin Level 17.2 06/11/20 07:52: Bedside Glucose (Misc Panel) 126H CBC/BMP Laboratory Tests 06/11/20 06:57 Microbiology Microbiology 06/09/20 Urine Culture - Final, Complete 06/09/20 Blood Culture - Preliminary, Resulted No growth after 24 hours . All specim... Assessment Impression: Extensive skin breakdown related to urine leak and likely fungal and chemical dermatitis. Plan: Intensive to BOC and regimen per wound management. Will need to follow-up with her primary urologic specialists. Thank you for this consultation. MARCOS CLARK MD Jun 11, 2020 09:34
--- NOTE | 2020-06-11 10:57 | IPNPDOC ---
Text Note Date of Service The patient was seen on 06/11/20. NOTE SUBJECTIVE: Patient seen and examined at bedside. No acute events overnight. No new medical complaints. OBJECTIVE: VITAL SIGNS: please see below. GENERAL: NAD, lying comfortably in bed HEENT: NC/AT, EOMI NECK: no JVD or lymphadenopathy appreciated. CV: RRR, no murmurs, rubs, or gallops. RESP: CTAB, no rales, rhonchi, or wheezes. ABDOMEN: ostomy on the right mid-abdomen, it is surrounded by redness and raw appearing skin that is warm, there is no pain to palpation EXTREMITIES: no swelling or edema. ASSESSMENT/PLAN: Ms. Maldonado is an 85 yo F with a PMHx of HTN, DM2, HLD, CKD, cystectomy with ileal conduit, and hypothyroidism that presented to the ED after her daughter noticed a change in her mental status, found to have redness warmth and irritation around her ostomy site concerning for cellulitis. #Cellulitis of ostomy site -Pt is on day 2 of cefepime and vancomycin. - urology c/s appreciated - d/w dr del valle - o/p follow up with primary urologist - procedure performed at [facility] -Dr. Jacob consulted - follow recs for wound care #AMS - secondary to metabolic encephalopathy - resolved #IDDM -Continue detemir and sliding scale. -Hypoglycemic protocol. -Consistent carbohydrate diet. #POC stage 1 sacral ulcer -Continue to monitor. -Reposition every 2 hours. #CKD stage 4 -Avoid nephrotoxic drugs. -Continue to monitor. #HTN -Continue home atenolol #CAD s/p stents -Continue home clopidogrel and aspirin 81 mg #DVT prophylaxis Dispo: pending cultures, continue IV abx, pending clinical improvement #. HLD -Continue atorvastatin. DVT Prophylaxis: Heparin SC Q12h VS,Fishbone, I+O VS, Fishbone, I+O Laboratory Tests 06/11/20 06:57 Vital Signs Date Time Temp Pulse Resp B/P (MAP) Pulse Ox O2 Delivery O2 Flow Rate FiO2 06/11/20 06:00 98.9 66 20 118/58 (78) 97 06/10/20 14:00 Room Air I&O- Last 24 Hours up to 6 AM 06/11/20 06:00 Intake Total 1270 ml Output Total 1375 ml Balance -105 ml HERMES DAVIS MD Jun 11, 2020 10:57
[2020-06-11 14:00] VITALS: BP 121/51
[2020-06-11] MEDS: atenoloL 25 MG TAB PO SCH (21:00)
[2020-06-11] MEDS: ATORVASTATIN 20 MG TAB PO SCH (21:12)
[2020-06-11] MEDS: LEVEMIR (INSULIN DETEMIR) 1 UNITS/0.01ML SC SCH (21:19)
[2020-06-11 22:00] VITALS: BP 141/63
[2020-06-12] MEDS: CEFEPIME HCL 1 GM in D5W MINI-BAG PLUS 50 ML IV SCH (05:39)
[2020-06-12 06:00] VITALS: BP_SYST 112; BP_DIAS 46; BP_DIAS 56
--- NOTE | 2020-06-12 08:07 | CR ---
ADVANCED WOUND CARE CONSULTATION DATE OF CONSULTATION: 06/11/2020 CONSULTATION REQUESTED BY: Natalya Lawson M.D. REASON FOR CONSULTATION: Incontinent associated dermatitis. HISTORY OF PRESENT ILLNESS: An 85-year-old female with an ileal conduit, who was admitted for extensive incontinent associated dermatitis involving the anterior abdominal wall, inguinal folds and her posterior lower buttocks, due to leakage from her appliance. This has been going on for quite some time and the problem is the fitting and care of the appliance. This problem should not be confused with cellulitis as evidenced by the fact that the patient is afebrile and has no leukocytosis. There is no indication for antibiotic therapy. The Nystatin and I.V. antibiotics should be discontinued. The ostomy appliance should be carefully fitted to the opening of the ileal conduit and the way to do this is to place saran wrap over the opening, outlined the opening with a marking pen and then transfer this on to the appliance to cut the exact opening size The dermatitis should be cleansed with Vashe, allowed to dry and then a crusting technique is to be utilized. This entails Nystatin. followed by Cavalon skin prep, nystatin reapplied and again Cavalon. Repeating multiple times, up to 7 or 8 times, to build up a protective barrier coating. Then the appliance is applied and any defects in the seal should be caulked or sealed with Stomahesive paste. An ostomy belt should be utilized and the patient has one at this time. In terms of the inguinal skin folds, InterDry should be inserted between the skin folds allowing for approximately 2.0 cm. of the anterior dry to extend outside of the fold itself. This should be a single layer of the injured dry and the injured dry should not be doubled upon itself . It should be changed on a daily basis. The InterDry may be removed, allowed to dry which takes approximately 3 minutes and then reinserted. It can be utilized in this manner up to 5 days with good results. In terms of the buttocks, Cavalon advanced skin texture which comes in a hand held 2.7 mL dispenser should be utilized and used to coat all of the inflamed skin. This is usually performed once a week and provides a barrier. It should be noted that the definition for cellulitis is bacterial infection underneath the epidermis involving the dermis and is associated with an elevated body temperature and elevated white count, neither of which the patient has. This patient has been treated at our advanced wound care clinic for the same problem with satisfactory results in the past. Unfortunately she does not follow up with the appropriate care which has resulted in the recurrent problem she can be followed up at our clinic for further treatment and reinforcement when she is discharged. Thank you for this consult. If you have further questions, please call our advanced wound care center. CRISTOFER
[2020-06-12 08:10] LABS: BASO # 0.1 10^3/uL (0.0-0.2); BASO % 0.9 % (0.0-1.0); EOS # 0.7 10^3/uL (0.0-0.5); EOS % 5.9 % (0.0-3.0); HEMATOCRIT 30.7 % (36.0-47.0); HEMOGLOBIN 9.6 g/dl (12.0-15.5); LYMPH # 1.6 10^3/uL (1.5-5.0); MEAN CORPUSCULAR HEMOGLOBIN 30.6 pg (27.0-33.0); MEAN CORPUSCULAR HGB CONC 31.3 g/dl (32.0-36.5); MEAN CORPUSCULAR VOLUME 97.8 fl (80.0-96.0); MONO # 1.1 10^3/uL (0.0-0.8); MONO % 9.4 % (0.0-5.0); NEUTROPHILS # 7.6 10^3/uL (1.5-8.5); PLATELET COUNT, AUTOMATED 378 10^3/uL (150-450); RED BLOOD COUNT 3.14 10^6/uL (4.00-5.40); WHITE BLOOD COUNT 11.2 10^3/uL (4.0-10.0)
[2020-06-12 08:30] LABS: CALCIUM LEVEL 8.2 MG/DL (8.8-10.2); CREATININE FOR GFR 2.36 MG/DL (0.55-1.30); GLOMERULAR FILTRATION RATE 20.8 (>32); POTASSIUM SERUM 4.3 MEQ/L (3.5-5.1)
[2020-06-12] MEDS: CLOPIDOGREL 75 MG TAB PO SCH (09:27)
[2020-06-12] MEDS: HumaLOG INSULIN (NovoLOG) PER UNIT SC SCH ×4 (09:27→22:00)
[2020-06-12] MEDS: FERROUS SULFATE 325MG TAB PO SCH ×2 (09:27→21:59)
[2020-06-12] MEDS: PANTOPRAZOLE 20 MG TAB PO SCH (09:27)
[2020-06-12] MEDS: MULTIVITAMINS/MINERALS THERAP 1 TAB PO SCH (09:27)
[2020-06-12] MEDS: LEVOTHYROXINE 50MCG TABLET (0.05MG) PO SCH (09:27)
[2020-06-12] MEDS: HEPARIN SOD (PORCINE) 5000UNITS/ML 1ML VIAL/SYRINGE SC SCH ×2 (09:28→22:00)
[2020-06-12] MEDS: SODIUM BICARBONATE 325 MG TAB PO SCH ×2 (09:31→21:57)
[2020-06-12] MEDS: NYSTATIN 100,000 UNITS/GM TOPICAL PWD 15 GM TOP SCH ×2 (09:31→21:59)
--- NOTE | 2020-06-12 11:55 | IPNPDOC ---
Text Note Date of Service The patient was seen on 06/12/20. NOTE SUBJECTIVE: Patient seen and examined at bedside. No acute events overnight. No new medical complaints. OBJECTIVE: VITAL SIGNS: please see below. GENERAL: NAD, sitting comfortably in chair HEENT: NC/AT, EOMI NECK: no JVD or lymphadenopathy appreciated. CV: RRR, no murmurs, rubs, or gallops. RESP: CTAB, no rales, rhonchi, or wheezes. ABDOMEN: ostomy on the right mid-abdomen, it is surrounded by redness and raw appearing skin that is warm, there is no pain to palpation EXTREMITIES: no swelling or edema. ASSESSMENT/PLAN: 85 yo F with a PMHx of HTN, DM2, HLD, CKD, cystectomy with ileal conduit, and hypothyroidism that presented to the ED after her daughter noticed a change in her mental status, found to have redness warmth and irritation around her ostomy site concerning for cellulitis. #Cellulitis of ostomy site - urology c/s appreciated - d/w dr del valle - o/p follow up with primary urologist - procedure performed at [facility] -Dr. Jacob consulted - follow recs for wound care - recommending d/c abx - likely contact dermatitis from urine #AMS - secondary to metabolic encephalopathy - resolved #IDDM -Continue detemir and sliding scale. -Hypoglycemic protocol. -Consistent carbohydrate diet. #POC stage 1 sacral ulcer -Continue to monitor. -Reposition every 2 hours. #CKD stage 4 -Avoid nephrotoxic drugs. -Continue to monitor. #HTN -Continue home atenolol #CAD s/p stents -Continue home clopidogrel and aspirin 81 mg #DVT prophylaxis Heparin SC Dispo: pending further PT/OT, anticipating discharge home in 24-48 hours, observe off antibiotics, will need o/p f/u with her urologist Jey CRUM, I+O VSJey I+O Laboratory Tests 06/12/20 07:53 Vital Signs Date Time Temp Pulse Resp B/P (MAP) Pulse Ox O2 Delivery O2 Flow Rate FiO2 06/12/20 06:00 98.6 78 18 112/56 (74) 96 Room Air I&O- Last 24 Hours up to 6 AM 06/12/20 06:00 Intake Total 1250 ml Output Total 0 ml Balance 1250 ml LALDIN,HERMES S. MD Jun 12, 2020 11:55
[2020-06-12 14:00] VITALS: BP 107/43
[2020-06-12 22:00] VITALS: BP 124/55
[2020-06-12] MEDS: LEVEMIR (INSULIN DETEMIR) 1 UNITS/0.01ML SC SCH (22:00)
[2020-06-12] MEDS: atenoloL 25 MG TAB PO SCH (22:04)
[2020-06-12] MEDS: ATORVASTATIN 20 MG TAB PO SCH (22:04)
[2020-06-13] MEDS: ACETAMINOPHEN TAB 650MG DOSE (2X325MG) PO PRN (05:19)
[2020-06-13 06:00] VITALS: BP 137/60
--- NOTE | 2020-06-13 07:21 | REP ---
PORTABLE CHEST X-RAY CLINICAL: Acute hypoxemic event. COMPARISON: 10/06/2019 FINDINGS: Mediastinum and cardiac silhouette are within normal limits for portable technique. The lung doty demonstrate stable chronic interstitial changes. No consolidation, obvious effusion, or pneumothorax. Skeletal structures are intact. IMPRESSION: Stable chronic changes. No acute cardiopulmonary process appreciated. MTDD
[2020-06-13] MEDS: HumaLOG INSULIN (NovoLOG) PER UNIT SC SCH ×4 (07:30→22:12)
[2020-06-13 08:19] LABS: BASO # 0.1 10^3/uL (0.0-0.2); BASO % 0.7 % (0.0-1.0); EOS # 0.5 10^3/uL (0.0-0.5); EOS % 3.3 % (0.0-3.0); HEMATOCRIT 26.7 % (36.0-47.0); HEMOGLOBIN 8.3 g/dl (12.0-15.5); LYMPH # 1.7 10^3/uL (1.5-5.0); LYMPH % 12.3 % (24.0-44.0); MEAN CORPUSCULAR HEMOGLOBIN 29.9 pg (27.0-33.0); MEAN CORPUSCULAR HGB CONC 31.1 g/dl (32.0-36.5); MONO # 1.1 10^3/uL (0.0-0.8); MONO % 8.1 % (0.0-5.0); NEUTROPHILS # 10.1 10^3/uL (1.5-8.5); NEUTROPHILS % 73.7 % (36.0-66.0); PLATELET COUNT, AUTOMATED 378 10^3/uL (150-450); RED BLOOD COUNT 2.78 10^6/uL (4.00-5.40); WHITE BLOOD COUNT 13.7 10^3/uL (4.0-10.0)
[2020-06-13 08:40] LABS: CALCIUM LEVEL 8.5 MG/DL (8.8-10.2); CREATININE FOR GFR 2.37 MG/DL (0.55-1.30); GLOMERULAR FILTRATION RATE 20.7 (>32); POTASSIUM SERUM 4.6 MEQ/L (3.5-5.1)
[2020-06-13] MEDS: HEPARIN SOD (PORCINE) 5000UNITS/ML 1ML VIAL/SYRINGE SC SCH (10:24)
[2020-06-13] MEDS: MULTIVITAMINS/MINERALS THERAP 1 TAB PO SCH (10:24)
[2020-06-13] MEDS: FERROUS SULFATE 325MG TAB PO SCH ×2 (10:25→22:07)
[2020-06-13] MEDS: LEVOTHYROXINE 50MCG TABLET (0.05MG) PO SCH (10:25)
[2020-06-13] MEDS: SODIUM BICARBONATE 325 MG TAB PO SCH ×2 (10:25→22:07)
[2020-06-13] MEDS: CLOPIDOGREL 75 MG TAB PO SCH (10:25)
[2020-06-13] MEDS: PANTOPRAZOLE 20 MG TAB PO SCH (10:28)
--- NOTE | 2020-06-13 12:39 | IPNPDOC ---
Text Note Date of Service The patient was seen on 06/13/20. NOTE SUBJECTIVE: Patient seen and examined at bedside. Overnight events significant for fevers. She also experienced nausea with nonbilious, nonbloody vomiting this morning. OBJECTIVE: VITAL SIGNS: please see below. GENERAL: NAD, lying comfortably in bed HEENT: NC/AT, EOMI CV: +S1S2, RRR, no murmurs, rubs, or gallops. RESP: CTAB, no rales, rhonchi, or wheezes. ABDOMEN: ostomy on the right mid-abdomen, it is surrounded by redness and raw appearing skin that is warm, there is no pain to palpation EXTREMITIES: no swelling or edema. ASSESSMENT/PLAN: 85 yo F with a PMHx of HTN, DM2, HLD, CKD, cystectomy with ileal conduit, and hypothyroidism that presented to the ED after her daughter noticed a change in her mental status, found to have redness warmth and irritation around her ostomy site concerning for cellulitis. #Fevers/nauseavomiting - urine cultures/blood cultures pending - CXR - consider restarting anti-microbial therapy #Cellulitis of ostomy site - urology c/s appreciated - d/w dr del valle - o/p follow up with primary urologist - procedure performed at [facility] -Dr. Jacob consulted - follow recs for wound care - recommending d/c abx - likely contact dermatitis from urine #AMS - secondary to metabolic encephalopathy - resolved #IDDM -Continue detemir and sliding scale. -Hypoglycemic protocol. -Consistent carbohydrate diet. #POC stage 1 sacral ulcer -Continue to monitor. -Reposition every 2 hours. #CKD stage 4 -Avoid nephrotoxic drugs. -Continue to monitor. #HTN -Continue home atenolol #CAD s/p stents -Continue home clopidogrel and aspirin 81 mg #DVT prophylaxis Heparin SC Dispo: Pending clinical improvement VS,Fishbone, I+O VS, Fishbone, I+O Laboratory Tests 06/13/20 08:00 Vital Signs Date Time Temp Pulse Resp B/P (MAP) Pulse Ox O2 Delivery O2 Flow Rate FiO2 06/13/20 06:00 98.8 72 16 137/60 (85) 97 Room Air I&O- Last 24 Hours up to 6 AM 06/13/20 06:00 Intake Total 930 ml Output Total 1450 ml Balance -520 ml HERMES DAVIS MD Jun 13, 2020 12:39
[2020-06-13 14:00] VITALS: BP 144/61
--- NOTE | 2020-06-13 14:12 | REPVR ---
PROCEDURE INFORMATION: Exam: CT Chest Without Contrast Exam date and time: 06/13/2020 1:36 PM Age: 85 years old Clinical indication: Fever; Additional info: Fevers TECHNIQUE: Imaging protocol: Computed tomography of the chest without contrast. Radiation optimization: All CT scans at this facility use at least one of these dose optimization techniques: automated exposure control; mA and/or kV adjustment per patient size (includes targeted exams where dose is matched to clinical indication); or iterative reconstruction. COMPARISON: CT Chest without contrast 02/21/2018 6:30 AM FINDINGS: Lungs: Bibasilar bronchiectasis is stable with findings of interstitial lung changes slightly advanced since the previous examination. Stable or slightly increasing subsegmental atelectasis seen anteriorly within the left lower lobe. Minimally increased pleural thickening right apex. Pleural space: There is a small left pleural effusion which is new. Heart: Unremarkable. No cardiomegaly. No pericardial effusion. Mediastinal space: There is a small stable hiatal hernia. 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 The aortic findings are stable. Vascular calcifications are stable including coronary artery calcifications. Lymph nodes: Unremarkable. No enlarged lymph nodes. Liver: The liver is very fatty heterogeneous but not completely scanned through possibly asymmetric fatty infiltration. Diffuse infiltrative process cannot be excluded. Bones/joints: Arthritic changes are stable in the spine. Soft tissues: There has been a left mastectomy. IMPRESSION: 1. No focal consolidative pneumonic appearing infiltrate. 2. Bronchiectasis and chronic changes with possibly minimally increasing left base atelectasis with a new small left effusion. 3. Stable aortic findings. 4. Heterogeneous liver questionably asymmetric fatty infiltration although a diffuse infiltrative process cannot be excluded. Electronically signed by: Vicente Santiago On 06/13/2020 14:12:08 PM
--- NOTE | 2020-06-13 14:22 | REPVR ---
PROCEDURE INFORMATION: Exam: CT Abdomen And Pelvis Without Contrast Exam date and time: 06/13/2020 1:36 PM Age: 85 years old Clinical indication: Fever; Additional info: Fevers TECHNIQUE: Imaging protocol: Computed tomography of the abdomen and pelvis without contrast. Radiation optimization: All CT scans at this facility use at least one of these dose optimization techniques: automated exposure control; mA and/or kV adjustment per patient size (includes targeted exams where dose is matched to clinical indication); or iterative reconstruction. COMPARISON: CT ABD PELVIS W/O CONTRAST 11/02/2018 10:46 PM FINDINGS: Mediastinal space: Hiatal hernia stable. Liver: The liver is now very heterogeneous and enlarged 190 mm. This could represent asymmetric fatty infiltration although an infiltrative diffuse process cannot be excluded. Consider MRI. Gallbladder and bile ducts: Normal. No calcified stones. No ductal dilation. Pancreas: Normal. No ductal dilation. Spleen: Normal. No splenomegaly. Adrenals: Normal. No mass. Kidneys and ureters: There is a duplicated collecting system on the left. There is an ostomy on the right which could be urinary diversion. Artifact from the total hip replacement precludes adequate evaluation of the pelvic structures. There is increasing hydronephrosis on the right. There is mild inflammatory changes surrounding the proximal ureter in the presence of infection cannot excluded. There is prominence of the left kidney's collecting system similar to the previous exam. Stomach and bowel: There is a distended rectum with feces. Postoperative changes seen involving the small bowel anteriorly in this is stable. Appendix: No evidence of appendicitis. Intraperitoneal space: Unremarkable. No free air. No significant fluid collection. Vasculature: Unremarkable. No abdominal aortic aneurysm. Lymph nodes: Unremarkable. No enlarged lymph nodes. Urinary bladder: Unremarkable as visualized. Reproductive: Unremarkable as visualized. Bones/joints: There is stable artifact from a hip replacement. Diffuse arthritic changes with listhesis is stable in the spine. Soft tissues: Unremarkable. Other findings: The chest was discussed in a separate CT scan. IMPRESSION: 1. Retained feces, extensive in the rectum. 2. Suspect the urinary diversion. There is duplicated left collecting system with mild prominence and increasing hydronephrosis on the right with inflammatory changes surrounding the pelvis and proximal ureter possibly infectious. 3. Very heterogeneous liver possibly asymmetric fatty infiltration although an infiltrative process cannot be excluded. Electronically signed by: Vicente Santiago On 06/13/2020 14:22:16 PM
[2020-06-13] MEDS: cefTRIAXone SOD 1 GM in D5W MINI-BAG PLUS 50 ML IV SCH (18:01)
[2020-06-13 22:00] VITALS: BP 117/56
[2020-06-13] MEDS: ATORVASTATIN 20 MG TAB PO SCH (22:07)
[2020-06-13] MEDS: LEVEMIR (INSULIN DETEMIR) 1 UNITS/0.01ML SC SCH (22:09)
[2020-06-13] MEDS: atenoloL 25 MG TAB PO SCH (22:17)
[2020-06-14 06:00] VITALS: BP 122/57
[2020-06-14] MEDS: HumaLOG INSULIN (NovoLOG) PER UNIT SC SCH ×4 (07:30→21:00)
[2020-06-14 07:42] LABS: BASO # 0.1 10^3/uL (0.0-0.2); BASO % 0.7 % (0.0-1.0); EOS # 0.8 10^3/uL (0.0-0.5); EOS % 5.1 % (0.0-3.0); HEMATOCRIT 31.2 % (36.0-47.0); HEMOGLOBIN 9.6 g/dl (12.0-15.5); LYMPH # 1.7 10^3/uL (1.5-5.0); LYMPH % 10.8 % (24.0-44.0); MEAN CORPUSCULAR HEMOGLOBIN 29.4 pg (27.0-33.0); MEAN CORPUSCULAR HGB CONC 30.8 g/dl (32.0-36.5); MEAN CORPUSCULAR VOLUME 95.7 fl (80.0-96.0); MONO # 1.1 10^3/uL (0.0-0.8); MONO % 7.4 % (0.0-5.0); NEUTROPHILS # 11.3 10^3/uL (1.5-8.5); NEUTROPHILS % 73.7 % (36.0-66.0); PLATELET COUNT, AUTOMATED 423 10^3/uL (150-450); RED BLOOD COUNT 3.26 10^6/uL (4.00-5.40); WHITE BLOOD COUNT 15.4 10^3/uL (4.0-10.0)
[2020-06-14 08:06] LABS: CALCIUM LEVEL 8.9 MG/DL (8.8-10.2); CREATININE FOR GFR 2.32 MG/DL (0.55-1.30); GLOMERULAR FILTRATION RATE 21.2 (>32); POTASSIUM SERUM 4.6 MEQ/L (3.5-5.1)
--- NOTE | 2020-06-14 08:13 | IPNPDOC ---
Subjective Review oF Systems Chief Complaint The patient is a 85-year-old female admitted with a reason for visit of Cellulitis. Events since Last Encounter I was asked by Dr. Savage to see this patient again for R hydro on CT done for rising WBC. CT, reviewed, is compared to 11/15 study, showing minimal if any increase in R hydro and an ileal conduit. Some inflammatory changes are noted @ renal pelvis of questionabkle significance. She has a L duplication and a nonobstructing L renal stone. WBC 13. No temps>100.5 since admission. Urine grew mixed jones c/w conduit and BC negative. Pt denies R flank pain. One episode of vomiting yesterday. Hungry this am. She is on asa/plavix. Wound team hard at work on chemical/fungal parastomal and widespread skin breakdown which is improving significantly. General: Reports: Normal Appetite; Denies: Chills Constitutional: Reports: Malaise; Denies: Fever, Chills ENT: Denies: Head Aches Skin: Reports: Rash, Lesions, Breakdown Pulmonary: Denies: Dyspnea, Cough Gastrointestinal: Reports: Vomiting (times 1 yesterday); Denies: Nausea, Abdominal Pain Musculoskeletal: Denies: Back Pain Neurological: Denies: Change in Speech Psych: Reports: Mood Normal Objective Physical Examination General Exam: Alert, Cooperative, No Acute Distress, Mild Distress Eye Exam: PERRLA, EOMI ENT EXAM: Atraumatic, Nares Patent Neck Exam: Supple Chest Exam: Normal air movement Heart Exam: Positive: Rate Normal ABDOMEN EXAM: Normal bowel sounds, Other (improving skin breakdown on abdomen and thighs. No CVAT) Skin Exam: Rash, Breakdown Neuro Exam: Normal Speech Psych Exam: Mental status NL, Mood NL, Oriented x 3 Vital Signs/I&O Vital Signs Date Time Temp Pulse Resp B/P (MAP) Pulse Ox O2 Delivery O2 Flow Rate FiO2 06/14/20 06:00 98.1 69 18 122/57 (78) 97 Room Air I&O- Last 24 Hours up to 6 AM 06/14/20 05:59 Intake Total 500 ml Output Total 1640 ml Balance -1140 ml Laboratory Data Labs 24H Laboratory Tests 2 06/13/20 12:08: Bedside Glucose (Misc Panel) 83 06/13/20 13:00: Urine Color YELLOW, Urine Appearance CLOUDYH, Urine pH 6.0, Urine Specific [place] 1.009, Urine Protein 1+H, Urine Glucose (UA) NEGATIVE, Urine Ketones NEGATIVE, Urine Blood 3+H, Urine Nitrite NEGATIVE, Urine Bilirubin NEGATIVE, Urine Urobilinogen 0.2, Urine Leukocyte Esterase 3+H, Urine WBC (Auto) TNTCH, Urine RBC (Auto) 142H, Urine Hyaline Casts (Auto) 0, Urine Bacteria (Auto) 2+H, Urine Squamous Epithelial Cells 0, Urine Mucus (Auto) SMALL, Urine Sperm (Auto) 06/13/20 16:53: Bedside Glucose (Misc Panel) 160H 06/13/20 21:38: Bedside Glucose (Misc Panel) 218H 06/14/20 07:25: Immature Granulocyte % (Auto) 2.3, Neutrophils (%) (Auto) 73.7H, Lymphocytes (%) (Auto) 10.8L, Monocytes (%) (Auto) 7.4H, Eosinophils (%) (Auto) 5.1H, Basophils (%) (Auto) 0.7, Neutrophils # (Auto) 11.3H, Lymphocytes # (Auto) 1.7, Monocytes # (Auto) 1.1H, Eosinophils # (Auto) 0.8H, Basophils # (Auto) 0.1, Nucleated Red Blood Cells % (auto) 0.1H CBC/BMP Laboratory Tests 06/14/20 07:25 FSBS Laboratory Tests Test 06/13/20 12:08 06/13/20 16:53 06/13/20 21:38 Range/Units Bedside Glucose (Misc Panel) 83 160 218 83-110 MG/DL Microbiology Microbiology 06/13/20 Blood Culture, Received Pending 06/13/20 Blood Culture, Received Pending 06/13/20 Urine Culture, Received Pending 06/09/20 Urine Culture - Final, Complete 06/09/20 Blood Culture - Preliminary, Resulted No Growth after 72 hours. All specime... Assessment/Plan Date Seen The patient was seen on 06/14/20. Patient Summary A: Severe skin breakdown issues related to chronic urine exposure. R hydro - ess stable. Doubt clinically significant. I would advise against perc at this time given anticoagulation, lack of sx and clinical stability. Non obstructing L renal stone. P: OK to resume diet and anticoagulants. Continued outstanding skin care per wound team as is being done. F/U with her regular urologist post discharge. Plan/VTE VTE Prophylaxis Ordered?: Yes MARCOS CLARK MD Jun 14, 2020 08:13
[2020-06-14] MEDS: SODIUM BICARBONATE 325 MG TAB PO SCH ×2 (09:32→21:43)
[2020-06-14] MEDS: LEVOTHYROXINE 50MCG TABLET (0.05MG) PO SCH (09:32)
[2020-06-14] MEDS: FERROUS SULFATE 325MG TAB PO SCH ×2 (09:32→21:43)
[2020-06-14] MEDS: PANTOPRAZOLE 20 MG TAB PO SCH (09:32)
[2020-06-14] MEDS: MULTIVITAMINS/MINERALS THERAP 1 TAB PO SCH (09:32)
--- NOTE | 2020-06-14 12:00 | IPNPDOC ---
Text Note Date of Service The patient was seen on 06/14/20. NOTE SUBJECTIVE: Patient seen and examined at bedside. Overnight events significant for nausea with one episode of vomiting just after dinner. Later in the day she again reported some nausea. OBJECTIVE: VITAL SIGNS: please see below. GENERAL: NAD, lying comfortably in bed HEENT: NC/AT, EOMI CV: +S1S2, RRR, no murmurs, rubs, or gallops. RESP: CTAB, no rales, rhonchi, or wheezes. ABDOMEN: ostomy on the right mid-abdomen, it is surrounded by redness and raw appearing skin that is warm, there is no pain to palpation EXTREMITIES: no swelling or edema. ASSESSMENT/PLAN: 85 yo F with a PMHx of HTN, DM2, HLD, CKD, cystectomy with ileal conduit, and hypothyroidism that presented to the ED after her daughter noticed a change in her mental status, found to have redness warmth and irritation around her ostomy site concerning for cellulitis. #nauseavomiting - urine cultures/blood cultures pending - anti-emetic therapy #leukocytosis - still rising - re-started ceftriaxone yesterday - further workup unrevealing #Cellulitis of ostomy site - urology c/s appreciated - d/w dr del valle - o/p follow up with primary urologist - procedure performed at [facility] -Dr. Jacob consulted - follow recs for wound care - likely contact dermatitis from urine #AMS - secondary to metabolic encephalopathy - resolved #IDDM -Continue detemir and sliding scale. -Hypoglycemic protocol. -Consistent carbohydrate diet. #POC stage 1 sacral ulcer -Continue to monitor. -Reposition every 2 hours. #CKD stage 4 -Avoid nephrotoxic drugs. -Continue to monitor. #HTN -Continue home atenolol #CAD s/p stents -Continue home clopidogrel and aspirin 81 mg #DVT prophylaxis Heparin SC Dispo: Pending clinical improvement VS,Fishbone, I+O VS, Fishbone, I+O Laboratory Tests 06/14/20 07:25 Vital Signs Date Time Temp Pulse Resp B/P (MAP) Pulse Ox O2 Delivery O2 Flow Rate FiO2 06/14/20 06:00 98.1 69 18 122/57 (78) 97 Room Air I&O- Last 24 Hours up to 6 AM 06/14/20 06:00 Intake Total 500 ml Output Total 1640 ml Balance -1140 ml HERMES DAVIS MD Jun 14, 2020 12:00
[2020-06-14] MEDS: ONDANSETRON 4 MG TAB PO PRN ×2 (12:23→21:53)
[2020-06-14] MEDS: MOM 30ML SUSPENSION UDC PO PRN (17:23)
[2020-06-14] MEDS: cefTRIAXone SOD 1 GM in D5W MINI-BAG PLUS 50 ML IV SCH (17:23)
[2020-06-14] MEDS: atenoloL 25 MG TAB PO SCH (21:00)
[2020-06-14] MEDS: ATORVASTATIN 20 MG TAB PO SCH (21:43)
[2020-06-14] MEDS: DOCUSATE SODIUM 100 MG CAP PO PRN (21:43)
[2020-06-14] MEDS: LEVEMIR (INSULIN DETEMIR) 1 UNITS/0.01ML SC SCH (21:43)
[2020-06-14 22:00] VITALS: BP 105/45
[2020-06-14] MEDS ORDERED: diphenhydrAMINE 25MG CAP PO ONE (23:30)
[2020-06-15 06:00] VITALS: BP 114/48
[2020-06-15 07:09] LABS: CALCIUM LEVEL 8.6 MG/DL (8.8-10.2); CREATININE FOR GFR 2.39 MG/DL (0.55-1.30); GLOMERULAR FILTRATION RATE 20.5 (>32); POTASSIUM SERUM 4.8 MEQ/L (3.5-5.1)
[2020-06-15 07:10] LABS: BASO # 0.1 10^3/uL (0.0-0.2); BASO % 0.9 % (0.0-1.0); EOS # 0.5 10^3/uL (0.0-0.5); EOS % 4.2 % (0.0-3.0); HEMATOCRIT 27.8 % (36.0-47.0); HEMOGLOBIN 8.5 g/dl (12.0-15.5); LYMPH # 2.2 10^3/uL (1.5-5.0); LYMPH % 17.3 % (24.0-44.0); MEAN CORPUSCULAR HEMOGLOBIN 29.8 pg (27.0-33.0); MEAN CORPUSCULAR HGB CONC 30.6 g/dl (32.0-36.5); MEAN CORPUSCULAR VOLUME 97.5 fl (80.0-96.0); MONO # 1.2 10^3/uL (0.0-0.8); MONO % 9.1 % (0.0-5.0); NEUTROPHILS # 8.5 10^3/uL (1.5-8.5); NEUTROPHILS % 65.9 % (36.0-66.0); PLATELET COUNT, AUTOMATED 417 10^3/uL (150-450); RED BLOOD COUNT 2.85 10^6/uL (4.00-5.40); WHITE BLOOD COUNT 12.9 10^3/uL (4.0-10.0)
--- NOTE | 2020-06-15 09:34 | IPNPDOC ---
Text Note Date of Service The patient was seen on 06/15/20. NOTE SUBJECTIVE: Patient seen and examined at bedside. Patient feels better today. No further episodes of nausea. OBJECTIVE: VITAL SIGNS: please see below. GENERAL: NAD, lying comfortably in bed, eating breakfast HEENT: NC/AT, EOMI CV: +S1S2, RRR, no murmurs, rubs, or gallops. RESP: CTAB, no rales, rhonchi, or wheezes. ABDOMEN: ostomy on the right mid-abdomen, improved surrounding erythema, there is no pain to palpation EXTREMITIES: no swelling or edema. ASSESSMENT/PLAN: 85 yo F with a PMHx of HTN, DM2, HLD, CKD, cystectomy with ileal conduit, and hypothyroidism that presented to the ED after her daughter noticed a change in her mental status, found to have redness warmth and irritation around her ostomy site concerning for cellulitis. #nauseavomiting - improved - urine cultures/blood cultures pending - anti-emetic therapy #leukocytosis - improved today - further workup unrevealing #Cellulitis of ostomy site - urology c/s appreciated - d/w dr del valle - o/p follow up with primary urologist - procedure performed at [facility] -Dr. Jacob consulted - follow recs for wound care - likely contact dermatitis from urine #AMS - secondary to metabolic encephalopathy - resolved #IDDM -Continue detemir and sliding scale. -Hypoglycemic protocol. -Consistent carbohydrate diet. #POC stage 1 sacral ulcer -Continue to monitor. -Reposition every 2 hours. #CKD stage 4 -Avoid nephrotoxic drugs. -Continue to monitor. #HTN -Continue home atenolol #CAD s/p stents -Continue home clopidogrel and aspirin 81 mg #DVT prophylaxis Heparin SC Dispo: Pending clinical improvement; anticipating discharge home in 48 hours VS,Fishbone, I+O VS, Fishbone, I+O Laboratory Tests 06/15/20 06:00 Vital Signs Date Time Temp Pulse Resp B/P (MAP) Pulse Ox O2 Delivery O2 Flow Rate FiO2 06/15/20 06:00 98.0 69 16 114/48 (70) 97 Room Air I&O- Last 24 Hours up to 6 AM 06/15/20 06:00 Intake Total 550 ml Output Total 1350 ml Balance -800 ml HERMES DAVIS MD Jun 15, 2020 09:34
[2020-06-15] MEDS: HumaLOG INSULIN (NovoLOG) PER UNIT SC SCH ×4 (09:38→21:00)
[2020-06-15] MEDS: FERROUS SULFATE 325MG TAB PO SCH ×2 (09:39→21:37)
[2020-06-15] MEDS: SODIUM BICARBONATE 325 MG TAB PO SCH ×2 (09:39→21:37)
[2020-06-15] MEDS: MULTIVITAMINS/MINERALS THERAP 1 TAB PO SCH (09:39)
[2020-06-15] MEDS: PANTOPRAZOLE 20 MG TAB PO SCH (09:39)
[2020-06-15] MEDS: LEVOTHYROXINE 50MCG TABLET (0.05MG) PO SCH (09:39)
[2020-06-15 14:00] VITALS: BP 129/54
[2020-06-15] MEDS: cefTRIAXone SOD 1 GM in D5W MINI-BAG PLUS 50 ML IV SCH (18:36)
[2020-06-15] MEDS: ATORVASTATIN 20 MG TAB PO SCH (21:37)
[2020-06-15] MEDS: LEVEMIR (INSULIN DETEMIR) 1 UNITS/0.01ML SC SCH (21:37)
[2020-06-15] MEDS: atenoloL 25 MG TAB PO SCH (21:39)
[2020-06-15 22:00] VITALS: BP 118/47
[2020-06-15] MEDS ORDERED: diphenhydrAMINE 25MG CAP PO ONE (23:15)
[2020-06-16 06:00] VITALS: BP 118/86
[2020-06-16 07:46] LABS: BASO # 0.1 10^3/uL (0.0-0.2); BASO % 0.5 % (0.0-1.0); EOS # 0.7 10^3/uL (0.0-0.5); EOS % 4.6 % (0.0-3.0); HEMATOCRIT 29.9 % (36.0-47.0); HEMOGLOBIN 9.1 g/dl (12.0-15.5); LYMPH # 1.6 10^3/uL (1.5-5.0); LYMPH % 10.7 % (24.0-44.0); MEAN CORPUSCULAR HEMOGLOBIN 29.7 pg (27.0-33.0); MEAN CORPUSCULAR HGB CONC 30.4 g/dl (32.0-36.5); MEAN CORPUSCULAR VOLUME 97.7 fl (80.0-96.0); MONO # 1.1 10^3/uL (0.0-0.8); MONO % 7.3 % (0.0-5.0); NEUTROPHILS # 11.3 10^3/uL (1.5-8.5); NEUTROPHILS % 74.7 % (36.0-66.0); PLATELET COUNT, AUTOMATED 459 10^3/uL (150-450); RED BLOOD COUNT 3.06 10^6/uL (4.00-5.40); WHITE BLOOD COUNT 15.1 10^3/uL (4.0-10.0)
[2020-06-16 08:04] LABS: CALCIUM LEVEL 8.9 MG/DL (8.8-10.2); CREATININE FOR GFR 2.44 MG/DL (0.55-1.30)
[2020-06-16] MEDS: FERROUS SULFATE 325MG TAB PO SCH ×2 (09:09→21:20)
[2020-06-16] MEDS: MULTIVITAMINS/MINERALS THERAP 1 TAB PO SCH (09:09)
[2020-06-16] MEDS: HumaLOG INSULIN (NovoLOG) PER UNIT SC SCH ×4 (09:09→21:00)
[2020-06-16] MEDS: PANTOPRAZOLE 20 MG TAB PO SCH (09:09)
[2020-06-16] MEDS: LEVOTHYROXINE 50MCG TABLET (0.05MG) PO SCH (09:09)
[2020-06-16] MEDS: SODIUM BICARBONATE 325 MG TAB PO SCH ×2 (09:09→21:20)
--- NOTE | 2020-06-16 11:07 | IPNPDOC ---
Text Note Date of Service The patient was seen on 06/16/20. NOTE SUBJECTIVE: Patient seen and examined at bedside. Patient feels well today. No further episodes of nausea. OBJECTIVE: VITAL SIGNS: please see below. GENERAL: NAD, lying comfortably in bed, eating breakfast HEENT: NC/AT, EOMI CV: +S1S2, RRR, no murmurs, rubs, or gallops. RESP: CTAB, no rales, rhonchi, or wheezes. ABDOMEN: ostomy on the right mid-abdomen, improved surrounding erythema, there is no pain to palpation EXTREMITIES: no swelling or edema. ASSESSMENT/PLAN: 85 yo F with a PMHx of HTN, DM2, HLD, CKD, cystectomy with ileal conduit, and hypothyroidism that presented to the ED after her daughter noticed a change in her mental status, found to have redness warmth and irritation around her ostomy site concerning for cellulitis. #nauseavomiting - improved - urine cultures showed yeast - started fluconazole #leukocytosis - no clear source of infx - further workup unrevealing #Cellulitis of ostomy site - urology c/s appreciated - d/w dr del valle - o/p follow up with primary urologist - procedure performed at [facility] -Dr. Jacob consulted - follow recs for wound care - likely contact dermatitis from urine #AMS - secondary to metabolic encephalopathy - resolved #IDDM -Continue detemir and sliding scale. -Hypoglycemic protocol. -Consistent carbohydrate diet. #POC stage 1 sacral ulcer -Continue to monitor. -Reposition every 2 hours. #CKD stage 4 -Avoid nephrotoxic drugs. -Continue to monitor. #HTN -Continue home atenolol #CAD s/p stents -Continue home clopidogrel and aspirin 81 mg #DVT prophylaxis Heparin SC Dispo: Pending clinical improvement; anticipating discharge home in 24-48 hours VS,Fishbone, I+O VS, Fishbone, I+O Laboratory Tests 06/16/20 06:39 Vital Signs Date Time Temp Pulse Resp B/P (MAP) Pulse Ox O2 Delivery O2 Flow Rate FiO2 06/16/20 06:00 98.2 76 18 118/86 (97) 98 Room Air I&O- Last 24 Hours up to 6 AM 06/16/20 06:00 Intake Total 900 ml Output Total 1100 ml Balance -200 ml HERMES DAVIS MD Jun 16, 2020 11:06
[2020-06-16] MEDS: FLUCONAZOLE 100 MG TAB PO SCH (12:35)
[2020-06-16 14:00] VITALS: BP 106/54
[2020-06-16] MEDS: MOM 30ML SUSPENSION UDC PO PRN (16:50)
[2020-06-16] MEDS: DOCUSATE SODIUM 100 MG CAP PO PRN (16:50)
[2020-06-16] MEDS: cefTRIAXone SOD 1 GM in D5W MINI-BAG PLUS 50 ML IV SCH (18:12)
[2020-06-16] MEDS: ATORVASTATIN 20 MG TAB PO SCH (21:19)
[2020-06-16] MEDS: atenoloL 25 MG TAB PO SCH (21:20)
[2020-06-16] MEDS: LEVEMIR (INSULIN DETEMIR) 1 UNITS/0.01ML SC SCH (21:21)
[2020-06-17 06:00] VITALS: BP 106/40
[2020-06-17 06:18] LABS: BASO # 0.1 10^3/uL (0.0-0.2); BASO % 0.5 % (0.0-1.0); EOS # 0.8 10^3/uL (0.0-0.5); EOS % 4.7 % (0.0-3.0); HEMATOCRIT 30.4 % (36.0-47.0); HEMOGLOBIN 9.2 g/dl (12.0-15.5); LYMPH # 1.7 10^3/uL (1.5-5.0); LYMPH % 10.2 % (24.0-44.0); MEAN CORPUSCULAR HEMOGLOBIN 29.7 pg (27.0-33.0); MEAN CORPUSCULAR HGB CONC 30.3 g/dl (32.0-36.5); MEAN CORPUSCULAR VOLUME 98.1 fl (80.0-96.0); MONO % 6.2 % (0.0-5.0); NEUTROPHILS # 12.9 10^3/uL (1.5-8.5); NEUTROPHILS % 76.6 % (36.0-66.0); PLATELET COUNT, AUTOMATED 460 10^3/uL (150-450); WHITE BLOOD COUNT 16.9 10^3/uL (4.0-10.0)
[2020-06-17 06:33] LABS: CALCIUM LEVEL 8.8 MG/DL (8.8-10.2); CREATININE FOR GFR 2.39 MG/DL (0.55-1.30); GLOMERULAR FILTRATION RATE 20.5 (>32); POTASSIUM SERUM 5.2 MEQ/L (3.5-5.1)
[2020-06-17] MEDS ORDERED: VANCOMYCIN HCL 1,000 MG, VIAL MATE ADAPTER 1 EACH in D5W 250 ML IV SCH (07:45)
[2020-06-17] MEDS ORDERED: VANCOMYCIN INTERMITTENT/PULSE DOSING BY CLINICAL PHARMACIST PER DOSING PROTOCOL XX SCH (09:00)
[2020-06-17] MEDS ORDERED: VANCOMYCIN HCL 750 MG, VIAL MATE ADAPTER 1 EACH in D5W 250 ML IV ONE (09:00)
[2020-06-17] MEDS: HumaLOG INSULIN (NovoLOG) PER UNIT SC SCH ×4 (09:18→21:00)
[2020-06-17] MEDS: FERROUS SULFATE 325MG TAB PO SCH ×2 (09:18→21:19)
[2020-06-17] MEDS: MULTIVITAMINS/MINERALS THERAP 1 TAB PO SCH (09:18)
[2020-06-17] MEDS: LEVOTHYROXINE 50MCG TABLET (0.05MG) PO SCH (09:18)
[2020-06-17] MEDS: SODIUM BICARBONATE 325 MG TAB PO SCH ×2 (09:18→21:18)
[2020-06-17] MEDS: FLUCONAZOLE 100 MG TAB PO SCH (09:18)
[2020-06-17] MEDS: PANTOPRAZOLE 20 MG TAB PO SCH (09:53)
[2020-06-17] MEDS ORDERED: VANCOMYCIN HCL 500 MG in D5W MINI-BAG PLUS 100 ML IV ONE (10:00)
--- NOTE | 2020-06-17 11:16 | IPNPDOC ---
Text Note Date of Service The patient was seen on 06/17/20. NOTE Subjective Followup: Patient is seen in her room. Chief complaint of increased development of a rash. No acute events overnight. The patient is complaining of a inguinal rash. OBJECTIVE: Vitals: See below General: Patient is sitting upright in a chair and alert and oriented. She cannot stand up without assistance. There is some kyphosis to her thoracic vertebrae. Skin: The patient presents as an inpatient with a perineal rash, extending bilaterally from the anterior inguinal area, inferiorly to the vagina, and posteriorly to the level of S1. The rash is dry with flaking of corneal layer without pustules. The skin beneath the flaking is erythematous. She has a R sided urostomy from which the bag attachment is also irritated and erythematous. Heart: Regular rate and rhythm. Normal S1 and S2 sounds heard. No mummers or gallops noted. Lungs: Lungs are clear to auscultation without wheezing, rhonchi or rubs. UG: She has a R sided urostomy, and the container contains slightly pink urine. GI: She has some leaking green stool from her rectum. Extremities: no swelling or edema. ASSESSMENT/PLAN: 85 yo F with PMH of HTN, DM2, HLD, CKD, cystectomy with ileal conduit, and hypothyroidism that presented to the ED after her daughter noticed a change in her mental status, found t have redness and irritation around her colostomy site. #nausea-vomiting -improved #Yeast -UA on 06/13/2020 did not grow yeast -Fluconazole continued. #leukocytosis - WBC increased from 06/16/2020. 15.1- 16.9 -no clear source of infx #Cellulitis of ostomy site -Rash is spreading. -urology c/s appreciated - d/w dr del valle - o/p follow up wit primary urologist - procedure preformed at [facility] -Dr. Brody consulted - follow recs for wound care - likely contact d ermatitis from urine #IDDM -continue detemir and sliding scale -hypoglycemic protocol -consistent carbohydrate diet #POC State 1 Sacral Ulcer -Continue to monitor -Reposition every 2 hours #CKD Stage 4 - Avoid nephrotoxic drugs -continue to monitor #HTTN -continue home atenolol #CAD s/p stents -continue home clopidogrel and aspirin 81 mg #DVT prophylaxis -Heparin SC Dispo: Pending clinical improvement. Progression of cellulitis. Plan: Nurses are treating the irritated colostomy and the rash with petroleum jelly and zinc oxide. VS,Fishbone, I+O VS, Fishbone, I+O Laboratory Tests 06/17/20 05:49 Vital Signs Date Time Temp Pulse Resp B/P (MAP) Pulse Ox O2 Delivery O2 Flow Rate FiO2 06/17/20 06:00 98.4 71 18 106/40 (62) 98 06/16/20 14:00 Room Air I&O- Last 24 Hours up to 6 AM 06/17/20 05:59 Intake Total 720 ml Output Total 600 ml Balance 120 ml ANNE VANG Jun 17, 2020 10:25
[2020-06-17 14:00] VITALS: BP 125/60
[2020-06-17] MEDS ORDERED: LIDOCAINE 1% MDV 20ML VIAL As Ordered ONE (14:13)
--- NOTE | 2020-06-17 16:29 | REP ---
PROCEDURE NAME: MIDLINE INSERTION W/ SITERITE SEDATION: None CLINICAL INFORMATION: difficult venous access, need for IV antibiotics PHYSICIAN: WILLIAM Dominguez PROCEDURE DESCRIPTION: The procedure was performed by WILLIAM Mejia, under the direct supervision of Dr. Medina. The risks and benefits of the procedure were explained to the patient and an informed consent was obtained both verbally and written. Directly prior to the start of the procedure a formal time-out was completed in the procedure room. Both of the brachial as well as the basilic veins were localized using ultrasound guidance. The skin was prepped and draped in sterile fashion. Approximately 5 mL of 1% lidocaine 10 mg/ml was used as a local anesthetic. Using ultrasound guidance multiple attempts were made at gaining access with all 3 vessels. Each attempt failed and the vein infiltrated. ESTIMATED BLOOD LOSS: Less than 5 mL COMPLICATIONS: Unable to obtain access. CONCLUSION: Unsuccessful midline catheter insertion <Electronically signed by Leon Medina > 06/17/20 [id number]
[2020-06-17] MEDS: TRIAMCINOLONE ACET 0.1% OINTMENT 15 GM EXT SCH (21:00)
[2020-06-17] MEDS ORDERED: LINEZOLID 600MG TABLET (ZYVOX) PO SCH (21:00)
[2020-06-17] MEDS: atenoloL 25 MG TAB PO SCH (21:18)
[2020-06-17] MEDS: LEVEMIR (INSULIN DETEMIR) 1 UNITS/0.01ML SC SCH (21:19)
[2020-06-17] MEDS: ATORVASTATIN 20 MG TAB PO SCH (21:19)
[2020-06-17 22:00] VITALS: BP 123/60
[2020-06-18 06:00] VITALS: BP 121/65
[2020-06-18 06:38] LABS: BASO # 0.1 10^3/uL (0.0-0.2); BASO % 0.4 % (0.0-1.0); EOS # 0.7 10^3/uL (0.0-0.5); EOS % 5.5 % (0.0-3.0); HEMATOCRIT 30.3 % (36.0-47.0); LYMPH # 2.2 10^3/uL (1.5-5.0); LYMPH % 16.4 % (24.0-44.0); MEAN CORPUSCULAR HEMOGLOBIN 29.1 pg (27.0-33.0); MEAN CORPUSCULAR HGB CONC 29.7 g/dl (32.0-36.5); MEAN CORPUSCULAR VOLUME 98.1 fl (80.0-96.0); MONO # 1.1 10^3/uL (0.0-0.8); MONO % 8.3 % (0.0-5.0); NEUTROPHILS # 9.1 10^3/uL (1.5-8.5); PLATELET COUNT, AUTOMATED 464 10^3/uL (150-450); RED BLOOD COUNT 3.09 10^6/uL (4.00-5.40); WHITE BLOOD COUNT 13.4 10^3/uL (4.0-10.0)
[2020-06-18 06:56] LABS: C REACTIVE PROTEIN QUANTITATIV 4.88 MG/DL (0.00-0.30); CALCIUM LEVEL 8.1 MG/DL (8.8-10.2); CREATININE FOR GFR 2.48 MG/DL (0.55-1.30); GLOMERULAR FILTRATION RATE 19.7 (>32); POTASSIUM SERUM 4.9 MEQ/L (3.5-5.1)
[2020-06-18 07:26] LABS: ERYTHROCYTE SEDIMENTATION RATE 82 mm/hr (0-30)
[2020-06-18] MEDS: HumaLOG INSULIN (NovoLOG) PER UNIT SC SCH ×4 (07:30→21:00)
--- NOTE | 2020-06-18 07:42 | CR ---
DATE OF CONSULTATION: 06/17/2020 REASON FOR CONSULTATION: I was asked to consult by hospitalist for evaluation of cellulitis of abdomen and thigh with leukocytosis. HISTORY OF PRESENT ILLNESS: Mrs. Maldonado is a pleasant, 84-year-old female with a history of recurrent urinary tract infection and severe interstitial cystitis who had undergone ileal conduit with a diversion urostomy in [place] a couple years ago. The patient has always had problems with the urostomy with leakage around her abdomen, thighs and secondary contact dermatitis. The patient was brought into the hospital with acute mental status changes and hypoxia with an O2 sat of 70.There was some concern of a stroke. She had a CT of the head that was negative. The patient had severe abdominal irritation and redness around the stoma. She had a mild leukocytosis of 10.6 when she came in but she was afebrile. Her white count decreased to 7 48-hours later and then has continued to increase. She had two sets of blood cultures that were negative on 06/09. Urine culture was negative. On 06/13, urine culture had yeast organism. CT of the abdomen and pelvis showed a mild right-sided hydronephrosis of the proximal ureter which was somewhat new with a fatty liver. Blood cultures on 06/13 were negative. Abdominal culture is pending. The patient received on 06/09 IV ceftriaxone and IV vancomycin which was continued until the . She was then switched to Ceftriaxone from 06/13 to 06/17. On 06/17, she was restarted on IV vancomycin but she lost her IV and therefore this was discontinued. She received fluconazole since 06/16 and Linezolid was ordered but she did not receive any of that. The patient looks well. She has no complaints except for irritation around the abdominal folds and her buttock area that is painful. She has no nausea, vomiting or diarrhea, no cough or shortness of breath. ALLERGIES: PENICILLIN, CIPROFLOXACIN, FLUCONAZOLE, IODINE, MORPHINE, NITROFURANTOIN, SULFA. MEDICATIONS: * Fluconazole 200 mg p.o. daily. She is currently day #2. * Milk of Magnesia as needed. * Vitamin D 50,000 units weekly. * Levothyroxine 50 mcg daily. * Multivitamin one tablet daily. * Pantoprazole 20 mg daily. * Colace 100 mg p.o. b.i.d. * Tylenol p.r.n. * Atenolol 25 mg p.o. q.h.s. * Atorvastatin 40 mg p.o. q.h.s. * Ferrous sulfate 325 mg b.i.d. * Levemir 30 units subcu q.h.s. * Sodium bicarb 650 mg p.o. b.i.d. * Lispro sliding scale. LABORATORY DATA: White count has fluctuated between 10.6 to 16.9, hemoglobin 9.2, hematocrit 30.4, platelets 460, 76% neutrophils, 10% lymphocytes, 6% monocytes. Sodium 137, potassium 5.2, chloride 112, bicarb 19, BUN 59, creatinine 2.39 which has remained stable over the past week. Glucose 142, calcium 8.8. CRP on admission was 8.6. Blood cultures 06/09, one set was negative. Urine culture negative. 06/13, urine culture has yeast-like organism. Blood cultures, two sets, no growth after 72 hours. Abdominal cultures pending. 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 Urology consultation done on 06/11/2020. Impression was extensive skin breakdown related to urinary leak and fungal and chemical dermatitis and his recommendation was wound consult which has been done. PHYSICAL EXAMINATION: Pleasant female in no acute distress. Temperature is 98.9, pulse 74, respirations 17, blood pressure 125/60, O2 sat 98% on room air. Heart: Normal S1, S2, no murmurs, rubs or gallops. Lungs: Clear. No wheezing, rales or rhonchi. Abdomen: Soft, nontender, a urostomy in the right lower quadrant. Diffuse erythema in the lower abdominal fold into the vulvar area and to both thighs and buttock area with significant erythema, skin lacerations, scaling. Extremities: No clubbing, cyanosis or edema, no calf tenderness. Skin: Upper and lower extremity has the same maculopapular rash which patient states is new since she has been in the hospital and she thought was related possibly to the chlorhexidine wipes. PAST MEDICAL HISTORY: 1. Recurrent urinary tract infections. 2. Hypertension. 3. Diabetes. 4. Hyperlipidemia. 5. Chronic kidney disease. 6. Hypothyroidism. 7. Breast cancer 30 years ago, status post mastectomy and chemotherapy. PAST SURGICAL HISTORY: 1. Partial left hip replacement. 2. Back surgery of lumbar fusion, L2 to 5. 3. Cystectomy with ileal conduit, right knee. 4. Arthroplasty. 5. Hysterectomy. 6. Bilateral cataract surgery. FAMILY HISTORY: Not revealing SOCIAL HISTORY: She lives at home with her and son who is her caregiver. Her daughter is Abi Maldonado who is an RN at the hospital. She does not smoke, drink or use drugs. IMPRESSION: This is an 85-year-old female who was admitted with mental status changes with mild leukocytosis. The patient had evidence of fungal dermatitis with chemical dermatitis, urinary leak. Urine cultures positive for yeast-like organism and skin is suggestive of candidiasis plus chemical dermatitis. She is being treated by Dr. Jacob with topical nystatin as well as Cavilon skin prep and according to the nurses, her skin is doing much better. She also has a diffuse maculopapular rash suggestive of an allergic reaction to a medication, possibly Rocephin, possibly chlorhexidine washes and I would recommend using triamcinolone cream on the rash on the arms and legs. PLAN: Continue topical treatment with Nystatin and Cavilon per Dr. Jacob. Continue fluconazole 200 mg p.o. daily for fungal dermatitis due to urinary leak and possible urinary tract infection. Discontinue linezolid. I do not think she has a cellulitis from bacteria etiology. Next, she has what looks like an allergic rash on her arms and legs and I would recommend triamcinolone ointment. I do not see a need for a Midline or PICC line at this time. Discontinue IV vancomycin and linezolid. MTDD
[2020-06-18] MEDS: LEVOTHYROXINE 50MCG TABLET (0.05MG) PO SCH (08:35)
[2020-06-18] MEDS: FLUCONAZOLE 100 MG TAB PO SCH (08:35)
[2020-06-18] MEDS: SODIUM BICARBONATE 325 MG TAB PO SCH ×2 (08:35→21:33)
[2020-06-18] MEDS: PANTOPRAZOLE 20 MG TAB PO SCH (08:35)
[2020-06-18] MEDS: MULTIVITAMINS/MINERALS THERAP 1 TAB PO SCH (08:35)
[2020-06-18] MEDS: FERROUS SULFATE 325MG TAB PO SCH ×2 (08:35→21:00)
--- NOTE | 2020-06-18 10:19 | IPNPDOC ---
Text Note Date of Service The patient was seen on 06/18/20. NOTE SUBJECTIVE: The patient was seen and examined at bedside. The patient feels much better today, and was reportedly had improved sleep. She is alert and oriented and responding to questions. There was one episode of nausea the evening of 06/17/20 after taking her iron pills. No vomiting. Patient reports improved eating. No other complaints except for abdominal and perineal rash. Allergies: Penicillin, ciprofloxacin, fluconazole, iodine, morphine, nitrofurantoin, sulfa. OBJECTIVE: VITALS: See bellow General: No acute distress, lying comfortably in bed. Was woken easily for examination. CV: RRR, S1 and S2 sounds are heard. No murmurers, rubs or gallops noted. LUNGS: Lungs are clear to auscultation. patient is breathing normally. ABDOMEN: There is a urostomy on right mid abdomen. The irritation at the urostomy bag is improving. No flaking present, redness is decreased from day prior. Mild discomfort to palpation. SKIN: There is a perineal, pruritic rash from the inguinal area anteriorly, extending around the urogenital area and up to the level of S1 posteriorly. The anterior rash has improved, with a decrease in redness, itching and irritation. Flaking is no longer present anteriorly. Posteriorly the rash has worsened, is purulent, and the skin has eroded with pinpoint bleeding into the soak pad. Redness is increased. There is some pain with palpation posteriorly, but not notably increased. Soak pad is saturated with urine. No pus is noted. UG: There is a urostomy. Urostomy container contains approx. 200 mL of yellow fluid. No pink discoloration is noted. GI: Bowel sounds are heard in all four quadrants. There is some rectal leaking of solid stool. EXTREMITIES: No swelling or edema. There is some irritation around the IV site, L Upper Extremity. There is a mild rash on R anterior lower extremity, attributed to scratching. ASSESSMENT/PLAN: 85 yo F with a PMHx of HTN, DM2, HLD, CKD, cystectomy with ileal conduit, and hypothyroidism that presented to ED after her daughter noticed a change in her mental status, found to have redness with warmth and irritation around her ostomy site concerning for cellulitis. 1. Rash - DDx Irritated Contact Dermatitis -urology consult appreciated, d/w Dr. Camarillo - o/p follow up with primary urol ogist - urostomy and cystectomy preformed at [facility] -Dermatology consulted- follow recs for wound care. -Culture posterior rash at bleeding site -Abdominal culture on 06/16/20 grew few MRSA and many yeasts. See Microbiology report. - ID on consultation; currently off of antibiotics at this time 2. Nausea/vomiting -one episode of nausea after taking iron pills -Continue to monitor 3. Urine cultures -Yeast growth on of 06/13/20. -Fluconazole continued 4. Leukocytosis - Trending down -No clear source of infection -WBC has improved. 16.9 to 13.4 in the last 24 hrs. 5. IIDM2 -Continue detemir and sliding scale -Hypoglycemic protocol 6. POC stage 1 sacral ulcer -Continue to monitor. -Reposition every 2 hours. 7. CKD stage 4 - Cr baseline of ~2.3 - Cr currently around baseline -Avoid nephrotoxic drugs. -Continue to monitor. 8. HTN - Bp well controlled -Continue home atenolol 9. CAD s/p stents -Continue home clopidogrel and aspirin 81 mg 10. DVT prophylaxis -Heparin SC Disposition: Pending clinical improvement; expected discharge home in 24 hours VS,Jey, I+O VS, Jey, I+O Laboratory Tests 06/18/20 06:18 Vital Signs Date Time Temp Pulse Resp B/P (MAP) Pulse Ox O2 Delivery O2 Flow Rate FiO2 06/18/20 06:00 98.9 66 18 121/65 (83) 99 Room Air I&O- Last 24 Hours up to 6 AM 06/18/20 06:00 Intake Total 960 ml Output Total 2000 ml Balance -1040 ml GME ATTESTATION GME ATTESTATION My faculty preceptor for this patient encounter was physically present during the encounter and was fully available. All aspects of the patient interview, examination, medical decision making process, and medical care plan development were reviewed and approved by the faculty preceptor. The faculty preceptor is aware and concurs with the plan as stated in the body of this note and will attest to such by his/her cosignature. ATTENDING NOTE I, Collin Wren, have independently examined this patient and performed my own physical exam, as well as reviewed the documentation and edited where necessary. I have discussed in detail with the resident / student the findings and plan of treatment as documented by the resident / student and edited their note. I agree with their findings and treatment plan and have edited their documentation. I will continue to follow the patient during this hospital stay. Disposition: - Anticipate DC within 24-48 hours ANNE VANG Jun 18, 2020 10:16 COLLIN WREN MD Jun 18, 2020 15:12
[2020-06-18] MEDS: VITAMIN D 50,000 UNITS CAPSULE (ERGOCALCIFEROL 1.25MG) PO SCH (12:04)
[2020-06-18] MEDS: TRIAMCINOLONE ACET 0.1% OINTMENT 15 GM EXT SCH ×2 (12:04→21:35)
--- NOTE | 2020-06-18 13:55 | CR.PDOC ---
General Date of Consultation: Jun 18, 2020 Consultation REASON FOR CONSULTATION: I was asked to consult by the hospitalist for the evaluation of candidiasis plus irritant contact dermatitis of the perineum and buttocks due to urine and fecal drainage. S:Mrs. Maldonado is a pleasant, 84-year-old female with a history of recurrent uri nary tract infection and severe interstitial cystitis who had undergone ileal conduit with a diversion urostomy in [place] a couple years ago. The patient has always had problems with the urostomy with leakage around her abdomen, thighs and secondary contact dermatitis. The patient was brought into the hospital with acute mental status changes and hypoxia with an O2 sat of 70.There was some concern of a stroke. She had a CT of the head that was negative. The patient had severe abdominal irritation and redness around the stoma. She had a mild leukocytosis of 10.6 when she came in but she was afebrile. Her white count decreased to 7 48-hours later and then has continued to increase. She had two sets of blood cultures that were negative on 06/09. Urine culture was negative. On 06/13, urine culture had yeast organism. CT of the abdomen and pelvis showed a mild right-sided hydronephrosis of the proximal ureter which was somewhat new with a fatty liver. Blood cultures on 06/13 were negative. The patient received on 06/09 IV ceftriaxone and IV vancomycin which was continued until the . She was then switched to Ceftriaxone from 06/13 to 06/17. On 06/17, she was restarted on IV vancomycin but she lost her IV and therefore this was discontinued. She has received fluconazole since 06/16. The patient looks well. She has no complaints except for irritation around the abdominal folds and her buttock area that is painful. She has no vomiting or diarrhea, no cough or shortness of breath. Dr. Jacob was consulted on 06/11/20. He was familiar with this patient, as she has been treated at [facility] for the same problem with satisfactory results in the past. His recommendations were as followed: -The ostomy appliance should be carefully fitted to the opening of the ileal conduit to prevent urine leakage. The dermatitis should be cleansed with Vashe, allowed to dry and then a crusting technique is to be utilized. This entails Nystatin, followed by Cavilon skin prep, nystatin reapplied, and again Cavilon. Repeating multiple times, up to 7 or 8 times, to build up a protective barrier coating. Then the appliance is applied and any defects in the seal should be caulked or sealed with Stoma adhesive paste. An ostomy belt should be applied. -InterDry to skin folds daily -Cavilon Advanced Skin Protectant to perineum and buttock area (this has not been started/applied as of yet) Dr. Massey was consulted 06/17/20. She noted a diffuse maculopapular rash suggestive of a possible allergic reaction to chlorhexidine washes. She recommended starting triamcinolone cream to arms and legs twice daily. Patient notes a significant improvement since starting yesterday. O: Urostomy on the right mid abdomen present. Mild erythema and desquamation involving the abdomen, abdominal fold, groin folds, suprapubic area and anterior thighs. Generalized erythema and maceration of the perineum and buttocks with a few areas of pinpoint bleeding noted on the bed pad. Mildly eczematous eruption on upper and lower extremities (improved per patient following topical steroid use). A: 1. Maceration of buttocks 2. Irritant Contact Dermatitis due to chlorhexidine P: -Proceed with Cavilon Advanced Skin Protectant to perineum and buttocks Q7 days as per Dr. Jacob (first application was being applied following my exam. -Continue Triamcinolone 0.1% cream BID PRN to arms and legs for up to 2 weeks Vital Signs/I&O Vital Signs Date Time Temp Pulse Resp B/P (MAP) Pulse Ox O2 Delivery O2 Flow Rate FiO2 06/18/20 06:00 98.9 66 18 121/65 (83) 99 Room Air I&O- Last 24 Hours up to 6 AM 06/18/20 05:59 Intake Total 1020 ml Output Total 2000 ml Balance -980 ml Laboratory Data Labs 24H Laboratory Tests 2 06/17/20 16:53: Bedside Glucose (Misc Panel) 137H 06/17/20 20:36: Bedside Glucose (Misc Panel) 212H 06/17/20 22:58: Bedside Glucose (Misc Panel) 174H 06/18/20 06:18: Immature Granulocyte % (Auto) 1.4, Neutrophils (%) (Auto) 68.0H, Lymphocytes (%) (Auto) 16.4L, Monocytes (%) (Auto) 8.3H, Eosinophils (%) (Auto) 5.5H, Basophils (%) (Auto) 0.4, Neutrophils # (Auto) 9.1H, Lymphocytes # (Auto) 2.2, Monocytes # (Auto) 1.1H, Eosinophils # (Auto) 0.7H, Basophils # (Auto) 0.1, Nucleated Red Blood Cells % (auto) 0.0, Erythrocyte Sedimentation Rate 82H, Anion Gap 6L, Glomerular Filtration Rate 19.7L, Calcium Level 8.1L, C-Reactive Protein, Quantitative 4.88H 06/18/20 11:30: Bedside Glucose (Misc Panel) 204H CBC/BMP Laboratory Tests 06/18/20 06:18 Microbiology Microbiology 06/16/20 Gram Stain - Final, Complete 06/16/20 Wound Culture - Final, Complete Staph.aureus Methicillin Resis Yeast Like Organism 06/13/20 Blood Culture - Preliminary, Resulted No Growth after 72 hours. All specime... 06/13/20 Blood Culture - Preliminary, Resulted No Growth after 72 hours. All specime... 06/13/20 Urine Culture - Final, Complete Yeast Like Organism 06/09/20 Urine Culture - Final, Complete 06/09/20 Blood Culture - Final, Complete NO GROWTH AFTER 5 DAYS Allergies Coded Allergies: Penicillins (Verified Allergy, Intermediate, HIVES, 10/05/19) has received PCN PO as outpt in 2018 ciprofloxacin (Verified Allergy, Intermediate, HIVES, 10/05/19) fluconazole (Verified Allergy, Intermediate, HIVES, 10/05/19) iodine (Verified Allergy, Intermediate, HIVES, 10/05/19) erythromycin base (Verified Allergy, Unknown, 10/05/19) nitrofurantoin (Verified Allergy, Unknown, 10/05/19) rofecoxib (Verified Allergy, Unknown, 10/05/19) morphine (Verified Adverse Reaction, Mild, HYPOTENSION, 10/05/19) sulfamethoxazole (Verified Adverse Reaction, Mild, 10/05/19) listed as allergy due to renal function trimethoprim (Verified Adverse Reaction, Mild, 10/05/19) listed as allergy due to renal function Home Medications Scheduled Atenolol (Atenolol) 25 Mg Tab, 25 MG PO QHS, (Reported) HOLD IF SBP<100 Atorvastatin Calcium (Atorvastatin Calcium) 40 Mg Tab, 40 MG PO QHS, (Reported) Carboxymethylcellulose Sodium (Refresh Tears) 0.5 % Pietro, 1 DROP OU QHS, (Reported) Cetirizine HCl (ZyrTEC) 10 Mg Capsule, 10 MG PO DAILY, (Reported) Cinnamon Bark (Cinnamon) 500 Mg Capsule, 1,000 MG PO BID, (Reported) Clopidogrel Bisulfate (Clopidogrel) 75 Mg Tab, 75 MG PO DAILY, (Reported) Cranberry Conc/Ascorbic Acid (Cranberry Plus Vitamin C Sftgl) 1 Each Capsule, 1 CAP PO DAILY, (Reported) Ergocalciferol (Vitamin D2) (Vitamin D2) 50,000 Units Cap, 50,000 UNITS PO 1XWK, (Reported) WEDNESDAY MORNINGS Ferrous Sulfate (Ferrous Sulfate) 325 Mg Tab, 325 MG PO BID, (Reported) Insulin Detemir (Levemir) 1 Units/0.01 Ml Susp, 30 UNITS SC QHS, (Reported) Lactobacillus Acidophilus (Probiotic) 1 Each Capsule, 1 CAP PO DAILY, (Reported) Levothyroxine Sodium (Levothyroxine Sodium) 50 Mcg Tab, 50 MCG PO QAM, (Reported) Multivitamins (Thera M Plus Tablet) 1 Tab Tab, 1 TAB PO DAILY, (Reported) Nixa-3/Dha/Epa/Fish Oil (Fish Oil 500 mg Softgel) 500 Mg Cap, 500 MG PO DAILY, (Reported) Pantoprazole Sodium (Pantoprazole Sodium) 20 Mg Tab, 20 MG PO DAILY, (Reported) Sodium Bicarbonate (Sodium Bicarbonate) 325 Mg Tab, 650 MG PO BID, (Reported) Scheduled PRN Acetaminophen (Acetaminophen) 500 Mg Tablet, 1,000 MG PO BID PRN for PAIN, (Reported) Docusate Sodium (Docusate Sodium) 100 Mg Cap, 100 MG PO BID PRN for CONSTIPATION, (Reported) Joselin Toro PA-C Jun 18, 2020 13:55
[2020-06-18 14:00] VITALS: BP 118/52
[2020-06-18] MEDS: ONDANSETRON 4 MG ORAL DISINTEGRATING TAB PO PRN (17:24)
[2020-06-18] MEDS ORDERED: ONDANSETRON 4MG/2ML VIAL IV SCH (18:00)
[2020-06-18] MEDS: ATORVASTATIN 20 MG TAB PO SCH (21:33)
[2020-06-18] MEDS: atenoloL 25 MG TAB PO SCH (21:33)
[2020-06-18] MEDS: LEVEMIR (INSULIN DETEMIR) 1 UNITS/0.01ML SC SCH (21:34)
[2020-06-18 22:00] VITALS: BP 134/42
[2020-06-19 06:54] LABS: BASO # 0.1 10^3/uL (0.0-0.2); BASO % 0.5 % (0.0-1.0); EOS # 0.5 10^3/uL (0.0-0.5); EOS % 2.9 % (0.0-3.0); HEMATOCRIT 32.3 % (36.0-47.0); HEMOGLOBIN 9.9 g/dl (12.0-15.5); LYMPH # 1.7 10^3/uL (1.5-5.0); LYMPH % 9.5 % (24.0-44.0); MEAN CORPUSCULAR HEMOGLOBIN 29.7 pg (27.0-33.0); MEAN CORPUSCULAR HGB CONC 30.7 g/dl (32.0-36.5); MONO # 1.2 10^3/uL (0.0-0.8); MONO % 6.4 % (0.0-5.0); NEUTROPHILS # 14.4 10^3/uL (1.5-8.5); NEUTROPHILS % 79.7 % (36.0-66.0); PLATELET COUNT, AUTOMATED 531 10^3/uL (150-450); RED BLOOD COUNT 3.33 10^6/uL (4.00-5.40); WHITE BLOOD COUNT 18.1 10^3/uL (4.0-10.0)
--- NOTE | 2020-06-19 07:16 | IPN ---
"DATE: 06/18/2020 SUBJECTIVE: Tammi was complaining this afternoon of some nausea and vomiting. She has not tolerated food well this afternoon with some right lower quadrant pain. She states she has not had a bowel movement in a couple of days. She has had no fever or chills. PHYSICAL EXAMINATION: | VITAL SIGNS: Temperature is 98, pulse 68, respirations 20, blood pressure 118/52, O2 sat 96% on room air. HEART: Normal, S1, S2. No murmurs, rubs or gallops. LUNGS: Clear. No rales, rhonchi or wheezes. ABDOMEN: Mild tenderness in the right lower quadrant. EXTREMITIES: No clubbing, cyanosis, or edema. SKIN: Diffuse maculopapular rash on arms and legs. Fine diffuse erythema of thighs, buttock area, and perineum with diffuse erythema, excoriation and scaliness. LABORATORY STUDIES: White count is 13.4, hemoglobin 9, hematocrit 30.3, platelets 464, 68% neutrophils, 16% lymphocytes, 8% monocytes. ESR 82. Sodium 138, potassium 4.9, chloride 112, bicarbonate 20, BUN 59, creatinine 2.48, glucose 101, calcium 8.1, CRP 4.88. Urine culture had YEAST LIKE organism. Abdominal wall culture had few MRSA and heavy yeast like organism. IMPRESSION: 1. Contact dermatitis from tape and leakage of urine - The patient has been seen in consultation with Dermatology and Dr Jacob who agrees with the diagnosis. 2. MRSA colonization The patient had received a few doses of Vancomycin but at this point this is not suggestive of infectious etiology as candidiasis plus if urine culture and skin wound culture, would continue Fluconazole 200 mg p.o. daily. The patient is currently day number three. 3. Nausea I have ordered some Zofran 4 mg IV q. 8 hours p.r.n. PLAN: 1. Continue Fluconazole for a total of ten days - currently day number three out of ten. 2. I would not treat MRSA unless the patient develops a fever or worsening white count. MTDD"
[2020-06-19 07:25] LABS: CREATININE FOR GFR 2.51 MG/DL (0.55-1.30); GLOMERULAR FILTRATION RATE 19.4 (>32); POTASSIUM SERUM 4.7 MEQ/L (3.5-5.1)
[2020-06-19] MEDS: HumaLOG INSULIN (NovoLOG) PER UNIT SC SCH ×4 (07:30→21:00)
[2020-06-19 08:27] LABS: C REACTIVE PROTEIN QUANTITATIV 6.67 MG/DL (0.00-0.30)
--- NOTE | 2020-06-19 10:01 | IPNPDOC ---
Text Note Date of Service The patient was seen on 06/19/20. NOTE SUBJECTIVE: The patient was seen as bedside. She is awake and answering ques tions readily. The itchiness has increased in the last 24 hours and she did not sleep well at night due to itchiness. She experienced intense nausea the previous night and was unable to eat dinner. She was given Zofran for the nausea and was able to eat breakfast this morning. No vomiting. No other complaints except for arm, abdominal and perineal rash. OBJECTIVE: Vitals: See below General: No acute distress. The patient is lying comfortably in bed. She is alert and oriented. CV: RRR, S1 and S2 sounds present. No murders, rubs or gallops noted. LUNGS: Lungs are clear to auscultation. No rales, rhonchi or wheezing noted. ABDOMEN: There is a urostomy on the R abdomen. The irritation at the urostomy bad is flaking, but is less erythematous than day prior. Mild discomfort to palpation. SKIN: There is a perineal, pruritic rash form the inguinal area anteriorly, extending around the urogenital area and up to the level of S1 posteriorly. The anterior rash is now flaking, but there is a decrease in redness. There is an increase in itching. Posteriorly the skin has erored, with increased areas of puntcate bleeding as compared to the previous day. Redness has stayed grossly the same. Soak pad is saturated with urine, blood, and solid stool. No pus is noted. UG: There is a urostomy. The container contains aprox. 100 mL of yellow fluid. GI: Bowel sounds are heard in all four quadrants. There is some rectal leaking of solid stool. EXTREMITIES: No swelling or edema. There is increased irritation around the former IV site, L Upper Extremity. . ASSESSMENT/PLAN: 85 yo F with a PMHx of HTN, DM2, HLD, CKD, cystectomy with ileal conduit, and hypothyroidism that presented to ED after her daughter noticed a change in her mental status, found to have redness with warmth and irritation around her ostomy site concerning for cellulitis. 1. Rash- DDx Irritated Contact Dermatitis -Urology consult is appreciated, d/w Dr. Camarillo - o/p follow up with primary urologist - urostomy and cystectomy were preformed at [facility]. -Dermatology consult is appreciated. Dermatology saw the patient and is administering Vashe, Cavilon and Nystatin. See consult note. Follow recommendati ons for care. 2. Nausea/vomiting -Continue Zofran 6 mg q6h PRN PO. 3. Urine cultures -Yeast growth on of 06/13/20. -Fluconazole continued 4. Leukocytosis -WBC increased overnight from 13.4 to 18.1 -No clear source of infection -Continue to monitor 5. IIDM2 -Continue detemir and sliding scale -Hypoglycemic protocol 6. POC stage 1 sacral ulcer -Continue to monitor. -Reposition every 2 hours. 7. CKD stage 4 -Patient's Cr baseline is ~2.3 -Cr currently around baseline -Avoid nephrotoxic drugs. -Continue to monitor. 8. HTN -Continue home atenolol 25 mg qhs PO 9. CAD s/p stents -Continue home clopidogrel and aspirin 81 mg 10. DVT prophylaxis -Heparin SC Disposition: Pending improvement of WBC and rash; expected discharge home in 24- 48 hours VSJey, I+O VSJey, I+O Laboratory Tests 06/19/20 06:25 Vital Signs Date Time Temp Pulse Resp B/P (MAP) Pulse Ox O2 Delivery O2 Flow Rate FiO2 06/18/20 22:00 96.8 70 18 134/42 (72) 100 Room Air I&O- Last 24 Hours up to 6 AM 06/19/20 06:00 Intake Total 1190 ml Output Total 1825 ml Balance -635 ml ANNE VANG Jun 19, 2020 10:01
[2020-06-19] MEDS: LEVOTHYROXINE 50MCG TABLET (0.05MG) PO SCH (10:12)
[2020-06-19] MEDS: PANTOPRAZOLE 20 MG TAB PO SCH (10:12)
[2020-06-19] MEDS: SODIUM BICARBONATE 325 MG TAB PO SCH ×2 (10:12→22:22)
[2020-06-19] MEDS: MULTIVITAMINS/MINERALS THERAP 1 TAB PO SCH (10:12)
[2020-06-19] MEDS: FERROUS SULFATE 325MG TAB PO SCH ×2 (10:12→22:22)
[2020-06-19] MEDS: FLUCONAZOLE 100 MG TAB PO SCH (10:13)
[2020-06-19] MEDS: TRIAMCINOLONE ACET 0.1% OINTMENT 15 GM EXT SCH ×2 (10:13→22:23)
[2020-06-19 14:00] VITALS: BP 119/44
[2020-06-19] MEDS: ONDANSETRON 4 MG ORAL DISINTEGRATING TAB PO PRN (15:46)
[2020-06-19] MEDS: ACETAMINOPHEN TAB 650MG DOSE (2X325MG) PO PRN (17:53)
[2020-06-19 22:00] VITALS: BP 111/47
[2020-06-19] MEDS: LEVEMIR (INSULIN DETEMIR) 1 UNITS/0.01ML SC SCH (22:22)
[2020-06-19] MEDS: ATORVASTATIN 20 MG TAB PO SCH (22:22)
[2020-06-19] MEDS: atenoloL 25 MG TAB PO SCH (22:23)
[2020-06-20 06:00] VITALS: BP 111/68
[2020-06-20 06:30] LABS: BASO # 0.1 10^3/uL (0.0-0.2); BASO % 0.5 % (0.0-1.0); EOS # 0.7 10^3/uL (0.0-0.5); EOS % 3.9 % (0.0-3.0); HEMATOCRIT 33.7 % (36.0-47.0); HEMOGLOBIN 10.5 g/dl (12.0-15.5); LYMPH % 5.5 % (24.0-44.0); MEAN CORPUSCULAR HEMOGLOBIN 30.3 pg (27.0-33.0); MEAN CORPUSCULAR HGB CONC 31.2 g/dl (32.0-36.5); MEAN CORPUSCULAR VOLUME 97.4 fl (80.0-96.0); MONO # 0.9 10^3/uL (0.0-0.8); MONO % 5.2 % (0.0-5.0); NEUTROPHILS # 15.1 10^3/uL (1.5-8.5); NEUTROPHILS % 83.8 % (36.0-66.0); PLATELET COUNT, AUTOMATED 539 10^3/uL (150-450); RED BLOOD COUNT 3.46 10^6/uL (4.00-5.40); WHITE BLOOD COUNT 18.1 10^3/uL (4.0-10.0)
[2020-06-20 06:57] LABS: CALCIUM LEVEL 8.6 MG/DL (8.8-10.2); CREATININE FOR GFR 2.46 MG/DL (0.55-1.30); GLOMERULAR FILTRATION RATE 19.9 (>32); POTASSIUM SERUM 5.2 MEQ/L (3.5-5.1)
[2020-06-20] MEDS: HumaLOG INSULIN (NovoLOG) PER UNIT SC SCH ×4 (07:30→21:00)
[2020-06-20 07:40] LABS: C REACTIVE PROTEIN QUANTITATIV 7.75 MG/DL (0.00-0.30)
[2020-06-20] MEDS: FLUCONAZOLE 100 MG TAB PO SCH (09:37)
[2020-06-20] MEDS: FERROUS SULFATE 325MG TAB PO SCH ×2 (09:37→20:14)
[2020-06-20] MEDS: PANTOPRAZOLE 20 MG TAB PO SCH (09:37)
[2020-06-20] MEDS: SODIUM BICARBONATE 325 MG TAB PO SCH ×2 (09:37→20:15)
[2020-06-20] MEDS: LEVOTHYROXINE 50MCG TABLET (0.05MG) PO SCH (09:37)
[2020-06-20] MEDS: MULTIVITAMINS/MINERALS THERAP 1 TAB PO SCH (09:37)
[2020-06-20] MEDS: TRIAMCINOLONE ACET 0.1% OINTMENT 15 GM EXT SCH ×2 (09:38→20:15)
[2020-06-20] MEDS ORDERED: SOD POLYSTYRENE SULFONATE SUSP 15 GM/60 ML UD PO ONE (12:00)
--- NOTE | 2020-06-20 13:12 | IPNPDOC ---
Text Note Date of Service The patient was seen on 06/20/20. NOTE SUBJECTIVE: The patient was seen at bedside. She was washed immediately prior to interview, and is awake. She is poorly answering questions and was not oriented to time. The itchiness reportedly decreased in the last 24 hrs and she slept well. There has been an increase of pain in her buttocks, but it could not be graded at the time of interview. She experienced an episode nausea the previous night before dinner but was able to eat, albeit less than normal. She was given Zofran for the nausea. She was not nauseous at time of interview and tolerated breakfast well. No episodes of vomiting. No other complaints except for arm, abdominal and perineal rash. OBJECTIVE: VITALS: See below GENERAL: Patient is not in acute distress, but is poorly oriented to time. She expressed distress over being awoken by the nurses at 10:30am despite it only being 8:30am at time of interview. She was very cold, and insisted on being bundled in her blankets in bed. Removing the blankets for rash evaluation caused mild temperature distress and shivering. Addendum: At 1400 the patient became febrile at 101.5 def F. CV: RRR, S1 and S2 sounds present. No murmurs, rubs or gallops noted. LUNGS: Lungs are clear to auscultation anteriorly and laterally. Posterior lung auscultation was hindered due to patient discomfort, but was otherwise clear to auscultation. No rales, rhonchi or wheezing were noted. ABDOMEN: There is a urostomy on the R abdomen. The irritation at the urostomy bad has markedly decreased redness than the day prior, though flaking is increased. Discomfort to palpation, attributed to the cold by patient. SKIN: There is a perineal, pruritic rash from the inguinal area anteriorly, extending around the urogenital area and up to the level of S! posteriorly. The anterior wash is markedly less red. There is an increase of flaking. At time of examination, a white cream had been recently applied to the rash. Itching is decreased. Posteriorly the skin is still eroded, but mardekly less red and increased flaking. Punctate bleeding has decreased. No pus noted. Soak pad was recently replaced. UG: There is a urostomy. The container contains aprox. 550 ml of yellow fluid. GI: Bowel sounds heard i all four quadrants. There is no noted rectal leaking of stool. NEURO: Oriented to place and person but not time. [place] Coma score 15 (Vision 4, Vocal 5, Motor 5). Speech is clear and understands concepts. EXTREMITIES: No swelling or edema. There is still irritation around the former IV site, L Upper Extremity, but decreased as compared to previous day. ASSESSMENT/PLAN Patient is an 85yo F with a PMHx of HTN, DM2, HLD, CKD, cystectomy with ileal conduit, and hypothyroidism that presented to the ED after her daughter noticed a change in her mental status, found to have redness and warmth and irritation around her ostomy site concerning for cellulitis. 1. Rash- DDx Irritated Contact Dermatitis -Improved overall rash quality. Decreased itching and redness, increased flaking due to the Vashe, Cavilon and Nystatin flaking treatment. -Urolog consult is appreciated. d/w Dr. Camarillo. o/p follow up with primary urologist- urostomy and cystectomy were preformed at [facility] -Dermatology consult is appreciated. Continue with dermatology recommendations of Vashe, Cavilon and Nystatin for care. See dermatology consult notes. 2. Leucocytosis -WBC count remained normal overnight at 18.1 -Mental status change noted, patient is experiencing chills -No signs of infection. No fever. -Continue to monitor 3. Nausea/vomiting -Continue Zofran 6mg q6h PRN PO 4. Urine Cultures -Yeast growth as of 06/13. -Continue fluconazole 5. IIDM2 -Continue detemir and sliding scale -Hypoglycemic protocol 6. POC Stage 1 Sacral Ulcer -Continue to monitor -Reposition every two hours 7. CKD Stage 4 -Patient's CR baseline is ~2.3 -Cr currently around baseline -Avoid nephrotoxic drugs -Continue to monitor. 8. HTN -Continue home atenolol 25 mg qhs PO 9. CAD s/p stents -Continue clopidogrel and aspirin 81 mg Dispo: - Pending clinical improvement of mental status and leukocytosis. Rash largely improved. -ADDENDUM: Was called by nursing staff. Patient had a fever of 101.5. All other vitals were normal. Called Dr. Lynn to put in a central line for IV access as previous IV lines were unstable. Discharge suspended. Pending infection workup. --Patient became febrile at 1400, T 101.5 deg F --Central Line placement --CBC --Blood Culture venous, x2, q30m, line draw --Lactic Acid, venous, line draw --Vancomycin 100mg q24h IV --Cefepime 1m q24h IV --NS 80 mLs/hr VS,Fishbone, I+O VS, Fishbone, I+O Laboratory Tests 06/20/20 06:11 Vital Signs Date Time Temp Pulse Resp B/P (MAP) Pulse Ox O2 Delivery O2 Flow Rate FiO2 06/20/20 06:00 98.8 69 16 111/68 (82) 94 Room Air I&O- Last 24 Hours up to 6 AM 06/20/20 06:00 Intake Total 1120 ml Output Total 1000 ml Balance 120 ml GME ATTESTATION GME ATTESTATION My faculty preceptor for this patient encounter was physically present during the encounter and was fully available. All aspects of the patient interview, examination, medical decision making process, and medical care plan development were reviewed and approved by the faculty preceptor. The faculty preceptor is aware and concurs with the plan as stated in the body of this note and will attest to such by his/her cosignature. ATTENDING NOTE I, Collin Washburn, have independently examined this patient and performed my own physical exam, as well as reviewed the documentation and edited where necessary. I have discussed in detail with the resident / student the findings and plan of treatment as documented by the resident / student and edited their note. I agree with their findings and treatment plan and have edited their documentation. I will continue to follow the patient during this hospital stay. ANNE VANG Jun 20, 2020 13:12 COLLIN WASHBURN MD Jun 20, 2020 15:51
[2020-06-20 14:00] VITALS: BP 118/60
[2020-06-20 16:25] VITALS: BP 113/48
[2020-06-20] MEDS: ACETAMINOPHEN TAB 650MG DOSE (2X325MG) PO PRN (16:28)
[2020-06-20] MEDS ORDERED: VANCOMYCIN HCL 1,000 MG, VIAL MATE ADAPTER 1 EACH in D5W 250 ML IV SCH (17:15)
[2020-06-20] MEDS ORDERED: VANCOMYCIN HCL 750 MG, VIAL MATE ADAPTER 1 EACH in D5W 250 ML IV ONE (18:00)
[2020-06-20] MEDS: NS 1,000 ML IV SCH (18:16)
[2020-06-20 18:19] LABS: BASO # 0.1 10^3/uL (0.0-0.2); BASO % 0.4 % (0.0-1.0); EOS # 0.1 10^3/uL (0.0-0.5); EOS % 0.5 % (0.0-3.0); HEMATOCRIT 29.2 % (36.0-47.0); HEMOGLOBIN 9.2 g/dl (12.0-15.5); LYMPH # 1.1 10^3/uL (1.5-5.0); LYMPH % 7.8 % (24.0-44.0); MEAN CORPUSCULAR HEMOGLOBIN 30.3 pg (27.0-33.0); MEAN CORPUSCULAR HGB CONC 31.5 g/dl (32.0-36.5); MEAN CORPUSCULAR VOLUME 96.1 fl (80.0-96.0); MONO # 0.8 10^3/uL (0.0-0.8); NEUTROPHILS # 11.5 10^3/uL (1.5-8.5); NEUTROPHILS % 84.6 % (36.0-66.0); PLATELET COUNT, AUTOMATED 526 10^3/uL (150-450); RED BLOOD COUNT 3.04 10^6/uL (4.00-5.40); WHITE BLOOD COUNT 13.6 10^3/uL (4.0-10.0)
[2020-06-20] MEDS ORDERED: SODIUM CHLORIDE 0.9% INJ 10 ML SYR IV PRN (18:30)
--- NOTE | 2020-06-20 18:40 | REPVR ---
PROCEDURE INFORMATION: Exam: XR Chest, 1 View Exam date and time: 06/20/2020 6:06 PM Age: 85 years old Clinical indication: Device placement; Other: Central line placement; Additional info: Verify central line placement TECHNIQUE: Imaging protocol: XR of the chest Views: 1 view. COMPARISON: CT Chest without contrast 06/13/2020 1:31 PM FINDINGS: Tubes, catheters and devices: There is a right subclavian central line with tip of catheter at superior cavoatrial junction. Lungs: Unremarkable. No consolidation. Pleural space: Unremarkable. No pleural effusion. No pneumothorax. Heart/Mediastinum: Unremarkable. No cardiomegaly. Bones/joints: There are degenerative changes of the thoracic spine. Soft tissues: There are surgical clips in the left axilla. IMPRESSION: 1. Tip of central line at superior cavoatrial junction. 2. No pneumothorax. Electronically signed by: Jason Emerson On 06/20/2020 18:40:23 PM
[2020-06-20] MEDS ORDERED: VANCOMYCIN HCL 500 MG in D5W MINI-BAG PLUS 100 ML IV ONE ×2 (20:00→23:00)
[2020-06-20] MEDS: ATORVASTATIN 20 MG TAB PO SCH (20:14)
[2020-06-20] MEDS: atenoloL 25 MG TAB PO SCH (20:14)
[2020-06-20] MEDS ORDERED: CEFEPIME HCL 1 GM in D5W MINI-BAG PLUS 50 ML IV SCH (21:00)
[2020-06-20] MEDS ORDERED: VANCOMYCIN INTERMITTENT/PULSE DOSING BY CLINICAL PHARMACIST PER DOSING PROTOCOL XX SCH (21:00)
[2020-06-20 22:00] VITALS: BP 118/52
[2020-06-20] MEDS: SODIUM CHLORIDE 0.9% INJ 10 ML SYR IV SCH (22:23)
[2020-06-20] MEDS: LEVEMIR (INSULIN DETEMIR) 1 UNITS/0.01ML SC SCH (22:24)
[2020-06-21] MEDS: NS 1,000 ML IV SCH ×2 (05:00→17:22)
[2020-06-21] MEDS: SODIUM CHLORIDE 0.9% INJ 10 ML SYR IV SCH ×3 (05:00→22:11)
[2020-06-21 06:00] VITALS: BP 113/56
[2020-06-21 06:45] LABS: BASO # 0.1 10^3/uL (0.0-0.2); BASO % 0.4 % (0.0-1.0); EOS # 0.5 10^3/uL (0.0-0.5); EOS % 3.4 % (0.0-3.0); HEMATOCRIT 28.8 % (36.0-47.0); HEMOGLOBIN 8.9 g/dl (12.0-15.5); LYMPH # 1.4 10^3/uL (1.5-5.0); LYMPH % 9.4 % (24.0-44.0); MEAN CORPUSCULAR HGB CONC 30.9 g/dl (32.0-36.5); MONO # 1.2 10^3/uL (0.0-0.8); MONO % 8.2 % (0.0-5.0); NEUTROPHILS # 11.3 10^3/uL (1.5-8.5); NEUTROPHILS % 77.8 % (36.0-66.0); PLATELET COUNT, AUTOMATED 486 10^3/uL (150-450); RED BLOOD COUNT 2.97 10^6/uL (4.00-5.40); WHITE BLOOD COUNT 14.5 10^3/uL (4.0-10.0)
[2020-06-21 07:17] LABS: C REACTIVE PROTEIN QUANTITATIV 8.62 MG/DL (0.00-0.30); CALCIUM LEVEL 8.2 MG/DL (8.8-10.2); CREATININE FOR GFR 2.42 MG/DL (0.55-1.30); GLOMERULAR FILTRATION RATE 20.2 (>32)
[2020-06-21] MEDS: HumaLOG INSULIN (NovoLOG) PER UNIT SC SCH ×4 (07:30→21:00)
[2020-06-21 09:35] LABS: VANCOMYCIN RANDOM 20.7 UG/ML
[2020-06-21] MEDS: LEVOTHYROXINE 50MCG TABLET (0.05MG) PO SCH (09:50)
[2020-06-21] MEDS: PANTOPRAZOLE 20 MG TAB PO SCH (09:50)
[2020-06-21] MEDS: FLUCONAZOLE 100 MG TAB PO SCH (09:50)
[2020-06-21] MEDS: MULTIVITAMINS/MINERALS THERAP 1 TAB PO SCH (09:50)
[2020-06-21] MEDS: FERROUS SULFATE 325MG TAB PO SCH ×2 (09:50→22:04)
[2020-06-21] MEDS: TRIAMCINOLONE ACET 0.1% OINTMENT 15 GM EXT SCH ×2 (09:50→22:06)
[2020-06-21] MEDS: SODIUM BICARBONATE 325 MG TAB PO SCH ×2 (09:51→22:04)
--- NOTE | 2020-06-21 10:01 | IPNPDOC ---
Text Note Date of Service The patient was seen on 06/21/20. NOTE SUBJECTIVE: The patient was seen at bedside. She is awake, eating breakfast, and answering questions readily. Disorientation from yesterday seems to have resolved. The itchiness has decreased in the last 24 hours, and she slept well. She reports an increase of pain in her buttocks and lower back, graded at a 1- 2/10 at time of interview. She experienced an intense episode of nausea without vomiting last night, and was unable to eat dinner. Her last dose of Zofran was given on 06/19. She is not nauseous at time of interview and was able to eat breakfast. No other complaints except for arm, abdominal and perineal rash. On the evening of Jun 20 she developed a fever of 101.5. Suspecting infection, she was prescribed Cefepime one dose of 1g IV q24h, one dose of Vancomycin 1000mg q24h IV, and Normal Saline, 80mLs/hr. Her fever resolved to 99.1 the morning of Jun 21 but her temperature returned to 100.2 at 14:00, Jun 21. OBJECTIVE: VITALS: See below General: Patient is not in any acute distress. She is not cold, and does not appear in any distress during exam. She is afebrile at time of examination. CV: RRR, S1 and S2 sounds noted. No mummers, gallops or rubs were noted on auscultation. LUNGS: Lungs are clear to auscultation posteriorly. No wheezing, rales, rhonchi or rubs were noted. ABDOMEN: There is a urostomy on the R abdomen. The irritation at the urostomy is markedly decreased, and the redness is decreased. No flaking is noted on examination. SKIN: There is a perineal, pruritic rash from the inguinal area anteriorly, extending around the urogenital area and up to the level of S1 posteriorly. The anterior rash is markedly less red, and has decreased flaking. Itching is decreased. Posteriorly the skin is still eroded, with an increase in flaking. Punctate bleeding grossly unchanged from previous examination. No pus is noted. The soak pad was saturated with urine and replaced during exam. UG: There is a urostomy. The container contains aprox. 150 ml of yellow fluid. GI: Bowel sounds heard in all four quadrants. There is no noted rectal leaking of stool. EXTREMITIES: No swelling or edema. Irritation at the former IV site in the upper arm has largely resolved. There is a small IV in her R wrist that does not show any irritation. ASSESSMENT/PLAN Patient is an 85yo F with a PMHx of HTN, DM2, HLD, CKD, cystectomy with ileal co nduit, and hypothyroidism that presented to the ED after her daughter noticed a change in her mental status, found to have redness and warmth and irritation around her ostomy site concerning for cellulitis. 1. Rash- DDx Irritated Contact Dermatitis -I proved overall rash quality. Decreased itching and redness. -Continue dermatology recommended treatment of Vashe, Cavilon and Nystatin flaking technique. -Urology consult is appreciated. d/w Dr. Camarillo. O/P follow up with primary urology- the urostomy and cystectomy were preformed at [facility]. -Dermatology consult is appreciated. 2. Leukocytosis -WBC has decreased from 18.1 yesterday to 14.5 -Mental status change resolved -No clear signs of infection. Patient is afebrile. 3. Fever -Continue Vancomycin HCl/Dextrose 500 mg q24h IV -Blood cultures pending -CRP trending upwards. Increased from 7.5 to 8.2 in 24hrs. 4. Nausea/vomiting -Continue Zofran 6mg q6h PRN PO 5. Urine Cultures -Yeast growth as of 06/13 -Continue fluconazole 6. IIDM2 -Continue detemir and sliding scale -Hypoglycemic protocol 7. POC Stage 1 Sacral Ulcer -Continue to monitor -Reposition every 2 hours 8. CKD Stage 4 -Avoid nephrotoxic drugs -Patients CR baseline is ~2.3 -Cr is currently around baseline 9. HTN -Continue home atenolol 25mg qhs PO 10. CAD s/p stents -Continue clopidogrel and aspirin 81mg Dispo: -Pending blood cultures. Pending improvement of leukocytosis and fever. Patient did well with PT and has been cleared. VS,Fishbone, I+O VS, Fishbone, I+O Laboratory Tests 06/20/20 18:05 06/21/20 06:35 Vital Signs Date Time Temp Pulse Resp B/P (MAP) Pulse Ox O2 Delivery O2 Flow Rate FiO2 06/21/20 06:00 99.6 67 19 113/56 (75) 98 Room Air I&O- Last 24 Hours up to 6 AM 06/21/20 06:00 Intake Total 1455 ml Output Total 1275 ml Balance 180 ml GME ATTESTATION GME ATTESTATION My faculty preceptor for this patient encounter was physically present during the encounter and was fully available. All aspects of the patient interview, examination, medical decision making process, and medical care plan development were reviewed and approved by the faculty preceptor. The faculty preceptor is aware and concurs with the plan as stated in the body of this note and will attest to such by his/her cosignature. ATTENDING NOTE I, Collin Wren, have independently examined this patient and performed my own physical exam, as well as reviewed the documentation and edited where necessary. I have discussed in detail with the resident / student the findings and plan of treatment as documented by the resident / student and edited their note. I agree with their findings and treatment plan and have edited their documentation. I will continue to follow the patient during this hospital stay. ANNE VANG Jun 21, 2020 10:01 COLLIN WREN MD Jun 21, 2020 15:53
--- NOTE | 2020-06-21 11:07 | RO ---
DATE OF OPERATION: PREOPERATIVE DIAGNOSIS: Hypovolemia. POSTOPERATIVE DIAGNOSIS: Hypovolemia. PROCEDURE: Right subclavian central venous pressure (CVP) placement. PROCEDURE NOTE: The patient was seen and the procedure was explained to the patient as well as the possible complications pertaining thereto including, but not limited to, bleeding, infection, medication reaction and lung collapse. An informed consent was obtained. The patient was placed in the supine position. Skin overlying the right subclavian vein was prepped with ChloraPrep anddraped in a sterile fashion. A 24-gauge needle was used to raise a skin wheal of 1% lidocaine. Thereafter, a 17-gauge introducer needle was placed in through the skin and into the right subclavian vein. Free return of venous blood was obtained. A vascular-tipped guidewire was advanced. A small incision was made adjacent to the guidewire and a triple-lumen catheter passed over the guidewire to a distance of 18 cm. The catheter was sewn in place using a silk suture. A sterile dressing was applied, and a postprocedural chest x-ray confirms good position of the catheter and no complications were encountered. CRISTOFER
[2020-06-21] MEDS: ACETAMINOPHEN TAB 650MG DOSE (2X325MG) PO PRN (13:59)
[2020-06-21 14:00] VITALS: BP 141/54
[2020-06-21] MEDS ORDERED: VANCOMYCIN HCL 500 MG in D5W MINI-BAG PLUS 100 ML IV SCH (17:00)
[2020-06-21 22:00] VITALS: BP 109/49
[2020-06-21] MEDS: ATORVASTATIN 20 MG TAB PO SCH (22:04)
[2020-06-21 22:05] VITALS: BP 109/49
[2020-06-21] MEDS: atenoloL 25 MG TAB PO SCH (22:05)
[2020-06-21] MEDS: LEVEMIR (INSULIN DETEMIR) 1 UNITS/0.01ML SC SCH (22:07)
[2020-06-22] MEDS: SODIUM CHLORIDE 0.9% INJ 10 ML SYR IV SCH ×2 (05:30→13:07)
[2020-06-22 05:53] LABS: BASO # 0.1 10^3/uL (0.0-0.2); BASO % 0.5 % (0.0-1.0); EOS # 0.5 10^3/uL (0.0-0.5); EOS % 3.8 % (0.0-3.0); HEMATOCRIT 25.3 % (36.0-47.0); HEMOGLOBIN 7.4 g/dl (12.0-15.5); LYMPH # 1.2 10^3/uL (1.5-5.0); LYMPH % 9.9 % (24.0-44.0); MEAN CORPUSCULAR HEMOGLOBIN 28.9 pg (27.0-33.0); MEAN CORPUSCULAR HGB CONC 29.2 g/dl (32.0-36.5); MEAN CORPUSCULAR VOLUME 98.8 fl (80.0-96.0); MONO # 0.9 10^3/uL (0.0-0.8); MONO % 7.3 % (0.0-5.0); NEUTROPHILS # 9.4 10^3/uL (1.5-8.5); NEUTROPHILS % 77.9 % (36.0-66.0); PLATELET COUNT, AUTOMATED 416 10^3/uL (150-450); RED BLOOD COUNT 2.56 10^6/uL (4.00-5.40)
[2020-06-22 06:00] VITALS: BP 106/48
[2020-06-22 06:07] LABS: C REACTIVE PROTEIN QUANTITATIV 9.04 MG/DL (0.00-0.30); CALCIUM LEVEL 7.6 MG/DL (8.8-10.2); CREATININE FOR GFR 1.95 MG/DL (0.55-1.30); POTASSIUM SERUM 4.4 MEQ/L (3.5-5.1)
[2020-06-22] MEDS: NS 1,000 ML IV SCH (06:17)
[2020-06-22] MEDS: DOCUSATE SODIUM 100 MG CAP PO PRN (06:17)
[2020-06-22] MEDS: MOM 30ML SUSPENSION UDC PO PRN (06:17)
[2020-06-22] MEDS: FLUCONAZOLE 100 MG TAB PO SCH (09:06)
[2020-06-22] MEDS: FERROUS SULFATE 325MG TAB PO SCH (09:07)
[2020-06-22] MEDS: SODIUM BICARBONATE 325 MG TAB PO SCH (09:07)
[2020-06-22] MEDS: MULTIVITAMINS/MINERALS THERAP 1 TAB PO SCH (09:07)
[2020-06-22] MEDS: LEVOTHYROXINE 50MCG TABLET (0.05MG) PO SCH (09:07)
[2020-06-22] MEDS: LEVEMIR (INSULIN DETEMIR) 1 UNITS/0.01ML SC SCH (09:08)
[2020-06-22] MEDS: TRIAMCINOLONE ACET 0.1% OINTMENT 15 GM EXT SCH (09:09)
[2020-06-22] MEDS: HumaLOG INSULIN (NovoLOG) PER UNIT SC SCH ×2 (09:11→13:07)
[2020-06-22] MEDS: PANTOPRAZOLE 20 MG TAB PO SCH (09:14)
[2020-06-22] MEDS ORDERED: LINE1TAB6 PO (10:45)
--- NOTE | 2020-06-22 11:47 | DS.PDOC ---
Discharge Summary General Date of Admission Jun 09, 2020 at 21:13 Date of Discharge 06/22/2020 Attending Physician: COLLIN WASHBURN MD Specialist/Consultants Involve: Clemente Massey MD Specialist/Consultants Involve Dr. Armando Jacob, care; Joselin Toro, dermatology; Dr. Aramndo John, urology Discharge Summary PROCEDURES PERFORMED DURING STAY: Attempted midline catheter insertion that was unsuccessful, subclavian line insertion. ADMITTING/DISCHARGE DIAGNOSIS: 1. Rash, irritation dermatitis 2. Altered mental status, resolved 3. Leukocytosis 4. Fever 5. Nausea/vomiting 6. Urinary tract infection 7. Type 2 diabetes 8. Sacral decubitus ulcer 9. CKD stage IV 10. Hypertension 11. Coronary artery disease status post stent COMPLICATIONS/CHIEF COMPLAINT: Cellulitis. HISTORY OF PRESENT ILLNESS: Patient is an 85 year old female who presented to the hospital on 06/09/2020 with a history of altered mental status with oxygen saturations around 70s. Upon arrival, patient received oxygen therapy and her altered mental status resolved. Patient was also found to have a severe abdominal ulceration with redness and pain around her urostomy. Patient was found to have a mild leukocytosis. Patient follows with Dr. Jcaob. Patient was admitted to the hospital for further management of her rash. HOSPITAL COURSE: Patient was initially put on vancomycin and was given wound care instructions per Dr. Jacob. Patient's rash continued to worsen and spread in between her legs, her genitalia and her gluteal fold. Patient's urostomy was leaking urine which was causing irritation to the skin. We consult to urology who gave instructions for the urostomy to be placed on low intermittent suction. Patient's ostomy had not been leaking using our supplies here in the hospital. We continue to follow Dr. Jacob's wound care instruct ions. Dermatology saw the patient and agreed with wound cares instructions. Patient lost vascular access and the patient was transitioned to by mouth linezolid. This was stopped by infectious disease as it did not appear that the patient was having infectious symptoms. We continue to do wound care throughout the patient's hospitalization and the rash did start to improve. Patient also began to get contact dermatitis on her upper extremities which was treated with triamcinolone cream. Patient was doing well until , 06/20/2020 with the patient did have some disorientation to time. Patient's discharge was held up at that time due to this and we were continuing to monitor. Patient spiked a fever of 101.5 on the afternoon of 06/20/2020. Dr. Lynn was consult to place a subclavian line for more secure vascular access. Patient was given 2 days of vancomycin and septic workup was negative. After 2 additional days of monitoring, the patient was doing well. Patient had cleared physical therapy and was deemed ready for discharge. We spoke with the patient's son, who lives with the patient, and given wound care instructions in order for her to go home safely. Patient was discharged home with 7 days of by mouth linezolid. Patient will require close follow-up with the wound care and her urologist in [place]. Just prior to discharge I was informed that the patient had been exposed to a staff member who tested positive for Covid 19 on 06/22/2020. This patient has been in contact with the staff member who would work with this patient. The patient was not showing any symptoms so the patient was still deemed ready for discharge. I discussed with both the patient and her daughter that the patient will be discharged to a 14 day quarantine. While she was in quarantine, she should remain home. I advised her daughter to contact the patient's doctors to let them know and see what they would like to do. I advised that she may be elevated telemedicine for these appointments. Patient and patient's daughter expressed understanding and agreement with the plan. DISCHARGE MEDICATIONS: Please see below. ALLERGIES: Please see below. PHYSICAL EXAMINATION ON DISCHARGE: VITAL SIGNS: Please see below. General: Her and oriented female patient who was sitting up in her hospital bed and I walked into the room. Patient did not appear to be in any acute distress HEENT: Normocephalic, atraumatic, moist mucous membranes. Neck: No lymphadenopathy or thyromegaly Cardiac: Regular rate and rhythm, no murmurs, normal S1, normal S2 Pulm: Clear to auscultation bilaterally. No wheezes, rhonchi, rales Abd: Nontender to palpation, nondistended, urostomy present in the right side of the abdomen Ext: No edema bilateral lower extremities Skin: Erythematous rash with crusting over the lower abdomen and inguinal regions. The gluteal region is erythematous and appears macerated however, there is no purulent drainage coming from any area of the skin LABORATORY DATA: Please see below. 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 A chest x-ray performed on 06/09/2020 was reported to show stable chronic changes, no acute cardiopulmonary process appreciated. A CT of the chest performed without contrast on 06/13/2020 was reported to show no focal consolidative pneumonic-appearing infiltrate, bronchiectasis and chronic changes with possibly minimally increased left base atelectasis with a new small left effusion, stable aortic findings, heterogeneous liver questionably asymmetric fatty infiltration although a diffuse infiltrative process cannot be excluded. A CT of the abdomen and pelvis performed on 06/13/2020 without contrast was reported to show retained feces, extensive in the rectum, suspect the urinary diversion there is duplicated left collecting system with mild prominence and increasing hydronephrosis on the right with inflammatory changes surrounding the pelvis and proximal ureter possibly infectious, very heterogeneous liver possibly asymmetric fatty infiltration although in infiltrative process cannot be excluded. A chest x-ray performed on 06/18/2020 was reported to show typical central line and superior cavoatrial junction, no pneumothorax PROGNOSIS: Fair ACTIVITY: As tolerated. DIET: 2 g sodium diet DISCHARGE PLAN: Discharge home DISCHARGE INSTRUCTIONS: 1. Follow wound care instructions as directed by Dr. Jacob. Follow-up with Dr. Jacob early next week. 2. Follow-up with your urologist in [place] sometime next week. 3. Follow-up with primary care provider within 3-5 days. DISCHARGE CONDITION: Stable. TIME SPENT ON DISCHARGE: 35 minutes. Vital Signs/I&Os Vital Signs Date Time Temp Pulse Resp B/P (MAP) Pulse Ox O2 Delivery O2 Flow Rate FiO2 06/22/20 06:00 99.0 70 18 106/48 (67) 97 Room Air I&O- Last 24 Hours up to 6 AM 06/22/20 06:00 Intake Total 2710 ml Output Total 1300 ml Balance 1410 ml Laboratory Data Labs 24H Laboratory Tests 2 06/21/20 11:36: Bedside Glucose (Misc Panel) 199H 06/21/20 16:40: Bedside Glucose (Misc Panel) 112H 06/21/20 21:21: Bedside Glucose (Misc Panel) 171H 06/22/20 05:28: Immature Granulocyte % (Auto) 0.6, Neutrophils (%) (Auto) 77.9H, Lymphocytes (%) (Auto) 9.9L, Monocytes (%) (Auto) 7.3H, Eosinophils (%) (Auto) 3.8H, Basophils (%) (Auto) 0.5, Neutrophils # (Auto) 9.4H, Lymphocytes # (Auto) 1.2L, Monocytes # (Auto) 0.9H, Eosinophils # (Auto) 0.5, Basophils # (Auto) 0.1, Nucleated Red Blood Cells % (auto) 0.0, Anion Gap 6L, Glomerular Filtration Rate 26.0L, Calcium Level 7.6L, C-Reactive Protein, Quantitative 9.04H CBC/BMP Laboratory Tests 06/22/20 05:28 FSBS Laboratory Tests Test 06/21/20 11:36 06/21/20 16:40 06/21/20 21:21 Range/Units Bedside Glucose (Misc Panel) 199 112 171 83-110 MG/DL Microbiology Microbiology 06/20/20 Blood Culture - Preliminary, Resulted No growth after 24 hours . All specim... 06/20/20 Blood Culture - Preliminary, Resulted No growth after 24 hours . All specim... 06/16/20 Gram Stain - Final, Complete 06/16/20 Wound Culture - Final, Complete Staph.aureus Methicillin Resis Yeast Like Organism 06/13/20 Blood Culture - Final, Complete NO GROWTH AFTER 5 DAYS 06/13/20 Blood Culture - Final, Complete NO GROWTH AFTER 5 DAYS 06/13/20 Urine Culture - Final, Complete Yeast Like Organism Discharge Medications Scheduled Atenolol (Atenolol) 25 Mg Tab, 25 MG PO QHS, (Reported) HOLD IF SBP<100 Atorvastatin Calcium (Atorvastatin Calcium) 40 Mg Tab, 40 MG PO QHS, (Reported) Carboxymethylcellulose Sodium (Refresh Tears) 0.5 % Pietro, 1 DROP OU QHS, (Reported) Cetirizine HCl (ZyrTEC) 10 Mg Capsule, 10 MG PO DAILY, (Reported) Cinnamon Bark (Cinnamon) 500 Mg Capsule, 1,000 MG PO BID, (Reported) Clopidogrel Bisulfate (Clopidogrel) 75 Mg Tab, 75 MG PO DAILY, (Reported) Cranberry Conc/Ascorbic Acid (Cranberry Plus Vitamin C Sftgl) 1 Each Capsule, 1 CAP PO DAILY, (Reported) Ergocalciferol (Vitamin D2) (Vitamin D2) 50,000 Units Cap, 50,000 UNITS PO 1XWK, (Reported) WEDNESDAY MORNINGS Ferrous Sulfate (Ferrous Sulfate) 325 Mg Tab, 325 MG PO BID, (Reported) Insulin Detemir (Levemir) 1 Units/0.01 Ml Susp, 30 UNITS SC QHS, (Reported) Lactobacillus Acidophilus (Probiotic) 1 Each Capsule, 1 CAP PO DAILY, (Reported) Levothyroxine Sodium (Levothyroxine Sodium) 50 Mcg Tab, 50 MCG PO QAM, (Reported) Linezolid (Linezolid) 600 Mg Tablet, 1 TAB PO BID Multivitamins (Thera M Plus Tablet) 1 Tab Tab, 1 TAB PO DAILY, (Reported) Holstein-3/Dha/Epa/Fish Oil (Fish Oil 500 mg Softgel) 500 Mg Cap, 500 MG PO DAILY, (Reported) Pantoprazole Sodium (Pantoprazole Sodium) 20 Mg Tab, 20 MG PO DAILY, (Reported) Sodium Bicarbonate (Sodium Bicarbonate) 325 Mg Tab, 650 MG PO BID, (Reported) Scheduled PRN Acetaminophen (Acetaminophen) 500 Mg Tablet, 1,000 MG PO BID PRN for PAIN, (Reported) Docusate Sodium (Docusate Sodium) 100 Mg Cap, 100 MG PO BID PRN for CONSTIPATION, (Reported) Allergies Coded Allergies: Penicillins (Verified Allergy, Intermediate, HIVES, 10/05/19) has received PCN PO as outpt in 2018 ciprofloxacin (Verified Allergy, Intermediate, HIVES, 10/05/19) fluconazole (Verified Allergy, Intermediate, HIVES, 10/05/19) iodine (Verified Allergy, Intermediate, HIVES, 10/05/19) erythromycin base (Verified Allergy, Unknown, 10/05/19) nitrofurantoin (Verified Allergy, Unknown, 10/05/19) rofecoxib (Verified Allergy, Unknown, 10/05/19) morphine (Verified Adverse Reaction, Mild, HYPOTENSION, 10/05/19) sulfamethoxazole (Verified Adverse Reaction, Mild, 10/05/19) listed as allergy due to renal function trimethoprim (Verified Adverse Reaction, Mild, 10/05/19) listed as allergy due to renal function GME ATTESTATION GME ATTESTATION My faculty preceptor for this patient encounter was physically present during the encounter and was fully available. All aspects of the patient interview, examination, medical decision making process, and medical care plan development were reviewed and approved by the faculty preceptor. The faculty preceptor is aware and concurs with the plan as stated in the body of this note and will attest to such by his/her cosignature. ATTENDING NOTE I, Collin Washburn, have independently examined this patient and performed my own physical exam, as well as reviewed the documentation and edited where necessary. I have discussed in detail with the resident / student the findings and plan of treatment as documented by the resident / student and edited their note. I agree with their findings and treatment plan and have edited their documentation. I will continue to follow the patient during this hospital stay. Time spent on discharge 37 minutes YANELI BIRMINGHAM DO Jun 22, 2020 11:47 COLLIN WASHBURN MD Jun 22, 2020 13:59
[2020-06-22 14:00] VITALS: BP 123/50
== END 2020-06-22 17:30 | disposition home or self-care (01) | DRG 607 ==
LOC: M ED 17:58 → EDBD 17:58 → M ED INP 21:13 → ENRESERV 21:31 → M MSPAV 22:56
PROVIDERS: ADMIT Internal Medicine; ATTEND Internal Medicine
PROC: B54 Imaging, Veins, Ultrasonography (ICD-10-PCS; 2020-06-17)
PROC: 02HV33Z Insertion of Infusion Device into Superior Vena Cava, Percutaneous Approach (ICD-10-PCS; principal; 2020-06-20)
DX: L24.89 Irritant contact dermatitis due to other agents (principal); N18.4 Chronic kidney disease, stage 4 (severe); N17.9 Acute kidney failure, unspecified; E11.22 Type 2 diabetes mellitus with diabetic chronic kidney disease; I12.9 Hypertensive chronic kidney disease with stage 1 through stage 4 chronic kidney disease, or unspecified chronic kidney disease; E03.9 Hypothyroidism, unspecified; L89.151 Pressure ulcer of sacral region, stage 1; N30.10 Interstitial cystitis (chronic) without hematuria; I25.10 Atherosclerotic heart disease of native coronary artery without angina pectoris; Z86.14 Personal history of Methicillin resistant Staphylococcus aureus infection; Z79.4 Long term (current) use of insulin; Z79.899 Other long term (current) drug therapy; Z88.0 Allergy status to penicillin; Z88.1 Allergy status to other antibiotic agents; Z88.2 Allergy status to sulfonamides; Z88.5 Allergy status to narcotic agent; Z88.8 Allergy status to other drugs, medicaments and biological substances; Z87.440 Personal history of urinary (tract) infections; Z85.3 Personal history of malignant neoplasm of breast; R50.9 Fever, unspecified; Z92.21 Personal history of antineoplastic chemotherapy; Z98.1 Arthrodesis status; Z96.651 Presence of right artificial knee joint; Z96.642 Presence of left artificial hip joint; Z98.41 Cataract extraction status, right eye; Z98.42 Cataract extraction status, left eye; M15.9 Polyosteoarthritis, unspecified; Z95.5 Presence of coronary angioplasty implant and graft; Z20.828 Contact with and (suspected) exposure to other viral communicable diseases; R11.2 Nausea with vomiting, unspecified; Z53.09 Procedure and treatment not carried out because of other contraindication; Z93.6 Other artificial openings of urinary tract status

== ENCOUNTER 2020-07-11 18:15 | Inpatient (IN) | payer MEDICARE ==
[~2020-07-11] VITALS: Ht 160 cm; Wt 54.0 kg
[2020-07-11] MEDS: ATORVASTATIN 20 MG TAB PO SCH (03:22)
[~2020-07-11 18:15] MED LIST changes: +ACET-683 PO; +CETI10CA2 PO; +CRAN1CAP8 PO; +LINE1TAB6 PO; +PROBCAP14 PO
[2020-07-11] MEDS ORDERED: NS 500 ML IV ONE (19:30)
[2020-07-11 20:04] LABS: HEMATOCRIT 28.1 % (36.0-47.0); HEMOGLOBIN 8.4 g/dl (12.0-15.5); MEAN CORPUSCULAR HEMOGLOBIN 28.6 pg (27.0-33.0); MEAN CORPUSCULAR HGB CONC 29.9 g/dl (32.0-36.5); MEAN CORPUSCULAR VOLUME 95.6 fl (80.0-96.0); PLATELET COUNT, AUTOMATED 841 10^3/uL (150-450); RED BLOOD COUNT 2.94 10^6/uL (4.00-5.40); WHITE BLOOD COUNT 8.4 10^3/uL (4.0-10.0)
--- NOTE | 2020-07-11 20:04 | REP ---
INDICATION: DYSPNEA/COUGH. COMPARISON: 06/20/2020 TECHNIQUE: Portable right decubitus. FINDINGS: Left lateral decubitus positioning with the overlying chest wall, upper arm and the forearm obscure much of the left chest. The exam is nondiagnostic for evaluation of the left lung. The right lung apex is partially obscured by the patient's mandible. The remainder of the right lung shows some hyperinflation and underlying chronic changes without acute finding. The previously noted PICC line via the right upper extremity is removed since 06/20/2020. IMPRESSION: 1. Left lateral decubitus positioning with very limited evaluation. The left lung cannot be seen due to bandage for any diagnostic purpose. The right lung is demonstrating some chronic changes without definite acute infiltrate. Repeat with proper positioning when the patient is clinically able would be recommended. <Electronically signed by Deng Khan > 07/11/201999
[2020-07-11 20:27] LABS: ATYPICAL LYMPH 1 % (0-5); BASOPHILS 1 % (0-1); EOSINOPHILS 3 % (0-3); LYMPHOCYTES 26 % (16-44); METAMYELOCYTES 2 % (0-0); MONOCYTES 5 % (0-5); MYELOCYTES 1 % (0-0); NEUTROPHILS 40 % (28-66)
[2020-07-11 20:28] LABS: PLATELET ESTIMATE INCREASED (NORMAL)
[2020-07-11 20:29] LABS: ANISOCYTOSIS 2+; PLATELET CLUMPS SMALL AMT
[2020-07-11 20:31] LABS: HYPOCHROMASIA 1+; TEAR DROP CELLS 1+
[2020-07-11 20:49] LABS: ALBUMIN 1.4 GM/DL (3.2-5.2); ALT/SGPT 12 U/L (12-78); BILIRUBIN,DIRECT 0.1 MG/DL (0.0-0.2); BILIRUBIN,TOTAL 0.3 MG/DL (0.2-1.0); BLOOD UREA NITROGEN 68 MG/DL (7-18); CALCIUM LEVEL 8.6 MG/DL (8.8-10.2); CARBON DIOXIDE LEVEL 25 MEQ/L (21-32); CHLORIDE LEVEL 103 MEQ/L (98-107); CK-MB VALUE MASS 1.2 NG/ML (<3.6); CPK CREATINE PHOSPHOKINASE 40 U/L (26-192); CREATININE FOR GFR 2.04 MG/DL (0.55-1.30); GLOMERULAR FILTRATION RATE 24.6 (>32); GLUCOSE, FASTING 142 MG/DL (70-100); NT-PRO BNP 4828 PG/ML (<450); POTASSIUM SERUM 5.8 MEQ/L (3.5-5.1); SODIUM LEVEL 137 MEQ/L (136-145); THYROID STIMULATING HORMONE 0.721 uIU/ML (0.358-3.740); THYROXINE (T4) 4.5 UG/DL (4.5-12.0); TOTAL PROTEIN 6.1 GM/DL (6.4-8.2); TROPONIN I < 0.02 NG/ML (< 0.10)
[2020-07-11] MEDS ORDERED: NALOXONE INJ 0.4MG/1ML VIAL (J2310 PER 1MG) IV PRN (23:30)
[2020-07-11] MEDS ORDERED: SOD POLYSTYRENE SULFONATE SUSP 15 GM/60 ML UD PO ONE (23:30)
[2020-07-11] MEDS ORDERED: PERCOCET 5MG/325MG TAB PO ONE (23:30)
[2020-07-11] MEDS ORDERED: PATIENT COMMENT (23:34)
[2020-07-11 23:47] LABS: INR 1.17; PROTHROMBIN TIME 15.2 SECONDS (12.5-14.3)
[2020-07-12] MEDS ORDERED: DOCUSATE SODIUM 100MG CAPSULE PO PRN (00:45)
[2020-07-12 00:52] LABS: POTASSIUM SERUM 4.9 MEQ/L (3.5-5.1)
--- NOTE | 2020-07-12 02:22 | HPEPDOC ---
[facility] Medical History & Physical Date of Admission Jul 11, 2020 Date of Service: Jul 11, 2020 History and Physical CHIEF COMPLAINT: fever at home HISTORY OF PRESENT ILLNESS: 85 y/o female w pmh significant for recurrent urinary tract infection, interstitial cystitis requiring urostomy with ileal conduit severe skin breakdown due to chronic urine exposure, urine incontinence associated dermatitis, sacral decubitus, presented to the emergency room from home with worsening of skin breakdown involving the entire back from the shoulder blades and most of the lower and mid abdomen due to persistent urine leakage from the ostomy appliance. Patient was recently di. She denied any cough, shortness of breath, abdominal pain, diarrhea scharged from the hospital for the same complaints and was treated with antifungal and wound care. Per medical records, patient was having fevers at home but none documented in the emergency room. She denies any chills, shortness of breath, nausea, vomiting, diarrhea, foul smelling or cloudy urine. Hospitalist was asked to admit for management of chronic skin breakdown as well as evaluation of fever. PAST MEDICAL HISTORY: Recurrent urinary tract infection, Severe skin breakdown issues related to chronic urine exposure. Incontinent associated dermatitis. ileal conduit, Right hydronephrosis. Non obstructing L renal stone.Chronic kidney disease.Type 2 diabetes, on insulin.Hypertension.intertrigo, candidiasis, Hyperlipidemia.Hypothyroidism. Interstitial cystitis requiring urostomy. sacral decutitus ulcer, CAD s/p stent fungal dermatitis with chemical dermatitis, urinary leak. Urine candidiasis, diffuse maculopapular rash due to possible allergic reaction to Rocephin, or chlorhexidine .Anemia of chronic disease.Left breast cancer 30 years ago s/p chemo/surgery.acute metabolic encephalopathy, old right cerebral infarct. bronchiectasis. fatty liver. PAST SURGICAL HISTORY: partial Left hip replacement.,mastectomy, L2-3-4-5 lumbar fusion.Diversion uro stomy. Right knee arthroplasty.Hysterectomy.Bilateral cataract surgery.cystectomy with ileal conduit,subclavian line triple lumen catheter for vascular access may 2020 ALLERGIES:see below MEDICATIONS:see below SOCIAL HISTORY daughter is Abi Maldonado, her healthcare proxy and a registered nurse at [employer].lives with her son, Jovan. denies alcohol or drug use or tobacco use. FAMILY HISTORY: father , -Chronic obstructive pulmonary disease (COPD) mother, - kidney disease REVIEW OF SYSTEMS: 10 point ROS negative aside from (+)findings on HPI PHYSICAL EXAMINATION: VITALS: see below GEN:A pleasant, elderly female in no acute distress. HEENT: Appears her stated age, frail, awake, alert, oriented 3, answering questions appropriately HEART: Normal S1, S2. No murmurs, rubs, or gallops. Regular rate and rhythm. No murmurs, rubs or gallops LUNGS: Clear. No wheezes, rales, or rhonchi., Air entry is equal bilaterally ABDOMEN: Soft, tender in the right lower quadrant where there is an ostomy bag. Severe maceration involving the whole right lower quadrant, maceration. Right lower abdomen with inflamed pink to red patch with denuding of the skin with sloughing white debris present Soft, nontender, a urostomy in the right lower quadrant. Diffuse erythema in the lower abdominal fold into the vulvar area and to both thighs and buttock area with significant erythema, skin lacerations, scaling. Extremities: No clubbing, cyanosis or edema, no calf tenderness. EXTREMITIES: No clubbing, cyanosis, or edema. No rashes. No calf tenderness. BACK: No costovertebral angle (CVA) or lumbosacral tenderness. Midline scar, lumbar spine, well healed. LABORATORY DATA: See below IMAGING STUDIES: See below ASSESSMENT AND PLAN:85 y/o female w pmh significant for recurrent urinary tract infection, interstitial cystitis requiring urostomy with ileal conduit severe skin breakdown due to chronic urine exposure, urine incontinence associated dermatitis, sacral decubitus, presented to the emergency room from home with worsening of skin breakdown involving the entire back from the shoulder blades and most of the lower and mid abdomen due to persistent urine leakage from the ostomy appliance. Patient was recently di. She denied any cough, shortness of breath, abdominal pain, diarrhea scharged from the hospital for the same complaints and was treated with antifungal and wound care. Per medical records, patient was having fevers at home but none documented in the emergency room. She denies any chills, shortness of breath, nausea, vomiting, diarrhea, foul smelling or cloudy urine. Hospitalist was asked to admit for management of chronic skin breakdown as well as evaluation of fever. Irritant contact dermatitis due to continued to leakage from the ostomy involving most of the back and right lower abdomen - keep area dry around urostomy. - sucralfate powder BID and thick zinc paste such as Triple Paste or Desitin Max (40% zinc oxide) to area BID - arrange telemedicine with wound care surgeon, Dr. Jacob for management. - She does not appear to have any underlying cellulitis at this time. No signs of abscess or purulence - Monitor for recurrent fevers or worsening white count. No empiric antibiotics at this time Chronic urinary retention with obstructive uropathy s/p ileal conduit and urostomy bag since jul 2017 -due to 14 day covid-exposure mandatory quarantine, pt was unable to fu with her urologist at [facility] in [place] since her preivous [facility] hospital discharge. -she continues to have significant leakage at the ostomy appliance, with severe skin breakdown. History of breast Cancer s/p left mastectomy in the past. HTN -Controlled on home dose of atenolol DM2 -Consistent carbohydrate diet. Fingersticks every before meals and at bedtime continue with levemir , lispro insulin sliding scale; hypoglycemia protocol Chronic iron deficiency anemia -asymptomatic not requiring emergent RBC transfusion H/o Ischemic stroke -Resumed one plavix and statin. Left femoral neck fracture s/p mechanical fall s/p left hemiarthroplasty on 12/25/17 Chronic kidney disease stage 4 -Currently at baseline creatinine. . Continue with sodium bicarbonate. . Avoid nephrotoxins. Renally dose all medications Hyperlipidemia -continue lipitor GERD continue with protonix Vital Signs Vital Signs Date Time Temp Pulse Resp B/P (MAP) Pulse Ox O2 Delivery O2 Flow Rate FiO2 07/11/20 21:30 98.6 87 18 166/65 (98) 99 Room Air Laboratory Data Labs 24H Laboratory Tests 2 07/11/20 19:26: Neutrophils (%) (Auto) , Nucleated Red Blood Cells % (auto) 0.0, Neutrophils 40, Band Neutrophils 21H, Lymphocytes (Manual) 26, Monocytes (Manual) 5, Eosinophils (Manual) 3, Basophils (Manual) 1, Metamyelocytes 2H, Myelocytes 1H, Atypical Lymphocytes 1, Hypochromasia 1+, Anisocytosis 2+, Macrocytosis 2+, Tear Drop Cells 1+, Platelet Estimate INCREASED, Clumped Platelets SMALL AMT 07/11/20 19:40: Anion Gap 9, Glomerular Filtration Rate 24.6L, Lactic Acid Level 1.8, Calcium Level 8.6L, Total Bilirubin 0.3, Direct Bilirubin 0.1, Aspartate Amino Transf (AST/SGOT) 41H, Alanine Aminotransferase (ALT/SGPT) 12, Alkaline Phosphatase 92, Total Creatine Kinase 40, Creatine Kinase MB 1.2, Creatine Kinase MB Relative Index 3.00, Troponin I < 0.02, KP-Abf-H-Type Natriuretic Peptide 4828H, Total Protein 6.1L, Albumin 1.4L, Albumin/Globulin Ratio 0.3L, Thyroid Stimulating Hormone (TSH) 0.721, Thyroxine (T4) 4.5 CBC/BMP Laboratory Tests 07/11/20 19:26 07/11/20 19:40 Microbiology Microbiology 07/11/20 Blood Culture, Received Pending 07/11/20 Blood Culture, Received Pending Home Medications Scheduled Atenolol (Atenolol) 25 Mg Tab, 25 MG PO QHS HOLD IF SBP<100 Atorvastatin Calcium (Atorvastatin Calcium) 40 Mg Tab, 40 MG PO QHS Carboxymethylcellulose Sodium (Refresh Tears) 0.5 % Pietro, 1 DROP OU QHS Cetirizine HCl (ZyrTEC) 10 Mg Capsule, 10 MG PO DAILY Cinnamon Bark (Cinnamon) 500 Mg Capsule, 1,000 MG PO BID Clopidogrel Bisulfate (Clopidogrel) 75 Mg Tab, 75 MG PO DAILY Cranberry Conc/Ascorbic Acid (Cranberry Plus Vitamin C Sftgl) 1 Each Capsule, 1 CAP PO DAILY Ergocalciferol (Vitamin D2) (Vitamin D2) 50,000 Units Cap, 50,000 UNITS PO 1XWK WEDNESDAY MORNINGS Ferrous Sulfate (Ferrous Sulfate) 325 Mg Tab, 325 MG PO BID Insulin Detemir (Levemir) 1 Units/0.01 Ml Susp, 30 UNITS SC QHS Lactobacillus Acidophilus (Probiotic) 1 Each Capsule, 1 CAP PO DAILY Levothyroxine Sodium (Levothyroxine Sodium) 50 Mcg Tab, 50 MCG PO QAM Multivitamins (Thera M Plus Tablet) 1 Tab Tab, 1 TAB PO DAILY [place]-3/Dha/Epa/Fish Oil (Fish Oil 500 mg Softgel) 500 Mg Cap, 500 MG PO DAILY Pantoprazole Sodium (Pantoprazole Sodium) 20 Mg Tab, 20 MG PO DAILY Sodium Bicarbonate (Sodium Bicarbonate) 325 Mg Tab, 650 MG PO BID Scheduled PRN Acetaminophen (Acetaminophen) 500 Mg Tablet, 1,000 MG PO BID PRN for PAIN Docusate Sodium (Docusate Sodium) 100 Mg Cap, 100 MG PO BID PRN for CONSTIPATION Miscellaneous Medications [Patient Comment] COMPLETED USING EXTERNAL MED HISTORY AND DISCHARGE PAPERWORK FROM 06/22/2020 Allergies Coded Allergies: Penicillins (Verified Allergy, Intermediate, HIVES, 10/05/19) has received PCN PO as outpt in 2018 ciprofloxacin (Verified Allergy, Intermediate, HIVES, 10/05/19) fluconazole (Verified Allergy, Intermediate, HIVES, 10/05/19) iodine (Verified Allergy, Intermediate, HIVES, 10/05/19) erythromycin base (Verified Allergy, Unknown, 10/05/19) nitrofurantoin (Verified Allergy, Unknown, 10/05/19) rofecoxib (Verified Allergy, Unknown, 10/05/19) morphine (Verified Adverse Reaction, Mild, HYPOTENSION, 10/05/19) sulfamethoxazole (Verified Adverse Reaction, Mild, 10/05/19) listed as allergy due to renal function trimethoprim (Verified Adverse Reaction, Mild, 10/05/19) listed as allergy due to renal function A-FIB/CHADSVASC A-FIB History Current/History of A-Fib/PAF?: No Current PO Anticoag Therapy: No Age/Risk Factor Scoring CHADSVASC: CHADSVASC Response (Comments) Value Age Risk Factor Age >/= 75 years old 2 Gender Risk Factor Female 1 Hx of CHF No 0 Hx of HTN Yes 1 Hx of Stroke/TIA/or VTE Yes 2 Hx of Diabetes No 0 Hx of Vascular Disease No 0 Total 6 Treatment Treatment ordered: NONE SHEN JACQUES MD Jul 11, 2020 21:55
[2020-07-12] MEDS: atenoloL 25 MG TAB PO SCH ×2 (03:22→21:00)
[2020-07-12 03:23] VITALS: BP 134/48
[2020-07-12 06:08] VITALS: BP 132/59
[2020-07-12] MEDS: LEVOTHYROXINE 50MCG TABLET (0.05MG) PO SCH (06:28)
[2020-07-12] MEDS: PERCOCET 5MG/325MG TAB PO PRN ×2 (06:29→14:57)
[2020-07-12 09:17] LABS: HEMATOCRIT 26.4 % (36.0-47.0); HEMOGLOBIN 7.7 g/dl (12.0-15.5); MEAN CORPUSCULAR HGB CONC 29.2 g/dl (32.0-36.5); PLATELET COUNT, AUTOMATED 851 10^3/uL (150-450); RED BLOOD COUNT 2.75 10^6/uL (4.00-5.40); WHITE BLOOD COUNT 8.7 10^3/uL (4.0-10.0)
--- NOTE | 2020-07-12 09:29 | IPNPDOC ---
Text Note Date of Service The patient was seen on 07/12/20. NOTE SUBJECTIVE: The patient is a 85yo female presenting to the hospital with a fever at home and worsening cellulitis. She has a urostomy on the R side of the abdomen which has been leaking. She was previously hospitalized for contact dermatitis from leaking urine. The rash previously had improved and the patient was discharged with instructions to return to [place] for urostomy repair. At the time of discharge, one of the floor nurses has been exposed to COVID, and the patient was instructed to quarantine for two weeks before traveling to [facility] for the repair. Since then the rash has worsened, it is eroded and erythematous. OBJECTIVE: VITALS: See below GENERAL: The patient is in acute distress. She cannot speak to me, and is crying in pain from her wounds. She holds hands to her chest throughout interview and resists the nurses when they tried to change her bandages. CV: Tachycardic, with a regular rhythm. Normal S1 and S2 noted. No Murmurs, gallops or rubs are noted. LUNGS: Breath sounds are clear in all lung doty b/l. ABDOMEN: Soft, nondistended. There is a urostomy bad in the R lower quadrant. Skin: Severe erythematous maceration from the site of the urostomy bag inferiorly to the groin area, and wrapping posteriorly up to the mid ribcage. Th e rash is bleeding, and largely eroded. The skin beneath the rash is bruised. White and black debris is present. EXTREMITIES: No clubbing or edema is noted. No rashes in the extremities. ASSESSMENT/PLAN: The patient is an 85yo female with a history of a urostomy bag and contact dermatitis due to chronic urine exposure, presented to the ED with fever and worsening skin rash. The rash has extended to the entire back, and is bleeding, bruises, and eroded, due to chronic exposure to urine leaking from her urostomy bag. 1. Irritated Contact Dermatitis complicated by magdalene 2/2 continuos leaking from urostomy -The rash has extended to include the R lower quadrant of the abdomen anteriorly, the perineum and most of the back and buttocks posteriorly. It is beefy red with satellite lesions. -Advance wound care with Dr. Jacob is being arranged. -Dermatology has been contacted for recommendations of management. They recommend nystatin powder to the affected area 2x per day followed by a skin barrier spray. This can be repeated a few times around the stoma. -Wound culture pending. -Keep urostomy and surrounding area dry. -Have the patient moved to an air mattress to reduce pressure on her rash -Start on low dose morphine due to uncontrolled pain with Percocet -The patient does not currently have a fever and WBC count is normal. There is no sign of infection at this time. Continue to monitor WBC and temperature. -Change position every 2hrs 2. Chronic Urinary Retention s/p Ileal conduit and urostomy -The ostomy appliance is actively leaking -Due to 14d quarantine patient was not able to see her urologist at [facility] -Spoke with Urologist Dr. John who stated that this does not appear to be a surgical issue and is likely a wound care issue. He recommends patient FU with primary urologist at discharge and consider a stomal therapist for chronic stomal irritation. 3. HTN -Continue home atenolol 4. DM2 -Continue with home levemir, ispro sliding scale insulin. -Consistent carbohydrate diet 5. CAD s/p stents -Continue Plavix and aspirin 6. Chronic Iron Deficiency Anemia -Asymptomatic -Hgb at 8.4. Consider transfusion if it drops below 8. 7. History of Ischemic Stroke -Continue home Plavix and statin 8. CKD Stage 4 -Patients CR baseline is ~2.3 -Patient is currently at her baseline creatinine -Continue sodium bicarb -Avoid nephrotoxic drugs. 9. GERD -Continue home Protonix 10. DVT Prophylaxis -Patient is on Plavix. Continue home Plavix and Aspirin. Dispo: Pending wound care management recommendations from Dr. Jacob. VS,Fishbone, I+O VS, Canelobone, I+O Laboratory Tests 07/11/20 19:26 07/11/20 19:40 07/12/20 00:30 Vital Signs Date Time Temp Pulse Resp B/P (MAP) Pulse Ox O2 Delivery O2 Flow Rate FiO2 07/12/20 07:16 16 07/12/20 06:08 98.5 83 132/59 (83) 99 Room Air I&O- Last 24 Hours up to 6 AM 07/12/20 06:00 Intake Total 500 ml Output Total 0 ml Balance 500 ml GME ATTESTATION GME ATTESTATION My faculty preceptor for this patient encounter was physically present during the encounter and was fully available. All aspects of the patient interview, examination, medical decision making process, and medical care plan development were reviewed and approved by the faculty preceptor. The faculty preceptor is aware and concurs with the plan as stated in the body of this note and will attest to such by his/her cosignature. ATTENDING NOTE Attending Note: Patient seen and examined independently. Agree with student's note. ANNE VANG Jul 12, 2020 09:29 HERMES DAVIS MD Jul 14, 2020 07:04
[2020-07-12 09:35] LABS: CALCIUM LEVEL 8.9 MG/DL (8.8-10.2); CREATININE FOR GFR 2.15 MG/DL (0.55-1.30); GLOMERULAR FILTRATION RATE 23.2 (>32); POTASSIUM SERUM 5.4 MEQ/L (3.5-5.1)
[2020-07-12 09:43] LABS: ANISOCYTOSIS 1+; LYMPHOCYTES 12 % (16-44); MONOCYTES 10 % (0-5); NEUTROPHILS 78 % (28-66); PLATELET ESTIMATE INCREASED (NORMAL)
[2020-07-12 09:52] LABS: HYPOCHROMASIA 1+
[2020-07-12] MEDS: CLOPIDOGREL 75 MG TAB PO SCH (10:18)
[2020-07-12] MEDS: MULTIVITAMINS/MINERALS THERAP 1 TAB PO SCH (10:18)
[2020-07-12] MEDS: SODIUM BICARBONATE 325 MG TAB PO SCH ×2 (10:18→21:00)
[2020-07-12] MEDS: PANTOPRAZOLE 20 MG TAB PO SCH (10:18)
[2020-07-12] MEDS: FERROUS SULFATE 325MG TAB PO SCH ×2 (10:18→21:00)
[2020-07-12 14:00] VITALS: BP 128/49
[2020-07-12] MEDS: MORPHINE 2 MG/ML 1ML VIAL (J2270) IV PRN (17:29)
[2020-07-12] MEDS: NYSTATIN 100,000 UNITS/GM TOPICAL PWD 15 GM TOP SCH (21:00)
[2020-07-12] MEDS: ATORVASTATIN 20 MG TAB PO SCH (21:00)
[2020-07-12] MEDS: LEVEMIR (INSULIN DETEMIR) 1 UNITS/0.01ML SC SCH (21:00)
[2020-07-12] MEDS ORDERED: CALCIUM GLUCONATE 1,000 MG in D5W MINI-BAG PLUS 100 ML IV ONE (23:30)
[2020-07-13] VITALS (8 sets, daily range): BP systolic 124–151; BP diastolic 51–63
[2020-07-13] MEDS: MORPHINE 2 MG/ML 1ML VIAL (J2270) IV PRN ×2 (00:48→16:03)
[2020-07-13] MEDS: PERCOCET 5MG/325MG TAB PO PRN ×4 (01:03→20:43)
[2020-07-13] MEDS: LEVOTHYROXINE 50MCG TABLET (0.05MG) PO SCH (06:27)
[2020-07-13 07:51] LABS: MEAN CORPUSCULAR HEMOGLOBIN 27.7 pg (27.0-33.0); MEAN CORPUSCULAR HGB CONC 29.2 g/dl (32.0-36.5); MEAN CORPUSCULAR VOLUME 94.9 fl (80.0-96.0); PLATELET COUNT, AUTOMATED 827 10^3/uL (150-450); RED BLOOD COUNT 2.53 10^6/uL (4.00-5.40); WHITE BLOOD COUNT 7.6 10^3/uL (4.0-10.0)
[2020-07-13 08:02] LABS: CALCIUM LEVEL 8.5 MG/DL (8.8-10.2); CREATININE FOR GFR 2.19 MG/DL (0.55-1.30); GLOMERULAR FILTRATION RATE 22.7 (>32); POTASSIUM SERUM 5.6 MEQ/L (3.5-5.1)
[2020-07-13] MEDS ORDERED: FERRIC CARBOXYMALTOSE INJ 750 MG in NS 250 ML IV ONE (08:45)
[2020-07-13 09:00] LABS: LYMPHOCYTES 12 % (16-44); MONOCYTES 2 % (0-5); MYELOCYTES 2 % (0-0); NEUTROPHILS 77 % (28-66); PLATELET ESTIMATE INCREASED (NORMAL)
[2020-07-13] MEDS: FERROUS SULFATE 325MG TAB PO SCH ×2 (09:00→21:00)
[2020-07-13] MEDS: PANTOPRAZOLE 20 MG TAB PO SCH (09:00)
[2020-07-13] MEDS: MULTIVITAMINS/MINERALS THERAP 1 TAB PO SCH (09:00)
[2020-07-13] MEDS: CLOPIDOGREL 75 MG TAB PO SCH (09:00)
[2020-07-13] MEDS: NYSTATIN 100,000 UNITS/GM TOPICAL PWD 15 GM TOP SCH ×2 (09:00→21:06)
[2020-07-13] MEDS: SODIUM BICARBONATE 325 MG TAB PO SCH ×2 (09:00→21:00)
[2020-07-13 09:01] LABS: ANISOCYTOSIS 1+
[2020-07-13] MEDS ORDERED: IRON SUCROSE 200 MG in NS 100 ML IV ONE (11:00)
[2020-07-13] MEDS ORDERED: VANCOMYCIN HCL 500 MG in D5W MINI-BAG PLUS 100 ML IV SCH (11:45)
[2020-07-13] MEDS ORDERED: NS 1,000 ML IV ONE (11:45)
[2020-07-13] MEDS ORDERED: VANCOMYCIN INTERMITTENT/PULSE DOSING BY CLINICAL PHARMACIST PER DOSING PROTOCOL XX SCH (13:00)
[2020-07-13] MEDS: MEROPENEM INJ 500 MG in IV 1 EA IV SCH (13:10)
[2020-07-13] MEDS ORDERED: VANCOMYCIN HCL 1,000 MG, VIAL MATE ADAPTER 1 EACH in D5W 250 ML IV ONE (14:00)
--- NOTE | 2020-07-13 15:35 | IPNPDOC ---
Text Note Date of Service The patient was seen on 07/13/20. NOTE Subjective: Patient seen at bedside and examined. Patient is anxious, and in severe pain. She initially was refusing treatment and she was in severe pain. She looked very dehydrated and delirious and I went and saw her. Objective Physical exam Vital signs: See below Gen.: Patient is in acute distress, she looks so dehydrated and was crying in pain. was resisting touching her or examining her. As per the notes she did refuse her morning medications. She only got pain medication in the morning. With a course of day I went and visited her 2-3 times. Cardiac: Tachycardia, S1 and normal, no murmur noted. Lungs: Did not examine. Abdomen: Soft, there is a urostomy bag in the right lower quadrant. Skin: Extensive wounds and covered with dressing, patient did not allowed to touch her or see her wounds. Assessment: 85-year-old female patient with a status post urostomy, and urostomy bag in place, contact dermatitis due to chronic urine exposure/leak, presented to the emergency department with fever and worsening skin rash. The patient was recently admitted in the hospital for the same trash but this time the rash looks more severe extended all the way to her lumbar region. Plan: Delirium 2/2 dehydration vs anemia vs infection -Patient has a drop in hemoglobin from 7.7 to 7, will transfuse her at least 2 units of blood. - We will workup for the source of blood loss. We will get an FOBT. - Nephrology consulted as patient has a history of CKD, and anemia of chronic disease. - Will give her saline bolus of 1 L fluid as patient looked very dry. - And had a temperature of 100.6 overnight, so we will hold off on her iron transfusion at this point. - Will start her on vancomycin and meropenem as she had a temperature of 100.6. - Will get a second set of blood cultures, UA with culture, as patient has sudden spike a fever. - And doesn't have elevated white count at this point. Will continue to monitor. Contact dermatitis complicated with continuous leak from urostomy 2/2 magdalene infection: - Patient has an extensive rash involving the right lower quadrant of the abdomen anteriorly, perineum extending into her buttocks and back. - Advanced wound care Dr. Jacob consulted, will appreciate input and will follow recommendations. - Oncology was contacted for recommendations of management and suggested nystatin powder to the affected area twice per day followed by skin barrier spray. - Will continue to give her low-dose morphine due to uncontrolled pain. - Patient will need frequent change of position every 2 hours. Chronic iron deficiency anemia: - Iron studies: Iron 9, TIBC 113, transferrin saturation 8, ferritin 457. - Patient's hemoglobin is 7 down from 7.7. - Will transfuse her 2 units. - Will hold off on supplementation of iron IV as patient has temperature. - Patient refuses to take oral iron supplementation and multivitamin today. - Nephrology is consulted for the management of anemia as patient has a history of CKD - We'll get an FOBT done to investigate the acute drop of hemoglobin. - Continue to monitor her hemoglobin. Chronic Urinary Retention s/p Ileal conduit and urostomy -The ostomy appliance is actively leaking -Due to 14d quarantine patient was not able to see her urologist at [facility] -Spoke with Urologist Dr. John who stated that this does not appear to be a surgical issue and is likely a wound care issue. He recommends patient FU with primary urologist at discharge and consider a stomal therapist for chronic stomal irritation. Hypertension: - Continue atenolol Diabetes mellitus type 2: Continue sliding scale insulin and Levemir. Consistent carbo diet. CAD S/P stents: - Will continue Plavix and aspirin CKD stage IV: - Patient's baseline creatinine is around 2.3, today creatinine is 2.19. - Will Continue sodium bicarbonate. - Avoid nephrotoxic drugs Hypothyroidism: - Will continue levothyroxine 50 mcg GERD: - Will continue Protonix 20 MG DVT prophylaxis; Patient is on Plavix at home will continue Plavix 75 MG. Attending Note: Patient seen and examined independently. Agree with resident's note. Case discussed with nephrology, urology, dermatology. VS,Canelobone, I+O VS, Canelobone, I+O Laboratory Tests 07/13/20 07:17 Vital Signs Date Time Temp Pulse Resp B/P (MAP) Pulse Ox O2 Delivery O2 Flow Rate FiO2 07/13/20 06:26 22 07/13/20 05:55 100.6 07/12/20 14:00 86 128/49 (75) 98 Room Air I&O- Last 24 Hours up to 6 AM 07/13/20 06:00 Intake Total 360 ml Output Total 275 ml Balance 85 ml Mojgan Ring MD Jul 13, 2020 13:16 HERMES DAVIS MD Jul 14, 2020 07:13
[2020-07-13 20:25] LABS: ALBUMIN 1.3 GM/DL (3.2-5.2); CALCIUM LEVEL 8.9 MG/DL (8.8-10.2); CREATININE FOR GFR 2.16 MG/DL (0.55-1.30); GLOMERULAR FILTRATION RATE 23.1 (>32); PHOSPHORUS LEVEL 3.7 MG/DL (2.5-4.9); POTASSIUM SERUM 4.9 MEQ/L (3.5-5.1)
[2020-07-13] MEDS: atenoloL 25 MG TAB PO SCH (21:00)
[2020-07-13] MEDS: LEVEMIR (INSULIN DETEMIR) 1 UNITS/0.01ML SC SCH (21:00)
[2020-07-13] MEDS: ATORVASTATIN 20 MG TAB PO SCH (21:00)
[2020-07-14] MEDS: MEROPENEM INJ 500 MG in IV 1 EA IV SCH ×2 (00:48→12:17)
[2020-07-14] MEDS: PERCOCET 5MG/325MG TAB PO PRN ×4 (00:54→17:00)
[2020-07-14] MEDS: MORPHINE 2 MG/ML 1ML VIAL (J2270) IV PRN ×3 (02:20→18:24)
[2020-07-14 06:18] VITALS: BP 130/63
[2020-07-14] MEDS: LEVOTHYROXINE 50MCG TABLET (0.05MG) PO SCH (06:26)
[2020-07-14 08:02] LABS: HEMATOCRIT 29.4 % (36.0-47.0); HEMOGLOBIN 8.7 g/dl (12.0-15.5); MEAN CORPUSCULAR HEMOGLOBIN 27.3 pg (27.0-33.0); MEAN CORPUSCULAR HGB CONC 29.6 g/dl (32.0-36.5); MEAN CORPUSCULAR VOLUME 92.2 fl (80.0-96.0); PLATELET COUNT, AUTOMATED 699 10^3/uL (150-450); RED BLOOD COUNT 3.19 10^6/uL (4.00-5.40); WHITE BLOOD COUNT 8.5 10^3/uL (4.0-10.0)
[2020-07-14 08:45] LABS: ANISOCYTOSIS 1+; EOSINOPHILS 3 % (0-3); LYMPHOCYTES 11 % (16-44); METAMYELOCYTES 2 % (0-0); MONOCYTES 5 % (0-5); MYELOCYTES 2 % (0-0); NEUTROPHILS 71 % (28-66); PLATELET ESTIMATE INCREASED (NORMAL)
[2020-07-14] MEDS: PANTOPRAZOLE 20 MG TAB PO SCH (09:00)
[2020-07-14] MEDS: FERROUS SULFATE 325MG TAB PO SCH ×2 (09:00→21:33)
[2020-07-14] MEDS: SODIUM BICARBONATE 325 MG TAB PO SCH ×2 (09:00→21:50)
[2020-07-14] MEDS: MULTIVITAMINS/MINERALS THERAP 1 TAB PO SCH (09:00)
[2020-07-14] MEDS: NYSTATIN 100,000 UNITS/GM TOPICAL PWD 15 GM TOP SCH (09:08)
[2020-07-14 09:47] LABS: CALCIUM LEVEL 8.6 MG/DL (8.8-10.2); CREATININE FOR GFR 2.01 MG/DL (0.55-1.30); GLOMERULAR FILTRATION RATE 25.1 (>32)
[2020-07-14] MEDS: MICONAZOLE 2 % POWDER (DESENEX) TOP SCH ×2 (12:16→21:34)
[2020-07-14] MEDS: NS 0.45% 1,000 ML IV SCH (12:17)
[2020-07-14 14:00] VITALS: BP 127/59
[2020-07-14] MEDS ORDERED: VANCOMYCIN HCL 500 MG in D5W MINI-BAG PLUS 100 ML IV ONE (15:00)
[2020-07-14] MEDS ORDERED: MORPHINE 2 MG/ML 1ML VIAL (J2270) IV ONE (15:15)
[2020-07-14] MEDS ORDERED: MORPHINE 2 MG/ML 1ML VIAL (J2270) As Ordered ONE (15:18)
--- NOTE | 2020-07-14 17:07 | CR ---
DATE OF CONSULTATION: 07/13/2020 REQUESTING PHYSICIAN: Dr. Yaya Miller CONSULTING PHYSICIAN: Dr. Yara Hernández REASON FOR CONSULTATION: Management of her hyperkalemia, chronic kidney disease stage 4 and iron deficiency anemia. CHIEF COMPLAINT: The patient presented to the hospital on July 11, 2020 with fevers at home. 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 She has leakage around the ostomy causing chronic dermatitis which extends from the urostomy site all the way to her right side of the abdomen and in the back. She presented 2 days ago with worsening skin breakdowns, fevers and chills at home. She was admitted under the Hospitalist Service with contact dermatitis, intractable pain. Further labs done on admission showed that the patient is having worsening anemia. Hemoglobin was 8.4 on arrival. It is 7 today. Labs show iron deficiency. She also has persistent hyperkalemia with a potassium of 5.6. The patient has baseline chronic kidney disease of 4 with a creatinine of around 2.1. Nephrology Service was called for further help in the management of this patient with multiple comorbidities and baseline renal dysfunction. The patient was seen and examined by myself at the bedside on the Medical/Surgical Floor. The Nursing Team was trying to get an access on the patient because it was very difficult to find the veins in the bilateral upper extremities. The patient looks clinically dehydrated and emaciated. She was in significant painful distress. She was not cooperative and she was unable to provide any history. Most of the history was obtained from the patient's chart and from the Medical Team. PAST MEDICAL HISTORY: The patient's past medical history is significant for: 1. Chronic kidney disease stage 4. 2. History of frequent urinary tract infections. 3. Skin breakdowns because of urostomy leakage. 4. Ileal conduit. 5. History of right sided hydronephrosis. 6. Non-obstructing left sided stone. 7. Diabetes mellitus type 2, insulin dependent. 8. Hypertension. 9. Candidiasis. 10. Hyperlipidemia. 11. Hypothyroidism. 12. Interstitial cystitis requiring urostomy. 13. Sacral decubitus ulcers. 14. Coronary artery disease. 15. Anemia of chronic disease. 16. Left breast cancer 30 years ago, status post chemo and surgery. 17. 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 18. History of fatty liver disease. PAST SURGICAL HISTORY: The patient's past surgical history is significant for: 1. Status post left hip replacement. 2. History of mastectomy. 3. Lumbar fusion surgery from L-2 to L-5. 4. Diversion urostomy with ileal conduit. 5. Right knee arthroplasty. 6. Hysterectomy. 7. Bilateral cataract surgery in the past. ALLERGIES: * Penicillin. * Ciprofloxacin. * Erythromycin. * Fluconazole. * Iodine. * Morphine. * Nitrofurantoin. * Rofecoxib. * Sulfa drugs. FAMILY HISTORY: No significant family history of end-stage renal disease requiring hemodialysis. SOCIAL HISTORY: No history of drug abuse or alcohol abuse. Her daughter is the healthcare proxy. REVIEW OF SYSTEMS: The patient was unable to provide any review of systems because she was in significant pain. She was uncooperative because of that and she was moaning and groaning when I examined her. PHYSICAL EXAMINATION: GENERAL APPEARANCE: The patient is awake, not able to communicate because of pain. VITAL SIGNS: Temperature was 99.5 degrees Fahrenheit, blood pressure 137/53, pulse is 96, respiratory rate of 15, saturating 95% on room air. HEAD AND NECK: Pupils are equally round and reactive to light. Mucous membranes are very dry. Neck is supple. There is no significant jugular venous distention. CARDIOVASCULAR: S1, S2, tachycardia. EXTREMITIES: No edema of the bilateral lower extremities. RESPIRATORY: Chest is clear to auscultation bilaterally. Bilaterally currently no rales or rhonchi. ABDOMEN: Soft, severely tender because of large, erythematous rash which looks like a laceration. It starts from the right lower quadrant urostomy and goes in the right flank, all the way into the back. MUSCULOSKELETAL: No clubbing, no cyanosis. She is emaciated. No edema was noted. OPTOMETRIC COORDINATOR: The patient is agitated because of pain. Otherwise she moves the extremities. LABORATORY REVIEW: CBC showed a WBC of 7.6, hemoglobin is 7, platelets are 827. Band neutrophils are 7. BMP done today showed sodium 139, potassium 5.6, chloride 108, bicarbonate 24, BUN 71, creatinine is 2.1. Glucose is 223, calcium 8.5. Iron level is 9. TIBC is 113. transferrin saturation is 8%. Ferratin is 457. Microbiology: Initial blood cultures are negative so far. IMAGING: A chest x-ray done on arrival showed left lateral decubitus positioning very limited evaluation. CURRENT INPATIENT MEDICATIONS: The patient's medications include: * Atenolol 25 mg q. h.s. * Lipitor 40 mg q. h.s. * Plavix 75 mg p.o. daily. * Colace 100 mg p.r.n. for constipation. * Insulin Levemir 30 units subcutaneously q. h.s. * Levothyroxine 50 mcg p.o. daily. * Morphine Sulfate p.r.n. for pain. * Nystatin Powder to the affected area. * Percocet p.r.n. for moderate pain. * Protonix 20 mg p.o. daily. * Sodium Bicarbonate 650 mg p.o. twice daily. ASSESSMENT: 1. Chronic kidney disease stage 4 - The patients renal function is stable. However she is dehydrated and volume depleted. Creatinine is slightly worse than the baseline of 2 when she came in. She will be given IV fluid hydration as mentioned below. 2. Low grade fevers, bandemia, large dermatitis rash - The patient was given one liter normal saline bolus. She was empirically started on Vancomycin and Meropenem. Repeat blood cultures are pending. The patient is at risk of developing sepsis. 3. Worsening iron deficiency anemia we need to look for a source of bleeding. Hemoglobin level is dropping from a level of 8.4 to 7 today. Because of low grade fevers and leukocytosis, I am reluctant to give her IV iron. She will be given one unit of PRBC transfusion today. 4. Hyperkalemia - Potassium is persistently high. She will be given IV fluid hydration. Hopefully with increase in the urine output, potassium level should get better. The patient already has large contact dermatitis rash from ileal conduit. I am reluctant to give her Kayexalate. That would cause diarrhea and make the rash worse. 5. Diabetes mellitus type 2 - continue insulin Levemir and sliding scale as per the Medical Team. 6. Chronic metabolic acidosis it is controlled with the current dose of sodium bicarbonate 650 mg p.o. twice daily. Thank you for involving me in the care of this patient. I shall be happy to follow the patient along with you tomorrow morning. [facility]
--- NOTE | 2020-07-14 17:11 | IPN ---
DATE: 07/14/2020 SUBJECTIVE: The patient was seen and examined at the bedside today morning. The patient is slightly more awake and alert today since yesterday. She was given 1 liter of normal saline bolus. She was given 1 unit of PRBC transfusion. She was started on I.V. antibiotics. Cultures were sent. Renal function is stable and hyperkalemia is improving today. Hemoglobin has improved to 8.7. She still complains of pain at the abdominal wound site. Otherwise, no active complaints. OBJECTIVE: VITAL SIGNS: Temperature 98 degrees Fahrenheit, blood pressure 130/63, pulse 64, respiratory rate 20, saturating 97% on room air. INTAKE AND OUTPUT: Urine output recorded as 150 mL yesterday, 400 mL so far today since overnight. Weight in the bed scale is 50 kg. PHYSICAL EXAMINATION: GENERAL: Patient is awake, alert and oriented x1, lying in bed, very weak, cachectic, emaciated. HEAD AND NECK: She has bitemporal wasting. She has sunken eyes. Mucous membranes are very dry. Neck is supple. There is no JVD. CARDIOVASCULAR: S1, S2, regular rate. No edema of the bilateral lower extremities. RESPIRATORY: Chest is clear to auscultation bilaterally. Bilateral equal air entry. No rales or rhonchi. ABDOMEN: Soft. She has right lower quadrant urostomy. She has a large ulcer starting from the ostomy site going all the way to her right flank and into the back. GENITOURINARY: Bladder is not palpable. She has ileal conduit. MUSCULOSKELETAL: No edema of the bilateral lower extremities. She has muscle wasting. [employer] WINDOWS ENGINEER: Patient is oriented to herself. She is lying in bed. She moves bilateral upper extremities. PSYCHIATRIC: Patient is in moderate painful distress. LABORATORY REVIEW: CBC showed WBC 8.5, hemoglobin 8.7, platelets 699,000. Urinalysis done yesterday showed it was cloudy, positive nitrate, 3+ leukocyte esterase, too numerous to count wbc. BMP done today morning showed sodium 144, potassium 5, chloride 114, bicarb 23, BUN 65 and creatinine 2; it was 2.1 yesterday. Calcium 8.6. MICROBIOLOGY: Blood cultures are negative so far. Urine culture is pending. CURRENT INPATIENT MEDICATIONS: Patients medications were all reviewed by myself. She has been started on half normal saline at 70 cc an hour for a total of 2 liters. She continues to be on Vancomycin and Meropenem. I stopped her Lipitor. Plavix was stopped yesterday. She is receiving iron tablets 325 mg twice a day. She is not receiving Levemir because of poor oral intake, and Levemir has been stopped. She continues to be on Levothyroxine. I have started her on Miconazole 2% powder topical at the abdominal wound. Topical Nystatin has been stopped. She continues to be on sodium bicarbonate. Otherwise there is no other change in the medications today as compared with yesterday. ASSESSMENT AND PLAN: 1. Fevers and bandemia with large abdominal wall ulcer and possible UTI: Patient was started on Vancomycin and Meropenem yesterday. Blood cultures are negative. Urine cultures are pending. She is afebrile since yesterday. Continue the antibiotics until we have all the cultures back. 2. Abdominal wound secondary to leakage from the urostomy: Cultures were done a few weeks ago and they grew some MRSA and heavy yeast infection. Topical Nystatin is being stopped. She has been started on topical Miconazole. I.V. Fluconazole was not given because she has allergy listed to Fluconazole. 3. Hyperkalemia: Potassium level is significantly better with I.V. fluid hydration. She has been started on half normal saline again. 4. Dehydration and volume depletion: Patient has very poor oral intake. She has a weeping ulcer from the abdominal wall. She has been started on half normal saline at 70 cc an hour for a total of 2 liters. 5. Iron deficiency anemia: Patient FOBT result is pending. She was also oozing some fluid and blood from the abdominal wound. Plavix has been stopped. She was given 1 unit of PRBC transfusion. I.V. iron was not given because of fevers and possible infection. 6. Chronic kidney disease stage 4: Renal function is stable and improving. Continue gentle I.V. fluid hydration. 7. History of CVA: Patient is currently emaciated and weak, very poor oral intake. I am going to stop the statin at this time. Plavix was already stopped because of iron deficiency anemia and possible bleeding. 8. Diabetes mellitus type 2: Patient is not receiving the Levemir and blood sugars are less than 200. She is not on insulin sliding scale. I am going to stop the Levemir at this time since she has not received it in the last two days. MTDD
[2020-07-14 18:35] VITALS: BP 105/54
--- NOTE | 2020-07-14 19:27 | IPNPDOC ---
Date Seen The patient was seen on 07/14/20. Progress Note Called by RN for excruciating pain, given contact dermatitis on back 2/2 leaking urostomy. No relief with morphine, labile BP. Will transfer to PCU for continuous O2 and cardiac monitoring and place on prn dilaudid. VS, I&O, 24H, Canelobone Vital Signs/I&O Vital Signs Date Time Temp Pulse Resp B/P (MAP) Pulse Ox O2 Delivery O2 Flow Rate FiO2 07/14/20 18:35 105/54 (71) 07/14/20 18:34 20 07/14/20 14:00 98.3 77 99 Room Air I&O- Last 24 Hours up to 6 AM 07/14/20 05:59 Intake Total 400 ml Output Total 250 ml Balance 150 ml Laboratory Data 24H LABS Laboratory Tests 2 07/13/20 19:46: Anion Gap 6L, Glomerular Filtration Rate 23.1L, Calcium Level 8.9, Phosphorus Level 3.7, Albumin 1.3L 07/13/20 20:32: Bedside Glucose (Misc Panel) 205H 07/13/20 20:41: Urine Color YELLOW, Urine Appearance CLOUDYH, Urine pH 6.0, Urine Specific Duarte 1.010, Urine Protein 1+H, Urine Glucose (UA) NEGATIVE, Urine Ketones NEGATIVE, Urine Blood 1+H, Urine Nitrite POSITIVEH, Urine Bilirubin NEGATIVE, Urine Urobilinogen 0.2, Urine Leukocyte Esterase 3+H, Urine WBC (Auto) TNTCH, Urine RBC (Auto) 13H, Urine Hyaline Casts (Auto) 0, Urine Bacteria (Auto) 1+H, Urine Squamous Epithelial Cells 0, Urine Transitional Epithelial Cells 4, Urine Amorphous Sediment SMALLH, Urine Mucus (Auto) SMALL, Urine Sperm (Auto) 07/14/20 06:24: Bedside Glucose (Misc Panel) 130H 07/14/20 07:43: Immature Granulocyte % (Auto) , Neutrophils (%) (Auto) , Nucleated Red Blood Cells % (auto) 0.0, Neutrophils 71H, Band Neutrophils 6, Lymphocytes (Manual) 11L, Monocytes (Manual) 5, Eosinophils (Manual) 3, Metamyelocytes 2H, Myelocytes 2H, Anisocytosis 1+, Platelet Estimate INCREASED, Anion Gap 7L, Glomerular Filtration Rate 25.1L, Calcium Level 8.6L 07/14/20 13:06: Vancomycin Level Trough 14.6 CBC/BMP Laboratory Tests 07/13/20 19:46 07/14/20 07:43 Microbiology Microbiology 07/13/20 Urine Culture, Received Pending 07/13/20 Blood Culture - Preliminary, Resulted No growth after 24 hours . All specim... 07/13/20 Blood Culture - Preliminary, Resulted No growth after 24 hours . All specim... 07/11/20 Blood Culture - Preliminary, Resulted No Growth after 48 hours. All Specime... 07/11/20 Blood Culture - Preliminary, Resulted No Growth after 48 hours. All Specime... KARTIK LLANES MD Jul 14, 2020 19:27
[2020-07-14] MEDS: atenoloL 25 MG TAB PO SCH (21:00)
[2020-07-14] MEDS ORDERED: MICONAZOLE 2 % POWDER (DESENEX) TOP SCH (21:00)
[2020-07-14] MEDS: HYDROMORPHONE HCL 0.5 MG/ 0.5 ML SYRINGE (J1170 PER 1) IV PRN (21:35)
[2020-07-14 22:00] VITALS: BP 123/58
[2020-07-15] VITALS: BP 119/59
[2020-07-15] MEDS: NS 0.45% 1,000 ML IV SCH ×2 (00:29→15:35)
[2020-07-15] MEDS: HYDROMORPHONE HCL 0.5 MG/ 0.5 ML SYRINGE (J1170 PER 1) IV PRN ×5 (00:29→20:16)
[2020-07-15] MEDS: MEROPENEM INJ 500 MG in IV 1 EA IV SCH ×2 (00:29→12:53)
[2020-07-15 04:00] VITALS: BP 123/71
[2020-07-15] MEDS: LEVOTHYROXINE 50MCG TABLET (0.05MG) PO SCH (06:17)
[2020-07-15 06:29] LABS: HEMATOCRIT 30.7 % (36.0-47.0); HEMOGLOBIN 9.3 g/dl (12.0-15.5); MEAN CORPUSCULAR HEMOGLOBIN 28.3 pg (27.0-33.0); MEAN CORPUSCULAR HGB CONC 30.3 g/dl (32.0-36.5); MEAN CORPUSCULAR VOLUME 93.3 fl (80.0-96.0); PLATELET COUNT, AUTOMATED 717 10^3/uL (150-450); RED BLOOD COUNT 3.29 10^6/uL (4.00-5.40); WHITE BLOOD COUNT 10.4 10^3/uL (4.0-10.0)
--- NOTE | 2020-07-15 06:59 | IPNPDOC ---
Text Note Date of Service The patient was seen on 07/14/20. NOTE Subjective: Patient seen and examined at bedside. Patient seems to be feeling better today, but still anxious. Objective: Vital signs: See below General: uncomfortable HEENT: NC/AT Cardiac: Tachycardia, S1 and normal, no murmur noted. Abdomen: Soft, there is a urostomy bag in the right lower quadrant. Skin: Extensive wounds and covered with dressings Assessment: 85F with PMHx diverting urostomy secondary to neurogenic bladder, recent discharge from hospital with significant contact dermatitis secondary to urine leakage, with planned o/p f/u with urology to repair ostomy. Unable to follow due to 14 day quarantine for COVID exposure. Returns for AMS, fever, worsening rash. Plan: #Delirium - multifactorial - 2/2 dehydration vs anemia vs infection - follow as below #Contact dermatitis - secondary to urine leakage from urostomy with secondary magdalene infection - Patient has an extensive rash involving the right lower quadrant of the abdomen anteriorly, perineum extending into her buttocks and back. - Advanced wound care Dr. Jacob consulted - assistance appreciated - dermatology was contacted for recommendations of management and suggested nystatin powder to the affected area twice per day followed by skin barrier spray. - pain control - Patient will need frequent change of position every 2 hours. #anemia - multifactorial - CKD, iron deficiency, questionable GI bleed? - s/p 2 PRBC - holding off on IV iron give possible infection - stool occult blood pending #Chronic Urinary Retention s/p Ileal conduit and urostomy -The ostomy appliance is actively leaking - Due to 14d quarantine patient was not able to see her urologist at [facility] - d/w urology - no intervention possible here - needs to follow with her primary urologist - d/w o/p urology ([facility]) - recs for o/p f/u #HTN - Continue atenolol #DM - Continue sliding scale insulin and Levemir. consistent carbs diet #CAD S/P stents: - plavix on hold d/t possible gi bleed #CKD stage IV: - IV fluids as per nephrology - assistance appreciated - Will Continue sodium bicarbonate. - Avoid nephrotoxic drugs #Hypothyroidism: - Will continue levothyroxine 50 mcg #GERD: - Will continue Protonix 20 MG #DVT prophylaxis; - mechanical VS,Fishbone, I+O VS, Fishbone, I+O Laboratory Tests 07/14/20 07:43 Vital Signs Date Time Temp Pulse Resp B/P (MAP) Pulse Ox O2 Delivery O2 Flow Rate FiO2 07/15/20 06:27 20 07/15/20 04:00 97.5 72 123/71 (88) 100 Room Air I&O- Last 24 Hours up to 6 AM 07/15/20 06:00 Intake Total 810 ml Output Total 975 ml Balance -165 ml HERMES DAVIS MD Jul 15, 2020 06:59
[2020-07-15 07:01] LABS: CREATININE FOR GFR 1.86 MG/DL (0.55-1.30); GLOMERULAR FILTRATION RATE 27.4 (>32); POTASSIUM SERUM 4.8 MEQ/L (3.5-5.1)
[2020-07-15 07:36] LABS: EOSINOPHILS 1 % (0-3); LYMPHOCYTES 16 % (16-44); METAMYELOCYTES 2 % (0-0); MONOCYTES 7 % (0-5); MYELOCYTES 2 % (0-0); NEUTROPHILS 69 % (28-66)
[2020-07-15 07:37] LABS: ANISOCYTOSIS 1+; MICROCYTOSIS 1+; PLATELET ESTIMATE INCREASED (NORMAL)
[2020-07-15 08:00] VITALS: BP 152/69; O2SAT 98
[2020-07-15] MEDS: PANTOPRAZOLE 20 MG TAB PO SCH (08:13)
[2020-07-15] MEDS: SODIUM BICARBONATE 325 MG TAB PO SCH (08:13)
[2020-07-15] MEDS: FERROUS SULFATE 325MG TAB PO SCH ×2 (08:13→20:29)
[2020-07-15] MEDS: MULTIVITAMINS/MINERALS THERAP 1 TAB PO SCH (08:13)
[2020-07-15] MEDS: MICONAZOLE 2 % POWDER (DESENEX) TOP SCH ×2 (08:15→21:00)
[2020-07-15 12:00] VITALS: BP 129/67; O2SAT 98
[2020-07-15 16:00] VITALS: BP 132/61
[2020-07-15 20:00] VITALS: BP 125/57
[2020-07-15] MEDS: atenoloL 25 MG TAB PO SCH (20:29)
[2020-07-16] VITALS: BP 142/65
[2020-07-16] MEDS: HYDROMORPHONE HCL 0.5 MG/ 0.5 ML SYRINGE (J1170 PER 1) IV PRN ×2 (03:31→06:57)
[2020-07-16 04:00] VITALS: BP 116/59
[2020-07-16 06:15] LABS: HEMOGLOBIN 10.6 g/dl (12.0-15.5); MEAN CORPUSCULAR HGB CONC 29.4 g/dl (32.0-36.5); PLATELET COUNT, AUTOMATED 702 10^3/uL (150-450); RED BLOOD COUNT 3.79 10^6/uL (4.00-5.40); WHITE BLOOD COUNT 10.1 10^3/uL (4.0-10.0)
[2020-07-16 06:26] LABS: EOSINOPHILS 2 % (0-3); LYMPHOCYTES 13 % (16-44); METAMYELOCYTES 1 % (0-0); MONOCYTES 3 % (0-5); MYELOCYTES 3 % (0-0); NEUTROPHILS 78 % (28-66); PLATELET ESTIMATE INCREASED (NORMAL); POLYCHROMASIA 1+
[2020-07-16 06:27] LABS: ANISOCYTOSIS 1+
--- NOTE | 2020-07-16 06:31 | IPNPDOC ---
Text Note Date of Service The patient was seen on 07/15/20. NOTE Subjective: Patient seen and examined at bedside. Patient seems to be feeling better today, but still anxious. Objective: Vital signs: See below General: uncomfortable HEENT: NC/AT Cardiac: Tachycardia, S1 and normal, no murmur noted. Abdomen: Soft, there is a urostomy bag in the right lower quadrant. Skin: Extensive wounds and covered with dressings Assessment: 85F with PMHx diverting urostomy secondary to neurogenic bladder, recent discharge from hospital with significant contact dermatitis secondary to urine leakage, with planned o/p f/u with urology to repair ostomy. Unable to follow due to 14 day quarantine for COVID exposure. Returns for AMS, fever, worsening rash. Plan: #Delirium - improving - multifactorial - 2/2 dehydration vs anemia vs infection - follow as below #Contact dermatitis - secondary to urine leakage from urostomy with secondary magdalene infection - Patient has an extensive rash involving the right lower quadrant of the abdomen anteriorly, perineum extending into her buttocks and back. - Advanced wound care Dr. Jacob consulted - assistance appreciated - appointment scheduled today at 4:15PM - dermatology was contacted for recommendations of management and suggested nystatin powder to the affected area twice per day followed by skin barrier spray. - pain control - transferred to PCU for telemetry and closer monitoring - william [place] for better pain control - Patient will need frequent change of position every 2 hours. #anemia - multifactorial - CKD, iron deficiency, questionable GI bleed? - s/p 2 PRBC - holding off on IV iron give possible infection - stool occult blood pending #Chronic Urinary Retention s/p Ileal conduit and urostomy -The ostomy appliance is actively leaking - Due to 14d quarantine patient was not able to see her urologist at [facility] - d/w urology - no intervention possible here - needs to follow with her primary urologist - d/w o/p urology ([facility]) - recs for o/p f/u #HTN - Continue atenolol #DM - Continue sliding scale insulin and Levemir. consistent carbs diet #CAD S/P stents: - plavix on hold d/t possible gi bleed #CKD stage IV: - IV fluids as per nephrology - assistance appreciated - Will Continue sodium bicarbonate. - Avoid nephrotoxic drugs #Hypothyroidism: - Will continue levothyroxine 50 mcg #GERD: - Will continue Protonix 20 MG #DVT prophylaxis; - mechanical VS,Fishbone, I+O VS, Fishbone, I+O Laboratory Tests 07/16/20 05:29 Vital Signs Date Time Temp Pulse Resp B/P (MAP) Pulse Ox O2 Delivery O2 Flow Rate FiO2 07/16/20 04:00 97.2 79 18 116/59 (78) 100 Room Air I&O- Last 24 Hours up to 6 AM 07/16/20 06:00 Intake Total 1730 ml Output Total 1000 ml Balance 730 ml HERMES DAVIS MD Jul 16, 2020 06:31
[2020-07-16 06:43] LABS: CALCIUM LEVEL 8.6 MG/DL (8.8-10.2); CREATININE FOR GFR 1.69 MG/DL (0.55-1.30); GLOMERULAR FILTRATION RATE 30.6 (>32); POTASSIUM SERUM 4.7 MEQ/L (3.5-5.1)
[2020-07-16] MEDS: LEVOTHYROXINE 50MCG TABLET (0.05MG) PO SCH (06:56)
[2020-07-16 07:13] VITALS: BP 129/62
[2020-07-16] MEDS: PANTOPRAZOLE 20 MG TAB PO SCH (09:27)
[2020-07-16] MEDS: FERROUS SULFATE 325MG TAB PO SCH ×2 (09:27→20:44)
[2020-07-16] MEDS: MULTIVITAMINS/MINERALS THERAP 1 TAB PO SCH (09:27)
[2020-07-16] MEDS: MICONAZOLE 2 % POWDER (DESENEX) TOP SCH ×2 (09:28→20:45)
[2020-07-16] MEDS: SODIUM BICARBONATE 325 MG TAB PO SCH (09:28)
--- NOTE | 2020-07-16 11:04 | IPN ---
DATE: 07/15/2020 SUBJECTIVE: The patient was seen and examined this morning at the bedside. She complains of feeling cold, reports that she had some breakfast this morning. Denies shortness of breath. Remains afebrile and saturating well on room air. Continues on gentle IV fluid hydration along with broad spectrum antibiotics. Laboratory studies show improvement in renal function. PHYSICAL EXAMINATION: Vital signs: Temperature 97.5, pulse 89, respiratory rate 20, blood pressure 129/67, is saturating 98% on room air. Intake yesterday was 800; urine output yesterday 950, negative 150, weight on bed scale today is not recorded. General: The patient is seen lying in bed, head of the bed elevated, elderly and frail, cachectic female with bitemporal wasting, appears chronically ill. Neck: Supple, jugular veins are not elevated. Heart: Sounds are regular, S1, S2. Extremities: There is absolutely no edema in the lower extremities. There is a peripheral IV present in one of the feet. Respiratory: Lungs are clear to auscultation bilaterally. She seems comfortable on room air. There are no rales or rhonchi. Abdomen: Soft, there is a right lower quadrant urostomy draining yellow urine and there is an ulcer present around the right side of the abdomen which has antifungal powder. Musculoskeletal: Prominent muscle wasting without edema. Neurologic: She is oriented to self. She follows simple commands and answers simple questions appropriately. LABS: Sodium 142, potassium 4.8, bicarbonate 25, BUN 65, creatinine 1.8. Hemoglobin 9.3, platelets 717. Microbiology: Blood culture with no growth for 48 hours from July 13 x 2 sets. INPATIENT MEDICATIONS: She continues on: 1. Meropenem. 2. Vancomycin. 3. She is receiving normal saline at 70 mL/hour for total of 2 liters. 4. I decreased her sodium bicarbonate to once daily. other meds are unchanged from yesterday PROBLEMS: 1. CKD stage 4. Renal function is stable and has slightly improved with IV fluids. Once her oral intake improves I will stop the IV fluids. She is written thus far for 2 liters of normal saline at 70 mL/hour. She has had adequate urine output to the urostomy. 2. Leukocytosis with abdominal wall ulcer. The patient has been afebrile the past 48 hours. Her blood cultures are negative. Her urine culture was contaminated. She is presently on broad spectrum antibiotics, Vancomycin and Meropenem and I am going to discontinue these at this point. She continues on topical Miconazole for the yeast infection of the abdominal wound. 3. Anemia related to chronic kidney disease and iron deficiency. Stool occult blood is still pending. Hemoglobin has improved status post one unit PRBC up to 9.3 today. 4. Metabolic acidosis. It has improved, serum bicarbonate is up to 25, I have decreased the sodium bicarbonate to once daily. MTDD
--- NOTE | 2020-07-16 11:11 | CR ---
ADVANCED WOUND CARE CONSULTATION DATE: 07/15/2020 REQUESTING PHYSICIAN: Yumiko Ulrich MD. REASON FOR CONSULTATION: Wound care suggestions and treatment for extensive incontinent dermatitis. HISTORY OF PRESENT ILLNESS: 85-year-old female with an ileal conduit, indication recurrent urinary tract infections, has had major problems with appliance fittings in the past. When the patient has been hospitalized the appliances seem to be appropriately and fit adequately although the patient is obese and has multiple skin folds which make complete sealing difficult. Multiple recommendations in the past have been crusting technique, using stoma adhesive paste and at times using hypoallergenic tape to seal the appliances. Patient improved significantly and was discharged only to return with extensive excoriation from leaking urine involving her entire back and upper buttocks. ASSESSMENT AND PLAN: At present the ileal conduit is being drained by suction and treatment recommendations of the excoriated skin should include cleaning the skin with a moist washcloth and allowing it to pat dry. Next using Cavilon advanced skin treatment; this should be used to coat the entire area of the incontinent dermatitis. Two wands will be supplied until they can be ordered from our clinic which will be sent over now. This can stay on and last for 5-7 days. Covering the area with PolyMem absorbent foam or non-adhesive foam and then covering with an OptiLock over securing it with a loosely fitting abdominal binder should be tried. The noy-wound of uninvolved skin should be protected with the Cavilon and/or Desitin in an effort to prevent spread. This is a significant problem that has been a recurrent issue over and over again. Our stomal therapy nurse has discussed this with the family, gone over multiple suggestions and for reasons that are not completely clear there have been major problems. Patient is getting analgesia as this is quite uncomfortable and quite difficult at her age or any age to tolerate. We will see towards the end of the week if this is improving her skin quality and quality of life so that she can be discharged. CRISTOFER
[2020-07-16 11:57] VITALS: BP 131/62
--- NOTE | 2020-07-16 12:05 | IPNPDOC ---
Text Note Date of Service The patient was seen on 07/16/20. NOTE Subjective: Patient seen and examined at bedside. Patient feeling much better today, eating breakfast on my arrival. Still has pain, but better controlled. Objective: Vital signs: See below General: uncomfortable HEENT: NC/AT Cardiac: Tachycardia, S1 and normal, no murmur noted. Abdomen: Soft, there is a urostomy bag in the right lower quadrant. Skin: Extensive wounds and covered with dressings Assessment: 85F with PMHx diverting urostomy secondary to neurogenic bladder, recent discharge from hospital with significant contact dermatitis secondary to urine leakage, with planned o/p f/u with urology to repair ostomy. Unable to follow due to 14 day quarantine for COVID exposure. Returns for AMS, fever, worsening rash. Plan: #Delirium - improving - multifactorial - 2/2 dehydration vs anemia vs infection - follow as below #Contact dermatitis - secondary to urine leakage from urostomy with secondary magdalene infection - Patient has an extensive rash involving the right lower quadrant of the abdomen anteriorly, perineum extending into her buttocks and back. - Advanced wound care Dr. Jacob consulted - assistance appreciated - dermatology was contacted for recommendations of management and suggested nystatin powder to the affected area twice per day followed by skin barrier spray. - pain control - transferred to PCU for telemetry and closer monitoring - utilizing Dilaudid for better pain control - Patient will need frequent change of position every 2 hours. #anemia - multifactorial - CKD, iron deficiency, questionable GI bleed? - s/p 2 PRBC - holding off on IV iron give possible infection - stool occult blood pending #Chronic Urinary Retention s/p Ileal conduit and urostomy -The ostomy appliance is actively leaking - Due to 14d quarantine patient was not able to see her urologist at [facility] - d/w urology - no intervention possible here - needs to follow with her primary urologist - d/w o/p urology ([facility]) - recs for o/p f/u #HTN - Continue atenolol #DM - Continue sliding scale insulin and Levemir. consistent carbs diet #CAD S/P stents: - plavix on hold d/t possible gi bleed #CKD stage IV: - creatinine much improved - s/p IV fluids as per nephrology - assistance appreciated - Will Continue sodium bicarbonate. - Avoid nephrotoxic drugs #Hypothyroidism: - Will continue levothyroxine 50 mcg #GERD: - Will continue Protonix 20 MG #DVT prophylaxis; - mechanical VS,Fishbone, I+O VS, Fishbone, I+O Laboratory Tests 07/16/20 05:29 Vital Signs Date Time Temp Pulse Resp B/P (MAP) Pulse Ox O2 Delivery O2 Flow Rate FiO2 07/16/20 11:57 98.5 56 20 131/62 (85) 100 Room Air I&O- Last 24 Hours up to 6 AM 07/16/20 06:00 Intake Total 2030 ml Output Total 1000 ml Balance 1030 ml HERMES DAVIS MD Jul 16, 2020 12:05
[2020-07-16 16:00] VITALS: BP 120/59
[2020-07-16] MEDS ORDERED: DEXTROSE 50% 50 ML SYRINGE As Ordered ONE (18:20)
[2020-07-16 20:00] VITALS: BP 144/64
[2020-07-16] MEDS: atenoloL 25 MG TAB PO SCH (20:44)
[2020-07-17] VITALS: BP 134/63
[2020-07-17 04:00] VITALS: BP 117/56
[2020-07-17] MEDS: HYDROMORPHONE HCL 0.5 MG/ 0.5 ML SYRINGE (J1170 PER 1) IV PRN (04:16)
[2020-07-17 06:02] LABS: HEMATOCRIT 36.7 % (36.0-47.0); HEMOGLOBIN 10.8 g/dl (12.0-15.5); MEAN CORPUSCULAR HEMOGLOBIN 27.6 pg (27.0-33.0); MEAN CORPUSCULAR HGB CONC 29.4 g/dl (32.0-36.5); MEAN CORPUSCULAR VOLUME 93.9 fl (80.0-96.0); PLATELET COUNT, AUTOMATED 671 10^3/uL (150-450); RED BLOOD COUNT 3.91 10^6/uL (4.00-5.40); WHITE BLOOD COUNT 11.9 10^3/uL (4.0-10.0)
[2020-07-17 06:25] LABS: BASOPHILS 1 % (0-1); EOSINOPHILS 3 % (0-3); LYMPHOCYTES 16 % (16-44); NEUTROPHILS 80 % (28-66); PLATELET ESTIMATE INCREASED (NORMAL)
[2020-07-17] MEDS: LEVOTHYROXINE 50MCG TABLET (0.05MG) PO SCH (06:26)
[2020-07-17 06:38] LABS: CREATININE FOR GFR 1.57 MG/DL (0.55-1.30); GLOMERULAR FILTRATION RATE 33.3 (>32); POTASSIUM SERUM 4.9 MEQ/L (3.5-5.1)
[2020-07-17 08:00] VITALS: BP_SYST 132; BP_SYST 135; BP_DIAS 62; BP_DIAS 63
[2020-07-17] MEDS: MULTIVITAMINS/MINERALS THERAP 1 TAB PO SCH (08:08)
[2020-07-17] MEDS: FERROUS SULFATE 325MG TAB PO SCH ×2 (08:08→21:00)
[2020-07-17] MEDS: SODIUM BICARBONATE 325 MG TAB PO SCH (08:08)
[2020-07-17] MEDS: PANTOPRAZOLE 20 MG TAB PO SCH (08:08)
[2020-07-17] MEDS: MICONAZOLE 2 % POWDER (DESENEX) TOP SCH ×2 (08:09→21:42)
--- NOTE | 2020-07-17 10:50 | IPN ---
DATE: 07/16/2020 SUBJECTIVE: Tammi was seen and examined this morning at the bedside. She denies any overnight events or complaints. Renal function continues to improve. She is off of I.V. fluids now and she reports that her appetite has improved in that she has been eating and drinking better today. She denies any shortness of breath or chest pain. PHYSICAL EXAMINATION: VITALS: Temperature 98.2, pulse 94, respiratory rate 18, blood pressure 120/59, saturating 99% on room air. Intake yesterday was 1730. Urine output yesterday was 875. Weight in the bed scale today is 62.5 kg. GENERAL: Patient is seen lying in bed, head of the bed elevated, elderly, frail female in no apparent distress. HEENT: Extraocular muscles intact. Tongue moist. Neck supple. Jugular veins are not elevated. HEART: Heart sounds are regular, S1, S2. There is no absolutely no leg edema. RESPIRATORY: Breath sounds are clear bilaterally. She is comfortable on room air. No tachypnea or crackle. ABDOMEN: Soft. Her abdominal wounds are not examined today, there is binder and dressing on top on them. The ileostomy bag in right lower quadrant is draining clear yellow urine. EXTREMITIES: Show significant muscle wasting, but no edema. SKIN: Fragile and papery. She has wounds on the right side of the belly, which are covered and not examined. NEUROLOGIC: She is oriented x3, at baseline mentation. PSYCHIATRIC: Appropriate mood and affect. LABORATORY DATA: Last white count 10.1, hemoglobin 10.6, platelets 702,000. Sodium 142, potassium 4.7, bicarbonate 23, BUN 45, creatinine 1.6. MICROBIOLOGY: Blood cultures with no growth for 42 hours times two sets. INPATIENT MEDICATIONS: Reviewed by myself. She is off of I.V. fluids now. The remainder of her medications are unchanged from prior. PROBLEMS: 1. CKD stage 4: Renal function has recovered to baseline or actually a little better than baseline. Her MATILDE has resolved. She is status post I.V. fluids and also status post optimization of her anemia. She is having increased oral intake now and I.V. fluids have been stopped. Urine output is adequate. Electrolytes and volume status are acceptable. She is not on any nephrotoxic medication. She is clinically stable at present from a nephrology point of view. 2. Anemia related to chronic kidney disease and iron deficiency: She received one unit of PRBC. Hemoglobin has improved up to 10.6 today. She continues on oral iron supplementation. Erythropoietin stimulating agent not indicated at present. She did not receive I.V. iron because of concern of infection earlier on this admission and it can be arranged as an outpatient. Defer stool occult blood testing to primary team. 3. Hypertension: Blood pressures are acceptable and she continues on Atenolol. 4. Dehydration: She is status post 2 liters of I.V. fluid, she is also status post blood transfusion. Her volume status has improved nicely. Her oral intake is also better. Thus far today nursing staff recorded 1200 cc oral intake. She is discontinued off of I.V. fluids at this time. Nephrology service is signing off at present, please re-consult as needed. CRISTOFER
[2020-07-17] MEDS: HYDROmorphone 2 MG TAB PO PRN ×2 (11:34→23:13)
[2020-07-17] MEDS ORDERED: HYDROMORPHONE HCL 0.5 MG/ 0.5 ML SYRINGE (J1170 PER 1) IV ONE (13:15)
--- NOTE | 2020-07-17 13:47 | IPNPDOC ---
Date Seen The patient was seen on 07/17/20. Progress Note Subjective: No issues overnight per nursing. Patient's dressings are changed every 2 days. Ileostomy area is still draining significantly with 600 mL via suction. Patient has no pain. Per RN, patient has been using IVdilaudid frequently. . She is currently having no pain. She's had no fever or chills. No other complaints. Telemetry is unremarkable. Objective PHYSICAL EXAMINATION: VITALS: see below GEN:A pleasant, elderly female in no acute distress. Is sitting up in bed. Dressing covering upper chest. Abdomen HEENT: Appears her stated age, no JVD, thyromegaly or cervical lymphadenopathy frail, awake, alert, oriented 3, answering questions appropriately HEART: Normal S1, S2. , No carotid bruit No murmurs, rubs, or gallops. Regular rate and rhythm. No murmurs, rubs or gallops LUNGS: No tripod positioning Clear to auscultation bilaterally No wheezes, rales, or rhonchi., Air entry is equal bilaterally O other adventitious breath sounds ABDOMEN: Soft, bandage from the chest to Abdomen . tender in the right lower quadrant where there is an ostomy bag. EXTREMITIES: No clubbing, cyanosis, or edema. No rashes. No calf tenderness. BACK: No costovertebral angle (CVA) or lumbosacral tenderness. Midline scar,lumbar spine, well healed. LABORATORY DATA: See below IMAGING STUDIES: See below ASSESSMENT AND PLAN:85 y/o female w pmh significant for recurrent urinary tract infection, interstitial cystitis requiring urostomy with ileal conduit severe skin breakdown due to chronic urine exposure, urine incontinence associated dermatitis, sacral decubitus, presented to the emergency room from home with worsening of skin breakdown involving the entire back from the shoulder blades and most of the lower and mid abdomen due to persistent urine leakage from the ostomy appliance. Patient was recently di. She denied any cough, shortness of breath, abdominal pain, diarrhea scharged from the hospital for the same complaints and was treated with antifungal and wound care. Per medical records, patient was having fevers at home but none documented in the emergency room. She denies any chills, shortness of breath, nausea, vomiting, diarrhea, foul smelling or cloudy urine. Hospitalist was asked to admit for management of chronic skin breakdown as well as evaluation of fever. Irritant contact dermatitis due to continued to leakage from the ostomy involving most of the back and right lower abdomen - keep area dry around urostomy. Dr. Jacob accounting support specialist has been consulted via telemedicine. We are following all of his Recommendations at this time. Patient is requiring intravenous Dilaudid for pain control. We will attempt to change oral Dilaudid - Monitor for recurrent fevers or worsening white count. No empiric antibiotics at this time. Chronic urinary retention with obstructive uropathy s/p ileal conduit and urostomy bag since jul 2017 -due to 14 day covid-exposure mandatory quarantine, pt was unable to fu with her urologist at [facility] in [place] since her [facility] hospital discharge. -Dr. Person is recommended suction overnight he's she has had 600 mL of urine suctioned out. History of breast Cancer s/p left mastectomy in the past. HTN -Controlled on home dose of atenolol DM2 -Consistent carbohydrate diet. Fingersticks every before meals and at bedtime continue with levemir , lispro insulin sliding scale; hypoglycemia protocol Chronic iron deficiency anemia -asymptomatic not requiring emergent RBC transfusion H/o Ischemic stroke -Resumed one plavix and statin. Left femoral neck fracture s/p mechanical fall s/p left hemiarthroplasty on 12/25/17 Chronic kidney disease stage 4 -Currently at baseline creatinine. . Continue with sodium bicarbonate. . Avoid nephrotoxins. Renally dose all medications Hyperlipidemia -continue lipitor GERD continue with protonix Disposition patient may need skilled nursing placement if family cannot provide care at home. Patient family services has been consulted to assist in this discussion. VS, I&O, 24H, Fishbone Vital Signs/I&O Vital Signs Date Time Temp Pulse Resp B/P (MAP) Pulse Ox O2 Delivery O2 Flow Rate FiO2 07/17/20 12:04 18 07/17/20 08:00 97.8 69 132/62 (85) 95 Room Air I&O- Last 24 Hours up to 6 AM 07/17/20 06:00 Intake Total 900 ml Output Total 1375 ml Balance -475 ml Laboratory Data 24H LABS Laboratory Tests 2 07/17/20 05:18: Immature Granulocyte % (Auto) , Neutrophils (%) (Auto) , Nucleated Red Blood Cells % (auto) 0.0, Neutrophils 80H, Lymphocytes (Manual) 16, Eosinophils (Manual) 3, Basophils (Manual) 1, Red Blood Cell Morphology NORMAL, Platelet Es timate INCREASED, Anion Gap 5L, Glomerular Filtration Rate 33.3, Calcium Level 9.0 CBC/BMP Laboratory Tests 07/17/20 05:18 Microbiology Microbiology 07/13/20 Urine Culture - Final, Complete 07/13/20 Blood Culture - Preliminary, Resulted No Growth after 72 hours. All specime... 07/13/20 Blood Culture - Preliminary, Resulted No Growth after 72 hours. All specime... 07/11/20 Blood Culture - Final, Complete NO GROWTH AFTER 5 DAYS 07/11/20 Blood Culture - Final, Complete NO GROWTH AFTER 5 DAYS SHEN JACQUES MD Jul 17, 2020 13:47
[2020-07-17] MEDS ORDERED: SLF 3 ML SYR IV PRN (15:30)
[2020-07-17 16:00] VITALS: BP 122/57
[2020-07-17] MEDS ORDERED: GLUCOSE 4GM CHEW TABLET PO PRN (17:00)
[2020-07-17] MEDS ORDERED: DEXTROSE 50% 50 ML SYRINGE IV PRN (17:00)
[2020-07-17] MEDS ORDERED: GLUCAGON INJ 1MG VIAL SC PRN (17:00)
[2020-07-17] MEDS: HumaLOG INSULIN (NovoLOG) PER UNIT SC SCH ×2 (17:30→21:00)
[2020-07-17] MEDS ORDERED: LORazepam 2 MG/ML VIAL IV STA (18:00)
[2020-07-17 20:00] VITALS: BP 127/53
[2020-07-17] MEDS: atenoloL 25 MG TAB PO SCH (21:00)
[2020-07-17] MEDS: SLF 3 ML SYR IV SCH (21:43)
[2020-07-18] MEDS: diphenhydrAMINE 50MG/ML VIAL (J1200) IV PRN (00:02)
[2020-07-18 00:30] VITALS: BP 136/64
[2020-07-18] MEDS: LEVOTHYROXINE 50MCG TABLET (0.05MG) PO SCH (05:38)
[2020-07-18] MEDS: SLF 3 ML SYR IV SCH ×3 (05:39→20:42)
[2020-07-18 06:00] VITALS: BP 129/63
[2020-07-18 06:11] LABS: BASO # 0.1 10^3/uL (0.0-0.2); BASO % 0.6 % (0.0-1.0); EOS # 0.1 10^3/uL (0.0-0.5); HEMATOCRIT 37.3 % (36.0-47.0); HEMOGLOBIN 10.9 g/dl (12.0-15.5); LYMPH # 1.1 10^3/uL (1.5-5.0); LYMPH % 8.2 % (24.0-44.0); MEAN CORPUSCULAR HEMOGLOBIN 27.9 pg (27.0-33.0); MEAN CORPUSCULAR HGB CONC 29.2 g/dl (32.0-36.5); MEAN CORPUSCULAR VOLUME 95.6 fl (80.0-96.0); MONO # 0.5 10^3/uL (0.0-0.8); MONO % 3.4 % (0.0-5.0); NEUTROPHILS # 11.2 10^3/uL (1.5-8.5); NEUTROPHILS % 84.4 % (36.0-66.0); PLATELET COUNT, AUTOMATED 664 10^3/uL (150-450); WHITE BLOOD COUNT 13.2 10^3/uL (4.0-10.0)
[2020-07-18 06:32] LABS: CALCIUM LEVEL 8.5 MG/DL (8.8-10.2); CREATININE FOR GFR 1.62 MG/DL (0.55-1.30); GLOMERULAR FILTRATION RATE 32.1 (>32); POTASSIUM SERUM 4.9 MEQ/L (3.5-5.1)
--- NOTE | 2020-07-18 07:33 | IPNPDOC ---
Date Seen The patient was seen on 07/18/20. Progress Note Subjective: Pt has been refusing to work with physical therapy. PT reordered. no fevers overnight. c/p 8/10 pain and wants pain meds before breakfast. says that her son and can take care of her , but her daughter is unable to attend to her everyday. she is ok to transfer to [facility] if urology will accept her to fix the appliance to decrease urine leakage and recurrent hospital admis sions. Objective PHYSICAL EXAMINATION: VITALS: see below GEN: hard of hearing. no distress. Dressing covering upper chest. Abdomen HEENT: no pallor icterus no jvd moist mm HEART: no carotid bruits S1, S2. , No carotid bruit No murmurs, rubs, or gallops. Regular rate and rhythm. LUNGS:Clear to auscultation bilaterally No wheezes, rales, or rhonchi., ABDOMEN: Soft, bandage from the chest to Abdomen . RLQ ostomy. + BS x 4 quadrants EXTREMITIES: No clubbing, cyanosis, or edema. No rashes. No calf tenderness. BACK: mid back scar LABORATORY DATA: See below IMAGING STUDIES: See below ASSESSMENT AND PLAN:85 y/o female w pmh significant for recurrent urinary tract infection, interstitial cystitis requiring urostomy with ileal conduit severe skin breakdown due to chronic urine exposure, urine incontinence associated dermatitis, sacral decubitus, presented to the emergency room from home with worsening of skin breakdown involving the entire back from the shoulder blades and most of the lower and mid abdomen due to persistent urine leakage from the ostomy appliance. Patient was recently di. She denied any cough, shortness of breath, abdominal pain, diarrhea scharged from the hospital for the same complaints and was treated with antifungal and wound care. Per medical records, patient was having fevers at home but none documented in the emergency room. She denies any chills, shortness of breath, nausea, vomiting, diarrhea, foul smelling or cloudy urine. Hospitalist was asked to admit for management of chronic skin breakdown as well as evaluation of fever. Irritant contact dermatitis due to continued to leakage from the ostomy involving most of the back and right lower abdomen -increased WBC, but no fever. no empiric abx for now. will track crp, esr, pr olactin. requiring extensive dressing changes and drain . may not be appropriate for home due to complicated mgt. may need snf placement and outpt fu w [facility] to revise the ostomy. Chronic urinary retention with obstructive uropathy s/p ileal conduit and urostomy bag since jul 2017 -due to 14 day covid-exposure mandatory quarantine, pt was unable to fu with her urologist at [facility] in [place] -Dr. Person is recommended suction overnight he's she has had 600 mL of urine suctioned out. History of breast Cancer s/p left mastectomy in the past. HTN -Controlled on home dose of atenolol DM2 -Consistent carbohydrate diet. Fingersticks every before meals and at bedtime continue with levemir , lispro insulin sliding scale; hypoglycemia protocol Chronic iron deficiency anemia -asymptomatic not requiring emergent RBC transfusion H/o Ischemic stroke -Resumed one plavix and statin. Left femoral neck fracture s/p mechanical fall s/p left hemiarthroplasty on 12/25/17 Chronic kidney disease stage 4 -Currently at baseline creatinine. . Continue with sodium bicarbonate. . Avoid nephrotoxins. Renally dose all medications Hyperlipidemia -continue lipitor GERD continue with protonix Disposition may not be appropriate for home due to complicated mgt. may need snf placement and outpt fu w [facility] to revise the ostomy. VS, I&O, 24H, Fishbone Vital Signs/I&O Vital Signs Date Time Temp Pulse Resp B/P (MAP) Pulse Ox O2 Delivery O2 Flow Rate FiO2 07/18/20 06:00 97.6 77 17 129/63 (85) 97 Room Air I&O- Last 24 Hours up to 6 AM 07/18/20 06:00 Intake Total 330 ml Output Total 500 ml Balance -170 ml Laboratory Data 24H LABS Laboratory Tests 2 07/17/20 20:53: Bedside Glucose (Misc Panel) 140H 07/18/20 05:39: Immature Granulocyte % (Auto) 2.4, Neutrophils (%) (Auto) 84.4H, Lymphocytes (%) (Auto) 8.2L, Monocytes (%) (Auto) 3.4, Eosinophils (%) (Auto) 1.0, Basophils (%) (Auto) 0.6, Neutrophils # (Auto) 11.2H, Lymphocytes # (Auto) 1.1L, Monocytes # (Auto) 0.5, Eosinophils # (Auto) 0.1, Basophils # (Auto) 0.1, Nucleated Red Blood Cells % (auto) 0.0, Anion Gap 7L, Glomerular Filtration Rate 32.1, Calcium Level 8.5L CBC/BMP Laboratory Tests 07/18/20 05:39 Microbiology Microbiology 07/13/20 Urine Culture - Final, Complete 07/13/20 Blood Culture - Preliminary, Resulted No Growth after 72 hours. All specime... 07/13/20 Blood Culture - Preliminary, Resulted No Growth after 72 hours. All specime... 07/11/20 Blood Culture - Final, Complete NO GROWTH AFTER 5 DAYS 07/11/20 Blood Culture - Final, Complete NO GROWTH AFTER 5 DAYS SHEN JACQUES MD Jul 18, 2020 07:33
[2020-07-18] MEDS: SODIUM BICARBONATE 325 MG TAB PO SCH (08:35)
[2020-07-18] MEDS: FERROUS SULFATE 325MG TAB PO SCH ×2 (08:35→20:42)
[2020-07-18] MEDS: PANTOPRAZOLE 20 MG TAB PO SCH (08:35)
[2020-07-18] MEDS: MULTIVITAMINS/MINERALS THERAP 1 TAB PO SCH (08:35)
[2020-07-18] MEDS: MICONAZOLE 2 % POWDER (DESENEX) TOP SCH ×2 (08:35→20:43)
[2020-07-18] MEDS: HumaLOG INSULIN (NovoLOG) PER UNIT SC SCH ×4 (08:35→21:00)
[2020-07-18] MEDS: HYDROmorphone 2 MG TAB PO PRN ×2 (08:42→20:41)
[2020-07-18] MEDS ORDERED: NS 1,000 ML IV SCH (10:15)
[2020-07-18 14:00] VITALS: BP 131/65
[2020-07-18] MEDS ORDERED: MICR2POW TOP (19:09)
[2020-07-18] MEDS ORDERED: HYDR2TAB2 PO (19:09)
[2020-07-18] MEDS ORDERED: SODI325T9 PO (19:09)
[2020-07-18 20:18] VITALS: BP 133/67
[2020-07-18] MEDS: atenoloL 25 MG TAB PO SCH (20:42)
[2020-07-19] MEDS: SLF 3 ML SYR IV SCH ×3 (05:30→21:01)
[2020-07-19] MEDS: LEVOTHYROXINE 50MCG TABLET (0.05MG) PO SCH (05:31)
[2020-07-19 05:52] VITALS: BP 117/55
--- NOTE | 2020-07-19 07:47 | IPNPDOC ---
Date Seen The patient was seen on 07/19/20. Progress Note SUBJECTIVE: C/O 7/10 pain requesting "quick" medicine. no fever or chills. decreased urine leak after jc placed into urostomy tube. no other issues overnight. despite ivfluids x liter, no c/o sob or cough. Objective PHYSICAL EXAMINATION: VITALS: see below GEN: hard of hearing. lying on her right side. no distress. Dressing covering upper chest. Abdomen HEENT: no pallor icterus no jvd no cervical LAD. dry mucus membranes HEART: no carotid bruits S1, S2. , No carotid bruit No murmurs, rubs, or gallops. Regular rate and rhythm. LUNGS:Clear to auscultation bilaterally AEBE ABDOMEN: Soft, bandage from the chest to Abdomen . RLQ ostomy. + BS x 4 quad rants EXTREMITIES: No clubbing, cyanosis, or edema. No rashes. No calf tenderness. BACK: mid back scar LABORATORY DATA: See below IMAGING STUDIES: See below ASSESSMENT:85 y/o female w pmh significant for recurrent urinary tract infection, interstitial cystitis requiring urostomy with ileal conduit severe skin breakdown due to chronic urine exposure, urine incontinence associated dermatitis, sacral decubitus, presented to the emergency room from home with worsening of skin breakdown involving the entire back from the shoulder blades and most of the lower and mid abdomen due to persistent urine leakage from the ostomy appliance. Patient was recently di. She denied any cough, shortness of breath, abdominal pain, diarrhea scharged from the hospital for the same complaints and was treated with antifungal and wound care. Per medical records, patient was having fevers at home but none documented in the emergency room. She denies any chills, shortness of breath, nausea, vomiting, diarrhea, foul s melling or cloudy urine. Hospitalist was asked to admit for management of chronic skin breakdown as well as evaluation of fever. PROBLEM LIST: H/o recurrent UTI/interstitial cystitis requiring Ileal conduit and diverting urostomy Urine leakage around peristoma, back, and RLQ due to appliance Irritant Dermatitis History of breast Cancer HTN DM2 Chronic iron deficiency anemia H/o Ischemic stroke Left femoral neck fracture Chronic kidney disease stage 4 Hyperlipidemia GERD PLAN: jc placed in urostomy tube to prevent urine leakage and allow irritant dermatitis to improve. B/L nephrostomy tubes by IR with transfer to [place] would be a better short-term solution until revision of ileal conduit and re- placement of the appliance can be done definitively by her [place] urologist. awaiting IR to schedule nephrostomy tubes as same day procedure in [place]. On wait list at [facility]. Despite increase WBC, no overt signs of acute infection, and no abx have been started. S/p 1liter NS yesterday to maintain fluid balance as recommended by nephrology yesterday. no sob today. VS, I&O, 24H, Fishbone Vital Signs/I&O Vital Signs Date Time Temp Pulse Resp B/P (MAP) Pulse Ox O2 Delivery O2 Flow Rate FiO2 07/19/20 05:52 96.5 76 20 117/55 (75) 98 Room Air I&O- Last 24 Hours up to 6 AM 07/19/20 06:00 Intake Total 1272 ml Output Total 700 ml Balance 572 ml Laboratory Data 24H LABS Laboratory Tests 2 07/18/20 11:26: Bedside Glucose (Misc Panel) 147H 07/18/20 16:30: Bedside Glucose (Misc Panel) 51L 07/18/20 17:33: Bedside Glucose (Misc Panel) 61L 07/18/20 18:45: Bedside Glucose (Misc Panel) 135H 07/18/20 20:27: Bedside Glucose (Misc Panel) 163H 07/19/20 06:01: Bedside Glucose (Misc Panel) 111H Microbiology Microbiology 07/13/20 Urine Culture - Final, Complete 07/13/20 Blood Culture - Final, Complete NO GROWTH AFTER 5 DAYS 07/13/20 Blood Culture - Final, Complete NO GROWTH AFTER 5 DAYS 07/11/20 Blood Culture - Final, Complete NO GROWTH AFTER 5 DAYS 07/11/20 Blood Culture - Final, Complete NO GROWTH AFTER 5 DAYS SHEN JACQUES MD Jul 19, 2020 07:47
[2020-07-19] MEDS ORDERED: HYDROMORPHONE HCL 0.5 MG/ 0.5 ML SYRINGE (J1170 PER 1) IV ONE (08:00)
[2020-07-19] MEDS: HumaLOG INSULIN (NovoLOG) PER UNIT SC SCH ×4 (08:43→21:00)
[2020-07-19] MEDS: FERROUS SULFATE 325MG TAB PO SCH ×2 (08:44→21:01)
[2020-07-19] MEDS: MULTIVITAMINS/MINERALS THERAP 1 TAB PO SCH (08:44)
[2020-07-19] MEDS: PANTOPRAZOLE 20 MG TAB PO SCH (08:44)
[2020-07-19] MEDS: SODIUM BICARBONATE 325 MG TAB PO SCH (08:44)
[2020-07-19] MEDS: MICONAZOLE 2 % POWDER (DESENEX) TOP SCH ×2 (08:45→21:01)
[2020-07-19] MEDS: HYDROmorphone 2 MG TAB PO PRN ×2 (12:13→18:14)
[2020-07-19 14:00] VITALS: BP 120/66
[2020-07-19] MEDS: atenoloL 25 MG TAB PO SCH (21:01)
[2020-07-19 22:00] VITALS: BP 146/63
[2020-07-20] MEDS: LEVOTHYROXINE 50MCG TABLET (0.05MG) PO SCH (05:51)
[2020-07-20] MEDS: SLF 3 ML SYR IV SCH ×3 (05:52→21:08)
[2020-07-20 06:00] VITALS: BP 131/59
[2020-07-20] MEDS ORDERED: HYDROmorphone 2 MG TAB PO ONE (09:00)
[2020-07-20] MEDS: PANTOPRAZOLE 20 MG TAB PO SCH (09:03)
[2020-07-20] MEDS: MULTIVITAMINS/MINERALS THERAP 1 TAB PO SCH (09:03)
[2020-07-20] MEDS: HumaLOG INSULIN (NovoLOG) PER UNIT SC SCH ×4 (09:03→21:00)
[2020-07-20] MEDS: FERROUS SULFATE 325MG TAB PO SCH ×2 (09:03→21:06)
[2020-07-20] MEDS: SODIUM BICARBONATE 325 MG TAB PO SCH (09:03)
[2020-07-20] MEDS: MICONAZOLE 2 % POWDER (DESENEX) TOP SCH ×2 (09:05→21:08)
--- NOTE | 2020-07-20 11:55 | IPNPDOC ---
Date Seen The patient was seen on 07/20/20. Progress Note SUBJECTIVE: Pain is better controlled currently. /10. On a pain scale when The patient is not moving around. He is waiting for breakfast, he appears to be comfortable. She has no fever, chills, no pain at the moment. Objective PHYSICAL EXAMINATION: VITALS: see below GEN: Awake, alert, oriented 3, answering questions appropriately, slightly hard of hearing HEART: S1, S2, sinus rhythm LUNGS:Clear to auscultation bilaterally AEBE. No adventitious breath sounds ABDOMEN: Soft, bandage from the chest to Abdomen . RLQ ostomy. + BS x 4 quadrants EXTREMITIES: No clubbing, cyanosis, or edema. No rashes. No calf tenderness. 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 Patient was recently di. She denied any cough, shortness of breath, abdominal pain, diarrhea scharged from the hospital for the same complaints and was treated with antifungal and wound care. Per medical records, patient was having fevers at home but none documented in the emergency room. She denies any chills, shortness of breath, nausea, vomiting, diarrhea, foul smelling or cloudy urine. Hospitalist was asked to admit for management of chronic skin breakdown as well as evaluation of fever. PROBLEM LIST: H/o recurrent UTI/interstitial cystitis requiring Ileal conduit and diverting urostomy Urine leakage around peristoma, back, and RLQ due to appliance Irritant Dermatitis Poor IV access History of breast Cancer HTN DM2 Chronic iron deficiency anemia H/o Ischemic stroke Left femoral neck fracture Chronic kidney disease stage 4 Hyperlipidemia GERD PLAN: Patient is to go to [facility] for bilateral nephrostomy tube placement by interventional radiology. [facility] does not have IR services this coming week. Patient may be transferred back to [facility] until she fully recovers and is able to be discharged home. At which point she will need outpatient follow-up with her urologist for revision of the ileal conduit and diverting urostomy and replacement of appliance to prevent further leakage.after that is completed. Her nephrostomy tubes can be discontinued. Patient currently has poor IV access and has 2 IVs in her feet midline with placed on Wednesday. VS, I&O, 24H, Fishbone Vital Signs/I&O Vital Signs Date Time Temp Pulse Resp B/P (MAP) Pulse Ox O2 Delivery O2 Flow Rate FiO2 07/20/20 09:50 16 07/20/20 06:00 97.8 72 131/59 (83) 99 Room Air I&O- Last 24 Hours up to 6 AM 07/20/20 06:00 Intake Total 650 ml Output Total 1175 ml Balance -525 ml Laboratory Data 24H LABS Laboratory Tests 2 07/19/20 16:20: Bedside Glucose (Misc Panel) 90 07/19/20 20:05: Bedside Glucose (Misc Panel) 119H 07/20/20 05:54: Bedside Glucose (Misc Panel) 123H 07/20/20 11:41: Bedside Glucose (Misc Panel) 109 Microbiology Microbiology 07/13/20 Urine Culture - Final, Complete 07/13/20 Blood Culture - Final, Complete NO GROWTH AFTER 5 DAYS 07/13/20 Blood Culture - Final, Complete NO GROWTH AFTER 5 DAYS 07/11/20 Blood Culture - Final, Complete NO GROWTH AFTER 5 DAYS 07/11/20 Blood Culture - Final, Complete NO GROWTH AFTER 5 DAYS SHEN JACQUES MD Jul 20, 2020 11:55
[2020-07-20 14:00] VITALS: BP 127/59
[2020-07-20] MEDS: ACETAMINOPHEN 500 MG TAB PO PRN (21:06)
[2020-07-20] MEDS: atenoloL 25 MG TAB PO SCH (21:07)
[2020-07-20 22:00] VITALS: BP 139/60
[2020-07-21] MEDS: ACETAMINOPHEN 500 MG TAB PO PRN (03:05)
[2020-07-21 06:00] VITALS: BP 125/56
[2020-07-21] MEDS: LEVOTHYROXINE 50MCG TABLET (0.05MG) PO SCH (06:00)
[2020-07-21] MEDS: SLF 3 ML SYR IV SCH ×3 (06:00→22:24)
[2020-07-21] MEDS: HumaLOG INSULIN (NovoLOG) PER UNIT SC SCH ×5 (07:59→23:48)
[2020-07-21] MEDS: MULTIVITAMINS/MINERALS THERAP 1 TAB PO SCH (08:00)
[2020-07-21] MEDS: SODIUM BICARBONATE 325 MG TAB PO SCH (08:00)
[2020-07-21] MEDS: MICONAZOLE 2 % POWDER (DESENEX) TOP SCH ×2 (08:00→22:25)
[2020-07-21] MEDS: PANTOPRAZOLE 20 MG TAB PO SCH (08:00)
[2020-07-21] MEDS: FERROUS SULFATE 325MG TAB PO SCH ×2 (08:00→22:22)
--- NOTE | 2020-07-21 08:20 | IPNPDOC ---
Date Seen The patient was seen on 07/21/20. Progress Note SUBJECTIVE: no c/o pain, fever, or chills. RN said pain occurs when dressing changes are done and relieved by dilaudid. pt was noted to have serosanguinous discharge on flank last night. Objective PHYSICAL EXAMINATION: VITALS: see below GEN: eating her breakfast no respiratory distress. HEART: S1, S2, sinus rhythm LUNGS:Clear to auscultation bilaterally AEBE. No adventitious breath sounds ABDOMEN: Soft, bandage from the chest to Abdomen . RLQ ostomy. + BS x 4 quadrants EXTREMITIES: No clubbing, cyanosis, or edema. No rashes. No calf tenderness. 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 Patient was recently di. She denied any cough, shortness of breath, abdominal pain, diarrhea scharged from the hospital for the same complaints and was treated with antifungal and wound care. Per medical records, patient was having fevers at home but none documented in the emergency room. She denies any chills, shortness of breath, nausea, vomiting, diarrhea, foul smelling or cloudy urine. Hospitalist was asked to admit for management of chronic skin breakdown as well as evaluation of fever. PROBLEM LIST: H/o recurrent UTI/interstitial cystitis requiring Ileal conduit and diverting urostomy Urine leakage around peristoma, back, and RLQ due to appliance Irritant Dermatitis Poor IV access History of breast Cancer HTN DM2 Chronic iron deficiency anemia H/o Ischemic stroke Left femoral neck fracture Chronic kidney disease stage 4 Hyperlipidemia GERD PLAN: no fever ,but increasing wbc. check crp esr procalcitonin. no empiric abx had been given before. since allergic to pcn, cipro, may need ceftaroline to cover mrsa and possible pseudomonas. check wound cx. recheck serial cbc w diff. check mrsa screen. spoke with [facility] supervisor contact lens DR. BELLAMY [phone], who requested 06/13/20 CT ABD to be sent electronically for review of anatomy. No transfer on Wednesday. He will call me via [facility] transfer center on Wednesday if pt can be scheduled for same day procedure b/l nephrostomies on WEDNESDAY. VS, I&O, 24H, Fishbone Vital Signs/I&O Vital Signs Date Time Temp Pulse Resp B/P (MAP) Pulse Ox O2 Delivery O2 Flow Rate FiO2 07/21/20 06:00 97.4 71 18 125/56 (79) 100 Room Air I&O- Last 24 Hours up to 6 AM 07/21/20 06:00 Intake Total 1020 ml Output Total 975 ml Balance 45 ml Laboratory Data 24H LABS Laboratory Tests 2 07/20/20 11:41: Bedside Glucose (Misc Panel) 109 07/20/20 16:58: Bedside Glucose (Misc Panel) 133H 07/20/20 20:36: Bedside Glucose (Misc Panel) 102 07/21/20 06:14: Bedside Glucose (Misc Panel) 119H Microbiology Microbiology 07/13/20 Urine Culture - Final, Complete 07/13/20 Blood Culture - Final, Complete NO GROWTH AFTER 5 DAYS 07/13/20 Blood Culture - Final, Complete NO GROWTH AFTER 5 DAYS 07/11/20 Blood Culture - Final, Complete NO GROWTH AFTER 5 DAYS 07/11/20 Blood Culture - Final, Complete NO GROWTH AFTER 5 DAYS SHEN JACQUES MD Jul 21, 2020 07:58
[2020-07-21 08:40] LABS: BASO # 0.1 10^3/uL (0.0-0.2); BASO % 0.4 % (0.0-1.0); EOS # 0.2 10^3/uL (0.0-0.5); EOS % 1.6 % (0.0-3.0); HEMOGLOBIN 10.4 g/dl (12.0-15.5); LYMPH # 1.2 10^3/uL (1.5-5.0); LYMPH % 8.8 % (24.0-44.0); MEAN CORPUSCULAR HEMOGLOBIN 27.6 pg (27.0-33.0); MEAN CORPUSCULAR HGB CONC 28.9 g/dl (32.0-36.5); MEAN CORPUSCULAR VOLUME 95.5 fl (80.0-96.0); MONO # 0.6 10^3/uL (0.0-0.8); MONO % 4.5 % (0.0-5.0); NEUTROPHILS # 11.2 10^3/uL (1.5-8.5); NEUTROPHILS % 83.3 % (36.0-66.0); PLATELET COUNT, AUTOMATED 605 10^3/uL (150-450); RED BLOOD COUNT 3.77 10^6/uL (4.00-5.40); WHITE BLOOD COUNT 13.5 10^3/uL (4.0-10.0)
[2020-07-21] MEDS: PERCOCET 5MG/325MG TAB PO PRN ×3 (08:41→22:23)
[2020-07-21 09:13] LABS: C REACTIVE PROTEIN QUANTITATIV 7.29 MG/DL (0.00-0.30); CALCIUM LEVEL 8.3 MG/DL (8.8-10.2); CREATININE FOR GFR 1.65 MG/DL (0.55-1.30); GLOMERULAR FILTRATION RATE 31.5 (>32); POTASSIUM SERUM 4.8 MEQ/L (3.5-5.1)
[2020-07-21 09:42] LABS: ERYTHROCYTE SEDIMENTATION RATE 62 mm/hr (0-30)
[2020-07-21 14:59] VITALS: BP 152/68
[2020-07-21 22:00] VITALS: BP 149/67
[2020-07-21] MEDS: atenoloL 25 MG TAB PO SCH (22:22)
[2020-07-22 06:00] VITALS: BP 136/64
[2020-07-22] MEDS: HumaLOG INSULIN (NovoLOG) PER UNIT SC SCH ×3 (06:00→18:00)
[2020-07-22] MEDS: diphenhydrAMINE 50MG/ML VIAL (J1200) IV PRN (06:14)
[2020-07-22] MEDS: SLF 3 ML SYR IV SCH ×3 (06:14→21:21)
[2020-07-22] MEDS: LEVOTHYROXINE 50MCG TABLET (0.05MG) PO SCH (06:15)
[2020-07-22 07:22] LABS: BASO # 0.1 10^3/uL (0.0-0.2); BASO % 0.5 % (0.0-1.0); EOS # 0.3 10^3/uL (0.0-0.5); EOS % 2.3 % (0.0-3.0); HEMATOCRIT 36.5 % (36.0-47.0); LYMPH # 1.3 10^3/uL (1.5-5.0); LYMPH % 10.7 % (24.0-44.0); MEAN CORPUSCULAR HEMOGLOBIN 28.4 pg (27.0-33.0); MEAN CORPUSCULAR HGB CONC 30.1 g/dl (32.0-36.5); MEAN CORPUSCULAR VOLUME 94.3 fl (80.0-96.0); MONO # 0.7 10^3/uL (0.0-0.8); MONO % 5.9 % (0.0-5.0); NEUTROPHILS # 9.6 10^3/uL (1.5-8.5); NEUTROPHILS % 79.6 % (36.0-66.0); PLATELET COUNT, AUTOMATED 604 10^3/uL (150-450); RED BLOOD COUNT 3.87 10^6/uL (4.00-5.40); WHITE BLOOD COUNT 12.1 10^3/uL (4.0-10.0)
--- NOTE | 2020-07-22 08:15 | REP ---
INDICATION: WBC 13 R/O PNEUMONIA COMPARISON: 07/11/2020 TECHNIQUE: Portable AP view of the chest FINDINGS: The mediastinum and cardiac silhouette are stable and within normal limits for portable technique. The lung doty are clear without acute consolidation, effusion, or pneumothorax. Skeletal structures are intact. IMPRESSION: No acute cardiopulmonary process appreciated. No focal consolidation or effusion. <Electronically signed by Lenin Vila > 07/22/20 [id number]
[2020-07-22 08:19] LABS: CALCIUM LEVEL 8.5 MG/DL (8.8-10.2); CREATININE FOR GFR 1.5 MG/DL (0.55-1.30); GLOMERULAR FILTRATION RATE 35.1 (>32); POTASSIUM SERUM 4.3 MEQ/L (3.5-5.1)
--- NOTE | 2020-07-22 08:23 | IPNPDOC ---
Date Seen The patient was seen on 07/22/20. Progress Note SUBJECTIVE: 2/10 pain while supine. 7/10 pain when dressing changed. requesting pain med after breakfast.no fever, chills, denies dysuria urgency jc in urostomy. Objective PHYSICAL EXAMINATION: VITALS: see below GEN: eating her breakfast no respiratory distress. HEART: S1, S2, sinus rhythm LUNGS:Clear to auscultation bilaterally AEBE. No adventitious breath sounds ABDOMEN: Soft, bandage from the chest to Abdomen . RLQ ostomy. + BS x 4 quadrants EXTREMITIES: No clubbing, cyanosis, or edema. No rashes. No calf tenderness. 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 Patient was recently di. She denied any cough, shortness of breath, abdominal pain, diarrhea scharged from the hospital for the same complaints and was treated with antifungal and wound care. Per medical records, patient was having fevers at home but none documented in the emergency room. She denies any chills, shortness of breath, nausea, vomiting, diarrhea, foul smelling or cloudy urine. Hospitalist was asked to admit for management of chronic skin breakdown as well as evaluation of fever. PROBLEM LIST: H/o recurrent UTI/interstitial cystitis requiring Ileal conduit and diverting urostomy Urine leakage around peristoma, back, and RLQ due to appliance Irritant Dermatitis Poor IV access History of breast Cancer HTN DM2 Chronic iron deficiency anemia H/o Ischemic stroke Left femoral neck fracture Chronic kidney disease stage 4 Hyperlipidemia GERD PLAN: serous sanguinous drainage noted on back with q2day dressing changes with increased wbc. wound cx ordered. prn pain meds. awaiting same day procedure for b/l nephrostomies to be scheduled by [facility]. ct abd pelvis from 06/13/20 sent electronically to IR Dr. Hatch via transfer center as well as face sheet, covid, consult notes and h&p. if febrile will need iv abx. check mrsa screen. VS, I&O, 24H, [place] Vital Signs/I&O Vital Signs Date Time Temp Pulse Resp B/P (MAP) Pulse Ox O2 Delivery O2 Flow Rate FiO2 07/22/20 06:00 97.5 73 18 136/64 (88) 99 Room Air I&O- Last 24 Hours up to 6 AM 07/22/20 06:00 Intake Total 1020 ml Output Total 1300 ml Balance -280 ml Laboratory Data 24H LABS Laboratory Tests 2 07/21/20 08:24: Immature Granulocyte % (Auto) 1.4, Neutrophils (%) (Auto) 83.3H, Lymphocytes (%) (Auto) 8.8L, Monocytes (%) (Auto) 4.5, Eosinophils (%) (Auto) 1.6, Basophils (%) (Auto) 0.4, Neutrophils # (Auto) 11.2H, Lymphocytes # (Auto) 1.2L, Monocytes # (Auto) 0.6, Eosinophils # (Auto) 0.2, Basophils # (Auto) 0.1, Nucleated Red Blood Cells % (auto) 0.0, Erythrocyte Sedimentation Rate 62H, Anion Gap 7L, Glomerular Filtration Rate 31.5L, Calcium Level 8.3L, C-Reactive Protein, Quantitative 7.29H 07/21/20 12:35: Bedside Glucose (Misc Panel) 131H 07/21/20 17:40: Bedside Glucose (Misc Panel) 54L 07/21/20 18:16: Bedside Glucose (Misc Panel) 121H 07/21/20 23:34: Bedside Glucose (Misc Panel) 130H 07/22/20 05:48: Bedside Glucose (Misc Panel) 92 07/22/20 06:58: Immature Granulocyte % (Auto) 1.0, Neutrophils (%) (Auto) 79.6H, Lymphocytes (%) (Auto) 10.7L, Monocytes (%) (Auto) 5.9H, Eosinophils (%) (Auto) 2.3, Basophils (%) (Auto) 0.5, Neutrophils # (Auto) 9.6H, Lymphocytes # (Auto) 1.3L, Monocytes # (Auto) 0.7, Eosinophils # (Auto) 0.3, Basophils # (Auto) 0.1, Nucleated Red Blood Cells % (auto) 0.0, Anion Gap 7L, Glomerular Filtration Rate 35.1, Calcium Level 8.5L CBC/BMP Laboratory Tests 07/21/20 08:24 07/22/20 06:58 Microbiology Microbiology 07/21/20 Gram Stain - Final, Resulted 07/21/20 Wound Culture, Resulted Pending 07/13/20 Urine Culture - Final, Complete 07/13/20 Blood Culture - Final, Complete NO GROWTH AFTER 5 DAYS 07/13/20 Blood Culture - Final, Complete NO GROWTH AFTER 5 DAYS SHEN JACQUES MD Jul 22, 2020 08:23
[2020-07-22] MEDS ORDERED: HYDROmorphone 2 MG TAB PO ONE (08:30)
[2020-07-22] MEDS ORDERED: PILL CUTTER 1 EACH XX PRN (08:30)
[2020-07-22] MEDS: FERROUS SULFATE 325MG TAB PO SCH ×2 (09:36→21:20)
[2020-07-22] MEDS: PANTOPRAZOLE 20 MG TAB PO SCH (09:37)
[2020-07-22] MEDS: SODIUM BICARBONATE 325 MG TAB PO SCH ×4 (09:37→21:19)
[2020-07-22] MEDS: MULTIVITAMINS/MINERALS THERAP 1 TAB PO SCH (09:37)
[2020-07-22] MEDS: MICONAZOLE 2 % POWDER (DESENEX) TOP SCH ×2 (09:38→21:20)
[2020-07-22 14:00] VITALS: BP 116/54
[2020-07-22] MEDS: atenoloL 25 MG TAB PO SCH (21:20)
[2020-07-22 22:00] VITALS: BP 124/53
[2020-07-23] MEDS: HumaLOG INSULIN (NovoLOG) PER UNIT SC SCH ×4 (01:05→17:09)
[2020-07-23 05:32] VITALS: BP 122/56
[2020-07-23] MEDS: LEVOTHYROXINE 50MCG TABLET (0.05MG) PO SCH (05:33)
[2020-07-23] MEDS: SLF 3 ML SYR IV SCH ×4 (05:34→22:00)
[2020-07-23 07:14] LABS: BASO # 0.1 10^3/uL (0.0-0.2); BASO % 0.6 % (0.0-1.0); EOS # 0.2 10^3/uL (0.0-0.5); EOS % 1.2 % (0.0-3.0); HEMOGLOBIN 9.8 g/dl (12.0-15.5); LYMPH # 1.1 10^3/uL (1.5-5.0); LYMPH % 8.8 % (24.0-44.0); MEAN CORPUSCULAR HEMOGLOBIN 27.8 pg (27.0-33.0); MEAN CORPUSCULAR HGB CONC 29.7 g/dl (32.0-36.5); MEAN CORPUSCULAR VOLUME 93.5 fl (80.0-96.0); MONO # 0.9 10^3/uL (0.0-0.8); MONO % 7.4 % (0.0-5.0); NEUTROPHILS # 10.2 10^3/uL (1.5-8.5); NEUTROPHILS % 81.1 % (36.0-66.0); PLATELET COUNT, AUTOMATED 563 10^3/uL (150-450); RED BLOOD COUNT 3.53 10^6/uL (4.00-5.40); WHITE BLOOD COUNT 12.6 10^3/uL (4.0-10.0)
[2020-07-23 07:37] LABS: CALCIUM LEVEL 8.5 MG/DL (8.8-10.2); CREATININE FOR GFR 1.69 MG/DL (0.55-1.30); GLOMERULAR FILTRATION RATE 30.6 (>32); POTASSIUM SERUM 4.1 MEQ/L (3.5-5.1)
[2020-07-23] MEDS ORDERED: MEROPENEM INJ 1 GM in IV 1 EA IV SCH (07:45)
[2020-07-23] MEDS: PANTOPRAZOLE 20 MG TAB PO SCH (09:55)
[2020-07-23] MEDS: FERROUS SULFATE 325MG TAB PO SCH ×2 (09:55→20:23)
[2020-07-23] MEDS: SODIUM BICARBONATE 325 MG TAB PO SCH ×4 (09:55→20:23)
[2020-07-23] MEDS: MULTIVITAMINS/MINERALS THERAP 1 TAB PO SCH (09:55)
[2020-07-23] MEDS: MEROPENEM INJ 500 MG in IV 1 EA IV SCH ×2 (09:56→17:00)
[2020-07-23] MEDS: MICONAZOLE 2 % POWDER (DESENEX) TOP SCH ×2 (09:57→20:28)
[2020-07-23] MEDS: PERCOCET 5MG/325MG TAB PO PRN ×2 (09:59→14:11)
--- NOTE | 2020-07-23 11:10 | IPNPDOC ---
Date Seen The patient was seen on 07/23/20. Progress Note SUBJECTIVE: Patient complains of constipation without nausea, vomiting, fever, chills. She was found to have Pseudomonas and Klebsiella on the urine culture and started IV meropenem due to prior history of resistance on previous urine cultures. Patient has had worsening metabolic acidosis with bicarbonate increased and IV fluid started today. Objective PHYSICAL EXAMINATION: VITALS: see below GEN: Answering questions appropriately. No respiratory distress. No pallor HEART: S1, S2, sinus rhythm LUNGS:Clear to auscultation bilaterally AEBE. No adventitious breath sounds ABDOMEN: Soft, distended bandage from the chest to Abdomen . RLQ ostomy. + BS x 4 quadrants EXTREMITIES: No clubbing, cyanosis, or edema. No rashes. No calf tenderness. 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 Patient was recently di. She denied any cough, shortness of breath, abdominal pain, diarrhea scharged from the hospital for the same complaints and was treated with antifungal and wound care. Per medical records, patient was having fevers at home but none documented in the emergency room. She denies any chills, shortness of breath, nausea, vomiting, diarrhea, foul smelling or cloudy urine. Hospitalist was asked to admit for management of chronic skin breakdown as well as evaluation of fever. PROBLEM LIST: H/o recurrent UTI/interstitial cystitis requiring Ileal conduit and diverting urostomy Urine leakage around peristoma, back, and RLQ due to appliance Urinary tract infection secondary to chronic diverting urostomy, now with Finnegan catheter Constipation Metabolic acidosis Irritant Dermatitis Poor IV access History of breast Cancer HTN DM2 Chronic iron deficiency anemia H/o Ischemic stroke Left femoral neck fracture Chronic kidney disease stage 4 Hyperlipidemia GERD PLAN: Per , [facility] in [place], who operated on her previously, bilateral nephrostomy tubes will not prevent urine leakage from the ostomy. Despite conservative management with ostomy care. Patient has had recurrent issues. Dr. Moreira, or would like to arrange repeat surgery in the future and encourages the patient to follow through with her July appointment with him. No plans for transfer to [facility] request has been retracted. Due to increasing white count with urine culture being positive and having a history of Pseudomonas and Klebsiella in the past. Patient's antibiotics have been started with IV meropenem due to penicillin and Cipro allergy. This will be renally dosed per pharmacy. Patient has worsening metabolic acidosis despite increasing dose of sodium bicarbonate supplement ation, 1 L of IV fluids will be given at 75 by mouth per hour. Due to constipation. Patient may given prune juice, Senokot and MiraLAX. Patient is in a RU candidate awaiting for insurance. She will need to be discharged before her July appointment with her urologist. VS, I&O, 24H, Fishbone Vital Signs/I&O Vital Signs Date Time Temp Pulse Resp B/P (MAP) Pulse Ox O2 Delivery O2 Flow Rate FiO2 07/23/20 09:59 18 07/23/20 05:32 97.6 74 122/56 (78) 99 Room Air I&O- Last 24 Hours up to 6 AM 07/23/20 06:00 Intake Total 740 ml Output Total 575 ml Balance 165 ml Laboratory Data 24H LABS Laboratory Tests 2 07/22/20 12:21: Bedside Glucose (Misc Panel) 153H 07/22/20 16:12: Urine Color YELLOW, Urine Appearance TURBIDH, Urine pH 6.0, Urine Specific [place] 1.010, Urine Protein 1+H, Urine Glucose (UA) NEGATIVE, Urine Ketones NEGATIVE, Urine Blood 2+H, Urine Nitrite POSITIVEH, Urine Bilirubin NEGATIVE, Urine Urobilinogen 0.2, Urine Leukocyte Esterase 3+H, Urine WBC (Auto) TNTCH, Urine RBC (Auto) 104H, Urine Hyaline Casts (Auto) 0, Urine Bacteria (Auto) 2+H, Urine Squamous Epithelial Cells 0, Urine Transitional Epithelial Cells 1, Urine Mucus (Auto) SMALL, Urine Sperm (Auto) , Methicillin-Resist S.aureus DNA PCR DETECTEDA 07/22/20 17:53: Bedside Glucose (Misc Panel) 75L 07/23/20 05:17: Bedside Glucose (Misc Panel) 77L 07/23/20 06:51: Immature Granulocyte % (Auto) 0.9, Neutrophils (%) (Auto) 81.1H, Lymphocytes (%) (Auto) 8.8L, Monocytes (%) (Auto) 7.4H, Eosinophils (%) (Auto) 1.2, Basophils (%) (Auto) 0.6, Neutrophils # (Auto) 10.2H, Lymphocytes # (Auto) 1.1L, Monocytes # (Auto) 0.9H, Eosinophils # (Auto) 0.2, Basophils # (Auto) 0.1, Nucleated Red Blood Cells % (auto) 0.0, Anion Gap 8, Glomerular Filtration Rate 30.6L, Calcium Level 8.5L CBC/BMP Laboratory Tests 07/23/20 06:51 Microbiology Microbiology 07/22/20 Urine Culture, Received Pending 07/21/20 Gram Stain - Final, Resulted 07/21/20 Wound Culture - Preliminary, Resulted Pseudomonas Aeruginosa Klebsiella Pneumoniae Staphylococcus Aureus 07/13/20 Urine Culture - Final, Complete 07/13/20 Blood Culture - Final, Complete NO GROWTH AFTER 5 DAYS 07/13/20 Blood Culture - Final, Complete NO GROWTH AFTER 5 DAYS SHEN JACQUES MD Jul 23, 2020 11:10
[2020-07-23] MEDS ORDERED: NS 1,000 ML IV SCH (11:15)
[2020-07-23 14:00] VITALS: BP 123/59
[2020-07-23] MEDS: atenoloL 25 MG TAB PO SCH (20:25)
[2020-07-23] MEDS ORDERED: FOSFOMYCIN TROMETHAMINE 3 GM POWDER PACKET (MONUROL) PO ONE (21:00)
[2020-07-23 21:25] VITALS: BP 113/49
[2020-07-24] MEDS: MEROPENEM INJ 500 MG in IV 1 EA IV SCH ×3 (00:04→17:00)
[2020-07-24] MEDS: HumaLOG INSULIN (NovoLOG) PER UNIT SC SCH ×4 (05:58→17:13)
[2020-07-24] MEDS: LEVOTHYROXINE 50MCG TABLET (0.05MG) PO SCH (05:59)
[2020-07-24 06:00] VITALS: BP 116/70
[2020-07-24] MEDS: SLF 3 ML SYR IV SCH ×4 (06:00→22:00)
[2020-07-24 06:42] LABS: BASO # 0.1 10^3/uL (0.0-0.2); BASO % 0.7 % (0.0-1.0); EOS # 0.2 10^3/uL (0.0-0.5); EOS % 1.3 % (0.0-3.0); HEMATOCRIT 33.3 % (36.0-47.0); HEMOGLOBIN 10.1 g/dl (12.0-15.5); LYMPH # 1.3 10^3/uL (1.5-5.0); LYMPH % 10.5 % (24.0-44.0); MEAN CORPUSCULAR HEMOGLOBIN 28.1 pg (27.0-33.0); MEAN CORPUSCULAR HGB CONC 30.3 g/dl (32.0-36.5); MEAN CORPUSCULAR VOLUME 92.8 fl (80.0-96.0); MONO # 0.8 10^3/uL (0.0-0.8); MONO % 6.5 % (0.0-5.0); NEUTROPHILS # 9.6 10^3/uL (1.5-8.5); NEUTROPHILS % 80.4 % (36.0-66.0); PLATELET COUNT, AUTOMATED 453 10^3/uL (150-450); RED BLOOD COUNT 3.59 10^6/uL (4.00-5.40); WHITE BLOOD COUNT 11.9 10^3/uL (4.0-10.0)
[2020-07-24 07:05] LABS: CALCIUM LEVEL 8.5 MG/DL (8.8-10.2); CREATININE FOR GFR 1.67 MG/DL (0.55-1.30); POTASSIUM SERUM 4.4 MEQ/L (3.5-5.1)
[2020-07-24] MEDS ORDERED: NS 1,000 ML IV SCH (07:30)
[2020-07-24] MEDS: MULTIVITAMINS/MINERALS THERAP 1 TAB PO SCH (09:58)
[2020-07-24] MEDS: FERROUS SULFATE 325MG TAB PO SCH ×2 (09:58→20:44)
[2020-07-24] MEDS: PANTOPRAZOLE 20 MG TAB PO SCH (09:58)
[2020-07-24] MEDS: SODIUM BICARBONATE 325 MG TAB PO SCH ×4 (09:58→20:44)
[2020-07-24] MEDS: MICONAZOLE 2 % POWDER (DESENEX) TOP SCH ×2 (10:00→20:50)
--- NOTE | 2020-07-24 10:24 | IPNPDOC ---
Date Seen The patient was seen on 07/24/20. Progress Note SUBJECTIVE: Patient was seen, examined bedside chart it's been reviewed. She's had no fever or chills. Denies any dysuria urgency frequency. He has a Finnegan catheter in her urostomy with urine culture growing Pseudomonas and Klebsiella sensitive to meropenem. Patient is penicillin and Cipro allergy, but had her IV infiltrate yesterday. Therefore, she is planned for a midline catheter insertion today for IV antibiotics. Patient has not had any significant leakage around the ostomy site and appears to be doing much better than early last week per her urologist in [place], Dr. MAYNARD patient is supposed to follow up with him July 31, with plans to revise the patient's ostomy appliance to prevent further leakage. No other issues per nursing overnight. Patient requested bowel regimen yesterday due to complaints of constipation Objective PHYSICAL EXAMINATION: VITALS: see below GEN: No respiratory distress, answers questions appropriately, awake, alert, oriented, lying supine at 30 angle in bed HEART: S1, S2, sinus rhythm LUNGS:Clear to auscultation bilaterally AEBE. ABDOMEN: Soft, distended bandage from the chest to Abdomen . RLQ ostomy. + BS x 4 quadrants EXTREMITIES: No clubbing, cyanosis, or edema. No rashes. No calf tenderness. 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 Patient was recently di. She denied any cough, shortness of breath, abdominal pain, diarrhea scharged from the hospital for the same complaints and was treated with antifungal and wound care. Per medical records, patient was having fevers at home but none documented in the emergency room. She denies any chills, shortness of breath, nausea, vomiting, diarrhea, foul smelling or cloudy urine. Hospitalist was asked to admit for management of chronic skin breakdown as well as evaluation of fever. PROBLEM LIST: H/o recurrent UTI/interstitial cystitis requiring Ileal conduit and diverting urostomy Urine leakage around peristoma, back, and RLQ due to appliance Urinary tract infection secondary to chronic diverting urostomy, now with Finnegan catheter Constipation Metabolic acidosis Irritant Dermatitis Poor IV access History of breast Cancer HTN DM2 Chronic iron deficiency anemia H/o Ischemic stroke Left femoral neck fracture Chronic kidney disease stage 4 Hyperlipidemia GERD PLAN: Due to poor IV access. Patient will require a midline catheter insertion for IV meropenem to be continued for a total of 7 days. She was having increased leukocytosis without any fever with urine culture growing Pseudomonas and K lebsiella. Patient is cooperative and working with physical therapy were hoping that she can complete her rehabilitation. By July 31 toe which time she'll follow-up with Dr. SA HATHAWAY on [facility] in [place] for revision of the ostomy appliance. VS, I&O, 24H, Fishbone Vital Signs/I&O Vital Signs Date Time Temp Pulse Resp B/P (MAP) Pulse Ox O2 Delivery O2 Flow Rate FiO2 07/24/20 06:00 98.0 73 18 116/70 (85) 98 Room Air I&O- Last 24 Hours up to 6 AM 07/24/20 06:00 Intake Total 2120 ml Output Total 1575 ml Balance 545 ml Laboratory Data 24H LABS Laboratory Tests 2 07/23/20 11:39: Bedside Glucose (Misc Panel) 202H 07/23/20 17:07: Bedside Glucose (Misc Panel) 61L 07/24/20 00:00: Bedside Glucose (Misc Panel) 109 07/24/20 05:58: Bedside Glucose (Misc Panel) 121H 07/24/20 06:16: Immature Granulocyte % (Auto) 0.6, Neutrophils (%) (Auto) 80.4H, Lymphocytes (%) (Auto) 10.5L, Monocytes (%) (Auto) 6.5H, Eosinophils (%) (Auto) 1.3, Basophils (%) (Auto) 0.7, Neutrophils # (Auto) 9.6H, Lymphocytes # (Auto) 1.3L, Monocytes # (Auto) 0.8, Eosinophils # (Auto) 0.2, Basophils # (Auto) 0.1, Nucleated Red Blood Cells % (auto) 0.0, Anion Gap 9, Glomerular Filtration Rate 31.0L, Calcium Level 8.5L CBC/BMP Laboratory Tests 07/24/20 06:16 Microbiology Microbiology 07/22/20 Urine Culture - Final, Complete 07/21/20 Gram Stain - Final, Complete 07/21/20 Wound Culture - Final, Complete Pseudomonas Aeruginosa Klebsiella Pneumoniae Escherichia Coli Staph.aureus Methicillin Resis Enterococcus Faecium (Vre) SHEN JACQUES MD Jul 24, 2020 10:24
[2020-07-24 14:04] VITALS: BP 122/63
[2020-07-24] MEDS ORDERED: LIDOCAINE 1% MDV 20ML VIAL As Ordered ONE (15:22)
[2020-07-24] MEDS ORDERED: SODIUM CHLORIDE 0.9% INJ 10 ML SYR IV PRN (17:00)
[2020-07-24] MEDS: SODIUM CHLORIDE 0.9% INJ 10 ML SYR IV SCH (17:22)
[2020-07-24] MEDS: atenoloL 25 MG TAB PO SCH (20:48)
[2020-07-24 22:00] VITALS: BP 124/98
[2020-07-25] MEDS: MEROPENEM INJ 500 MG in IV 1 EA IV SCH ×3 (01:45→18:13)
[2020-07-25 06:00] VITALS: BP 96/41
[2020-07-25] MEDS: HumaLOG INSULIN (NovoLOG) PER UNIT SC SCH ×4 (06:00→18:00)
[2020-07-25] MEDS: SODIUM CHLORIDE 0.9% INJ 10 ML SYR IV SCH ×2 (06:32→18:14)
[2020-07-25] MEDS: LEVOTHYROXINE 50MCG TABLET (0.05MG) PO SCH (06:32)
[2020-07-25] MEDS: SLF 3 ML SYR IV SCH (06:32)
[2020-07-25 07:13] LABS: BASO # 0.1 10^3/uL (0.0-0.2); BASO % 0.8 % (0.0-1.0); EOS # 0.2 10^3/uL (0.0-0.5); EOS % 2.1 % (0.0-3.0); HEMATOCRIT 35.4 % (36.0-47.0); HEMOGLOBIN 10.6 g/dl (12.0-15.5); LYMPH # 1.3 10^3/uL (1.5-5.0); LYMPH % 11.9 % (24.0-44.0); MEAN CORPUSCULAR HEMOGLOBIN 28.6 pg (27.0-33.0); MEAN CORPUSCULAR HGB CONC 29.9 g/dl (32.0-36.5); MEAN CORPUSCULAR VOLUME 95.4 fl (80.0-96.0); MONO # 0.9 10^3/uL (0.0-0.8); MONO % 8.1 % (0.0-5.0); NEUTROPHILS # 8.1 10^3/uL (1.5-8.5); NEUTROPHILS % 76.1 % (36.0-66.0); PLATELET COUNT, AUTOMATED 477 10^3/uL (150-450); RED BLOOD COUNT 3.71 10^6/uL (4.00-5.40); WHITE BLOOD COUNT 10.6 10^3/uL (4.0-10.0)
[2020-07-25 07:33] LABS: CALCIUM LEVEL 7.9 MG/DL (8.8-10.2); CREATININE FOR GFR 1.47 MG/DL (0.55-1.30); POTASSIUM SERUM 4.3 MEQ/L (3.5-5.1)
[2020-07-25] MEDS: SODIUM BICARBONATE 325 MG TAB PO SCH ×4 (10:14→21:08)
[2020-07-25] MEDS: PANTOPRAZOLE 20 MG TAB PO SCH (10:14)
[2020-07-25] MEDS: MICONAZOLE 2 % POWDER (DESENEX) TOP SCH ×2 (10:14→21:05)
[2020-07-25] MEDS: MULTIVITAMINS/MINERALS THERAP 1 TAB PO SCH (10:14)
[2020-07-25] MEDS: FERROUS SULFATE 325MG TAB PO SCH ×2 (10:14→21:05)
[2020-07-25 10:15] VITALS: BP 99/81
--- NOTE | 2020-07-25 10:59 | IPNPDOC ---
Date Seen The patient was seen on 07/25/20. Progress Note SUBJECTIVE: Patient was seen and examined at the bedside chart has been reviewed. Due to poor IV access. PICC line was placed yesterday for IV antibiotics with meropenem for UTI in the setting of chronic diverting urostomy with a recent Finnegan catheter placement due to increased leakage around the ostomy. Patient previously had 2 peripheral lines on her feet, which were discontinued after 5 days. She currently has no complaints or fever or chills. She had a good bowel movement yesterday after complaining of constipation and using one dose of prune juice. No complaints of shortness of breath. Patient's metabolic panel shows worsening metabolic acidosis, given IV fluids and increasing doses of sodium bicarbonate. Urine output has been adequate. Nephrology had previously signed off Objective PHYSICAL EXAMINATION: VITALS: see below GEN: Eating her breakfast comfortably. No distress HEART: S1, S2, sinus rhythm LUNGS:Clear to auscultation bilaterally AEBE. ABDOMEN: Soft, distended bandage from the chest to Abdomen . RLQ ostomy. + BS x 4 quadrants EXTREMITIES: No clubbing, cyanosis, or edema. No rashes. No calf tenderness. 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 Patient was recently di. She denied any cough, shortness of breath, abdominal pain, diarrhea scharged from the hospital for the same complaints and was treated with antifungal and wound care. Per medical records, patient was having fevers at home but none documented in the emergency room. She denies any chills, shortness of breath, nausea, vomiting, diarrhea, foul smelling or cloudy urine. Hospitalist was asked to admit for management of chronic skin breakdown as well as evaluation of fever. PROBLEM LIST: H/o recurrent UTI/interstitial cystitis requiring Ileal conduit and diverting urostomy Urine leakage around peristoma, back, and RLQ due to appliance Urinary tract infection secondary to chronic diverting urostomy, now with Finnegan catheter Constipation, resolved Metabolic acidosis Irritant Dermatitis Poor IV access History of breast Cancer HTN DM2 Chronic iron deficiency anemia H/o Ischemic stroke Left femoral neck fracture Chronic kidney disease stage 4 Hyperlipidemia GERD PLAN: , We will need to continue to monitor patient's metabolic panel due to worsening metabolic acidosis despite having sodium bicarbonate increased to 250 every 6 hourly as well as IV fluids given. She is doing much better with the Finnegan cath eter in the diverting urostomy and her urologist in [place]. We'll be seeing her in July for outpatient follow-up. She is alive. Her quite debilitated and will need rehabilitation were waiting for a [facility] to accept her. Wound care is being managed by credit collection specialist and appears to be doing well. She is to be out of bed for her meals and ambulate 3 times a day and before bedtime if possible. At this time, patient is on IV meropenem, which is renally dosed until the urine culture results are finalized. At which point we will change the antibiotics accordingly. VS, I&O, [facility] Vital Signs/I&O Vital Signs Date Time Temp Pulse Resp B/P (MAP) Pulse Ox O2 Delivery O2 Flow Rate FiO2 07/25/20 10:15 99/81 (87) 07/25/20 06:00 97.6 74 17 97 Room Air I&O- Last 24 Hours up to 6 AM 07/25/20 06:00 Intake Total 1655 ml Output Total 1110 ml Balance 545 ml Laboratory Data 24H LABS Laboratory Tests 2 07/24/20 11:48: Bedside Glucose (Misc Panel) 228H 07/24/20 16:53: Bedside Glucose (Misc Panel) 93 07/25/20 00:06: Bedside Glucose (Misc Panel) 106 07/25/20 06:11: Bedside Glucose (Misc Panel) 106 07/25/20 06:54: Immature Granulocyte % (Auto) 1.0, Neutrophils (%) (Auto) 76.1H, Lymphocytes (%) (Auto) 11.9L, Monocytes (%) (Auto) 8.1H, Eosinophils (%) (Auto) 2.1, Basophils (%) (Auto) 0.8, Neutrophils # (Auto) 8.1, Lymphocytes # (Auto) 1.3L, Monocytes # (Auto) 0.9H, Eosinophils # (Auto) 0.2, Basophils # (Auto) 0.1, Nucleated Red Blo od Cells % (auto) 0.0, Anion Gap 8, Glomerular Filtration Rate 36.0, Calcium Level 7.9L CBC/BMP Laboratory Tests 07/25/20 06:54 Microbiology Microbiology 07/22/20 Urine Culture - Final, Complete 07/21/20 Gram Stain - Final, Complete 07/21/20 Wound Culture - Final, Complete Pseudomonas Aeruginosa Klebsiella Pneumoniae Escherichia Coli Staph.aureus Methicillin Resis Enterococcus Faecium (Vre) SHEN JACQUES MD Jul 25, 2020 10:59
[2020-07-25] MEDS: PERCOCET 5MG/325MG TAB PO PRN (11:58)
[2020-07-25] MEDS: HYDROmorphone 2 MG TAB PO PRN (12:03)
[2020-07-25 15:47] VITALS: BP 99/81
[2020-07-25] MEDS: ACETAMINOPHEN 500 MG TAB PO PRN (18:14)
[2020-07-25] MEDS: atenoloL 25 MG TAB PO SCH (21:07)
[2020-07-25 22:00] VITALS: BP 109/57
[2020-07-26] MEDS: MEROPENEM INJ 500 MG in IV 1 EA IV SCH ×3 (00:40→16:57)
[2020-07-26] MEDS: LEVOTHYROXINE 50MCG TABLET (0.05MG) PO SCH (05:33)
[2020-07-26] MEDS: SODIUM CHLORIDE 0.9% INJ 10 ML SYR IV SCH ×2 (05:34→20:40)
[2020-07-26 06:00] VITALS: BP 134/59
[2020-07-26] MEDS: HumaLOG INSULIN (NovoLOG) PER UNIT SC SCH ×4 (06:00→17:02)
[2020-07-26 07:15] LABS: BASO # 0.1 10^3/uL (0.0-0.2); BASO % 1.1 % (0.0-1.0); EOS # 0.3 10^3/uL (0.0-0.5); EOS % 3.1 % (0.0-3.0); HEMATOCRIT 32.1 % (36.0-47.0); HEMOGLOBIN 9.6 g/dl (12.0-15.5); LYMPH % 11.2 % (24.0-44.0); MEAN CORPUSCULAR HGB CONC 29.9 g/dl (32.0-36.5); MEAN CORPUSCULAR VOLUME 93.6 fl (80.0-96.0); MONO # 0.8 10^3/uL (0.0-0.8); MONO % 8.8 % (0.0-5.0); NEUTROPHILS # 6.4 10^3/uL (1.5-8.5); NEUTROPHILS % 74.9 % (36.0-66.0); PLATELET COUNT, AUTOMATED 429 10^3/uL (150-450); RED BLOOD COUNT 3.43 10^6/uL (4.00-5.40); WHITE BLOOD COUNT 8.5 10^3/uL (4.0-10.0)
[2020-07-26 07:32] LABS: CALCIUM LEVEL 7.6 MG/DL (8.8-10.2); CREATININE FOR GFR 1.58 MG/DL (0.55-1.30); GLOMERULAR FILTRATION RATE 33.1 (>32); POTASSIUM SERUM 4.3 MEQ/L (3.5-5.1)
[2020-07-26] MEDS: MULTIVITAMINS/MINERALS THERAP 1 TAB PO SCH (08:27)
[2020-07-26] MEDS: FERROUS SULFATE 325MG TAB PO SCH ×2 (08:27→20:31)
[2020-07-26] MEDS: SODIUM BICARBONATE 325 MG TAB PO SCH ×3 (08:27→20:32)
[2020-07-26] MEDS: PANTOPRAZOLE 20 MG TAB PO SCH (08:27)
[2020-07-26] MEDS: MICONAZOLE 2 % POWDER (DESENEX) TOP SCH ×2 (09:27→20:42)
[2020-07-26] MEDS ORDERED: PERCOCET 5MG/325MG TAB PO ONE (11:30)
--- NOTE | 2020-07-26 11:30 | IPNPDOC ---
Date Seen The patient was seen on 07/26/20. Progress Note SUBJECTIVE: Patient has had no fevers, no chills, no complaints of dysuria, urgency, frequency or flank pain. She requests pain medicines prior to dressing changes as this causes increasing pain from baseline. . She denies any shortness of breath, chest pain, pressure, tightness, lightheadedness or dizziness. Has not been out of bed to the chair. Encouraged to ambulate with assistance Objective PHYSICAL EXAMINATION: VITALS: see below GEN: Sleeping in bed lying supine but arousable and answers questions without respiratory distress HEART: S1, S2, sinus rhythm LUNGS:Clear to auscultation bilaterally AEBE. ABDOMEN: Soft, distended bandage from the chest to Abdomen . RLQ ostomy. + BS x 4 quadrants EXTREMITIES: No clubbing, cyanosis, or edema. No rashes. No calf tenderness. 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 Patient was recently di. She denied any cough, shortness of breath, abdominal pain, diarrhea scharged from the hospital for the same complaints and was treated with antifungal and wound care. Per medical records, patient was having fevers at home but none documented in the emergency room. She denies any chills, shortness of breath, nausea, vomiting, diarrhea, foul smelling or cloudy urine. Hospitalist was asked to admit for management of chronic skin breakdown as well as evaluation of fever. PROBLEM LIST: H/o recurrent UTI/interstitial cystitis requiring Ileal conduit and diverting urostomy Urine leakage around peristoma, back, and RLQ due to appliance Urinary tract infection secondary to chronic diverting urostomy, now with Finnegan catheter Constipation, resolved Metabolic acidosis Irritant Dermatitis Poor IV access History of breast Cancer HTN DM2 Chronic iron deficiency anemia H/o Ischemic stroke Left femoral neck fracture Chronic kidney disease stage 4 Hyperlipidemia GERD PLAN: On IV meropenem for 7 days for urinary tract infection in the setting of chronic diverting urostomy and Finnegan catheter. Patient has been draining less and less around the ostomy with improvement in her irritant dermatitis that is currently being managed by Dr. Morris. Continue with current ostomy care per her private neurologist in [place], Patient is to follow-up with him in July to discuss surgery in the future to prevent leakage around the ostomy and possibly revise ileal conduit and diverting urostomy, or at least a change in appliance. Patient has had some metabolic acidosis and currently is on higher doses of sodium bicarbonate and occasionally receives IV fluids due to dehydration. Nephrology was following peripherally. Awaiting decision from a R use. The patient can be accepted to acute rehabilitation unit versus subacute rehabilitation VS, I&O, 24H, [facility] Vital Signs/I&O Vital Signs Date Time Temp Pulse Resp B/P (MAP) Pulse Ox O2 Delivery O2 Flow Rate FiO2 07/26/20 06:00 97.9 80 18 134/59 (84) 99 Room Air I&O- Last 24 Hours up to 6 AM 07/26/20 06:00 Intake Total 1470 ml Output Total 0 ml Balance 1470 ml Laboratory Data 24H LABS Laboratory Tests 2 07/25/20 12:43: Bedside Glucose (Misc Panel) 159H 07/25/20 16:57: Bedside Glucose (Misc Panel) 129H 07/25/20 21:04: Bedside Glucose (Misc Panel) 138H 07/26/20 00:33: Bedside Glucose (Misc Panel) 113H 07/26/20 06:36: Immature Granulocyte % (Auto) 0.9, Neutrophils (%) (Auto) 74.9H, Lymphocytes (%) (Auto) 11.2L, Monocytes (%) (Auto) 8.8H, Eosinophils (%) (Auto) 3.1H, Basophils (%) (Auto) 1.1H, Neutrophils # (Auto) 6.4, Lymphocytes # (Auto) 1.0L, Monocytes # (Auto) 0.8, Eosinophils # (Auto) 0.3, Basophils # (Auto) 0.1, Nucleated Red Blood Cells % (auto) 0.0, Anion Gap 7L, Glomerular Filtration Rate 33.1, Calcium Level 7.6L CBC/BMP Laboratory Tests 07/26/20 06:36 Microbiology Microbiology 07/22/20 Urine Culture - Final, Complete 07/21/20 Gram Stain - Final, Complete 07/21/20 Wound Culture - Final, Complete Pseudomonas Aeruginosa Klebsiella Pneumoniae Escherichia Coli Staph.aureus Methicillin Resis Enterococcus Faecium (Vre) SHEN JACQUES MD Jul 26, 2020 11:30
--- NOTE | 2020-07-26 12:25 | IPN ---
NEPHROLOGY PROGRESS NOTE DATE: 07/25/2020 SUBJECTIVE: Ms. Maldonado is seen today at the request of Dr. Ulrich. She was seen and followed by the nephrology service; however, she has been stable with improved kidney function at about baseline. We are currently not following her on a regular basis. Patient has developed worsening metabolic acidosis and is currently being treated for a UTI. On review of systems patient denies any dyspnea, chest pain, nausea or vomiting. She does not eat very well, but tolerates her diet. She denies any fever or chills. She has a urostomy in her right lower quadrant of abdomen which has a catheter for drainage. There is leakage on her clothes. PHYSICAL EXAMINATION: Patient is awake and alert and without any acute distress. Temperature 97.6 degrees Fahrenheit, heart rate 74 per minute and respiratory rate 20 per minute. Blood pressure 100/80 mmHg and oxygen saturation 97% on room air. Head: Atraumatic. Neck: Supple and without JVD or thyroid enlargement. Heart: Sounds are regular. Lungs: Clear to auscultation. Abdomen: Soft and urostomy in right lower extremity is draining urine via a catheter. There is leakage around the catheter. Extremities: No cyanosis or clubbing. . Neurologically: She is at her baseline mentation. LABORATORY DATA: Today's labs show sodium 142, potassium 4.3, CO2 27, BUN 40, creatinine 1.47, glucose 121, calcium 7.9. WBC count 10.6, hemoglobin also 10.6, hematocrit 35.4, platelets 477. PROBLEMS/PLAN: 1. Acute on chronic kidney disease: Her kidney function has improved and stable at about baseline. Her creatinine has been between 1.4-1.6 which is about her baseline. She has no uremic symptoms. 2. Metabolic acidosis: This is related to chronic kidney disease and a urostomy. She has been on low dose sodium bicarbonate supplement and I am increasing the dose of 650 mg four times a day. Her chemistries will be monitored every few days. 3. UTI: She is currently afebrile and remains on meropenem. 4. Anemia: Her anemia is stable and does not need any urgent intervention at present.
[2020-07-26 14:00] VITALS: BP 125/94
[2020-07-26 20:17] VITALS: BP 104/70
[2020-07-26] MEDS: PERCOCET 5MG/325MG TAB PO PRN (20:31)
[2020-07-26] MEDS: atenoloL 25 MG TAB PO SCH (20:32)
[2020-07-27] MEDS: HumaLOG INSULIN (NovoLOG) PER UNIT SC SCH ×4 (00:31→16:44)
[2020-07-27] MEDS: MEROPENEM INJ 500 MG in IV 1 EA IV SCH ×3 (00:31→16:39)
[2020-07-27] MEDS: LEVOTHYROXINE 50MCG TABLET (0.05MG) PO SCH (06:08)
[2020-07-27] MEDS: SODIUM CHLORIDE 0.9% INJ 10 ML SYR IV SCH ×2 (06:09→18:10)
[2020-07-27 06:23] VITALS: BP 128/64
[2020-07-27 08:14] LABS: BASO # 0.1 10^3/uL (0.0-0.2); EOS # 0.3 10^3/uL (0.0-0.5); EOS % 3.3 % (0.0-3.0); HEMATOCRIT 33.9 % (36.0-47.0); HEMOGLOBIN 9.8 g/dl (12.0-15.5); LYMPH # 1.2 10^3/uL (1.5-5.0); LYMPH % 11.7 % (24.0-44.0); MEAN CORPUSCULAR HEMOGLOBIN 27.8 pg (27.0-33.0); MEAN CORPUSCULAR HGB CONC 28.9 g/dl (32.0-36.5); MONO # 0.8 10^3/uL (0.0-0.8); MONO % 8.1 % (0.0-5.0); NEUTROPHILS # 7.5 10^3/uL (1.5-8.5); NEUTROPHILS % 74.9 % (36.0-66.0); PLATELET COUNT, AUTOMATED 385 10^3/uL (150-450); RED BLOOD COUNT 3.53 10^6/uL (4.00-5.40)
[2020-07-27 08:37] LABS: CREATININE FOR GFR 1.39 MG/DL (0.55-1.30); GLOMERULAR FILTRATION RATE 38.4 (>32); POTASSIUM SERUM 4.1 MEQ/L (3.5-5.1)
[2020-07-27] MEDS: PANTOPRAZOLE 20 MG TAB PO SCH (08:37)
[2020-07-27] MEDS: MULTIVITAMINS/MINERALS THERAP 1 TAB PO SCH (08:37)
[2020-07-27] MEDS: FERROUS SULFATE 325MG TAB PO SCH ×2 (08:37→20:07)
[2020-07-27] MEDS: SODIUM BICARBONATE 325 MG TAB PO SCH (08:38)
[2020-07-27] MEDS: PERCOCET 5MG/325MG TAB PO PRN ×2 (08:38→13:02)
[2020-07-27] MEDS: MICONAZOLE 2 % POWDER (DESENEX) TOP SCH ×2 (08:39→20:08)
[2020-07-27 14:00] VITALS: BP 125/63
[2020-07-27] MEDS: HYDROmorphone 2 MG TAB PO PRN (14:01)
[2020-07-27] MEDS: BICITRA 30ML SOLN UDC PO SCH ×2 (16:39→20:07)
--- NOTE | 2020-07-27 18:55 | IPNPDOC ---
Date Seen The patient was seen on 07/27/20. Progress Note SUBJECTIVE: Complained of increased irritation around the ostomy. A urine appears to have soaked the dressing above. Then she does not have any protective barrier or cream around the ostomy. Dr. Jacob will be reconsult it on Wednesday. For now, RN has been advised to change dressings frequently to prevent further irritant dermatitis. She otherwise has no fever or chills. White count is improving currently on antibiotics for UTI. Objective PHYSICAL EXAMINATION: VITALS: see below GEN: No distress. No pallor, icterus HEART: S1, S2, sinus rhythm LUNGS:Clear to auscultation bilaterally AEBE. ABDOMEN: Soft, distended bandage from the chest to Abdomen . RLQ ostomy. Increased erythema around the ostomy + BS x 4 quadrants EXTREMITIES: No clubbing, cyanosis, or edema. No rashes. No calf tenderness. 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 Patient was recently di. She denied any cough, shortness of breath, abdominal pain, diarrhea scharged from the hospital for the same complaints and was treated with antifungal and wound care. Per medical records, patient was having fevers at home but none documented in the emergency room. She denies any chills, shortness of breath, nausea, vomiting, diarrhea, foul smelling or cloudy urine. Hospitalist was asked to admit for management of chronic skin breakdown as well as evaluation of fever. PROBLEM LIST: H/o recurrent UTI/interstitial cystitis requiring Ileal conduit and diverting urostomy Urine leakage around peristoma, back, and RLQ due to appliance Urinary tract infection secondary to chronic diverting urostomy, now with Finnegan catheter Constipation, resolved Metabolic acidosis Irritant Dermatitis Poor IV access History of breast Cancer HTN DM2 Chronic iron deficiency anemia H/o Ischemic stroke Left femoral neck fracture Chronic kidney disease stage 4 Hyperlipidemia GERD PLAN: Continuing with IV meropenem for UTI. Wound care will be reconsulted due to increased erythema and irritant dermatitis around the stoma. Awaiting ARU acceptance. Outpatient follow-up with her urologist. VS, I&O, 24H, [facility] Vital Signs/I&O Vital Signs Date Time Temp Pulse Resp B/P (MAP) Pulse Ox O2 Delivery O2 Flow Rate FiO2 07/27/20 14:31 18 07/27/20 14:00 97.3 85 125/63 (83) 99 Room Air I&O- Last 24 Hours up to 6 AM 07/27/20 06:00 Intake Total 1200 ml Output Total 900 ml Balance 300 ml Laboratory Data 24H LABS Laboratory Tests 2 07/26/20 20:21: Bedside Glucose (Misc Panel) 146H 07/27/20 00:04: Bedside Glucose (Misc Panel) 132H 07/27/20 06:21: Bedside Glucose (Misc Panel) 94 07/27/20 07:59: Immature Granulocyte % (Auto) 1.0, Neutrophils (%) (Auto) 74.9H, Lymphocytes (%) (Auto) 11.7L, Monocytes (%) (Auto) 8.1H, Eosinophils (%) (Auto) 3.3H, Basophils (%) (Auto) 1.0, Neutrophils # (Auto) 7.5, Lymphocytes # (Auto) 1.2L, Monocytes # (Auto) 0.8, Eosinophils # (Auto) 0.3, Basophils # (Auto) 0.1, Nucleated Red Blood Cells % (auto) 0.0, Anion Gap 6L, Glomerular Filtration Rate 38.4, Calcium Level 8.0L 07/27/20 11:30: Bedside Glucose (Misc Panel) 163H 07/27/20 16:42: Bedside Glucose (Misc Panel) 64L CBC/BMP Laboratory Tests 07/27/20 07:59 Microbiology Microbiology 07/22/20 Urine Culture - Final, Complete 07/21/20 Gram Stain - Final, Complete 07/21/20 Wound Culture - Final, Complete Pseudomonas Aeruginosa Klebsiella Pneumoniae Escherichia Coli Staph.aureus Methicillin Resis Enterococcus Faecium (Vre) SHEN JACQUES MD Jul 27, 2020 18:53
[2020-07-27 19:49] VITALS: BP 121/87
[2020-07-27 20:07] VITALS: BP 121/87
[2020-07-27] MEDS: atenoloL 25 MG TAB PO SCH (20:07)
[2020-07-28] MEDS: MEROPENEM INJ 500 MG in IV 1 EA IV SCH ×2 (00:49→08:28)
[2020-07-28] MEDS: HumaLOG INSULIN (NovoLOG) PER UNIT SC SCH ×4 (00:50→17:34)
[2020-07-28 06:01] VITALS: BP 108/51
[2020-07-28] MEDS: LEVOTHYROXINE 50MCG TABLET (0.05MG) PO SCH (06:05)
[2020-07-28] MEDS: SODIUM CHLORIDE 0.9% INJ 10 ML SYR IV SCH ×2 (06:05→17:30)
[2020-07-28 07:27] LABS: BASO # 0.1 10^3/uL (0.0-0.2); BASO % 0.9 % (0.0-1.0); EOS # 0.4 10^3/uL (0.0-0.5); EOS % 2.9 % (0.0-3.0); HEMATOCRIT 34.7 % (36.0-47.0); HEMOGLOBIN 10.5 g/dl (12.0-15.5); LYMPH # 1.1 10^3/uL (1.5-5.0); MEAN CORPUSCULAR HEMOGLOBIN 28.7 pg (27.0-33.0); MEAN CORPUSCULAR HGB CONC 30.3 g/dl (32.0-36.5); MEAN CORPUSCULAR VOLUME 94.8 fl (80.0-96.0); MONO # 0.8 10^3/uL (0.0-0.8); MONO % 6.2 % (0.0-5.0); NEUTROPHILS % 80.1 % (36.0-66.0); PLATELET COUNT, AUTOMATED 405 10^3/uL (150-450); RED BLOOD COUNT 3.66 10^6/uL (4.00-5.40); WHITE BLOOD COUNT 12.5 10^3/uL (4.0-10.0)
--- NOTE | 2020-07-28 07:36 | IPNPDOC ---
Date Seen The patient was seen on 07/28/20. Progress Note SUBJECTIVE: increased wbc, but denies fever/chills/sob/cough/diarrhea/dysuria. c/o pain in stoma with increased irritation and erythema. no other c/o. Objective PHYSICAL EXAMINATION: VITALS: see below GEN: asleep but arousable. answerws questions appropriately HEENT: no JVD dry mm HEART: S1, S2, sinus rhythm LUNGS:diminished. AEBE. ABDOMEN: Soft,abd binder from the chest to Abdomen . RLQ ostomy. Increased erythema around the ostomy + BS x 4 quadrants EXTREMITIES: No clubbing, cyanosis, or edema. No rashes. No calf tenderness. 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 Patient was recently di. She denied any cough, shortness of breath, abdominal pain, diarrhea scharged from the hospital for the same complaints and was treated with antifungal and wound care. Per medical records, patient was having fevers at home but none documented in the emergency room. She denies any chills, shortness of breath, nausea, vomiting, diarrhea, foul smelling or cloudy urine. Hospitalist was asked to admit for management of chronic skin breakdown as well as evaluation of fever. PROBLEM LIST: H/o recurrent UTI/interstitial cystitis requiring Ileal conduit and diverting urostomy Urine leakage around stoma, back, and RLQ due to appliance with irritant dermatitits Urinary tract infection secondary to chronic diverting urostomy, now with Jc catheter Constipation, resolved Metabolic acidosis,resolved Poor IV access s/p midline insertion History of breast Cancer HTN DM2 Chronic iron deficiency anemia H/o Ischemic stroke Left femoral neck fracture Chronic kidney disease stage 4 Hyperlipidemia GERD PLAN: repeat ua to check resolution of uti since pt still c/o abd pain and increased leukocytosis. blood cx negative. still on iv merem due to pcn allergy. no fever. re-consult Dr. Jacob and scrap burner due to worsening painful tender erythema/irritant dermatitis around stoma. Per pt's urologist. Dr. Moreira, pt should have a "caulk" around stoma with cream to prevent persistent moisture from urine leakage. Despite decreased leakage around the appliance with jc, pt's skin is till exposed and not healing well. ARU screen. nephrology following ,and mgt appreciated. VS, I&O, 24H, [facility] Vital Signs/I&O Vital Signs Date Time Temp Pulse Resp B/P (MAP) Pulse Ox O2 Delivery O2 Flow Rate FiO2 07/28/20 06:01 98.2 81 18 108/51 (70) 97 Room Air I&O- Last 24 Hours up to 6 AM 07/28/20 06:00 Intake Total 2210 ml Output Total 500 ml Balance 1710 ml Laboratory Data 24H LABS Laboratory Tests 2 07/27/20 07:59: Immature Granulocyte % (Auto) 1.0, Neutrophils (%) (Auto) 74.9H, Lymphocytes (%) (Auto) 11.7L, Monocytes (%) (Auto) 8.1H, Eosinophils (%) (Auto) 3.3H, Basophils (%) (Auto) 1.0, Neutrophils # (Auto) 7.5, Lymphocytes # (Auto) 1.2L, Monocytes # (Auto) 0.8, Eosinophils # (Auto) 0.3, Basophils # (Auto) 0.1, Nucleated Red Blood Cells % (auto) 0.0, Anion Gap 6L, Glomerular Filtration Rate 38.4, Calcium Level 8.0L 07/27/20 11:30: Bedside Glucose (Misc Panel) 163H 07/27/20 16:42: Bedside Glucose (Misc Panel) 64L 07/27/20 23:09: Bedside Glucose (Misc Panel) 105 07/28/20 06:06: Bedside Glucose (Misc Panel) 100 07/28/20 07:06: Immature Granulocyte % (Auto) 0.9, Neutrophils (%) (Auto) 80.1H, Lymphocytes (%) (Auto) 9.0L, Monocytes (%) (Auto) 6.2H, Eosinophils (%) (Auto) 2.9, Basophils (%) (Auto) 0.9, Neutrophils # (Auto) 10.0H, Lymphocytes # (Auto) 1.1L, Monocytes # (Auto) 0.8, Eosinophils # (Auto) 0.4, Basophils # (Auto) 0.1, Nucleated Red Blood Cells % (auto) 0.0 CBC/BMP Laboratory Tests 07/27/20 07:59 07/28/20 07:06 Microbiology Microbiology 07/22/20 Urine Culture - Final, Complete 07/21/20 Gram Stain - Final, Complete 07/21/20 Wound Culture - Final, Complete Pseudomonas Aeruginosa Klebsiella Pneumoniae Escherichia Coli Staph.aureus Methicillin Resis Enterococcus Faecium (Vre) SHEN JACQUES MD Jul 28, 2020 07:36
[2020-07-28 07:52] LABS: CALCIUM LEVEL 8.3 MG/DL (8.8-10.2); CREATININE FOR GFR 1.47 MG/DL (0.55-1.30); POTASSIUM SERUM 4.2 MEQ/L (3.5-5.1)
[2020-07-28] MEDS: BICITRA 30ML SOLN UDC PO SCH ×3 (08:28→21:01)
[2020-07-28] MEDS: MULTIVITAMINS/MINERALS THERAP 1 TAB PO SCH (08:28)
[2020-07-28] MEDS: FERROUS SULFATE 325MG TAB PO SCH ×2 (08:28→21:01)
[2020-07-28] MEDS: PERCOCET 5MG/325MG TAB PO PRN ×3 (08:29→17:30)
[2020-07-28] MEDS: PANTOPRAZOLE 20 MG TAB PO SCH (08:29)
[2020-07-28] MEDS: MICONAZOLE 2 % POWDER (DESENEX) TOP SCH ×2 (08:29→21:02)
[2020-07-28] MEDS ORDERED: NS 500 ML IV ONE (11:45)
[2020-07-28] MEDS: TRIAMCINOLONE ACET 0.1% OINTMENT 80 GM TOP SCH ×2 (13:04→21:02)
[2020-07-28] MEDS: LINEZOLID 600MG TABLET (ZYVOX) PO SCH ×2 (13:18→21:01)
[2020-07-28 14:00] VITALS: BP 102/52
--- NOTE | 2020-07-28 15:51 | IPN ---
PROGRESS NOTE DATE: 07/28/2020 09:45:00 pm SUBJECTIVE: The patient was seen and examined at the bedside today morning. Her nurse was also present at the bedside and I was told that her rash around the stoma is getting better, however the patient is complaining of a rash in other parts of the body. Her IV Meropenem was stopped by the Medical Team today. Her renal function is stable at this time. Creatinine is fluctuating between 1.3 to 1.4. OBJECTIVE: VITAL SIGNS: Temperature is 98.5 degrees Fahrenheit, blood pressure 102/52, pulse is 86, respiratory rate of 18, saturating 100% on room air. Intake and Output Urine output recorded as 500 mL yesterday and 750 mL so far today since overnight. Weight on the bed scale is 54.6 kg. PHYSICAL EXAMINATION: GENERAL APPEARANCE: The patient is awake, alert, oriented x3, laying in bed in no apparent distress. HEAD AND NECK: Extraocular muscles intact. Pupils are equally round and reactive to light. Mucous membranes are moist. Neck is supple. There is no jugular venous distention. CARDIOVASCULAR: S1, S2, regular rate. EXTREMITIES: No edema of the bilateral lower extremities. RESPIRATORY: Chest is clear to auscultation bilaterally. Bilaterally currently no rales or rhonchi. ABDOMEN: Soft, positive bowel sounds. Right lower quadrant urostomy with a Finnegan catheter in the ostomy. Rash and erythema around the ostomy and all the way up to the right flank is getting better. MUSCULOSKELETAL: No clubbing, no cyanosis. Pulses are 2+. VETERINARY PATHOLOGIST: No focal deficits. Power is 5/5 in bilateral upper extremities. LABORATORY STUDIES: CBC showed a WBC count of 12.5, hemoglobin 10.5, platelets are 405. BMP showed sodium 141, potassium 4.2, chloride 114, bicarbonate 23, BUN 33, creatinine is 1.47. It was 1.39 yesterday. CURRENT INPATIENT MEDICATIONS: The patient's medications were all reviewed by myself. She was started on Bicitra yesterday. Sodium bicarbonate was stopped. She was also given a normal saline 500 mL bolus. Today Meropenem has been stopped. Atenolol has also been stopped. I have started the patient on Zyvox 600 mg p.o. twice a day. No other significant change in the medications today as compared with yesterday. ASSESSMENT AND PLAN: 1. Chronic kidney disease stage 3 - renal function is stable. She was hypotensive today. IV fluid was given to the patient. 2. Metabolic acidosis it has improved after administration of Bicitra. Continue current dose of Bicitra 10 mL p.o. three times daily. 3. 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 The patient was already given IV Meropenem which adequately covers pseudomonas, Klebsiella and E-coli. However the patient had MRSA and enterococcus faecalis which is not sensitive to Vancomycin either. She did get Vancomycin for a few days in the back. However, I am starting the patient on oral Zyvox at this time for the next one week. 4. Fungal infection at the right sided abdominal wound - The patient is getting topical Miconazole which is helping improve the rash now. MTDD
[2020-07-28 22:00] VITALS: BP 104/52
[2020-07-29] MEDS: HumaLOG INSULIN (NovoLOG) PER UNIT SC SCH ×4 (00:23→17:58)
[2020-07-29] MEDS: LEVOTHYROXINE 50MCG TABLET (0.05MG) PO SCH (05:29)
[2020-07-29] MEDS: SODIUM CHLORIDE 0.9% INJ 10 ML SYR IV SCH ×2 (05:30→18:21)
[2020-07-29 06:00] VITALS: BP 112/49
[2020-07-29] MEDS: BICITRA 30ML SOLN UDC PO SCH ×3 (08:38→22:05)
[2020-07-29] MEDS: LINEZOLID 600MG TABLET (ZYVOX) PO SCH ×2 (08:39→22:06)
[2020-07-29] MEDS: FERROUS SULFATE 325MG TAB PO SCH ×2 (08:39→22:06)
[2020-07-29] MEDS: MICONAZOLE 2 % POWDER (DESENEX) TOP SCH ×2 (08:39→22:05)
[2020-07-29] MEDS: TRIAMCINOLONE ACET 0.1% OINTMENT 80 GM TOP SCH ×2 (08:39→22:05)
[2020-07-29] MEDS: MULTIVITAMINS/MINERALS THERAP 1 TAB PO SCH (08:39)
[2020-07-29] MEDS: PANTOPRAZOLE 20 MG TAB PO SCH (08:39)
[2020-07-29 13:58] VITALS: BP 116/51
[2020-07-29 14:43] LABS: CLOSTRIDIUM DIFFICILE PCR NEGATIVE (NEGATIVE)
--- NOTE | 2020-07-29 17:24 | IPNPDOC ---
Date Seen The patient was seen on 07/29/20. Progress Note SUBJECTIVE: no fever. on zyvox due to mrsa/vre on back wound cx. no fever. s/p merem but developed pruritic diffuse rash on b/l UE /LE, chest abd pelvis. Objective PHYSICAL EXAMINATION: VITALS: see below GEN: AAOx 3 no distress SKIN: back wound w/o purulence. erythematous stoma rt LQ. diffuse erythematous raised lesions on b/l UE/LE, chest, back abdomen HEENT: no jvd moist mm no facial asymmetry HEART: S1, S2, sinus rhythm LUNGS:diminished. AEBE. ABDOMEN: Soft,abd binder from the chest to Abdomen . RLQ ostomy. Increased erythema around the ostomy + BS x 4 quadrants EXTREMITIES: No clubbing, cyanosis, or edema. No rashes. No calf tenderness.. 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 Patient was recently di. She denied any cough, shortness of breath, abdominal pain, diarrhea scharged from the hospital for the same complaints and was treated with antifungal and wound care. Per medical records, patient was having fevers at home but none documented in the emergency room. She denies any chills, shortness of breath, nausea, vomiting, diarrhea, foul smelling or cloudy urine. Hospitalist was asked to admit for management of chr onic skin breakdown as well as evaluation of fever. Lower Back wound infection -mrsa, klebsiella, vre on wound cx. s/p merem but developed drug rash, now on zyvox H/o recurrent UTI/interstitial cystitis requiring Ileal conduit and diverting urostomy Urine leakage around stoma, back, and RLQ due to appliance with irritant dermatitits -jc in urostomy but still leaking . has appt w , but not cleared by therapy and will most likely need to be rescheduled. wound care mgt per Dr. Jacob. needs "caulking around stoma" per Dr. Moreira, urologist in [place] to protect skin, and recommended stoma RN specialist to assist in preventing irritation. Urinary tract infection secondary to chronic diverting urostomy, now with Jc catheter -s/p meropenem but developed rash Drug Rash due to merem -topical triamcinolone, if no improvement, Derm consult. Constipation, resolved -s/p bowel regimen Metabolic acidosis,resolved -on bicarb tabs., s/p ivfluids. managed by nephrology Poor IV access s/p midline insertion -stable. needed for previous meropenem History of breast Cancer -stable HTN -controlled DM2 -on cinsistent carbs diet, sliding scale Chronic iron deficiency anemia -stable H/o Ischemic stroke -being evaluated for ARU Dispo: may need to reschedule urology appt in [place] w Dr. Moreira due to persistent debility not cleared by physical therapy, and acute infection and dermatitis. VS, I&O, 24H, Fishbone Vital Signs/I&O Vital Signs Date Time Temp Pulse Resp B/P (MAP) Pulse Ox O2 Delivery O2 Flow Rate FiO2 07/29/20 13:58 97.7 93 20 116/51 (72) 97 Room Air I&O- Last 24 Hours up to 6 AM 07/29/20 06:00 Intake Total 2460 ml Output Total 1250 ml Balance 1210 ml Laboratory Data 24H LABS Laboratory Tests 2 07/29/20 00:02: Bedside Glucose (Misc Panel) 162H 07/29/20 05:32: Bedside Glucose (Misc Panel) 63L 07/29/20 11:49: Bedside Glucose (Misc Panel) 207H 07/29/20 13:06: Clostridium difficile [id number] PRESUMPTIVE NEGATIVE, Clostridium difficile Toxin (PCR) NEGATIVE 07/29/20 15:51: Bedside Glucose (Misc Panel) 116H Microbiology Microbiology 07/28/20 Urine Culture - Final, Complete 07/22/20 Urine Culture - Final, Complete 07/21/20 Gram Stain - Final, Complete 07/21/20 Wound Culture - Final, Complete Pseudomonas Aeruginosa Klebsiella Pneumoniae Escherichia Coli Staph.aureus Methicillin Resis Enterococcus Faecium (Vre) SHEN JACQUES MD Jul 29, 2020 17:24
[2020-07-29 20:00] VITALS: BP 104/73
[2020-07-30] MEDS: HumaLOG INSULIN (NovoLOG) PER UNIT SC SCH ×4 (00:22→17:22)
[2020-07-30 04:26] LABS: HEMATOCRIT 29.3 % (36.0-47.0); HEMOGLOBIN 8.8 g/dl (12.0-15.5); MEAN CORPUSCULAR VOLUME 93.3 fl (80.0-96.0); PLATELET COUNT, AUTOMATED 323 10^3/uL (150-450); RED BLOOD COUNT 3.14 10^6/uL (4.00-5.40); WHITE BLOOD COUNT 12.4 10^3/uL (4.0-10.0)
[2020-07-30 04:37] LABS: CALCIUM LEVEL 8.2 MG/DL (8.8-10.2); CREATININE FOR GFR 1.52 MG/DL (0.55-1.30); GLOMERULAR FILTRATION RATE 34.6 (>32); POTASSIUM SERUM 4.4 MEQ/L (3.5-5.1)
[2020-07-30 06:00] VITALS: BP 82/35
[2020-07-30] MEDS: LEVOTHYROXINE 50MCG TABLET (0.05MG) PO SCH (06:06)
[2020-07-30] MEDS: SODIUM CHLORIDE 0.9% INJ 10 ML SYR IV SCH (06:07)
--- NOTE | 2020-07-30 07:14 | IPNPDOC ---
Text Note Date of Service The patient was seen on 07/30/20. NOTE TIME OF SERVICE 655AM I was informed by the patient's RN Maegan that the patient had redness and swelling at the right antecubital fossa. On my evaluation the patient admitted to having some discomfort in the area. PE: appeared comfortable, was not diaphoretic or flushed, redness and thickening of the subcutaneous tissue at the right antecubital fossa, the picc line was sti ll in place Plan: will ask RNs to remove PICC and send tip for culture and then start IV clindamycin/ will inform who is taking over for today VS,Jey, I+O VS, Jey, I+O Laboratory Tests 07/30/20 04:04 Vital Signs Date Time Temp Pulse Resp B/P (MAP) Pulse Ox O2 Delivery O2 Flow Rate FiO2 07/30/20 06:00 99.0 82 19 82/35 (51) 99 Room Air I&O- Last 24 Hours up to 6 AM 07/30/20 06:00 Intake Total 2160 ml Output Total 950 ml Balance 1210 ml MELLY OROZCO MD Jul 30, 2020 07:14
[2020-07-30] MEDS ORDERED: CLINDAMYCIN 300 MG in IV 1 EA IV SCH (07:15)
[2020-07-30 08:40] LABS: HEMOGLOBIN 8.6 g/dl (12.0-15.5); MEAN CORPUSCULAR HEMOGLOBIN 28.2 pg (27.0-33.0); MEAN CORPUSCULAR HGB CONC 29.7 g/dl (32.0-36.5); MEAN CORPUSCULAR VOLUME 95.1 fl (80.0-96.0); PLATELET COUNT, AUTOMATED 324 10^3/uL (150-450); RED BLOOD COUNT 3.05 10^6/uL (4.00-5.40); WHITE BLOOD COUNT 13.1 10^3/uL (4.0-10.0)
[2020-07-30 08:49] VITALS: BP 100/48
[2020-07-30] MEDS: MULTIVITAMINS/MINERALS THERAP 1 TAB PO SCH (08:57)
[2020-07-30] MEDS: BICITRA 30ML SOLN UDC PO SCH ×3 (08:57→21:13)
[2020-07-30] MEDS: FERROUS SULFATE 325MG TAB PO SCH ×2 (08:57→21:14)
[2020-07-30] MEDS: ACETAMINOPHEN 500 MG TAB PO PRN ×2 (08:57→21:14)
[2020-07-30] MEDS: TRIAMCINOLONE ACET 0.1% OINTMENT 80 GM TOP SCH ×2 (08:58→21:14)
[2020-07-30] MEDS: MICONAZOLE 2 % POWDER (DESENEX) TOP SCH ×2 (08:58→21:14)
[2020-07-30] MEDS: PANTOPRAZOLE 20 MG TAB PO SCH (08:58)
[2020-07-30] MEDS: LINEZOLID 600MG TABLET (ZYVOX) PO SCH ×2 (08:58→21:14)
[2020-07-30] MEDS ORDERED: NS 500 ML IV ONE (11:30)
[2020-07-30 14:00] VITALS: BP 102/46
--- NOTE | 2020-07-30 15:25 | IPN ---
PROGRESS NOTE DATE: 07/30/2020 SUBJECTIVE: The patient was seen and examined at the bedside today morning. Her daughter was also present at the bedside. She was hypotensive in the morning today, otherwise renal function is stable and the patient is afebrile. OBJECTIVE: VITAL SIGNS: Temperature is 99 degrees Fahrenheit, blood pressure is 82/35 in the morning, pulse is 82, respiratory rate is 19, saturating 99% on room air. Intake and output: Urine output recorded at 900 ml yesterday, 300 ml so far today since overnight. Weight on the bed scale is 62.1 kg which is not reliable because there is a 7 kg difference since yesterday. GENERAL: Patient is awake, alert and oriented x3, laying in bed, in no apparent distress. HEAD AND NECK: Extraocular muscles are intact. Pupils are equally round and reactive to light. Mucous membranes are moist. NECK: Supple. There is no JVD. CARDIOVASCULAR: S1 and S2, regular rate. No edema of the bilateral lower extremities. RESPIRATORY: Clear to auscultation bilaterally. Bilateral equal air entry, no rales or rhonchi. ABDOMEN: Soft, positive bowel sounds. Right lower quadrant urostomy with a Finnegan catheter and there is mild erythema around the ostomy but it is significantly better than before. MUSCULOSKELETAL: No clubbing or cyanosis, pulses are 2+. FELT PAD CUTTER: No focal deficit. Power is 5/5 in bilateral upper extremities. LABORATORY DATA: CBC showed a WBC of 13.1, hemoglobin 8.6, platelets are 324,000. BMP showed sodium of 140, potassium 4.4, chloride 113, bicarbonate 24, BUN 35, creatinine 1.5, it was 1.4 yesterday. Calcium 8.2. Microbiology: Repeat urine cultures are negative. Catheter tip culture is pending. IMAGING: No recent images available since the last visit. CURRENT INPATIENT MEDICATIONS: The patient's medications are all reviewed by myself. I have given her normal saline 500 mL bolus, she continues to be on oral Zyvox. No other significant change in the medications today as compared with yesterday. ASSESSMENT AND PLAN: 1. Chronic kidney disease Stage III, renal function is stable. There is no significant change in the creatinine. 2. Dehydration and volume depletion. Patient was hypotensive today, I have ordered 500 mL of normal saline bolus. 3. Metabolic acidosis, it is well-controlled with current dose of Bicitra. 4. Fungal infection of the right sided abdominal wound. Continue topical Miconazole. 5. MRSA and enterococcus faecalis infection of the abdominal wound. Patient is currently on Zyvox which adequately covers that infection.
[2020-07-30 22:00] VITALS: BP 108/44
--- NOTE | 2020-07-30 22:00 | IPNPDOC ---
Subjective Date Seen The patient was seen on 07/30/20. Subjective Chief Complaint/HPI Mrs. Maldonado, is an 85 year old female here for lower back wound infection with multiple drug resistant organisms, drug rash due to Merrem, and leakage around the stoma causing irritant dermatitis. This morning, there was redness and swelling around the right antecubital fossa. The line was removed and the catheter tip was cultured. Otherwise this morning she denied any fever or chills, chest pain, shortness of breath or abdominal pain. Objective Physical Examination General Exam: Positive: Alert, Cooperative Eye Exam: Positive: EOMI; Negative: Sclera icteric ENT Exam: Positive: Atraumatic Neck Exam: Positive: Supple Chest Exam: Positive: Clear to auscultation Heart Exam: Positive: Rate Normal, Regular Rhythm Abdomen Exam: Positive: Normal bowel sounds, Soft; Negative: Tenderness Extremity Exam: Positive: Edema (mild) Neuro Exam: Positive: Normal Speech, Cranial Nerves 3-12 NL Psych Exam: Positive: Mental status NL, Mood NL Assessment /Plan Assessment Mrs. Maldonado is an 85 year old female here for lower back wound infection with multiple drug resistant organisms, drug rash due to Merrem, and leakage around the stoma causing irritant dermatitis. This morning there was signs of a line infection in the right antecubital fossa. Line was removed and the tip was cultured. A new line was to be placed in the left arm. She is on Linezolid for multiple drug resistant organisms on her back. Pending wound culture of her line. Otherwise, we will need to touch base with IR at [place] to reschedule her procedure Plan/VTE VTE Prophylaxis Ordered?: Yes Plan 1. Right antecubital fossa line infection Line was removed -Pending results of line culture 2. Lower Back wound infection -Culture grew MRSA, klebsiella, and VRE. -Developed drug rash on Merrem -Now on Linezolid 3. 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 -Still leaking -Has appointment with Dr. Moreira, but has not cleared therapy, mostlikley will need to be rescheduled -Wound care mgt per Dr. Jacob. needs "caulking around stoma" per Dr. Moreira, urologist in [place] to protect skin, and recommended stoma RN specialist to assist in preventing irritation. 4. Urinary tract infection secondary to chronic diverting urostomy, now with Finnegan catheter -s/p meropenem but developed rash 5. Drug Rash due to merem -topical triamcinolone 6. Constipation, resolved -s/p bowel regimen 7. Metabolic acidosis,resolved -on bicarb tabs., s/p ivfluids. managed by nephrology 8. DM2 -on consistent carbs diet, sliding scale 9. DVT ppx -SCD and TEDs VS, I&O, 24H, Fishbone Vital Signs/I&O Vital Signs Date Time Temp Pulse Resp B/P (MAP) Pulse Ox O2 Delivery O2 Flow Rate FiO2 07/30/20 14:00 97.8 89 20 102/46 (64) 100 Room Air I&O- Last 24 Hours up to 6 AM 07/30/20 05:59 Intake Total 2280 ml Output Total 1200 ml Balance 1080 ml Laboratory Data 24H LABS Laboratory Tests 2 07/29/20 23:58: Bedside Glucose (Misc Panel) 150H 07/30/20 04:04: Nucleated Red Blood Cells % (auto) 0.0, Anion Gap 3L, Glomerular Filtration Rate 34.6, Calcium Level 8.2L 07/30/20 05:34: Bedside Glucose (Misc Panel) 107 07/30/20 08:22: Nucleated Red Blood Cells % (auto) 0.0 07/30/20 11:28: Bedside Glucose (Misc Panel) 99 07/30/20 17:17: Bedside Glucose (Misc Panel) 157H CBC/BMP Laboratory Tests 07/30/20 04:04 07/30/20 08:22 Microbiology Microbiology 07/30/20 Catheter Tip Culture, Received Pending 07/28/20 Urine Culture - Final, Complete 07/22/20 Urine Culture - Final, Complete 07/21/20 Gram Stain - Final, Complete 07/21/20 Wound Culture - Final, Complete Pseudomonas Aeruginosa Klebsiella Pneumoniae Escherichia Coli Staph.aureus Methicillin Resis Enterococcus Faecium (Vre) EVELIO SELBY DO Jul 30, 2020 21:22
[2020-07-31] MEDS: HumaLOG INSULIN (NovoLOG) PER UNIT SC SCH ×4 (00:54→17:16)
[2020-07-31] MEDS: LEVOTHYROXINE 50MCG TABLET (0.05MG) PO SCH (06:39)
[2020-07-31 06:40] VITALS: BP 112/47
[2020-07-31 08:20] LABS: HEMATOCRIT 30.8 % (36.0-47.0); HEMOGLOBIN 9.4 g/dl (12.0-15.5); MEAN CORPUSCULAR HEMOGLOBIN 28.7 pg (27.0-33.0); MEAN CORPUSCULAR HGB CONC 30.5 g/dl (32.0-36.5); MEAN CORPUSCULAR VOLUME 94.2 fl (80.0-96.0); PLATELET COUNT, AUTOMATED 329 10^3/uL (150-450); RED BLOOD COUNT 3.27 10^6/uL (4.00-5.40); WHITE BLOOD COUNT 13.3 10^3/uL (4.0-10.0)
[2020-07-31 08:50] LABS: CALCIUM LEVEL 7.8 MG/DL (8.8-10.2); CREATININE FOR GFR 1.48 MG/DL (0.55-1.30); GLOMERULAR FILTRATION RATE 35.7 (>32); POTASSIUM SERUM 4.7 MEQ/L (3.5-5.1)
[2020-07-31] MEDS: BICITRA 30ML SOLN UDC PO SCH ×3 (09:10→22:30)
[2020-07-31] MEDS: PANTOPRAZOLE 20 MG TAB PO SCH (09:10)
[2020-07-31] MEDS: LINEZOLID 600MG TABLET (ZYVOX) PO SCH (09:10)
[2020-07-31] MEDS: MULTIVITAMINS/MINERALS THERAP 1 TAB PO SCH (09:10)
[2020-07-31] MEDS: ACETAMINOPHEN 500 MG TAB PO PRN ×2 (09:10→22:31)
[2020-07-31] MEDS: FERROUS SULFATE 325MG TAB PO SCH ×2 (09:10→22:30)
[2020-07-31] MEDS: MICONAZOLE 2 % POWDER (DESENEX) TOP SCH (09:11)
[2020-07-31] MEDS: TRIAMCINOLONE ACET 0.1% OINTMENT 80 GM TOP SCH (09:11)
[2020-07-31] MEDS: HYDROmorphone 2 MG TAB PO PRN (11:12)
--- NOTE | 2020-07-31 13:58 | IPN ---
PROGRESS NOTE DATE: 07/31/2020 SUBJECTIVE: Patient was seen and examined at the bedside. She was actually sitting in the sofa. She reports some leakage around the right lower quadrant urostomy. She was given some gentle I.V. fluid hydration. Renal function is stable and slightly better. Creatinine is down to 1.4 today. No other active complaints at this time. OBJECTIVE: VITAL SIGNS: Temperature 97.7 degrees Fahrenheit, blood pressure 112/47, pulse 86, respiratory rate 18, saturation 99% on room air. INTAKE AND OUTPUT: Urine output recorded as 450 mL. Weight in the bed scale was 62.1 kg yesterday. PHYSICAL EXAMINATION: GENERAL: Patient is awake, alert, oriented x3, sitting in the sofa in no apparent distress. HEAD/NECK: Extraocular muscles intact. Pupils equally round and reactive to light. Mucous membranes are moist. Neck is supple. There is no JVD. CARDIOVASCULAR: S1, S2, regular rate. No edema of the bilateral lower extremities. RESPIRATORY: Chest is clear to auscultation bilaterally. Bilateral equal air entry. No rales or rhonchi. ABDOMEN: Soft, positive bowel sounds. Right lower quadrant urostomy with Finnegan catheter inside the urostomy. There is some leakage around the urostomy, and erythema and rash around the urostomy site is clinically getting better. MUSCULOSKELETAL: No clubbing or cyanosis. Pulses are 2+. FENCE INSTALLER FOREMAN: No focal deficit. Power is 5/5 in all extremities. LABORATORY REVIEW: CBC showed WBC 13.3, hemoglobin 9.4, platelets 329,000. BMP showed sodium 142, potassium 4.7, chloride 113, bicarb 22, BUN 34, creatinine 1.48; it was 1.52 yesterday. CURRENT INPATIENT MEDICATIONS: Patient's medications were all reviewed by myself. She continues to be on Zyvox; last dose will be on 08/04/2020. No other significant change in the medications today as compared with yesterday. ASSESSMENT AND PLAN: 1. Chronic kidney disease stage 3: Renal function is stable, she was slightly dehydrated yesterday. She was given I.V. fluid hydration. 2. Metabolic acidosis: Continue current dose of Bicitra 10 mL p.o. three times a day. 3. MRSA and enterococcus faecalis infection of the abdominal wound: Continue Zyvox until 08/04/2020. 4. Fungal infection of the abdominal wound and rash: Continue topical Miconazole. 5. Anemia and chronic kidney disease: Patient has some iron deficiency as well, she continues to be on oral iron, hemoglobin level is stable and improving. DISPOSITION: Patient's renal function is stable. Electrolytes are within the acceptable range. Nephrology service is going to only peripherally follow the patient and intermittently follow along with the medical team.
[2020-07-31 14:00] VITALS: BP 126/49
--- NOTE | 2020-07-31 18:56 | CR ---
CONSULTATION Consultation by telemedicine. CONSULTATION REQUESTED BY: Dr. Yumiko Ulrich and also by Dr. Torres. REASON FOR CONSULTATION: Ostomy care with secondary advanced incontinent dermatitis secondary to leakage and poor fitting of her ileal conduit. An 85-year-old female with an ileal conduit, created for repetitive urinary tract infections and not for a malignancy. The patient has had major difficulties with fitting the appliance. This has resulted in a significant urinary incontinent dermatitis involving the peristomal area, her right flank, and her right back. Multiple attempts at getting her appliance to adhere have been difficult, and our stomal therapy nurse has also been involved with suggestions. At present there is a Finnegan catheter in the ileal conduit, which is now diverting the urine, and as a result her skin quality is improving significantly. No appliance is now being utilized, and the suggestion for the peristomal wound care is a crusting technique utilizing Cavilon skin prep to me powder as needed. The Cavalon was also recommended for the back; however, Desitin has been used, and as a result the drying effect and flaking is fairly extensive. Our recommendation is to discontinue this, washing the back with a warm washcloth, applying a moisturizer, such as Aquaphor, and using a tongue depressor to remove any of the diffuse scaling tissue which represents necrotic keratin of the epithelial layer of the skin. This is important for comfort and to eliminate residual biofilm which resides underneath these scales. This should then be followed by Cavilon advanced skin care prep wand, which can be repeated every 4-7 days. Heel-float boots, which have been recommended in the past in a previous telemedicine consultation, have not been used. As a result the patient now has a hospital-acquired stage I pressure injury involving her right heel. As indicated before, it is mandatory that this patient have bilateral heel-float boots. For unknown reasons, the patient has been on multiple antibiotic regimens despite being afebrile. It was pointed out that a positive urine culture is common in an ileal conduit and is of no consequence unless the patient presents with a high fever or other constitutional symptoms such as tachycardia or hypotension. There was concern that the patient had an elevated white count, and this is secondary to "second-degree carver" effect from incontinent dermatitis involving her entire back. This should not be mistaken with urosepsis, as the patient's vital signs have been stable, and she has been afebrile. I spoke directly to Dr. Torres and indicated that antibiotic therapy has to be discontinued. She has been on antibiotics for approximately 3 weeks, and this is not indicated. Patient will be seeing the original urologist, who performed the surgery, for consideration of further treatment. At this patient's age of 85 years, repeat surgery, I think, would be high risk, nonproductive, and would put her at a significant jeopardy to her health. As the Finnegan catheter is working now in the ileal conduit, in my opinion this should be the treatment along with local skin care utilizing crusting technique and Cavilon advanced skin prep treatment. CRISTOFER
--- NOTE | 2020-07-31 20:28 | IPNPDOC ---
Subjective Date Seen The patient was seen on 07/31/20. Subjective Chief Complaint/HPI Mrs. Maldonado, is an 85 year old female here for leakage around the stoma causing irritant dermatitis. She was seen today after working with physical therapy. She felt exhausted, but otherwise denied any fever, chest pain, or abdominal pain. Patient was seen by Dr. Jacob and discussed case with Dr. Jacob. Tried to reach out to Dr. Hatch who was to do her illeoconduit procedure, but was not able to reach Dr. Hatch Objective Physical Examination General Exam: Positive: Alert, Cooperative Eye Exam: Positive: EOMI; Negative: Sclera icteric ENT Exam: Positive: Atraumatic Neck Exam: Positive: Supple Chest Exam: Positive: Clear to auscultation Heart Exam: Positive: Rate Normal, Regular Rhythm Abdomen Exam: Positive: Normal bowel sounds, Soft; Negative: Tenderness Extremity Exam: Positive: Edema (mild) Neuro Exam: Positive: Normal Speech, Cranial Nerves 3-12 NL Psych Exam: Positive: Mental status NL, Mood NL Assessment /Plan Assessment Mrs. Maldonado, is an 85 year old female here for leakage around the stoma causing irritant dermatitis. The patient has been on an extended period of antibiotics and unlikely needs antibiotics at this time. Although she does have leukocytosis, that is more from the contact dermatitis. There has been no fever. The line in the right antecubital fossa is more likely infiltrate instead of infection. No need for antibiotics at this time. Otherwise, we will need to touch base with IR at [place] to reschedule her procedure. Unable to reach today, will attempt again tomorrow. Plan/VTE VTE Prophylaxis Ordered?: Yes Plan 1. 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 -Still leaking -Wound care, Dr. Jacob, following. Recommendations appreciated -Will need to reschedule patient's appointment for her illeoconduit procedure 2. Drug Rash due to Merrem -topical triamcinolone 3. Constipation, resolved -s/p bowel regimen 4. Metabolic acidosis,resolved -on bicarb tabs., s/p ivfluids. managed by nephrology 5. DM2 -on consistent carbs diet, sliding scale 6. DVT ppx -SCD and TEDs VS, I&O, 24H, Fishbone Vital Signs/I&O Vital Signs Date Time Temp Pulse Resp B/P (MAP) Pulse Ox O2 Delivery O2 Flow Rate FiO2 07/31/20 14:00 97.0 90 18 126/49 (74) 99 Room Air I&O- Last 24 Hours up to 6 AM 07/31/20 05:59 Intake Total 1940 ml Output Total 175 ml Balance 1765 ml Laboratory Data 24H LABS Laboratory Tests 2 07/31/20 00:31: Bedside Glucose (Misc Panel) 131H 07/31/20 06:28: Bedside Glucose (Misc Panel) 84 07/31/20 07:57: Nucleated Red Blood Cells % (auto) 0.0, Anion Gap 7L, Glomerular Filtration Rate 35.7, Calcium Level 7.8L 07/31/20 11:46: Bedside Glucose (Misc Panel) 119H 07/31/20 16:52: Bedside Glucose (Misc Panel) 244H CBC/BMP Laboratory Tests 07/31/20 07:57 Microbiology Microbiology 07/30/20 Catheter Tip Culture, Received Pending 07/28/20 Urine Culture - Final, Complete 07/22/20 Urine Culture - Final, Complete 07/21/20 Gram Stain - Final, Complete 07/21/20 Wound Culture - Final, Complete Pseudomonas Aeruginosa Klebsiella Pneumoniae Escherichia Coli Staph.aureus Methicillin Resis Enterococcus Faecium (Vre) EVELIO SELBY DO Jul 31, 2020 20:28
[2020-07-31 22:00] VITALS: BP 115/55
[2020-08-01 05:56] LABS: HEMOGLOBIN 8.5 g/dl (12.0-15.5); MEAN CORPUSCULAR HEMOGLOBIN 27.8 pg (27.0-33.0); MEAN CORPUSCULAR HGB CONC 29.3 g/dl (32.0-36.5); MEAN CORPUSCULAR VOLUME 94.8 fl (80.0-96.0); PLATELET COUNT, AUTOMATED 327 10^3/uL (150-450); RED BLOOD COUNT 3.06 10^6/uL (4.00-5.40); WHITE BLOOD COUNT 11.1 10^3/uL (4.0-10.0)
[2020-08-01 06:00] VITALS: BP 120/60
[2020-08-01] MEDS: HumaLOG INSULIN (NovoLOG) PER UNIT SC SCH ×5 (06:00→23:50)
[2020-08-01 06:30] LABS: CALCIUM LEVEL 8.2 MG/DL (8.8-10.2); CREATININE FOR GFR 1.45 MG/DL (0.55-1.30); GLOMERULAR FILTRATION RATE 36.5 (>32); POTASSIUM SERUM 4.6 MEQ/L (3.5-5.1)
[2020-08-01] MEDS: LEVOTHYROXINE 50MCG TABLET (0.05MG) PO SCH (06:37)
[2020-08-01] MEDS: MULTIVITAMINS/MINERALS THERAP 1 TAB PO SCH (10:01)
[2020-08-01] MEDS: FERROUS SULFATE 325MG TAB PO SCH ×2 (10:01→20:06)
[2020-08-01] MEDS: HYDROmorphone 2 MG TAB PO PRN (10:04)
[2020-08-01] MEDS: BICITRA 30ML SOLN UDC PO SCH ×3 (10:04→20:06)
[2020-08-01] MEDS: PANTOPRAZOLE 20 MG TAB PO SCH (10:04)
--- NOTE | 2020-08-01 12:14 | IPN ---
PROGRESS NOTE DATE: 07/30/2020 07:17:00 am SUBJECTIVE: Patient was seen and examined at the bedside today morning. I had seen her after a few weeks. She is clinically much better today as compared with a few weeks ago. Her renal function is stable. She reports that her rash around the ostomy site is getting better now. She still reports some pain at the abdominal area. OBJECTIVE: VITAL SIGNS: Temperature 97.3 degrees Fahrenheit, blood pressure 125/63, pulse 85, respiratory rate 18, saturation 99% on room air. INTAKE AND OUTPUT: Urine output recorded as 900 mL yesterday, 150 mL so far today since overnight. Weight in the bed scale is 54.9 kg. PHYSICAL EXAMINATION: GENERAL: Patient is awake, alert, oriented x3, lying in bed in no apparent distress. HEAD/NECK: Extraocular muscles intact. Pupils equally round and reactive to light. Mucous membranes are moist. Neck is supple. There is no JVD. CARDIOVASCULAR: S1, S2, regular rate. No edema of the bilateral lower extremities. RESPIRATORY: Chest is clear to auscultation bilaterally. Bilateral equal air entry. No rales or rhonchi. ABDOMEN: Soft, positive bowel sounds. Right lower quadrant urostomy. She has a rash around the ostomy site, which is clinically better and she has dressings in the right flank as well. MUSCULOSKELETAL: No clubbing or cyanosis. Pulses are 2+. PERSONNEL CLERKS SUPERVISOR: No focal deficit. Power is 5/5 in bilateral upper extremities. LABORATORY REVIEW: CBC showed WBC 10, hemoglobin 9.8, platelets 385,000. BMP showed sodium 142, potassium 4.1, chloride 117, bicarb 19, BUN 33, creatinine 1.39, calcium 8. CURRENT INPATIENT MEDICATIONS: Patient's medications were all reviewed by myself. She continues to be on I.V. Meropenem. I have stopped her oral sodium bicarb and started her on Bicitra 10 mL p.o. three times a day. ASSESSMENT AND PLAN: 1. Chronic kidney disease stage 3: Patient's renal function is stable. Creatinine is 1.3, which is close to her baseline. 2. Metabolic acidosis: Patient was on sodium bicarbonate as bicarb level is persistently low, I have started her on Bicitra now. 3. Iron deficiency anemia: Patient is on oral iron. Hemoglobin level is stable. She is not requiring any DEVEN at this time. 4. Polymicrobial skin infection: Patient is currently on Meropenem and topical Miconazole. She is getting wound care as per recommendations of Dr. Jacob. Clinically, she is improving.
[2020-08-01] MEDS: diphenhydrAMINE 50MG/ML VIAL (J1200) IV PRN (13:25)
[2020-08-01 14:00] VITALS: BP 60/45
--- NOTE | 2020-08-01 18:02 | IPNPDOC ---
Subjective Date Seen The patient was seen on 08/01/20. Subjective Chief Complaint/HPI Mrs. Maldonado, is an 85 year old female here for leakage around the stoma causing irritant dermatitis. Today she is feeling better, but the rash has been persistent and still itchy. Reached out to dermatology and discussed case. Dermatology (Dr. Edwards) recommended betamethasone dip 0.05% TID, Sarna moisturizer, and gentle skin cleansing. Otherwise, patient denies fevers, chest pain, or dyspnea. Objective Physical Examination General Exam: Positive: Alert, Cooperative Eye Exam: Positive: EOMI; Negative: Sclera icteric ENT Exam: Positive: Atraumatic Neck Exam: Positive: Supple Chest Exam: Positive: Clear to auscultation Heart Exam: Positive: Rate Normal, Regular Rhythm Abdomen Exam: Positive: Normal bowel sounds, Soft; Negative: Tenderness Extremity Exam: Positive: Edema (mild) Skin Exam: Positive: Rash (Diffuse rash throughout the body, maculopapular) Neuro Exam: Positive: Normal Speech, Cranial Nerves 3-12 NL Psych Exam: Positive: Mental status NL, Mood NL Assessment /Plan Assessment Mrs. Maldonado, is an 85 year old female here for leakage around the stoma causing irritant dermatitis. The patient has been on an extended period of antibiotics and unlikely needs antibiotics at this time. Although she does have leukocytosis, that is more from the contact dermatitis. There has been no fever. The line in the right antecubital fossa is more likely infiltrate instead of infection. No need for antibiotics at this time. Otherwise, we daughter notified IR at [facility] that patient would not be able to make it to her appointment for procedure. Discussed with dermatology about rash. Agrees with drug rash. Recommends betamet hasone dip 0.05% TID, Sarna moisturizer, and gentle skin cleansing. Plan/VTE VTE Prophylaxis Ordered?: Yes Plan 1. 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 -Still leaking -Wound care, Dr. Jacob, following. Recommendations appreciated 2. Drug Rash due to Merrem -Betamethasone dip 0.05% TID -Sarna moisturizer and gentle skin cleansing 3. Constipation, resolved -s/p bowel regimen 4. Metabolic acidosis,resolved -on bicarb tabs., s/p ivfluids. managed by nephrology 5. DM2 -on consistent carbs diet, sliding scale 6. DVT ppx -SCD and TEDs VS, I&O, 24H, Fishbone Vital Signs/I&O Vital Signs Date Time Temp Pulse Resp B/P (MAP) Pulse Ox O2 Delivery O2 Flow Rate FiO2 08/01/20 14:00 97.8 105 18 60/45 (50) 99 Room Air I&O- Last 24 Hours up to 6 AM 08/01/20 06:00 Intake Total 1410 ml Output Total 1225 ml Balance 185 ml Laboratory Data 24H LABS Laboratory Tests 2 08/01/20 00:35: Bedside Glucose (Misc Panel) 69L 08/01/20 00:59: Bedside Glucose (Misc Panel) 80L 08/01/20 05:22: Nucleated Red Blood Cells % (auto) 0.0, Anion Gap 9, Glomerular Filtration Rate 36.5, Calcium Level 8.2L 08/01/20 06:10: Bedside Glucose (Misc Panel) 116H 08/01/20 11:41: Bedside Glucose (Misc Panel) 155H 08/01/20 16:29: Bedside Glucose (Misc Panel) 99 CBC/BMP Laboratory Tests 08/01/20 05:22 Microbiology Microbiology 07/30/20 Catheter Tip Culture - Final, Complete 07/28/20 Urine Culture - Final, Complete 07/22/20 Urine Culture - Final, Complete EVELIO SELBY DO Aug 01, 2020 18:02
[2020-08-01 18:04] VITALS: BP 114/52
[2020-08-01] MEDS: BETAMETHASONE DIP 0.05% OINT 15 GM TOP SCH (20:06)
[2020-08-01] MEDS: FIBER-CON 625 MG TAB PO SCH (20:06)
[2020-08-01 20:24] VITALS: BP 156/52
[2020-08-02] MEDS: HumaLOG INSULIN (NovoLOG) PER UNIT SC SCH ×3 (06:00→17:46)
[2020-08-02 06:38] VITALS: BP 140/71
[2020-08-02 06:49] LABS: HEMATOCRIT 28.5 % (36.0-47.0); HEMOGLOBIN 8.8 g/dl (12.0-15.5); MEAN CORPUSCULAR HEMOGLOBIN 28.9 pg (27.0-33.0); MEAN CORPUSCULAR HGB CONC 30.9 g/dl (32.0-36.5); MEAN CORPUSCULAR VOLUME 93.8 fl (80.0-96.0); PLATELET COUNT, AUTOMATED 291 10^3/uL (150-450); RED BLOOD COUNT 3.04 10^6/uL (4.00-5.40); WHITE BLOOD COUNT 10.4 10^3/uL (4.0-10.0)
[2020-08-02] MEDS: LEVOTHYROXINE 50MCG TABLET (0.05MG) PO SCH (07:02)
[2020-08-02 07:15] LABS: CREATININE FOR GFR 1.4 MG/DL (0.55-1.30); POTASSIUM SERUM 4.4 MEQ/L (3.5-5.1)
[2020-08-02] MEDS: FIBER-CON 625 MG TAB PO SCH (09:42)
[2020-08-02] MEDS: MULTIVITAMINS/MINERALS THERAP 1 TAB PO SCH (09:42)
[2020-08-02] MEDS: BICITRA 30ML SOLN UDC PO SCH (09:42)
[2020-08-02] MEDS: PANTOPRAZOLE 20 MG TAB PO SCH (09:43)
[2020-08-02] MEDS: FERROUS SULFATE 325MG TAB PO SCH ×2 (09:43→21:25)
[2020-08-02] MEDS: ACETAMINOPHEN 500 MG TAB PO PRN (09:43)
[2020-08-02] MEDS: BETAMETHASONE DIP 0.05% OINT 15 GM TOP SCH ×3 (09:45→21:25)
[2020-08-02] MEDS: SODIUM BICARBONATE 325 MG TAB PO SCH ×3 (13:25→21:25)
[2020-08-02] MEDS: PERCOCET 5MG/325MG TAB PO PRN (13:25)
[2020-08-02 14:00] VITALS: BP 115/64
--- NOTE | 2020-08-02 16:19 | IPNPDOC ---
Subjective Date Seen The patient was seen on 08/02/20. Subjective Chief Complaint/HPI Mrs. Maldonado, is an 85 year old female here for leakage around the stoma causing irritant dermatitis. Denies fever, chest pain, or dyspnea. Still have the rash and still itchy. She was also having incontinent bowel movements. Suspecting Bicitra to be the cause. Added fibercon and discussed with Nephrology. Nephrology recommended restarting sodium bicarbonate but at a higher dose. Otherwise, reached out to her urologist, Dr. Patterson. He is aware that the stoma bag cannot be fitted and the ileal conduit is exposed with a Finnegan catheter extending from it. He is also aware that there is still leakage that is being contained with towels. He had no further recommendations, but will be seeing that patient on 08/09/2020 at 1:50PM. Objective Physical Examination General Exam: Positive: Alert, Cooperative Eye Exam: Positive: EOMI; Negative: Sclera icteric ENT Exam: Positive: Atraumatic Neck Exam: Positive: Supple Chest Exam: Positive: Clear to auscultation Heart Exam: Positive: Rate Normal, Regular Rhythm Abdomen Exam: Positive: Normal bowel sounds, Soft; Negative: Tenderness Extremity Exam: Positive: Edema (mild) Skin Exam: Positive: Rash (Diffuse rash throughout the body, maculopapular) Neuro Exam: Positive: Normal Speech, Cranial Nerves 3-12 NL Psych Exam: Positive: Mental status NL, Mood NL Assessment /Plan Assessment Mrs. Maldonado, is an 85 year old female here for leakage around the stoma causing irritant dermatitis. The patient has been on an extended period of antibiotics and unlikely needs antibiotics at this time. Although she does have leukocytosis, that is more from the contact dermatitis. There has been no fever. The line in the right antecubital fossa is more likely infiltrate instead of infection. No need for antibiotics at this time. Discussed with dermatology about rash. Agrees with drug rash. Recommends betamethasone dip 0.05% TID, Sarna moisturizer, and gentle skin cleansing. Anticipate that the rash and pruritis will improve early next week. Possible discharge on /Wed with Urology follow up with Dr. Patterson on Wednesday08/09/2020 at 1:50PM Plan/VTE VTE Prophylaxis Ordered?: Yes Plan 1. 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 -Still leaking -Wound care, Dr. Jacob, following. Recommendations appreciated 2. Drug Rash due to Merrem -Betamethasone dip 0.05% TID -Sarna moisturizer and gentle skin cleansing 3. Constipation, resolved -s/p bowel regimen 4. Metabolic acidosis,resolved -on bicarb tabs., s/p ivfluids. managed by nephrology 5. DM2 -on consistent carbs diet, sliding scale 6. DVT ppx -SCD and TEDs Disposition: Anticipating improvement in rash and diarrhea by early next week. Possible discharge /Wed with follow up with Urology on Wednesday08/09/2020 at 1:50PM VS, I&O, 24H, Fishbone Vital Signs/I&O Vital Signs Date Time Temp Pulse Resp B/P (MAP) Pulse Ox O2 Delivery O2 Flow Rate FiO2 08/02/20 14:00 97.7 93 18 115/64 (81) 100 Room Air I&O- Last 24 Hours up to 6 AM 08/02/20 05:59 Intake Total 1160 ml Output Total 400 ml Balance 760 ml Laboratory Data 24H LABS Laboratory Tests 2 08/01/20 16:29: Bedside Glucose (Misc Panel) 99 08/01/20 23:43: Bedside Glucose (Misc Panel) 113H 08/02/20 06:26: Nucleated Red Blood Cells % (auto) 0.0, Anion Gap 5L, Glomerular Filtration Rate 38.0, Calcium Level 8.0L 08/02/20 06:41: Bedside Glucose (Misc Panel) 107 08/02/20 11:43: Bedside Glucose (Misc Panel) 108 CBC/BMP Laboratory Tests 08/02/20 06:26 Microbiology Microbiology 07/30/20 Catheter Tip Culture - Final, Complete 07/28/20 Urine Culture - Final, Complete EVELIO SELBY DO Aug 02, 2020 14:44
[2020-08-02 20:00] VITALS: BP 118/63
[2020-08-03] MEDS: HumaLOG INSULIN (NovoLOG) PER UNIT SC SCH ×5 (00:18→23:40)
[2020-08-03] MEDS: LEVOTHYROXINE 50MCG TABLET (0.05MG) PO SCH (05:47)
[2020-08-03 05:57] VITALS: BP 145/69
[2020-08-03 08:36] LABS: HEMATOCRIT 28.7 % (36.0-47.0); HEMOGLOBIN 8.7 g/dl (12.0-15.5); MEAN CORPUSCULAR HEMOGLOBIN 28.9 pg (27.0-33.0); MEAN CORPUSCULAR HGB CONC 30.3 g/dl (32.0-36.5); MEAN CORPUSCULAR VOLUME 95.3 fl (80.0-96.0); PLATELET COUNT, AUTOMATED 268 10^3/uL (150-450); RED BLOOD COUNT 3.01 10^6/uL (4.00-5.40); WHITE BLOOD COUNT 11.7 10^3/uL (4.0-10.0)
[2020-08-03] MEDS: FIBER-CON 625 MG TAB PO SCH (08:36)
[2020-08-03] MEDS: PANTOPRAZOLE 20 MG TAB PO SCH (08:36)
[2020-08-03] MEDS: MULTIVITAMINS/MINERALS THERAP 1 TAB PO SCH (08:36)
[2020-08-03] MEDS: FERROUS SULFATE 325MG TAB PO SCH ×2 (08:36→20:05)
[2020-08-03] MEDS: ACETAMINOPHEN 500 MG TAB PO PRN (08:36)
[2020-08-03] MEDS: SODIUM BICARBONATE 325 MG TAB PO SCH ×4 (08:36→20:05)
[2020-08-03] MEDS: BETAMETHASONE DIP 0.05% OINT 15 GM TOP SCH ×3 (08:37→20:05)
[2020-08-03 08:57] LABS: CALCIUM LEVEL 7.8 MG/DL (8.8-10.2); CREATININE FOR GFR 1.35 MG/DL (0.55-1.30); GLOMERULAR FILTRATION RATE 39.7 (>32); POTASSIUM SERUM 4.4 MEQ/L (3.5-5.1)
[2020-08-03 14:00] VITALS: BP 137/64
--- NOTE | 2020-08-03 15:55 | IPNPDOC ---
Subjective Date Seen The patient was seen on 08/03/20. Subjective Chief Complaint/HPI Mrs. Maldonado, is an 85 year old female here for leakage around the stoma causing irritant dermatitis. Denies fever, chest pain, or dyspnea. Rash is still itchy, but does not appear as red as prior. Objective Physical Examination General Exam: Positive: Alert, Cooperative Eye Exam: Positive: EOMI; Negative: Sclera icteric ENT Exam: Positive: Atraumatic Neck Exam: Positive: Supple Chest Exam: Positive: Clear to auscultation Heart Exam: Positive: Rate Normal, Regular Rhythm Abdomen Exam: Positive: Normal bowel sounds, Soft; Negative: Tenderness Extremity Exam: Positive: Edema (mild) Skin Exam: Positive: Rash (Diffuse rash throughout the body, maculopapular) Neuro Exam: Positive: Normal Speech, Cranial Nerves 3-12 NL Psych Exam: Positive: Mental status NL, Mood NL Assessment /Plan Assessment Mrs. Maldonado, is an 85 year old female here for leakage around the stoma causing irritant dermatitis. The patient has been on an extended period of antibiotics and unlikely needs antibiotics at this time. Although she does have leukocytosis, that is more from the contact dermatitis. There has been no fever. The line in the right antecubital fossa is more likely infiltrate instead of infection. No need for antibiotics at this time. Discussed with dermatology about rash. Agrees with drug rash. Recommends betamethasone dip 0.05% TID, Sarna moisturizer, and gentle skin cleansing. Anticipate that the rash and pruritis will improve early next week. Possible discharge on /Wed with Urology follow up with Dr. Patterson on Wednesday at 1:50PM Plan/VTE VTE Prophylaxis Ordered?: Yes Plan 1. 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 -Still leaking -Wound care, Dr. Jacob, following. Recommendations appreciated 2. Drug Rash due to Merrem -Betamethasone dip 0.05% TID -Sarna moisturizer and gentle skin cleansing 3. Constipation, resolved -s/p bowel regimen 4. Metabolic acidosis,resolved -on bicarb tabs., s/p ivfluids. managed by nephrology 5. DM2 -on consistent carbs diet, sliding scale 6. DVT ppx -SCD and TEDs Disposition: Anticipating improvement in rash and diarrhea by early next week. Possible discharge /Wed with follow up with Urology on Wednesday08/09/2020 at 1:50PM VS, I&O, 24H, Fishbone Vital Signs/I&O Vital Signs Date Time Temp Pulse Resp B/P (MAP) Pulse Ox O2 Delivery O2 Flow Rate FiO2 08/03/20 05:57 99.3 106 18 145/69 (94) 97 Room Air I&O- Last 24 Hours up to 6 AM 08/03/20 06:00 Intake Total 1690 ml Output Total 100 ml Balance 1590 ml Laboratory Data 24H LABS Laboratory Tests 2 08/02/20 17:01: Bedside Glucose (Misc Panel) 136H 08/02/20 23:54: Bedside Glucose (Misc Panel) 145H 08/03/20 06:04: Bedside Glucose (Misc Panel) 98 08/03/20 08:17: Nucleated Red Blood Cells % (auto) 0.0, Anion Gap 9, Glomerular Filtration Rate 39.7, Calcium Level 7.8L 08/03/20 12:02: Bedside Glucose (Misc Panel) 104 CBC/BMP Laboratory Tests 08/03/20 08:17 Microbiology Microbiology 07/30/20 Catheter Tip Culture - Final, Complete 07/28/20 Urine Culture - Final, Complete EVELIO SELBY DO Aug 03, 2020 15:55
[2020-08-03 20:00] VITALS: BP 109/62
[2020-08-04] VITALS (10 sets, daily range): BP systolic 115–165; BP diastolic 45–80
[2020-08-04] MEDS: LEVOTHYROXINE 50MCG TABLET (0.05MG) PO SCH (05:22)
[2020-08-04] MEDS: HumaLOG INSULIN (NovoLOG) PER UNIT SC SCH ×5 (06:00→21:00)
[2020-08-04] MEDS: BETAMETHASONE DIP 0.05% OINT 15 GM TOP SCH ×3 (09:17→20:57)
[2020-08-04] MEDS: SODIUM BICARBONATE 325 MG TAB PO SCH ×3 (09:17→20:56)
[2020-08-04] MEDS: MULTIVITAMINS/MINERALS THERAP 1 TAB PO SCH (09:18)
[2020-08-04] MEDS: PANTOPRAZOLE 20 MG TAB PO SCH (09:18)
[2020-08-04] MEDS: FIBER-CON 625 MG TAB PO SCH (09:18)
[2020-08-04] MEDS: ACETAMINOPHEN 500 MG TAB PO PRN ×2 (09:18→20:56)
[2020-08-04] MEDS: FERROUS SULFATE 325MG TAB PO SCH ×2 (09:18→20:56)
[2020-08-04 09:54] LABS: HEMATOCRIT 25.7 % (36.0-47.0); HEMOGLOBIN 7.7 g/dl (12.0-15.5); MEAN CORPUSCULAR HEMOGLOBIN 28.4 pg (27.0-33.0); MEAN CORPUSCULAR VOLUME 94.8 fl (80.0-96.0); PLATELET COUNT, AUTOMATED 220 10^3/uL (150-450); RED BLOOD COUNT 2.71 10^6/uL (4.00-5.40); WHITE BLOOD COUNT 10.7 10^3/uL (4.0-10.0)
[2020-08-04 10:15] LABS: CALCIUM LEVEL 7.5 MG/DL (8.8-10.2); CREATININE FOR GFR 1.79 MG/DL (0.55-1.30); GLOMERULAR FILTRATION RATE 28.7 (>32); POTASSIUM SERUM 4.7 MEQ/L (3.5-5.1)
[2020-08-04 13:43] LABS: HEMATOCRIT 27.1 % (36.0-47.0); HEMOGLOBIN 8.2 g/dl (12.0-15.5); MEAN CORPUSCULAR HEMOGLOBIN 28.6 pg (27.0-33.0); MEAN CORPUSCULAR HGB CONC 30.3 g/dl (32.0-36.5); MEAN CORPUSCULAR VOLUME 94.4 fl (80.0-96.0); PLATELET COUNT, AUTOMATED 220 10^3/uL (150-450); RED BLOOD COUNT 2.87 10^6/uL (4.00-5.40); WHITE BLOOD COUNT 9.1 10^3/uL (4.0-10.0)
[2020-08-04 14:16] LABS: PERCENT SATURATION 62.9 % (13.2-45.0)
[2020-08-04] MEDS ORDERED: SODIUM BICARBONATE 75 MEQ in NS 0.45% 1,000 ML IV SCH (18:00)
--- NOTE | 2020-08-04 18:02 | IPNPDOC ---
Subjective Date Seen The patient was seen on 08/04/20. Subjective Chief Complaint/HPI Mrs. Maldonado, is an 85 year old female here for leakage around the stoma causing irritant dermatitis. Area around of stoma appears better. Rash still present but not as red. Denies fever, chest pain, or dyspnea. Discussed with daughter about goals. She hopes that patient would be able to walk 10 to 12 feet and stand before going home. She understands that if patient requires rehab, patient may miss appointment with Urology on Wednesday. Objective Physical Examination General Exam: Positive: Alert, Cooperative Eye Exam: Positive: EOMI; Negative: Sclera icteric ENT Exam: Positive: Atraumatic Neck Exam: Positive: Supple Chest Exam: Positive: Clear to auscultation Heart Exam: Positive: Rate Normal, Regular Rhythm Abdomen Exam: Positive: Normal bowel sounds, Soft; Negative: Tenderness Extremity Exam: Positive: Edema (mild) Skin Exam: Positive: Rash (Diffuse rash throughout the body, maculopapular) Neuro Exam: Positive: Normal Speech, Cranial Nerves 3-12 NL Psych Exam: Positive: Mental status NL, Mood NL Assessment /Plan Assessment Mrs. Maldonado, is an 85 year old female here for leakage around the stoma causing irritant dermatitis. The patient has been on an extended period of antibiotics and unlikely needs antibiotics at this time. Although she does have leukocytosis, that is more from the contact dermatitis. There has been no fever. The line in the right antecubital fossa is more likely infiltrate instead of infection. No need for antibiotics at this time. Discussed with dermatology about rash. Agrees with drug rash. Recommends betamethasone dip 0.05% TID, Sarna moisturizer, and gentle skin cleansing. Anticipate that the rash and pruritis will improve early next week. Possible discharge on /Wed with Urology follow up with Dr. Patterson on Wednesday08/09/2020 at 1:50PM Daughter hopes to have patient walk 10 to 12 feet at home and stand prior to discharge. If patient requires rehab, then patient may miss appointment with urology. Daughter expresses understanding and wants patient to be able to ambulate Plan/VTE VTE Prophylaxis Ordered?: Yes Plan 1. 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 -Still leaking -Wound care, Dr. Jacob, following. Recommendations appreciated 2. Drug Rash due to Merrem -Betamethasone dip 0.05% TID -Sarna moisturizer and gentle skin cleansing 3. Constipation, resolved -s/p bowel regimen 4. Metabolic acidosis,resolved -on bicarb tabs., s/p ivfluids. managed by nephrology 5. DM2 -on consistent carbs diet, sliding scale 6. Anemia -Her hgb in June was around 10 -Being transfused with 2u of pRBC 7. DVT ppx -SCD and TEDs Disposition: Anticipating improvement in rash and diarrhea by early next week. Possible discharge /Wed with follow up with Urology on Wednesday08/09/2020 at 1:50PM as long as patient is able to ambulate 10 to 12 feet and stand. Daughter understands that if patient needs rehab, she may miss her Urology appointment on Wednesday. VS, I&O, 24H, Fishbone Vital Signs/I&O Vital Signs Date Time Temp Pulse Resp B/P (MAP) Pulse Ox O2 Delivery O2 Flow Rate FiO2 08/04/20 17:17 97.4 103 17 165/80 100 Room Air I&O- Last 24 Hours up to 6 AM 08/04/20 06:00 Intake Total 1060 ml Output Total 550 ml Balance 510 ml Laboratory Data 24H LABS Laboratory Tests 2 08/03/20 23:37: Bedside Glucose (Misc Panel) 123H 08/04/20 06:13: Bedside Glucose (Misc Panel) 96 08/04/20 09:39: Nucleated Red Blood Cells % (auto) 0.0, Anion Gap 9, Glomerular Filtration Rate 28.7L, Calcium Level 7.5L 08/04/20 11:58: Bedside Glucose (Misc Panel) 228H 08/04/20 13:31: Reticulocyte # (auto) 35.0, Nucleated Red Blood Cells % (auto) 0.0, Percent Reticulocyte Count 1.2, Reticulocyte Hemoglobin Equivalent 37.2H, Iron Level 56, Total Iron Binding Capacity 89L, Transferrin % Saturation 62.9H, Ferritin 225, Lactate Dehydrogenase 137 08/04/20 16:45: Bedside Glucose (Misc Panel) 42L CBC/BMP Laboratory Tests 08/04/20 09:39 08/04/20 13:31 Microbiology Microbiology 07/30/20 Catheter Tip Culture - Final, Complete 07/28/20 Urine Culture - Final, Complete EVELIO SELBY DO Aug 04, 2020 18:02
[2020-08-04 20:55] LABS: HEMATOCRIT 30.9 % (36.0-47.0); HEMOGLOBIN 9.5 g/dl (12.0-15.5)
[2020-08-05] MEDS ORDERED: SLF 3 ML SYR IV PRN (05:00)
[2020-08-05 06:00] VITALS: BP 163/70
[2020-08-05] MEDS: ACETAMINOPHEN 500 MG TAB PO PRN (06:27)
[2020-08-05] MEDS: LEVOTHYROXINE 50MCG TABLET (0.05MG) PO SCH (06:27)
[2020-08-05 07:06] LABS: HEMATOCRIT 33.9 % (36.0-47.0); HEMOGLOBIN 10.5 g/dl (12.0-15.5); MEAN CORPUSCULAR HEMOGLOBIN 29.1 pg (27.0-33.0); MEAN CORPUSCULAR VOLUME 93.9 fl (80.0-96.0); PLATELET COUNT, AUTOMATED 218 10^3/uL (150-450); RED BLOOD COUNT 3.61 10^6/uL (4.00-5.40); WHITE BLOOD COUNT 9.7 10^3/uL (4.0-10.0)
[2020-08-05 07:28] LABS: CALCIUM LEVEL 7.5 MG/DL (8.8-10.2); CREATININE FOR GFR 1.42 MG/DL (0.55-1.30); GLOMERULAR FILTRATION RATE 37.4 (>32); POTASSIUM SERUM 4.9 MEQ/L (3.5-5.1)
[2020-08-05] MEDS: HumaLOG INSULIN (NovoLOG) PER UNIT SC SCH ×4 (07:30→19:48)
--- NOTE | 2020-08-05 08:34 | IPN ---
PROGRESS NOTE DATE: 08/04/2020 SUBJECTIVE: The patient was seen and examined at the bedside today morning. I was following up her labs on a daily basis. I saw that her creatinine has bumped up from 1.3 to 1.7. She was also anemic today. Her bicarbonate level is also low, so I decided to see her today. Her daughter was also present at the bedside. The patient denies any active complaints at this time. OBJECTIVE: Vital signs: Temperature is 98 degrees Fahrenheit, blood pressure 153/69, pulse is 109, respiratory rate of 19, saturating 99% on room air. Intake and output: Urine output recorded as 550 ml yesterday, 300 ml so far today since overnight. Weight in the bed scale is 61.2 kg. PHYSICAL EXAMINATION: General: The patient is awake, alert, oriented x3, weak and cachectic lying in bed in no apparent distress. Head and neck examination: Pupils equally round and reactive to light. Mucous membranes are moist. Neck is supple. There is no jugular venous distention (JVD). Cardiovascular: S1, S2, regular rate. No edema of the bilateral lower extremities. Respiratory: Chest is clear to auscultation bilaterally. Currently, no rales or rhonchi. Abdomen is soft. Positive bowel sounds. Right lower quadrant urostomy with a rash close to the urostomy site. There is a Finnegan catheter in the urostomy. Musculoskeletal: No clubbing or cyanosis. Pulses are 2+. CASTING TRUCKER: No focal deficit. Power is 5/5 in all extremities. LABORATORY REVIEW: Complete blood count (CBC) showed a WBC of 10.7, hemoglobin is 7.7, platelets are 220. Basic metabolic panel (BMP) showed sodium 138, potassium 4.7, chloride 111, bicarbonate 18, BUN 37, creatinine is 1.79, calcium 7.5. CURRENT INPATIENT MEDICATIONS: The patient's medications were all reviewed by myself. I have started the patient on sodium bicarbonate drip for a total of 1 liter. I have also ordered one unit of packed red blood cells (PRBC) transfusion and sodium bicarbonate tablet dose was increased to 650 mg three times a day. ASSESSMENT AND PLAN: 1 Acute renal failure superimposed on chronic kidney disease. Her creatinine has bumped up; part of it is secondary to anemia and some volume depletion. I have ordere1 liter o bicarbonate containing fluid. 2 Metabolic acidosis. It is worse today as compared with yesterday. Oral bicarbonate level dose has been increased. Bicitra was stopped because of diarrhea. As mentioned above, IV bicarbonate fluid has also been ordered. 3 Anemia secondary to chronic kidney disease. The patient is going to get one unit of packed red blood cells (PRBC) transfusion. Iron levels are okay. I am going to start the patient on Aranesp. MTDD
[2020-08-05] MEDS: SODIUM BICARBONATE 325 MG TAB PO SCH ×3 (08:43→19:48)
[2020-08-05] MEDS: FIBER-CON 625 MG TAB PO SCH (08:43)
[2020-08-05] MEDS: MULTIVITAMINS/MINERALS THERAP 1 TAB PO SCH (08:43)
[2020-08-05] MEDS: FERROUS SULFATE 325MG TAB PO SCH ×2 (08:43→19:48)
[2020-08-05] MEDS: PANTOPRAZOLE 20 MG TAB PO SCH (08:43)
[2020-08-05] MEDS: BETAMETHASONE DIP 0.05% OINT 15 GM TOP SCH ×3 (08:44→19:49)
[2020-08-05] MEDS ORDERED: DARBEPOETIN 100 MCG/0.5 ML *NON-DIALYSIS* SYRINGE (J0881) SC SCH (09:00)
--- NOTE | 2020-08-05 09:54 | REP ---
PROCEDURE NAME: MIDLINE INSERTION W/ SITERITE CLINICAL INFORMATION: NO IV ACCESS-NEEDS IV MEREM. COMPARISON: None. PROCEDURE DESCRIPTION: The procedure was performed by WILLIAM Mejia, under the direct supervision of Dr. Medina. The risks and benefits of the procedure were explained to the patient and an informed consent was obtained both verbally and written. Directly prior to the start of the procedure a formal time-out was completed in the procedure room. The right lateral brachial vein was localized using ultrasound guidance. The skin was prepped and draped in sterile fashion. One mL of 1% lidocaine 10 mg/mL was used as a local anesthetic. Using ultrasound guidance the right lateral brachial vein was cannulated, and a 0.018 guidewire was inserted. The needle was removed and a 5.5 Khmer dilator and peel-away sheath was inserted over the guidewire. A 5.5 Khmer dual lumen catheter was cut to a length of 9 cm. The dilator was removed and the catheter was inserted over the guidewire. The peel-away sheath was removed and the catheter was flushed with heparinized saline as per hospital protocol. The catheter was affixed to the skin and a sterile dressing was applied. The patient tolerated the procedure well and there were no immediate complications. CONCLUSION: Mid line insertion into the right lateral brachial vein. <Electronically signed by Gale Mckeon > 07/24/20 [id number] <Electronically signed by Leon Medina > 08/05/20 [id number]
--- NOTE | 2020-08-05 12:21 | IPNPDOC ---
Subjective Date Seen The patient was seen on 08/05/20. Subjective Chief Complaint/HPI Mrs. Maldonado, is an 85 year old female here for leakage around the stoma causing irritant dermatitis. Today, the rash appears better. It is dispensing lead in color and not spreading. Otherwise, she denies fever, chest pain, or dyspnea. Objective Physical Examination General Exam: Positive: Alert, Cooperative Eye Exam: Positive: EOMI; Negative: Sclera icteric ENT Exam: Positive: Atraumatic Neck Exam: Positive: Supple Chest Exam: Positive: Clear to auscultation Heart Exam: Positive: Rate Normal, Regular Rhythm Abdomen Exam: Positive: Normal bowel sounds, Soft; Negative: Tenderness Extremity Exam: Positive: Edema (mild) Skin Exam: Positive: Rash (Diffuse rash throughout the body, maculopapular) Neuro Exam: Positive: Normal Speech, Cranial Nerves 3-12 NL Psych Exam: Positive: Mental status NL, Mood NL Assessment /Plan Assessment Mrs. Maldonado, is an 85 year old female here for leakage around the stoma causing irritant dermatitis. The patient has been on an extended period of antibiotics and unlikely needs antibiotics at this time. Although she does have leukocytosis, that is more from the contact dermatitis. There has been no fever. The line in the right antecubital fossa is more likely infiltrate instead of infection. No need for antibiotics at this time. Discussed with dermatology about rash. Agrees with drug rash. Recommends b etamethasone dip 0.05% TID, Sarna moisturizer, and gentle skin cleansing. Anticipate that the rash and pruritis will improve early next week. Possible discharge on /Wed with Urology follow up with Dr. Patterson on Wednesday08/09/2020 at 1:50PM Daughter hopes to have patient walk 10 to 12 feet at home and stand prior to discharge. If patient requires rehab, then patient may miss appointment with urology. Daughter expresses understanding and wants patient to be able to ambulate Plan/VTE VTE Prophylaxis Ordered?: Yes Plan 1. 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 -Still leaking -Wound care, Dr. Jacob, following. Recommendations appreciated 2. Drug Rash due to Merrem -Betamethasone dip 0.05% TID -Sarna moisturizer and gentle skin cleansing 3. Constipation, resolved -s/p bowel regimen 4. Metabolic acidosis,resolved -on bicarb tabs., s/p ivfluids. managed by nephrology 5. DM2 -on consistent carbs diet, sliding scale 6. Anemia -Her hgb in June was around 10 -Being transfused with 2u of pRBC 7. DVT ppx -SCD and TEDs Disposition: Anticipating improvement in rash and diarrhea by early next week. Possible discharge /Wed with follow up with Urology on Wednesday08/09/2020 at 1:50PM as long as patient is able to ambulate 10 to 12 feet and stand. Daughter understands that if patient needs rehab, she may miss her Urology appointment on Wednesday. VS, I&O, 24H, Fishbone Vital Signs/I&O Vital Signs Date Time Temp Pulse Resp B/P (MAP) Pulse Ox O2 Delivery O2 Flow Rate FiO2 08/05/20 06:00 98.5 69 18 163/70 (101) 96 Room Air I&O- Last 24 Hours up to 6 AM 08/05/20 06:00 Intake Total 2120 ml Output Total 1200 ml Balance 920 ml Laboratory Data 24H LABS Laboratory Tests 2 08/04/20 13:31: Reticulocyte # (auto) 35.0, Nucleated Red Blood Cells % (auto) 0.0, Percent Reticulocyte Count 1.2, Reticulocyte Hemoglobin Equivalent 37.2H, Iron Level 56, Total Iron Binding Capacity 89L, Transferrin % Saturation 62.9H, Ferritin 225, Lactate Dehydrogenase 137 08/04/20 16:45: Bedside Glucose (Misc Panel) 42L 08/04/20 17:54: Bedside Glucose (Misc Panel) 95 08/04/20 23:29: Bedside Glucose (Misc Panel) 125H 08/05/20 06:40: Nucleated Red Blood Cells % (auto) 0.0, Anion Gap 5L, Glomerular Filtration Rate 37.4, Calcium Level 7.5L 08/05/20 11:22: Bedside Glucose (Misc Panel) 123H CBC/BMP Laboratory Tests 08/04/20 13:31 08/04/20 20:45 08/05/20 06:40 Microbiology Microbiology 07/30/20 Catheter Tip Culture - Final, Complete 07/28/20 Urine Culture - Final, Complete EVELIO SELBY DO Aug 05, 2020 12:21
--- NOTE | 2020-08-05 13:14 | IPN ---
INPATIENT PROGRESS NOTE DATE: 08/05/2020 SUBJECTIVE: Tammi was seen and examined this morning at the bedside sitting out of bed to the chair. She feels well and offers no complaints; no shortness of breath, no fever. She received 1 unit of packed red blood cells yesterday and also I.V. fluid yesterday with improvement in her blood work today. PHYSICAL EXAMINATION: Temperature 98.5, pulse 69, respiratory rate 18, blood pressure 163/70, saturating 96% on room air. Intake yesterday was 2 liters, urine output yesterday was 650 and there is further 550 mL recorded today. Weight on the bed scale today is 54.1 kg. General: Patient is seen sitting out of bed to the chair. Elderly female, frail, in no apparent distress, smiling, recognizes me. HEENT: Extraocular muscles are intact. Tongue is moist. There is bitemporal wasting. Neck: Supple. Jugular veins are not elevated. Heart: S1 and S2 regular rate, no edema in the lower extremities. Lungs: Clear to auscultation bilaterally, no rales or rhonchi. She is seen on room air. Abdomen: Soft, there are bowel sounds. The right lower quadrant urostomy has dressings and there is a rash which I did not examine at length. There is a catheter to the urostomy. Musculoskeletal: She moves all 4 extremities on command. There are no focal deficits. Neurologic: She is oriented times 3, interactive and conversational. Skin: There is scattered bruising, normal temperature and turgor. LABORATORY DATA: White count 9.7, hemoglobin improved to 10.5, platelets 218. Sodium 141, potassium 4.9, bicarbonate 25, BUN 34, creatinine 1.4. TSAT 62%. INPATIENT MEDICATIONS: Reviewed by myself. She is status post sodium bicarbonate I.V. fluid yesterday. 1. She received a dose of Aranesp today 100 mcg subcutaneously. 2. Her insulin was adjusted by the primary service. 3. She continues on oral sodium bicarbonate 650 mg three times a day. The remainder of the medications are unchanged from prior. PROBLEMS/PLAN: 1. MATILDE on CKD stage 3: Her MATILDE was related to anemia and prerenal state. Her renal function has improved with I.V. fluids and packed red blood cell transfusion. Renal function is back to baseline. She has had multiple recurrent acute kidney injuries and we will continue to watch her renal function, electrolytes and urine output closely. 2. Metabolic acidosis: It has improved. She has not had any more diarrhea over the past 2 days she says. Her bicarbonate levels have come up. She continues on oral bicarbonate and she received I.V. bicarbonate over the weekend as well. 3. 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 He received 1 unit of packed red blood cell over the weekend and she received a dose of Aranesp this morning and we will continue Aranesp to target hemoglobin 10-11. 4. Hypocalcemia: I am going to check a parathyroid hormone and vitamin D level and we will manage her calcium levels according to her results.
[2020-08-05 13:17] LABS: PTH INTACT 56.3 PG/ML (18.5-88.0); TOTAL 25(OH) VITAMIN D 34.8 NG/ML (30.0-100.0)
[2020-08-05 14:00] VITALS: BP 161/85
[2020-08-05] MEDS: SLF 3 ML SYR IV SCH ×2 (14:10→19:48)
[2020-08-05] MEDS: PERCOCET 5MG/325MG TAB PO PRN (19:48)
[2020-08-05 22:00] VITALS: BP 160/83
[2020-08-05 23:58] VITALS: BP 149/80
[2020-08-06] MEDS ORDERED: ONDANSETRON 4MG/2ML VIAL IV PRN (00:30)
[2020-08-06 00:59] VITALS: BP 151/77
[2020-08-06] MEDS ORDERED: METOCLOPRAMIDE INJ 10MG/2ML VIAL (J2765 PER 1) IV ONE ×2 (04:00→05:15)
[2020-08-06 06:00] VITALS: BP 161/80
[2020-08-06] MEDS: SLF 3 ML SYR IV SCH ×3 (06:34→21:13)
[2020-08-06] MEDS: LEVOTHYROXINE 50MCG TABLET (0.05MG) PO SCH (06:34)
[2020-08-06] MEDS: HumaLOG INSULIN (NovoLOG) PER UNIT SC SCH ×4 (07:30→21:00)
--- NOTE | 2020-08-06 07:34 | IPNPDOC ---
Date Seen The patient was seen on 08/06/20. Progress Note Subjective: had n/v last night. no n/abd pain/fever/chills this am. chief operations officer having difficulty getting blood work this am. c/o pruritus but less than before. Objective PHYSICAL EXAMINATION: VITALS: see below GEN: AAOx 3 no distress SKIN: back wound w/o purulence. erythematous stoma rt LQ. diffuse erythematous raised lesions on b/l UE/LE, chest, back abdomen HEENT: no jvd moist mm no facial asymmetry HEART: S1, S2, sinus rhythm LUNGS:diminished. AEBE. ABDOMEN: Soft,abd binder from the chest to Abdomen . RLQ ostomy. Increased erythema around the ostomy + BS x 4 quadrants EXTREMITIES: No clubbing, cyanosis, or edema. No rashes. No calf tenderness.. 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 Patient was recently di. She denied any cough, shortness of breath, abdominal pain, diarrhea scharged from the hospital for the same complaints and was treated with antifungal and wound care. Per medical records, patient was having fevers at home but none documented in the emergency room. She denies any chills, shortness of breath, nausea, vomiting, diarrhea, foul smelling or cloudy urine. Hospitalist was asked to admit for management of chronic skin breakdown as well as evaluation of fever. Lower Back wound infection H/o recurrent UTI/interstitial cystitis requiring Ileal conduit and diverting urostomy Urinary tract infection secondary to chronic diverting urostomy, now with Finnegan catheter Drug Rash due to merem Constipation, resolved Metabolic acidosis,resolved History of breast Cancer HTN DM2 Chronic iron deficiency anemia H/o Ischemic stroke PLAN: s/p merem, s/p zyvox. off abx. rash is improving. no recurrent nausea. await blood work this am. still needing 2 person max assist getting up and taking 5 steps. may need to reschedule urology appt in [place] w Dr. Moreira on Wednesday08/09/20 due to persistent debility not cleared by physical therapy. VS, I&O, 24H, Fishbone Vital Signs/I&O Vital Signs Date Time Temp Pulse Resp B/P (MAP) Pulse Ox O2 Delivery O2 Flow Rate FiO2 08/06/20 06:00 97.9 86 17 161/80 (107) 99 Room Air I&O- Last 24 Hours up to 6 AM 08/06/20 06:00 Intake Total 1390 ml Output Total 1250 ml Balance 140 ml Laboratory Data 24H LABS Laboratory Tests 2 08/05/20 11:22: Bedside Glucose (Misc Panel) 123H 08/05/20 18:16: Bedside Glucose (Misc Panel) 106 08/05/20 19:46: Bedside Glucose (Misc Panel) 142H 08/05/20 23:58: Bedside Glucose (Misc Panel) 107 Microbiology Microbiology 07/30/20 Catheter Tip Culture - Final, Complete 07/28/20 Urine Culture - Final, Complete SHEN JACQUES MD Aug 06, 2020 07:16
[2020-08-06 08:08] LABS: HEMATOCRIT 36.5 % (36.0-47.0); HEMOGLOBIN 11.2 g/dl (12.0-15.5); MEAN CORPUSCULAR HEMOGLOBIN 28.7 pg (27.0-33.0); MEAN CORPUSCULAR HGB CONC 30.7 g/dl (32.0-36.5); MEAN CORPUSCULAR VOLUME 93.6 fl (80.0-96.0); PLATELET COUNT, AUTOMATED 186 10^3/uL (150-450)
[2020-08-06 08:43] LABS: CALCIUM LEVEL 7.6 MG/DL (8.8-10.2); CREATININE FOR GFR 1.27 MG/DL (0.55-1.30); GLOMERULAR FILTRATION RATE 42.6 (>32); POTASSIUM SERUM 4.7 MEQ/L (3.5-5.1)
--- NOTE | 2020-08-06 09:04 | ECGEPIP ---
[facility] Test Date: 2020-08-06 Pat Name: RASHMI ALVARADO Department: Room: [place] [address] Gender: Female Entry Level Assistant Manager: : 1935 Requested By: ROSAURA RIVERA Order Number: [id number] Reading MD: Trino Campbell Measurements Intervals [place] Rate: 83 P: 39 OR: 150 QRS: 43 QRSD: 146 T: 27 QT: 403 QTc: 474 Interpretive Statements SINUS RHYTHM RIGHT BUNDLE BRANCH BLOCK No PVCs compared with 10/05/2019. Electronically Signed on 08-06-2020 9:04:11 EST by Trino Campbell
[2020-08-06] MEDS: FERROUS SULFATE 325MG TAB PO SCH (09:16)
[2020-08-06] MEDS: FIBER-CON 625 MG TAB PO SCH (09:16)
[2020-08-06] MEDS: SODIUM BICARBONATE 325 MG TAB PO SCH ×3 (09:16→21:13)
[2020-08-06] MEDS: PANTOPRAZOLE 20 MG TAB PO SCH (09:16)
[2020-08-06] MEDS: MULTIVITAMINS/MINERALS THERAP 1 TAB PO SCH (09:17)
[2020-08-06] MEDS: BETAMETHASONE DIP 0.05% OINT 15 GM TOP SCH ×3 (09:18→21:13)
--- NOTE | 2020-08-06 13:21 | IPN ---
PROGRESS NOTE DATE: 08/06/2020 SUBJECTIVE: Tammi is seen and examined this morning at the bedside. She reports one episode of emesis overnight. She had toast for breakfast and was able to keep it down. She denies any abdominal pain. PHYSICAL EXAMINATION: VITAL SIGNS: Temperature 97.9, pulse 86, respiratory rate 17, blood pressure is 151/77, saturating 97 to 99% on room air. INTAKE AND OUTPUT: Intake yesterday was 1290. Urine output was 1050 yesterday. There was reported 200 ml emesis. Weight on the bed scale today is 54 kg. GENERAL: The patient is seen lying in bed. The head of the bed is elevated. Cachetic frail elderly female in no apparent distress. She is smiling and recognizes me. She is awake, alert and oriented x3. Extraocular muscles are intact. HEENT: Tongue is moist. There is bitemporal wasting. NECK: Supple. Jugular veins are not elevated. HEART: S1 and S2, regular rate. No edema in the lower extremities nor in the dependent area. LUNGS: Clear to auscultation bilaterally. No crackles, rales or rhonchus. She is comfortable on room air. ABDOMEN: Soft, there are bowel sounds. The right lower quadrant urostomy has dressings and there is a catheter to the urostomy draining clear urine. MUSCULOSKELETAL: There is marked muscle wasting. She moves all four extremities on command. There are no focal deficits. NEUROLOGIC: She is oriented x3, interactive, conversational and appears to be at baseline mentation. SKIN: There is scattered bruising. Normal temperature and turgor. LABORATORY DATA: Sodium 143, potassium is 4.7, bicarbonate 21, BUN 37, creatinine 1.2. Transferrin saturation 62%. Hemoglobin 11.2. INPATIENT MEDICATIONS: Reviewed by myself. She received a dose of Aranesp yesterday and she will get it once weekly. I discontinued her oral iron supplement. She received a dose of Reglan x1 and Zofran x1. The remainder of medications are unchanged from prior problems. ASSESSMENT: 1. CKD Stage III. She has had multiple mild acute kidney injuries in the recent past but her renal function has recovered and is actually better than her prior baseline which is likely related to marked muscle wasting and decreased lean mass. Her electrolytes and volume status are acceptable. There is no need for IV fluid at present. She had emesis x1 episode but it did not recur. We will continue to monitor her renal function closely given multiple recurrent acute kidney injuries and we will keep an eye on her electrolytes and urine output. 2. Metabolic acidosis. She continues on oral bicarbonate supplement and serum bicarbonate is acceptable at greater than 20. She denies any recurrent diarrhea. 3. Anemia second to chronic renal failure. She is status post 2 unit PRBC. Her hemoglobin has come up nicely. Her iron stores are adequate and I am discontinuing her b.i.d. iron supplement. She is also receiving opioid pain medications and I do not want her to get too constipated. Her transferrin saturation was greater than 60%. She continues on Aranesp once weekly to target hemoglobin 10 to 11. 4. Hypocalcemia. Her corrected calcium levels for albumin are within normal range and parathyroid hormone and vitamin D levels were acceptable as well. Continue multivitamin.
[2020-08-06 14:00] VITALS: BP 160/79
[2020-08-06] MEDS: ACETAMINOPHEN 500 MG TAB PO PRN (21:13)
[2020-08-06 22:00] VITALS: BP 120/54
[2020-08-07] MEDS: LEVOTHYROXINE 50MCG TABLET (0.05MG) PO SCH (05:55)
[2020-08-07] MEDS: SLF 3 ML SYR IV SCH ×3 (05:55→20:55)
[2020-08-07 06:00] VITALS: BP 140/71
[2020-08-07] MEDS: HumaLOG INSULIN (NovoLOG) PER UNIT SC SCH ×4 (07:30→20:53)
[2020-08-07] MEDS: FIBER-CON 625 MG TAB PO SCH (08:51)
[2020-08-07] MEDS: PANTOPRAZOLE 20 MG TAB PO SCH (08:52)
[2020-08-07] MEDS: SODIUM BICARBONATE 325 MG TAB PO SCH ×3 (08:52→20:53)
[2020-08-07] MEDS: MULTIVITAMINS/MINERALS THERAP 1 TAB PO SCH (08:52)
[2020-08-07] MEDS: BETAMETHASONE DIP 0.05% OINT 15 GM TOP SCH ×3 (09:00→20:53)
--- NOTE | 2020-08-07 12:33 | IPNPDOC ---
Date Seen The patient was seen on 08/07/20. Progress Note Subjective: Patient has been cooperative with physical therapy and agrees with August 09 point with her urologist in [place]. Her daughter Abi is available tomorrow, 08/08/2022, But requires her to walk about 10 feet., No fever, chills. Does not complain of much pain in the abdomen. Today she complains of some back pain, especially when she sits on the chair Objective PHYSICAL EXAMINATION: VITALS: see below GEN: AAOx 3 no distress SKIN: back wound w/o purulence. erythematous stoma rt LQ. diffuse erythematous raised lesions on b/l UE/LE, chest, back abdomen HEENT: no jvd moist mm no facial asymmetry HEART: S1, S2, sinus rhythm LUNGS:diminished. AEBE. ABDOMEN: Soft,abd binder from the chest to Abdomen . RLQ ostomy. Decreased erythema around the ostomy + BS x 4 quadrants EXTREMITIES: No clubbing, cyanosis, or edema. No rashes. No calf tenderness.. 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 Patient was recently di. She denied any cough, shortness of breath, abdominal pain, diarrhea scharged from the hospital for the same complaints and was treated with antifungal and wound care. Per medical records, patient was having fevers at home but none documented in the emergency room. She denies any chills, shortness of breath, nausea, vomiting, diarrhea, foul smelling or cloudy urine. Hospitalist was asked to admit for management of chronic skin breakdown as well as evaluation of fever. Lower Back wound infection H/o recurrent UTI/interstitial cystitis requiring Ileal conduit and diverting urostomy Urinary tract infection secondary to chronic diverting urostomy, now with Finnegan catheter Drug Rash due to merem Constipation, resolved Metabolic acidosis,resolved History of breast Cancer HTN DM2 Chronic iron deficiency anemia H/o Ischemic stroke PLAN: Patient has completed intravenous antibiotics and currently stable but with significant debility requiring 1-2 person assistance with all ambulation. Patient's daughter Abi Maldonado, RN believes that they can manage at home without home care referral. Patient has her son to take care of her 24 /. She is cooperative and alert with physical therapy. He requires about 10 feet ambulation prior to discharge tomorrow AT 7. Outpatient follow-up with her urologist on 08/09/2020 for revision diverting urostomy and ileal conduit to prevent irritant dermatitis from urine. She'll continue Finnegan catheter in the urostomy and frequent dressing changes. Outpatient follow-up with Dr. Goodrich for wound care of her back and bilateral lower Quadrant. VS, I&O, 24H, Fishbone Vital Signs/I&O Vital Signs Date Time Temp Pulse Resp B/P (MAP) Pulse Ox O2 Delivery O2 Flow Rate FiO2 08/07/20 06:00 98.1 85 17 140/71 (94) 98 Room Air I&O- Last 24 Hours up to 6 AM 08/07/20 06:00 Intake Total 1260 ml Output Total 1150 ml Balance 110 ml Laboratory Data 24H LABS Laboratory Tests 2 08/06/20 17:32: Bedside Glucose (Misc Panel) 194H 08/06/20 21:12: Bedside Glucose (Misc Panel) 129H 08/07/20 06:41: Bedside Glucose (Misc Panel) 82L 08/07/20 12:03: Bedside Glucose (Misc Panel) 144H Microbiology Microbiology 07/30/20 Catheter Tip Culture - Final, Complete 07/28/20 Urine Culture - Final, Complete SHEN JACQUES MD Aug 07, 2020 12:33
[2020-08-07 14:00] VITALS: BP 136/86
[2020-08-07 20:00] VITALS: BP 145/65
[2020-08-08] MEDS: LEVOTHYROXINE 50MCG TABLET (0.05MG) PO SCH (05:16)
[2020-08-08] MEDS: SLF 3 ML SYR IV SCH ×2 (05:16→12:52)
[2020-08-08 06:00] VITALS: BP 158/72
[2020-08-08 07:27] LABS: HEMATOCRIT 29.4 % (36.0-47.0); MEAN CORPUSCULAR HEMOGLOBIN 29.1 pg (27.0-33.0); MEAN CORPUSCULAR HGB CONC 30.6 g/dl (32.0-36.5); MEAN CORPUSCULAR VOLUME 95.1 fl (80.0-96.0); PLATELET COUNT, AUTOMATED 243 10^3/uL (150-450); RED BLOOD COUNT 3.09 10^6/uL (4.00-5.40)
[2020-08-08 07:49] LABS: CALCIUM LEVEL 7.5 MG/DL (8.8-10.2); CREATININE FOR GFR 1.2 MG/DL (0.55-1.30); GLOMERULAR FILTRATION RATE 45.5 (>32)
--- NOTE | 2020-08-08 08:29 | DS.PDOC ---
Discharge Summary General Date of Admission Jul 11, 2020 at 21:45 Date of Discharge 08/08/20 Discharge Summary DISCHARGE DIAGNOSES: Irritant Dermatitis on back, sacrum, RLQ from urine leakage from her appliance ostomy skin dermatitis due to urine leakage. H/o recurrent UTIs and severe interstitial cystitis s/p ileal conduit with diversion urostomy in [place] in 2016 Lower Back wound infection with mrsa, vre, e coli, pseudomonas, klebsiella left hip stage 2 decubitus ulcer Urinary tract infection secondary to chronic diverting urostomy, now with Jc catheter Drug Rash due to meropenem Constipation Metabolic acidosis CKD stage 3 CHF diastolic dysfunction History of breast Cancer HTN DM2 Chronic iron deficiency anemia H/o Ischemic stroke Debility DISCHARGE MEDICATIONS: see below ALLERGIES: Please see below. DISCHARGE INSTRUCTIONS: DR. MAYNARD UROLOGIST BETHEL 08/09/20 DR JACOB WOUND CARE 1 WK APPT, PCP 1WK APPT. WOUND CARE PER DR JACOB CONSULTANTS: DR JACOB-WOUND CARE DR DEL VALLE-UROLOGIST DR LAURENT-CRM FUNCTIONAL ANALYST HISTORY OF PRESENT ILLNESS: 85 -year-old female with DM who underwent anileoconduit diversion for recurrent urinary tract infections without resection of the bladder in June 2017, and in September 2019 has developed issues with leakage from her appliance with urine irritating the peristomal ski, causing irritant dermatitis.history of recurrent urinary tract infection and severe interstitial cystitis who had undergone ileal conduit with a diversion urostomy in [place] a couple years ago. The patient has always had problems with the urostomy with leakage around her abdomen, thighs and secondary contact dermatitis. The patient was brought into the hospital with acute mental status changes and hypoxia with an O2 sat of 70.There was some concern of a stroke. She had a CT of the head that was negative. The patient had severe abdominal irrit ation and redness around thestoma. She had a mild leukocytosis of 10.6 when she came in but she was afebrile. Her white count decreased to 7 48-hours later and then has continued to increase. She had two sets of blood cultures that were negative on 06/09. Urine culture was negative. On 06/13, urine culture had yeast organism. CT of the abdomen and pelvis showed a mild right-sided hydronephrosis of the proximal ureter which was somewhat new with a fatty liver. Blood cultures on 06/13 were negative. Due to persistent urine leakage, patient was brought back to the ER and admitted on 07/11/20. Urologist Dr. del valle was consulted, and recommended jc placed in urostomy which decreased irritation of the area. lead generation specialist Dr. Jacob managed pt's wound care and stoma care during her stay. Wound in lower back grew:VRE, klebsiella, pseudomonas, E. coli, MRSA. she was kept on contact isolation, and received the following antibiotics during her hospital stay: 07/13/20-07/14/20 vancomycin managed by pharmacy, zyvox 07/28- 07/31/20 . 07/13/20-07/28/20-meropenem renally dosed. Her volume status and metabolic acidosis were managed with intermittentivfluids and increased sodium bicarbonate supplements managed by nephrology. She was debilitated and required 2 person maximum assistance, but improved and taken home by family who can provide 24/7 care. PHYSICAL EXAMINATION ON DISCHARGE: VITAL SIGNS: Please see below. GENERAL: AAOX3 NO DISTRESS HEENT:no jvd dry mm no thyromegaly CARDIOVASCULAR EXAMINATION: rrr s1s2 RESPIRATORY EXAMINATION: ctab no wheezing ABDOMINAL EXAMINATION: decreased erythema right ostomy. lower back wound stage 2 serous drainage no odor. no purulence. left hip stage 2 ulcer. decreased erythema b/l ue/le/chest/back/abd maculopapular rash. no vesicles or induration. EXTREMITIES:no edema . ACTIVITY: as toelrated with assisted ambulation and walker LABORATORY DATA: SEE BELOW IMAGING STUDIES/MICROBIOLOGY: SEE BELOW DISCHARGE CONDITION: stable TIME SPENT ON DISCHARGE: 30 minutes. Vital Signs/I&Os Vital Signs Date Time Temp Pulse Resp B/P (MAP) Pulse Ox O2 Delivery O2 Flow Rate FiO2 07/18/20 14:00 97.6 86 16 131/65 (87) 93 Room Air I&O- Last 24 Hours up to 6 AM 07/18/20 06:00 Intake Total 330 ml Output Total 500 ml Balance -170 ml Laboratory Data Labs 24H Laboratory Tests 2 07/17/20 20:53: Bedside Glucose (Misc Panel) 140H 07/18/20 05:39: Immature Granulocyte % (Auto) 2.4, Neutrophils (%) (Auto) 84.4H, Lymphocytes (%) (Auto) 8.2L, Monocytes (%) (Auto) 3.4, Eosinophils (%) (Auto) 1.0, Basophils (%) (Auto) 0.6, Neutrophils # (Auto) 11.2H, Lymphocytes # (Auto) 1.1L, Monocytes # (Auto) 0.5, Eosinophils # (Auto) 0.1, Basophils # (Auto) 0.1, Nucleated Red Blood Cells % (auto) 0.0, Anion Gap 7L, Glomerular Filtration Rate 32.1, Calcium Level 8.5L 07/18/20 11:26: Bedside Glucose (Misc Panel) 147H 07/18/20 16:30: Bedside Glucose (Misc Panel) 51L 07/18/20 17:33: Bedside Glucose (Misc Panel) 61L CBC/BMP Laboratory Tests 07/18/20 05:39 FSBS Laboratory Tests Test 07/17/20 20:53 07/18/20 11:26 07/18/20 16:30 07/18/20 17:33 Range/Units Bedside Glucose (Misc Panel) 140 147 51 61 83-110 MG/DL Microbiology Microbiology 07/13/20 Urine Culture - Final, Complete 07/13/20 Blood Culture - Final, Complete NO GROWTH AFTER 5 DAYS 07/13/20 Blood Culture - Final, Complete NO GROWTH AFTER 5 DAYS 07/11/20 Blood Culture - Final, Complete NO GROWTH AFTER 5 DAYS 07/11/20 Blood Culture - Final, Complete NO GROWTH AFTER 5 DAYS Discharge Medications Scheduled Atenolol (Atenolol) 25 Mg Tab, 25 MG PO QHS, (Reported) HOLD IF SBP<100 Atorvastatin Calcium (Atorvastatin Calcium) 40 Mg Tab, 40 MG PO QHS, (Reported) Carboxymethylcellulose Sodium (Refresh Tears) 0.5 % Pietro, 1 DROP OU QHS, (Reported) Cetirizine HCl (ZyrTEC) 10 Mg Capsule, 10 MG PO DAILY, (Reported) Cinnamon Bark (Cinnamon) 500 Mg Capsule, 1,000 MG PO BID, (Reported) Cranberry Conc/Ascorbic Acid (Cranberry Plus Vitamin C Sftgl) 1 Each Capsule, 1 CAP PO DAILY, (Reported) Ergocalciferol (Vitamin D2) (Vitamin D2) 50,000 Units Cap, 50,000 UNITS PO 1XWK, (Reported) WEDNESDAY MORNINGS Ferrous Sulfate (Ferrous Sulfate) 325 Mg Tab, 325 MG PO BID, (Reported) Insulin Detemir (Levemir) 1 Units/0.01 Ml Susp, 30 UNITS SC QHS, (Reported) Lactobacillus Acidophilus (Probiotic) 1 Each Capsule, 1 CAP PO DAILY, (Reported) Levothyroxine Sodium (Levothyroxine Sodium) 50 Mcg Tab, 50 MCG PO QAM, (Reported) Miconazole Nitrate (Micro-Guard) 85 Gm Powder, 0 DOSE TOP BID Multivitamins (Thera M Plus Tablet) 1 Tab Tab, 1 TAB PO DAILY, (Reported) [place]-3/Dha/Epa/Fish Oil (Fish Oil 500 mg Softgel) 500 Mg Cap, 500 MG PO DAILY, (Reported) Pantoprazole Sodium (Pantoprazole Sodium) 20 Mg Tab, 20 MG PO DAILY, (Reported) Sodium Bicarbonate (Sodium Bicarbonate) 325 Mg Tablet, 650 MG PO DAILY Scheduled PRN Acetaminophen (Acetaminophen) 500 Mg Tablet, 1,000 MG PO BID PRN for PAIN, (Reported) Docusate Sodium (Docusate Sodium) 100 Mg Cap, 100 MG PO BID PRN for CONSTIPATION, (Reported) Hydromorphone HCl (Hydromorphone HCl) 2 Mg Tablet, 1 MG PO Q6HP PRN for SEVERE PAIN Miscellaneous Medications [Patient Comment] , (Reported) COMPLETED USING EXTERNAL MED HISTORY AND DISCHARGE PAPERWORK FROM 06/22/2020 Allergies Coded Allergies: Penicillins (Verified Allergy, Intermediate, HIVES, 10/05/19) has received PCN PO as outpt in 2018 ciprofloxacin (Verified Allergy, Intermediate, HIVES, 10/05/19) fluconazole (Verified Allergy, Intermediate, HIVES, 10/05/19) iodine (Verified Allergy, Intermediate, HIVES, 10/05/19) erythromycin base (Verified Allergy, Unknown, 10/05/19) nitrofurantoin (Verified Allergy, Unknown, 10/05/19) rofecoxib (Verified Allergy, Unknown, 10/05/19) morphine (Verified Adverse Reaction, Mild, HYPOTENSION, 10/05/19) sulfamethoxazole (Verified Adverse Reaction, Mild, 10/05/19) listed as allergy due to renal function trimethoprim (Verified Adverse Reaction, Mild, 10/05/19) listed as allergy due to renal function SHEN JACQUES MD Jul 18, 2020 18:35
[2020-08-08] MEDS: HumaLOG INSULIN (NovoLOG) PER UNIT SC SCH ×2 (08:32→12:00)
[2020-08-08] MEDS: FIBER-CON 625 MG TAB PO SCH (08:40)
[2020-08-08] MEDS: MULTIVITAMINS/MINERALS THERAP 1 TAB PO SCH (08:40)
[2020-08-08] MEDS: PANTOPRAZOLE 20 MG TAB PO SCH (08:40)
[2020-08-08] MEDS: SODIUM BICARBONATE 325 MG TAB PO SCH (08:40)
[2020-08-08] MEDS: BETAMETHASONE DIP 0.05% OINT 15 GM TOP SCH (08:41)
--- NOTE | 2020-08-08 13:27 | IPN ---
INPATIENT PROGRESS NOTE DATE: 08/08/2020 SUBJECTIVE: Tammi is seen and examined this morning at the bedside. She reports 1 episode of mild diarrhea. She is discharge pending. PHYSICAL EXAMINATION: Vital signs: Temperature 98, pulse 90, respiratory rate 18, blood pressure 145/65, saturating 94-98% on room air. Intake yesterday was 1430, urine output yesterday was 1450. Weight on the bed scale today is not recorded. General: Patient is seen sitting up in bed, head of the bed elevated, elderly, frail female in good spirits, awake, alert, oriented times 3 and in no distress. HEENT: Extraocular muscles are intact. There is bitemporal wasting. Tongue is moist. Neck: Supple. Jugular veins are not elevated. Heart: Sounds are regular S1 and S2. There is absolutely no edema in the legs or in the dependent area. Lungs: Clear to auscultation bilaterally, no crackles or rales. She is comfortable on room air. Abdomen: Soft, there are bowel sounds. The right lower quadrant urostomy has dressings and there is a catheter to the urostomy draining clear urine. Musculoskeletal: There is marked muscle wasting. She moves all 4 extremities on command. There are no focal deficits. Neurologic: Oriented times 3, interactive, conversational and appear to be at baseline mentation. LABORATORY DATA: White count 10, hemoglobin 9, platelets 243. Sodium 143, potassium 4, bicarbonate 25, creatinine 1.2. INPATIENT MEDICATIONS: Reviewed by myself and no change from prior. PROBLEMS/PLAN: 1. CKD stage 3: Patient has had multiple mild acute kidney injuries in the recent past, but her renal function has recovered each time and actually her renal function is presently than it has been in the past which is also likely related to ongoing cachexia and muscle wasting. Her electrolytes and volume status are acceptable. She is tolerating oral intake. She is acceptable for discharge from a renal point of view with follow up in the office. 2. Anemia: Her hemoglobins are improving. She received 2 units of packed red blood cells on this admission. She was also started on Aranesp and we will continue that in the office on an as needed basis. 3. Metabolic acidosis: It has improved from prior. It was previously related to chronic kidney disease and also to diarrhea. I am cutting the sodium bicarbonate down to twice a day.
[2020-08-08] MEDS ORDERED: SODIUM BICARBONATE 325 MG TAB PO SCH (21:00)
[2020-08-09] MEDS ORDERED: DILA2TAB6 PO (07:03)
[2020-08-09] MEDS ORDERED: MICO2CRE42 TOP (07:09)
[2020-08-09] MEDS ORDERED: SODI650T PO (07:09)
== END 2020-08-08 15:00 | disposition home or self-care (01) | DRG 607 ==
LOC: EDBD 18:15 → M ED 18:15 → M ED INP 21:45 → ENRESERV 07-12 00:14 → M MS5PR 07-12 03:00 → M PCU 07-14 21:13 → M MS5PR 07-18 00:26
PROVIDERS: ADMIT General Practice; ATTEND General Practice
PROC: 30233N1 Transfusion of Nonautologous Red Blood Cells into Peripheral Vein, Percutaneous Approach (ICD-10-PCS; principal; 2020-07-13)
PROC: 05H933Z Insertion of Infusion Device into Right Brachial Vein, Percutaneous Approach (ICD-10-PCS; 2020-07-24)
DX: L24.89 Irritant contact dermatitis due to other agents (principal); I50.22 Chronic systolic (congestive) heart failure; E87.2 Acidosis; L98.498 Non-pressure chronic ulcer of skin of other sites with other specified severity; I13.0 Hypertensive heart and chronic kidney disease with heart failure and stage 1 through stage 4 chronic kidney disease, or unspecified chronic kidney disease; N18.30 Chronic kidney disease, stage 3 unspecified; E11.22 Type 2 diabetes mellitus with diabetic chronic kidney disease; R33.9 Retention of urine, unspecified; D50.9 Iron deficiency anemia, unspecified; N30.10 Interstitial cystitis (chronic) without hematuria; R32 Unspecified urinary incontinence; E78.5 Hyperlipidemia, unspecified; E03.9 Hypothyroidism, unspecified; E87.5 Hyperkalemia; D63.1 Anemia in chronic kidney disease; Z92.21 Personal history of antineoplastic chemotherapy; K76.0 Fatty (change of) liver, not elsewhere classified; Z96.642 Presence of left artificial hip joint; Z90.12 Acquired absence of left breast and nipple; Z86.73 Personal history of transient ischemic attack (TIA), and cerebral infarction without residual deficits; Z93.6 Other artificial openings of urinary tract status; Z85.3 Personal history of malignant neoplasm of breast; Z98.41 Cataract extraction status, right eye; Z98.42 Cataract extraction status, left eye; Z79.4 Long term (current) use of insulin; Z79.02 Long term (current) use of antithrombotics/antiplatelets; Z79.899 Other long term (current) drug therapy; Z88.0 Allergy status to penicillin; Z88.1 Allergy status to other antibiotic agents; Z88.2 Allergy status to sulfonamides; Z88.5 Allergy status to narcotic agent; Z88.8 Allergy status to other drugs, medicaments and biological substances; K21.9 Gastro-esophageal reflux disease without esophagitis; E86.0 Dehydration; Z98.1 Arthrodesis status; Z96.651 Presence of right artificial knee joint; N32.81 Overactive bladder; Z20.828 Contact with and (suspected) exposure to other viral communicable diseases; B96.5 Pseudomonas (aeruginosa) (mallei) (pseudomallei) as the cause of diseases classified elsewhere; B96.1 Klebsiella pneumoniae [K. pneumoniae] as the cause of diseases classified elsewhere; K59.00 Constipation, unspecified; B96.20 Unspecified Escherichia coli [E. coli] as the cause of diseases classified elsewhere; B95.62 Methicillin resistant Staphylococcus aureus infection as the cause of diseases classified elsewhere; L89.611 Pressure ulcer of right heel, stage 1; L27.0 Generalized skin eruption due to drugs and medicaments taken internally; T36.1X5A Adverse effect of cephalosporins and other beta-lactam antibiotics, initial encounter